=== PATIENT | female | born 1950 | race Caucasian/White ===

== ENCOUNTER 2018-10-01 14:40 | Emergency (ER) | payer MEDICARE ==
--- OUTSIDE RECORDS SUMMARY | 2018-10-01 14:43 | XMS REPORT ---
:1950 Author Organization eClinicalWorks Care Team Providers Name Role Phone Merritt Schulte Provider Role Unavailable Allergies, Adverse Reactions, Alerts Substance Reaction Event Type N.K.D.A. Info Not Available Non Drug Allergy Problems Problem Type Condition Code Onset Dates Condition Status Problem Dyspnea R06.00 Active Problem Sebaceous cyst L72.3 Active Problem Arthritis M19.90 Active Problem Primary osteoarthritis of right M17.11 Active knee Problem Pulmonary fibrosis J84.10 Active Problem Primary osteoarthritis of left knee M17.12 Active Problem COPD (chronic obstructive pulmonary J44.9 Active disease) Problem Benign essential HTN I10 Active Problem Osteoarthritis of both knees, M17.0 Active unspecified osteoarthritis type Problem Nicotine dependence F17.200 Active Assessment Primary osteoarthritis of right M17.11 Active knee Assessment Pain, joint, knee, left M25.562 Active Assessment Primary osteoarthritis of left knee M17.12 Active Problem Other chronic pain G89.29 Active Problem Pure hypercholesterolemia E78.00 Active Assessment Pain, joint, knee, right M25.561 Active Problem Vitamin D deficiency E55.9 Active Problem Skin lesion L98.9 Active Medications Medication Code Code Instructions Start End Status Dosage System Date Date Metoprolol [facility] 72712717892 50 MG Orally Active 1 tablet Tartrate Twice a day with food ProAir [facility] 67415954193 108 (90 Base) Active 2 puffs as RespiClick MCG/ACT needed Inhalation every 6 hrs Aspirin ND 27069613113 81 MG Orally Active 1 tablet Once a day NIFEdipine ND 55299721407 10 MG Orally Active 1 capsule Three times a day Lisinopril ND 67128065588 20 MG Orally Active 1 tablet Once a day Aleve ND 48102828615 220 MG Orally Active 1 tablet every 12 hrs with food or milk as needed Albuterol [facility] 82580227749 (2.5 MG/3ML) Active 3 ml as Sulfate 0.083% needed Inhalation Three times a day Symbicort ND 90832571600 160-4.5 MCG/ACT Active 2 puffs Inhalation Twice a day Results No Known Results Summary Purpose eClinicalWorks Submission
--- OUTSIDE RECORDS SUMMARY | 2018-10-01 14:44 | XMS REPORT ---
:1950 Author Organization e[employer]Works Care Team Providers Name Role Phone Sherman, Na Provider Role Unavailable Allergies No Known Allergies Problems Problem Type Condition Code Onset Dates Condition Status Problem Dyspnea R06.00 Active Problem Sebaceous cyst L72.3 Active Problem Arthritis M19.90 Active Problem Other chronic pain G89.29 Active Problem Pure hypercholesterolemia E78.00 Active Problem Vitamin D deficiency E55.9 Active Problem Skin lesion L98.9 Active Problem Primary osteoarthritis of right M17.11 Active knee Problem Pulmonary fibrosis J84.10 Active Problem Primary osteoarthritis of left knee M17.12 Active Problem COPD (chronic obstructive pulmonary J44.9 Active disease) Problem Benign essential HTN I10 Active Problem Osteoarthritis of both knees, M17.0 Active unspecified osteoarthritis type Problem Nicotine dependence F17.200 Active Medications No Known Medications Results No Known Results Summary Purpose eClinicalWorks Submission
--- OUTSIDE RECORDS SUMMARY | 2018-10-01 14:44 | XMS REPORT ---
[...] type Problem Nicotine dependence F17.200 Active Assessment Benign essential HTN I10 Active Problem Other chronic pain G89.29 Active Problem Pure hypercholesterolemia E78.00 Active Assessment COPD (chronic obstructive pulmonary J44.9 Active disease) Problem Vitamin D deficiency E55.9 Active Problem Skin lesion L98.9 Active Medications Medication Code Code Instructions Start End Status Dosage System Date Date NIFEdipine [facility] 40047790931 10 MG Orally Active 1 capsule Three times a day Symbicort [facility] 11330323825 160-4.5 MCG/ACT Active 2 puffs Inhalation Twice a day Lisinopril [facility] 89371200335 20 MG Orally Active 1 tablet Once a day ProAir [facility] 23842297117 108 (90 Base) Active 2 puffs as RespiClick MCG/ACT needed Inhalation every 6 hrs Results No Known Results Summary Purpose eClinicalWorks Submission
--- OUTSIDE RECORDS SUMMARY | 2018-10-01 14:44 | XMS REPORT ---
[...] osteoarthritis type Problem Nicotine dependence F17.200 Active Problem Other chronic pain G89.29 Active Problem Pure hypercholesterolemia E78.00 Active Assessment Benign essential HTN I10 Active Problem Vitamin D deficiency E55.9 Active Problem Skin lesion L98.9 Active Medications Medication Code Code Instructions Start End Status Dosage System Date Date Metoprolol [facility] 78597144068 50 MG Orally Active 1 tablet Tartrate Twice a day with food NIFEdipine ND 84685619303 10 MG Orally Active 1 capsule Three times a day Symbicort [facility] 89403589400 160-4.5 MCG/ACT Active 2 puffs Inhalation Twice a day Aleve ND 39131174312 220 MG Orally Active 1 tablet every 12 hrs with food or milk as needed Aspirin ND 55916322377 81 MG Orally Active 1 tablet Once a day Lisinopril [facility] 57982895115 20 MG Orally Active 1 tablet Once a day Procardia XL ND 27607833798 60 MG Orally Active 1 tablet Once a day ProAir [facility] 33929031303 108 (90 Base) Active 2 puffs as RespiClick MCG/ACT needed Inhalation every 6 hrs Albuterol ND 70529973961 (2.5 MG/3ML) Active 3 ml as Sulfate 0.083% needed Inhalation Three times a day Results No Known Results Summary Purpose eClinicalWorks Submission
--- OUTSIDE RECORDS SUMMARY | 2018-10-01 14:44 | XMS REPORT ---
:1950 Author Organization eClinicalWorks Care Team Providers Name Role Phone Sherman, Na Provider Role Unavailable Allergies, Adverse Reactions, Alerts Substance Reaction Event Type N.K.D.A. 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81 Active Problem Other chronic pain G89.29 Active Problem Arthritis M19.90 Active Assessment Other chronic pain G89.29 Active Problem Pure hypercholesterolemia E78.00 Active Problem Sebaceous cyst L72.3 Active Medications Medication Code Code Instructions Start End Status Dosage System Date Date Vitamin D3 [facility] 52930501411 - Orally Active not Complete defined Aspirin ND 03650297024 81 MG Orally Active 1 tablet Once a day Albuterol ND 35156539297 (2.5 MG/3ML) Active 3 ml as Sulfate 0.083% needed Inhalation Three times a day Lisinopril ND 75082524965 20 MG Orally Active 1 tablet Once a day Metoprolol ND 80796475741 50 MG Orally Active 1 tablet Tartrate Twice a day with food Symbicort ND 88820109903 160-4.5 MCG/ACT Mar 13, Active 2 puffs Inhalation Twice 2020 a day ProAir [facility] 57324421895 108 (90 Base) Active 2 puffs as RespiClick MCG/ACT needed Inhalation every 6 hrs Aleve [facility] 39575036712 220 MG Orally Active 1 tablet every 12 hrs with food or milk as needed Procardia XL [facility] 75676385813 60 MG Orally Active 1 tablet Once a day Results No Known Results Summary Purpose eClinicalWorks Submission
--- OUTSIDE RECORDS SUMMARY | 2018-10-01 14:44 | XMS REPORT | Summary of Care ---
:1950 Author Name HI GRAF M.D. Address Unavailable Unavailable , Care Team Providers Name Role Phone LESIA Christine, [place] Unavailable Unavailable MEYERS DO, NA LY Unavailable Unavailable LESIA [place], [place] Unavailable Unavailable DANIS [place], REILLY Cross Unavailable Unavailable Unavailable Unavailable Unavailable Functional Status Name Dates Details Functional status health issues are not documented Status: Name Dates Details Cognitive status health issues are not documented Status: Problems Name Dates Details Right hip pain (719.45, M25.551) Status: Active Closed fracture of trochanter of right femur with routine healing, subsequent encounter (V54.13, S72.101D) Status: Active Status post left hip replacement (V43.64, Z96.642) Status: Active Status post hip replacement, right (V43.64, Z96.641) Status: Active 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, 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) Status: Active 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, subsequent encounter ( V58.89, T84.52XD) Status: Active Draining postoperative wound, subsequent encounter (V58.89, T81.89XD) Status : Active Hip pain, left (719.45, M25.552) Status: Active Medications Name Dates Details NIFEdipine CR 60 MG TBCR Refills: 0 Active Lisinopril TABS Refills: 0 Active Metoprolol Succinate ER TB24 Refills: 0 Active Fish Oil OIL Refills: 0 Active Aspirin 81 MG TABS Refills: 0 Active Aleve 220 MG Oral Capsule Refills: 0 Active Vitamin D-3 5000 UNIT Oral Tablet Refills: 0 Active Multi Vitamin Daily Oral Tablet Refills: 0 Active Ventolin NEBU Refills: 0 Active PredniSONE TABS Refills: 0 Active Allergies and Adverse Reactions Name Dates Details No Known Drug Allergies (Allergy) Status: Active Past Medical History Name Dates Details History of Cancer (199.1, C80.1) Status: Resolved History of chronic obstructive lung disease (V12.69, Z87.09) Status: Resolved History of Hepatitis (573.3, K75.9) Status: Resolved History of High blood pressure (401.9, I10) Status: Resolved Procedures Procedure Dates Details Post Op Promis 29 Survey Date: 27-Aug-2018 Post Op Promis 29 Survey Date: 25-Sep-2018 History of Tubal Ligation Completed History of Fecal impaction procedure Completed History of Hip Replacement Right Completed History of Total Hip Replacement Left Completed Immunization Name Dates Details Immunizations not documented Family History Name Dates Details Family history of congestive heart failure (V17.49, Z82.49) Status: Active Family history of diabetes mellitus (V18.0, Z83.3) Status: Active Name Dates Details Family history of heart attack (V17.3, Z82.49) Status: Active Social History Name Dates Details - Status: Name Dates Details Former smoker Vital Signs Date Test Result Details [id number] Height 66 in Status: Body Mass Index Calculated 30.67 kg/m2 Status: Body Surface Area Calculated 1.96 m2 Status: Weight 190 lb Status: [id number]:13 Height 66 in Status: Body Mass Index Calculated 30.67 kg/m2 Status: Body Surface Area Calculated 1.96 m2 Status: Weight 190 lb Status: [id number] Height 66 in Status: Body Mass Index Calculated 30.67 kg/m2 Status: Body Surface Area Calculated 1.96 m2 Status: Weight 190 lb Status: Results Date Description Value Details Results not documented Plan of Care Name Dates Details Planned Observations Planned Goals not documented Planned Encounters Physical Therapy Referral Appointment; HI GRAF M.D. On: 30-Oct-2018 10:45 Interventions Provided PlanOverall improvement clinically. Wound continues to show evidence of progressive healing and no evidence of continued infection. Remainder of alban removed today and wound prepped and a Tegoderm applied to be removed in one week. Restart outpatient PT program and may wean off her walker. Lab values continue to decline as well and will monitor progress.RTC in 3 weeks. Instructions Name Dates Details Instructions not documented Encounters Appointment; HI GRAF M.D. On: 05-Jun-2018 13:30 Encounter Diagnosis: Problem not documented Appointment; HI GRAF M.D. On: 14-Jun-2018 9:00 Encounter Diagnosis: Problem not documented Appointment; HI GRAF M.D. On: 26-Jun-2018 14:45 Encounter Diagnosis: Problem not documented Appointment; HI GRAF M.D. On: 17-Jul-2018 14:30 Encounter Diagnosis: Problem not documented Appointment; HI GRAF M.D. On: 13-Aug-2018 13:00 Encounter Diagnosis: Problem not documented Appointment; TAYLOR HAMM NP On: 29-Aug-2018 10:45 Encounter Diagnosis: Problem not documented Appointment; HI GRAF M.D. On: 30-Aug-2018 13:00 Encounter Diagnosis: Problem not documented Appointment; HI GRAF M.D. On: 11-Sep-2018 10:30 Encounter Diagnosis: Problem not documented Appointment; HI GRAF M.D. On: 18-Sep-2018 10:45 Encounter Diagnosis: Problem not documented Appointment; HI GRAF M.D. On: 25-Sep-2018 10:30 Encounter Diagnosis: Problem not documented
--- OUTSIDE RECORDS SUMMARY | 2018-10-01 14:44 | XMS REPORT ---
:1950 [facility] Address [address] [place] [address] Care Team Providers Name Role Phone Unavailable Unavailable Unavailable Problems This patient has no known problems. Allergies, Adverse Reactions, Alerts This patient has no known allergies or adverse reactions. Medications This patient has no known medications. Encounters Start End Encounter Admission Attending Care Care Encounter Date/Time Date/Time Type Type Clinicians Facility Department ID 2018-08-30 Inpatient [facility] [id number] 09:07:00 2018-08-13 Inpatient [facility] [id number] 08:05:00 2018-06-14 [id number] 06:19:00 2018-08-30 2018-08-30 Outpatient [facility] [id number] 22:19:00 22:19:00 2018-08-30 2018-08-30 Emergency [facility] [id number] 09:07:00 09:07:00
[2018-10-01] MEDS ORDERED: ALTEPLASE 2 MG/VIAL IV PRN (15:39)
--- NOTE | 2018-10-01 15:55 | RAD REPORT ---
EXAM DESCRIPTION: RAD - Humerus Left - 10/01/2018 3:49 pm CLINICAL HISTORY: Left arm pain FINDINGS: No fracture is seen. No bony destructive lesion. PICC line is in place
--- NOTE | 2018-10-01 15:56 | RAD REPORT ---
EXAM DESCRIPTION: [place] Single View10/01/2018 3:49 pm CLINICAL HISTORY: Chest pain COMPARISON: March 2018 FINDINGS: The lungs appear clear of acute infiltrate. The heart is borderline enlarged. PICC line has its tip in the distal superior vena cava
[2018-10-01] MEDS ORDERED: ALTEPLASE 2 MG/VIAL IV ONE (16:00)
--- NOTE | 2018-10-01 17:13 | ER ---
Nurse's Notes [facility] Name: Indira Lovett Age: 68 yrs Sex: Female : 1950 Arrival Date: 10/01/2018 Time: 14:41 Bed 17 Private MD: Adriana Sherman Diagnosis: Encounter for adjustment and management of unspecified implanted device-obstructed PICC line Presentation: 10/01 14:43 Presenting complaint: Patient states: LUE PICC line clogged per home health. Transition aj of care: patient was not received from another setting of care. Onset of symptoms was October 01, 2018. Risk Assessment: Do you want to hurt yourself or someone else? Patient reports no desire to harm self or others. Initial Sepsis Screen: Does the patient meet any 2 criteria? No. Patient's initial sepsis screen is negative. Does the patient have a suspected source of infection? No. Patient's initial sepsis screen is negative. Care prior to arrival: None. 14:43 Method Of Arrival: Ambulatory aj 14:43 Acuity: DONNIE 4 aj Triage Assessment: 14:43 General: Appears in no apparent distress. comfortable, Behavior is calm, cooperative, aj appropriate for age. Pain: Denies pain. Neuro: Level of Consciousness is awake, alert, obeys commands, Oriented to person, place, time, situation, Appropriate for age. Respiratory: Airway is patent Respiratory effort is even, unlabored, Respiratory pattern is regular, symmetrical. Derm: Skin is intact, is healthy with good turgor, Skin is pink, warm \T\ dry. normal. Historical: - Allergies: 14:48 No Known Allergies; aj - Immunization history:: Adult Immunizations up to date. - Social history:: Smoking status: Patient/guardian denies using tobacco. - Ebola Screening: : Patient negative for fever greater than or equal to 101.5 degrees Fahrenheit, and additional compatible Ebola Virus Disease symptoms Patient denies exposure to infectious person Patient denies travel to an Ebola-affected area in the 21 days before illness onset No symptoms or risks identified at this time. Screenin:34 Abuse screen: Denies threats or abuse. Denies injuries from another. Nutritional sg screening: No deficits noted. Tuberculosis screening: No symptoms or risk factors identified. Never had TB. Fall Risk None identified. Assessment: 15:33 Reassessment: xray at bedside at this time. sg 15:43 General: Appears in no apparent distress. well groomed, well developed, well nourished, sg Behavior is calm, cooperative, appropriate for age. Pain: Denies pain. Neuro: Level of Consciousness is awake, alert, obeys commands, Oriented to person, place, time, Director Search are equal bilaterally Moves all extremities. Full function Gait is steady, Speech is normal, Facial symmetry appears normal. Cardiovascular: Capillary refill is brisk in bilateral fingers Patient's skin is warm and dry. Chest pain is denied. Respiratory: Airway is patent Respiratory effort is even, unlabored, Respiratory pattern is regular, symmetrical. GI: Abdomen is round non-distended. : No signs and/or symptoms were reported regarding the genitourinary system. EENT: No signs and/or symptoms were reported regarding the EENT system. Derm: Skin is pink, warm \T\ dry. Musculoskeletal: No signs and/or symptoms reported regarding the musculoskeletal system. 17:00 Reassessment: 10 mL removed from purple port, flushed purple port with 20 mL NS easy sg with no resistance. 10 mL removed from red port, flushed red port with 20 mL of NS easy with no resistance, pt tolerated well, pt to be dc'd to home. Vital Signs: 14:48 BP 177 / 56; Pulse 95; Resp 19; Temp 98.8; Pulse Ox 93% on R/A; Weight 90.72 kg; Height aj 5 ft. 4 in. (162.56 cm); 14:48 Body Mass Index 34.33 (90.72 kg, 162.56 cm) ED Course: 14:41 Patient arrived in ED. cl3 14:43 Triage completed. aj 14:43 Arm band placed on left wrist. Patient placed in an exam room. aj 14:44 Adriana Sherman MD is Private Physician. cl3 14:52 Ariel Sanford, ANISA is Primary Nurse. sg 15:18 Mirza Tran PA is PHCP. cp 15:18 Mirza Lindsay MD is Attending Physician. cp 15:33 Patient has correct armband on for positive identification. sg 15:33 No provider procedures requiring assistance completed. sg 15:49 XRAY Chest (1 view) In Process Unspecified. EDMS 15:49 XRAY Humerus LEFT In Process Unspecified. EDMS Administered Medications: 16:15 Drug: Cathflo Activase 2 mg Route: IV Thrombolytics; sg 17:00 Follow up: Response: No adverse reaction; Other; Bilateral ports working at this time sg Intake: Outcome: 17:12 Discharge ordered by MD. cp 17:15 Discharged to home ambulatory, with family. sg 17:15 Condition: good 17:15 Instructed on discharge instructions, follow up and referral plans. safety practices, PICC line care at home Demonstrated understanding of instructions, follow-up care. 17:18 Patient left the ED. bd Signatures: Dispatcher [employer] EDMS Yuni Cervantes Steven, RN RN sg Myers, Amanda, RN RN aj Page, Corey, PA PA cp Lewis, Charde cl3
--- NOTE | 2018-10-01 17:14 | EDPHYS ---
Physician Documentation [facility] Name: Indira Lovett Age: 68 yrs Sex: Female : 1950 Arrival Date: 10/01/2018 Time: 14:41 Bed 17 Private MD: Adriana Sherman ED Physician Mirza Lindsay HPI: 10/01 15:45 This 68 yrs old Female presents to ER via Ambulatory with complaints of cp CLOGGED PICCLINE. 15:45 obstructed PICC line. Referred to ED by home health today after antibiotics were unable cp to be given due obstructed PICC line. 15:45 Onset: The symptoms/episode began/occurred today. cp 15:45 Severity of symptoms: in the emergency department the symptoms are unchanged despite cp home interventions. Historical: - Allergies: 14:48 No Known Allergies; aj - Immunization history:: Adult Immunizations up to date. - Social history:: Smoking status: Patient/guardian denies using tobacco. - Ebola Screening: : Patient negative for fever greater than or equal to 101.5 degrees Fahrenheit, and additional compatible Ebola Virus Disease symptoms Patient denies exposure to infectious person Patient denies travel to an Ebola-affected area in the 21 days before illness onset No symptoms or risks identified at this time. ROS: 15:50 Constitutional: Negative for body aches, chills, fever, poor PO intake. cp 15:50 Cardiovascular: Negative for chest pain. cp 15:50 Respiratory: Negative for cough, shortness of breath, wheezing. 15:50 Abdomen/GI: Negative for abdominal pain, nausea, vomiting, and diarrhea. 15:50 Skin: Negative for rash. 15:50 Neuro: Negative for altered mental status, headache. 15:50 All other systems are negative. Exam: 16:00 Head/Face: Normocephalic, atraumatic. cp 16:00 Constitutional: The patient appears in no acute distress, alert, awake, non-toxic, well developed, well nourished. 16:00 Eyes: Periorbital structures: appear normal, Conjunctiva: normal, Lids and lashes: appear normal, bilaterally. 16:00 Chest/axilla: Inspection: normal. 16:00 Cardiovascular: Rate: normal. 16:00 Respiratory: the patient does not display signs of respiratory distress, Respirations: normal, no use of accessory muscles, no retractions, no splinting, no tachypnea, labored breathing, is not present. 16:00 Musculoskeletal/extremity: Extremities: grossly normal except: noted in the left upper arm: double lumen catheter in place without swelling or erythema noted. 16:00 Skin: no rash present. Vital Signs: 14:48 BP 177 / 56; Pulse 95; Resp 19; Temp 98.8; Pulse Ox 93% on R/A; Weight 90.72 kg; Height aj 5 ft. 4 in. (162.56 cm); 14:48 Body Mass Index 34.33 (90.72 kg, 162.56 cm) aj MDM: 15:19 Patient medically screened. [facility] 17:00 Differential Diagnosis obstructed catheter, dislodged catheter. 17:11 Data reviewed: vital signs, nurses notes, radiologic studies, plain films, and as a cp result, I will discharge patient. 17:11 Counseling: I had a detailed discussion with the patient and/or guardian regarding: the cp historical points, exam findings, and any diagnostic results supporting the discharge/admit diagnosis, radiology results, to return to the emergency department if symptoms worsen or persist or if there are any questions or concerns that arise at home. Response to treatment: the patient's symptoms have markedly improved after treatment, VSS. Cathflow used to un obstruct PICC line. Will discharge to home for continued monitoring. 10/01 15:24 Order name: XRAY Chest (1 view); Complete Time: 17:19 10/01 17:16 Interpretation: Report review. 10/01 15:24 Order name: XRAY Humerus LEFT; Complete Time: 17:19 10/01 17:16 Interpretation: Report reviewed. Administered Medications: 16:15 Drug: Cathflo Activase 2 mg Route: IV Thrombolytics; sg 17:00 Follow up: Response: No adverse reaction; Other; Bilateral ports working at this time sg Disposition: 17:30 Chart complete. 10/02 07:46 Co-signature as Attending Physician, Mirza Lindsay MD I agree with the assessment and [facility] plan of care. Disposition: 10/01/18 17:12 Discharged to Home. Impression: Encounter for adjustment and management of unspecified implanted device - obstructed PICC line. - Condition is Stable. - Discharge Instructions: PICC Home Guide, PICC Insertion, Care After. - Medication Reconciliation Form, Thank You Letter, Antibiotic Education, Prescription Opioid Use form. - Follow up: Private Physician; When: 1 - 2 days; Reason: Recheck today's complaints. - Problem is new. - Symptoms have improved. Signatures: Dispatcher [employer] EDMS Yuni Cervantes Ariel Gaitan RN Claudette Melissa RN RN aj Anderson, Corey, MD MD cha Page, Corey, PA PA cp Corrections: (The following items were deleted from the chart) 10/01 17:18 17:12 10/01/2018 17:12 Discharged to Home. Impression: Encounter for adjustment and bd management of unspecified implanted device - obstructed PICC line. Condition is Stable. Forms are Medication Reconciliation Form, Thank You Letter, Antibiotic Education, Prescription Opioid Use. Follow up: Private Physician; When: 1 - 2 days; Reason: Recheck today's complaints. Problem is new. Symptoms have improved. cp
== END 2018-10-01 17:18 | disposition home or self-care (01) ==
LOC: ER 14:40
DX: Z45.2 Encounter for adjustment and management of vascular access device (principal)
CPT/HCPCS: 92977; 71045; 73060; 99291; J2997

== ENCOUNTER 2021-12-21 05:29 | Inpatient (IN) | payer MEDICARE ==
--- OUTSIDE RECORDS SUMMARY | 2021-12-21 05:34 | XMS REPORT | Continuity of Care Document ---
:1950 Author Organization [facility] t Address [address] [place] [address] [address]. [address] [place] [address] Care Team Providers Name Role Phone Adriana Sherman Attending Clinician Unavailable BETZAIDA_S Attending Clinician Unavailable HI GRAF M.D. Attending Clinician Unavailable TAYLOR HAMM NP Attending Clinician Unavailable Adriana Sherman Admitting Clinician Unavailable BETZAIDA_Tirso Admitting Clinician Unavailable Payers Payer Name Policy Type Policy Number Effective Date Expiration Date S steve [facility] [id number] 2021 (MEDICARE 00:00:00 REPLACEMENT HMO) AARP Medicare 53 [id number] 2018 Common Complete 00:00:00 [facility] Problems Condition Condition Condition Status Onset Resolution Last Treating Co mments Source Name Details Category Date Date Treatment Clinician Date History of History of Problem Resolve [facility] Cancer Cancer d Physici ans History of History of Problem Resolve [facility] chronic chronic d Physici obstructiv obstructiv an s e lung e lung disease disease History of History of Problem Resolve UT Hepatitis Hepatitis d Phys ici ans History of History of Problem Resolve UT High blood High blood d Ph ysici pressure pressure ans Osteoarthr Osteoarthr Problem Active U T itis of itis of Physici both hips both hips ans 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 Hip pain, Hip pain, Problem Active UT left left Physici ans Closed Closed Problem Active UT fracture fracture Physic i of of ans trochanter trochanter of right of right femur with femur with routine routine healing, healing, subsequent subsequent encounter encounter Draining Draining Problem Active UT postoperat postoperat Ph ysici nate wound, nate wound, an s subsequent subsequent encounter encounter Infection Infection Problem Active UT associated associated Ph ysici with with ans internal internal left hip left hip prosthesis prosthesis , , subsequent subsequent encounter encounter [id number] Uncontroll Problem Co mmon ed type 2 [facility] diabetes - [facility] mellitus [facility] hyperglyce [facility] [id number] Other Problem Common chronic [facility] pain [facility] [id number] Vitamin D Problem Comm on deficiency [facility] [id number] Pure Problem Common hyperchole [facility] sterolemia [facility] Arthritis Arthritis Problem Com mon [facility] Dyspnea Dyspnea Problem Common [facility] Essential Benign Problem Common hypertensi essential Spi rit on HTN [facility] Sebaceous Sebaceous Problem Com mon cyst cyst [facility] Nicotine Nicotine Problem Commo n dependence [facility] Osteoarth[facility] Problem C ommon itis of itis of [facility] knee [facility], [facility] type [id number] Pulmonary Problem Comm on fibrosis [facility] Gastroesop Gastroesop Problem C omemory [facility] hageal hageal [facility] reflux reflux - [facility], [facility] specified Skin Skin Problem Common lesion lesion [facility] COPD - COPD Problem Common Chronic (chronic Spirit obstructiv obstructiv - [facility] e e pulmonary pulmonary [place] s disease disease) [facility] [place] [id number] Primary Problem Comm on osteoarthr Spirit itis of - [facility] right knee [facility] [id number] Primary Problem Comm on osteoarthr Spirit itis of - [facility] left knee [facility] [id number] Unsteady Problem Comm on gait [facility] [id number] Status Problem Common post Spirit bilateral - [facility] hip [facility] Allergies, Adverse Reactions, Alerts This patient has no known allergies or adverse reactions. Family History Family Member Diagnosis Comments Start Date Stop Date Source Mother Family history of [facility] congestive heart failure Mother Family history of diabetes [facility] mellitus Father Family history of heart [facility] attack Social History Social Habit Start Date Stop Date Quantity Comments Source History of Tobacco Use Co mmon [facility] Sex Assigned At [facility] Smoking Status Start Date Stop Date Source Former Smoker 2021-12-01 00:00:00 2021-12-01 00:00:00 Common S [facility] Medications Ordered Filled Start Stop Current Ordering Indication Dosage Frequency Signature Comments Components Source Medication Medication Date Date Medication? Clinician (SIG) Name Name Dean Hidalgotati No 1{table QD Atorvastat n Calcium n Calcium 3-02 t_at_be in Calcium 20 MG 20 MG 00:00: dtime} 20 MG 00 metFORMIN metFORMIN No 1{table BID metFORMIN HCl 1000 MG HCl 1000 MG 3-02 t_with_ HCl 1000 00:00: a_meal} MG 00 Atorvastati Atorvastati No 1{table QD Atorvastat n Calcium n Calcium 3-02 t_at_be in Calcium 20 MG 20 MG 00:00: dtime} 20 MG 00 metFORMIN metFORMIN No 1{table BID metFORMIN HCl 1000 MG HCl 1000 MG 3-02 t_with_ HCl 1000 00:00: a_meal} MG 00 Atorvastati Atorvastati No 1{table QD Atorvastat n Calcium n Calcium 3-02 t_at_be in Calcium 20 MG 20 MG 00:00: dtime} 20 MG 00 metFORMIN metFORMIN No 1{table BID metFORMIN HCl 1000 MG HCl 1000 MG 3-02 t_with_ HCl 1000 00:00: a_meal} MG 00 Atorvastati Atorvastati No 1{table QD Atorvastat n Calcium n Calcium 3-02 t_at_be in Calcium 20 MG 20 MG 00:00: dtime} 20 MG 00 metFORMIN metFORMIN No 1{table BID metFORMIN HCl 1000 MG HCl 1000 MG 3-02 t_with_ HCl 1000 00:00: a_meal} MG 00 Procardia Procardia Yes Na Sherman 1 tablet Common XL XL [facility] ProAir ProAir No 2{puffs QID ProAir RespiClick RespiClick _as_nee RespiClick 108 (90 108 (90 ded} 108 (90 Base) Base) Base) MCG/ACT MCG/ACT MCG/ACT Lisinopril Lisinopril No 1{table QD Lisinopril 30 MG 30 MG t} 30 MG Procardia Procardia No 1{table Procardia XL 90 MG XL 90 MG t} XL 90 MG NIFEdipine NIFEdipine No QD NIFEdipine ER Osmotic ER Osmotic ER Osmotic Release 90 Release 90 Release 90 MG MG MG Metoprolol Metoprolol No 1{table BID Metoprolol Tartrate 50 Tartrate 50 t_with_ Tartrate MG MG food} 50 MG Albuterol Albuterol No 3{ml_as TID Albuterol Sulfate Sulfate _needed Sulfate (2.5 (2.5 } (2.5 MG/3ML) MG/3ML) MG/3ML) 0.083% 0.083% 0.083% Lisinopril Lisinopril No QD Lisinopril 20 MG 20 MG 20 MG Aspirin 81 Aspirin 81 No 1{table QD Aspirin 81 MG MG t} MG Levaquin Levaquin No 1{table QD Levaquin 500 MG 500 MG t} 500 MG Diclofenac Diclofenac No 1{table BID Diclofenac Sodium 75 Sodium 75 t} Sodium 75 MG MG MG Trelegy Trelegy No 1{puff} QD Trelegy Ellipta Ellipta Ellipta 100-62.5-25 100-62.5-25 100-62.5-2 MCG/INH MCG/INH 5 MCG/INH ProAir ProAir No 2{puffs QID ProAir RespiClick RespiClick _as_nee RespiClick 108 (90 108 (90 ded} 108 (90 Base) Base) Base) MCG/ACT MCG/ACT MCG/ACT Lisinopril Lisinopril No 1{table QD Lisinopril 30 MG 30 MG t} 30 MG Procardia Procardia No 1{table Procardia XL 90 MG XL 90 MG t} XL 90 MG NIFEdipine NIFEdipine No QD NIFEdipine ER Osmotic ER Osmotic ER Osmotic Release 90 Release 90 Release 90 MG MG MG Metoprolol Metoprolol No 1{table BID Metoprolol Tartrate 50 Tartrate 50 t_with_ Tartrate MG MG food} 50 MG Albuterol Albuterol No 3{ml_as TID Albuterol Sulfate Sulfate _needed Sulfate (2.5 (2.5 } (2.5 MG/3ML) MG/3ML) MG/3ML) 0.083% 0.083% 0.083% Lisinopril Lisinopril No QD Lisinopril 20 MG 20 MG 20 MG Aspirin 81 Aspirin 81 No 1{table QD Aspirin 81 MG MG t} MG Levaquin Levaquin No 1{table QD Levaquin 500 MG 500 MG t} 500 MG Diclofenac Diclofenac No 1{table BID Diclofenac Sodium 75 Sodium 75 t} Sodium 75 MG MG MG Trelegy Trelegy No 1{puff} QD Trelegy Ellipta Ellipta Ellipta 100-62.5-25 100-62.5-25 100-62.5-2 MCG/INH MCG/INH 5 MCG/INH Lisinopril Lisinopril No QD Lisinopril 20 MG 20 MG 20 MG Procardia Procardia No 1{table Procardia XL 90 MG XL 90 MG t} XL 90 MG NIFEdipine NIFEdipine No QD NIFEdipine ER Osmotic ER Osmotic ER Osmotic Release 90 Release 90 Release 90 MG MG MG Metoprolol Metoprolol No 1{table BID Metoprolol Tartrate 50 Tartrate 50 t_with_ Tartrate MG MG food} 50 MG Albuterol Albuterol No 3{ml_as TID Albuterol Sulfate Sulfate _needed Sulfate (2.5 (2.5 } (2.5 MG/3ML) MG/3ML) MG/3ML) 0.083% 0.083% 0.083% Diclofenac Diclofenac No 1{table BID Diclofenac Sodium 75 Sodium 75 t} Sodium 75 MG MG MG Trelegy Trelegy No 1{puff} QD Trelegy Ellipta Ellipta Ellipta 100-62.5-25 100-62.5-25 100-62.5-2 MCG/INH MCG/INH 5 MCG/INH ProAir ProAir No 2{puffs QID ProAir RespiClick RespiClick _as_nee RespiClick 108 (90 108 (90 ded} 108 (90 Base) Base) Base) MCG/ACT MCG/ACT MCG/ACT Aspirin 81 Aspirin 81 No 1{table QD Aspirin 81 MG MG t} MG Levaquin Levaquin No 1{table QD Levaquin 500 MG 500 MG t} 500 MG Lisinopril Lisinopril No Lisinopril 30 MG 30 MG 30 MG Albuterol Albuterol No 3{ml_as TID Albuterol Sulfate Sulfate _needed Sulfate (2.5 (2.5 } (2.5 MG/3ML) MG/3ML) MG/3ML) 0.083% 0.083% 0.083% Diclofenac Diclofenac No 1{table BID Diclofenac Sodium 75 Sodium 75 t} Sodium 75 MG MG MG NIFEdipine NIFEdipine No QD NIFEdipine ER Osmotic ER Osmotic ER Osmotic Release 90 Release 90 Release 90 MG MG MG Procardia Procardia No 1{table Procardia XL 90 MG XL 90 MG t} XL 90 MG Aspirin 81 Aspirin 81 No 1{table QD Aspirin 81 MG MG t} MG Levaquin Levaquin No 1{table QD Levaquin 500 MG 500 MG t} 500 MG Lisinopril Lisinopril No QD Lisinopril 20 MG 20 MG 20 MG Trelegy Trelegy No 1{puff} QD Trelegy Ellipta Ellipta Ellipta 100-62.5-25 100-62.5-25 100-62.5-2 MCG/INH MCG/INH 5 MCG/INH Metoprolol Metoprolol No 1{table BID Metoprolol Tartrate 50 Tartrate 50 t_with_ Tartrate MG MG food} 50 MG ProAir ProAir No 2{puffs QID ProAir RespiClick RespiClick _as_nee RespiClick 108 (90 108 (90 ded} 108 (90 Base) Base) Base) MCG/ACT MCG/ACT MCG/ACT Lisinopril Lisinopril No Lisinopril 30 MG 30 MG 30 MG Trelegy Trelegy No 1{puff} QD Trelegy Ellipta Ellipta Ellipta 100-62.5-25 100-62.5-25 100-62.5-2 MCG/INH MCG/INH 5 MCG/INH Lisinopril Lisinopril No 1{table QD Lisinopril 20 MG 20 MG t} 20 MG Lisinopril Lisinopril No QD Lisinopril 20 MG 20 MG 20 MG Procardia Procardia No 1{table Procardia XL 90 MG XL 90 MG t} XL 90 MG Aspirin 81 Aspirin 81 No 1{table QD Aspirin 81 MG MG t} MG Albuterol Albuterol No 3{ml_as TID Albuterol Sulfate Sulfate _needed Sulfate (2.5 (2.5 } (2.5 MG/3ML) MG/3ML) MG/3ML) 0.083% 0.083% 0.083% Atorvastati Atorvastati No 1{table QD Atorvastat n Calcium n Calcium t_at_be in Calcium 20 MG 20 MG dtime} 20 MG ProAir ProAir No 2{puffs QID ProAir RespiClick RespiClick _as_nee RespiClick 108 (90 108 (90 ded} 108 (90 Base) Base) Base) MCG/ACT MCG/ACT MCG/ACT NIFEdipine NIFEdipine No QD NIFEdipine ER Osmotic ER Osmotic ER Osmotic Release 90 Release 90 Release 90 MG MG MG metFORMIN metFORMIN No BID metFORMIN HCl 1000 MG HCl 1000 MG HCl 1000 MG Metoprolol Metoprolol No 1{table BID Metoprolol Tartrate 50 Tartrate 50 t_with_ Tartrate MG MG food} 50 MG metFORMIN metFORMIN No BID metFORMIN HCl 1000 MG HCl 1000 MG HCl 1000 MG Trelegy Trelegy No 1{puff} QD Trelegy Ellipta Ellipta Ellipta 100-62.5-25 100-62.5-25 100-62.5-2 MCG/INH MCG/INH 5 MCG/INH Lisinopril Lisinopril No 1{table QD Lisinopril 20 MG 20 MG t} 20 MG Procardia Procardia No 1{table Procardia XL 90 MG XL 90 MG t} XL 90 MG Metoprolol Metoprolol No Metoprolol Tartrate 50 Tartrate 50 Tartrate MG MG 50 MG Aspirin 81 Aspirin 81 No 1{table QD Aspirin 81 MG MG t} MG Albuterol Albuterol No 3{ml_as TID Albuterol Sulfate Sulfate _needed Sulfate (2.5 (2.5 } (2.5 MG/3ML) MG/3ML) MG/3ML) 0.083% 0.083% 0.083% Atorvastati Atorvastati No 1{table QD Atorvastat n Calcium n Calcium t_at_be in Calcium 20 MG 20 MG dtime} 20 MG ProAir ProAir No 2{puffs QID ProAir RespiClick RespiClick _as_nee RespiClick 108 (90 108 (90 ded} 108 (90 Base) Base) Base) MCG/ACT MCG/ACT MCG/ACT Lisinopril Lisinopril No QD Lisinopril 20 MG 20 MG 20 MG metFORMIN metFORMIN No BID metFORMIN HCl 1000 MG HCl 1000 MG HCl 1000 MG NIFEdipine NIFEdipine No NIFEdipine ER Osmotic ER Osmotic ER Osmotic Release 90 Release 90 Release 90 MG MG MG metFORMIN metFORMIN No BID metFORMIN HCl 1000 MG HCl 1000 MG HCl 1000 MG Trelegy Trelegy No 1{puff} QD Trelegy Ellipta Ellipta Ellipta 100-62.5-25 100-62.5-25 100-62.5-2 MCG/INH MCG/INH 5 MCG/INH Lisinopril Lisinopril No 1{table QD Lisinopril 20 MG 20 MG t} 20 MG Procardia Procardia No 1{table Procardia XL 90 MG XL 90 MG t} XL 90 MG Metoprolol Metoprolol No Metoprolol Tartrate 50 Tartrate 50 Tartrate MG MG 50 MG Aspirin 81 Aspirin 81 No 1{table QD Aspirin 81 MG MG t} MG Albuterol Albuterol No 3{ml_as TID Albuterol Sulfate Sulfate _needed Sulfate (2.5 (2.5 } (2.5 MG/3ML) MG/3ML) MG/3ML) 0.083% 0.083% 0.083% Atorvastati Atorvastati No 1{table QD Atorvastat n Calcium n Calcium t_at_be in Calcium 20 MG 20 MG dtime} 20 MG ProAir ProAir No 2{puffs QID ProAir RespiClick RespiClick _as_nee RespiClick 108 (90 108 (90 ded} 108 (90 Base) Base) Base) MCG/ACT MCG/ACT MCG/ACT Lisinopril Lisinopril No QD Lisinopril 20 MG 20 MG 20 MG metFORMIN metFORMIN No BID metFORMIN HCl 1000 MG HCl 1000 MG HCl 1000 MG NIFEdipine NIFEdipine No NIFEdipine ER Osmotic ER Osmotic ER Osmotic Release 90 Release 90 Release 90 MG MG MG metFORMIN metFORMIN No BID metFORMIN HCl 1000 MG HCl 1000 MG HCl 1000 MG Trelegy Trelegy No 1{puff} QD Trelegy Ellipta Ellipta Ellipta 100-62.5-25 100-62.5-25 100-62.5-2 MCG/INH MCG/INH 5 MCG/INH Lisinopril Lisinopril No 1{table QD Lisinopril 20 MG 20 MG t} 20 MG Procardia Procardia No 1{table Procardia XL 90 MG XL 90 MG t} XL 90 MG Metoprolol Metoprolol No Metoprolol Tartrate 50 Tartrate 50 Tartrate MG MG 50 MG Aspirin 81 Aspirin 81 No 1{table QD Aspirin 81 MG MG t} MG Albuterol Albuterol No 3{ml_as TID Albuterol Sulfate Sulfate _needed Sulfate (2.5 (2.5 } (2.5 MG/3ML) MG/3ML) MG/3ML) 0.083% 0.083% 0.083% Atorvastati Atorvastati No 1{table QD Atorvastat n Calcium n Calcium t_at_be in Calcium 20 MG 20 MG dtime} 20 MG ProAir ProAir No 2{puffs QID ProAir RespiClick RespiClick _as_nee RespiClick 108 (90 108 (90 ded} 108 (90 Base) Base) Base) MCG/ACT MCG/ACT MCG/ACT Lisinopril Lisinopril No QD Lisinopril 20 MG 20 MG 20 MG metFORMIN metFORMIN No BID metFORMIN HCl 1000 MG HCl 1000 MG HCl 1000 MG NIFEdipine NIFEdipine No NIFEdipine ER Osmotic ER Osmotic ER Osmotic Release 90 Release 90 Release 90 MG MG MG metFORMIN metFORMIN No BID metFORMIN HCl 1000 MG HCl 1000 MG HCl 1000 MG Atorvastati Atorvastati No 1{table QD Atorvastat n Calcium n Calcium t_at_be in Calcium 20 MG 20 MG dtime} 20 MG metFORMIN metFORMIN No BID metFORMIN HCl 1000 MG HCl 1000 MG HCl 1000 MG Trelegy Trelegy No 1{puff} QD Trelegy Ellipta Ellipta Ellipta 100-62.5-25 100-62.5-25 100-62.5-2 MCG/INH MCG/INH 5 MCG/INH Metoprolol Metoprolol No Metoprolol Tartrate 50 Tartrate 50 Tartrate MG MG 50 MG NIFEdipine NIFEdipine No NIFEdipine ER Osmotic ER Osmotic ER Osmotic Release 90 Release 90 Release 90 MG MG MG Aspirin 81 Aspirin 81 No 1{table QD Aspirin 81 MG MG t} MG Lisinopril Lisinopril No QD Lisinopril 20 MG 20 MG 20 MG Metoprolol Metoprolol No 1{table BID Metoprolol Tartrate 50 Tartrate 50 t_with_ Tartrate MG MG food} 50 MG Albuterol Albuterol No 3{ml_as TID Albuterol Sulfate Sulfate _needed Sulfate (2.5 (2.5 } (2.5 MG/3ML) MG/3ML) MG/3ML) 0.083% 0.083% 0.083% Lisinopril Lisinopril No 1{table QD Lisinopril 20 MG 20 MG t} 20 MG ProAir ProAir No 2{puffs QID ProAir RespiClick RespiClick _as_nee RespiClick 108 (90 108 (90 ded} 108 (90 Base) Base) Base) MCG/ACT MCG/ACT MCG/ACT metFORMIN metFORMIN No BID metFORMIN HCl 1000 MG HCl 1000 MG HCl 1000 MG Procardia Procardia No 1{table Procardia XL 90 MG XL 90 MG t} XL 90 MG Atorvastati Atorvastati No 1{table QD Atorvastat n Calcium n Calcium t_at_be in Calcium 20 MG 20 MG dtime} 20 MG metFORMIN metFORMIN No BID metFORMIN HCl 1000 MG HCl 1000 MG HCl 1000 MG Trelegy Trelegy No 1{puff} QD Trelegy Ellipta Ellipta Ellipta 100-62.5-25 100-62.5-25 100-62.5-2 MCG/INH MCG/INH 5 MCG/INH Metoprolol Metoprolol No Metoprolol Tartrate 50 Tartrate 50 Tartrate MG MG 50 MG NIFEdipine NIFEdipine No NIFEdipine ER Osmotic ER Osmotic ER Osmotic Release 90 Release 90 Release 90 MG MG MG Aspirin 81 Aspirin 81 No 1{table QD Aspirin 81 MG MG t} MG Lisinopril Lisinopril No QD Lisinopril 20 MG 20 MG 20 MG Metoprolol Metoprolol No 1{table BID Metoprolol Tartrate 50 Tartrate 50 t_with_ Tartrate MG MG food} 50 MG Albuterol Albuterol No 3{ml_as TID Albuterol Sulfate Sulfate _needed Sulfate (2.5 (2.5 } (2.5 MG/3ML) MG/3ML) MG/3ML) 0.083% 0.083% 0.083% Lisinopril Lisinopril No 1{table QD Lisinopril 20 MG 20 MG t} 20 MG ProAir ProAir No 2{puffs QID ProAir RespiClick RespiClick _as_nee RespiClick 108 (90 108 (90 ded} 108 (90 Base) Base) Base) MCG/ACT MCG/ACT MCG/ACT metFORMIN metFORMIN No BID metFORMIN HCl 1000 MG HCl 1000 MG HCl 1000 MG Procardia Procardia No 1{table Procardia XL 90 MG XL 90 MG t} XL 90 MG Atorvastati Atorvastati No 1{table QD Atorvastat n Calcium n Calcium t_at_be in Calcium 20 MG 20 MG dtime} 20 MG metFORMIN metFORMIN No BID metFORMIN HCl 1000 MG HCl 1000 MG HCl 1000 MG Trelegy Trelegy No 1{puff} QD Trelegy Ellipta Ellipta Ellipta 100-62.5-25 100-62.5-25 100-62.5-2 MCG/INH MCG/INH 5 MCG/INH Metoprolol Metoprolol No Metoprolol Tartrate 50 Tartrate 50 Tartrate MG MG 50 MG NIFEdipine NIFEdipine No NIFEdipine ER Osmotic ER Osmotic ER Osmotic Release 90 Release 90 Release 90 MG MG MG Aspirin 81 Aspirin 81 No 1{table QD Aspirin 81 MG MG t} MG Lisinopril Lisinopril No QD Lisinopril 20 MG 20 MG 20 MG Metoprolol Metoprolol No 1{table BID Metoprolol Tartrate 50 Tartrate 50 t_with_ Tartrate MG MG food} 50 MG Albuterol Albuterol No 3{ml_as TID Albuterol Sulfate Sulfate _needed Sulfate (2.5 (2.5 } (2.5 MG/3ML) MG/3ML) MG/3ML) 0.083% 0.083% 0.083% Lisinopril Lisinopril No 1{table QD Lisinopril 20 MG 20 MG t} 20 MG ProAir ProAir No 2{puffs QID ProAir RespiClick RespiClick _as_nee RespiClick 108 (90 108 (90 ded} 108 (90 Base) Base) Base) MCG/ACT MCG/ACT MCG/ACT metFORMIN metFORMIN No BID metFORMIN HCl 1000 MG HCl 1000 MG HCl 1000 MG Procardia Procardia No 1{table Procardia XL 90 MG XL 90 MG t} XL 90 MG Lisinopril Lisinopril No 1{table QD Lisinopril 30 MG 30 MG t} 30 MG Trelegy Trelegy No 1{puff} QD Trelegy Ellipta Ellipta Ellipta 100-62.5-25 100-62.5-25 100-62.5-2 MCG/INH MCG/INH 5 MCG/INH Metoprolol Metoprolol No 1{table BID Metoprolol Tartrate 50 Tartrate 50 t_with_ Tartrate MG MG food} 50 MG Aspirin 81 Aspirin 81 No 1{table QD Aspirin 81 MG MG t} MG ProAir ProAir No 2{puffs QID ProAir RespiClick RespiClick _as_nee RespiClick 108 (90 108 (90 ded} 108 (90 Base) Base) Base) MCG/ACT MCG/ACT MCG/ACT Albuterol Albuterol No 3{ml_as TID Albuterol Sulfate Sulfate _needed Sulfate (2.5 (2.5 } (2.5 MG/3ML) MG/3ML) MG/3ML) 0.083% 0.083% 0.083% Symbicort Symbicort No Symbicort 160-4.5 160-4.5 160-4.5 MCG/ACT MCG/ACT MCG/ACT NIFEdipine NIFEdipine No NIFEdipine ER Osmotic ER Osmotic ER Osmotic Release 90 Release 90 Release 90 MG MG MG Levaquin Levaquin No 1{table QD Levaquin 500 MG 500 MG t} 500 MG Diclofenac Diclofenac No 1{table BID Diclofenac Sodium 75 Sodium 75 t} Sodium 75 MG MG MG Lisinopril Lisinopril No QD Lisinopril 20 MG 20 MG 20 MG NIFEdipine NIFEdipine No QD NIFEdipine ER Osmotic ER Osmotic ER Osmotic Release 90 Release 90 Release 90 MG MG MG ProAir ProAir No 2{puffs QID ProAir RespiClick RespiClick _as_nee RespiClick 108 (90 108 (90 ded} 108 (90 Base) Base) Base) MCG/ACT MCG/ACT MCG/ACT Metoprolol Metoprolol No 1{table BID Metoprolol Tartrate 50 Tartrate 50 t_with_ Tartrate MG MG food} 50 MG Aspirin 81 Aspirin 81 No 1{table QD Aspirin 81 MG MG t} MG Lisinopril Lisinopril No QD Lisinopril 20 MG 20 MG 20 MG Albuterol Albuterol No 3{ml_as TID Albuterol Sulfate Sulfate _needed Sulfate (2.5 (2.5 } (2.5 MG/3ML) MG/3ML) MG/3ML) 0.083% 0.083% 0.083% Trelegy Trelegy No 1{puff} QD Trelegy Ellipta Ellipta Ellipta 100-62.5-25 100-62.5-25 100-62.5-2 MCG/INH MCG/INH 5 MCG/INH Levaquin Levaquin No 1{table QD Levaquin 500 MG 500 MG t} 500 MG Lisinopril Lisinopril No 1{table QD Lisinopril 30 MG 30 MG t} 30 MG Diclofenac Diclofenac No 1{table BID Diclofenac Sodium 75 Sodium 75 t} Sodium 75 MG MG MG NIFEdipine NIFEdipine Yes [facility] CR 60 MG CR 60 MG Physici TBCR TBCR ans Lisinopril Lisinopril Yes UT TABS TABS Physici ans Metoprolol Metoprolol Yes UT Succinate Succinate Physi ci ER TB24 ER TB24 ans Fish Oil Fish Oil Yes UT OIL OIL Physici ans Aspirin 81 Aspirin 81 Yes UT MG TABS MG TABS Physici ans Aleve 220 Aleve 220 Yes UT MG Oral MG Oral Physici Capsule Capsule ans Vitamin D-3 Vitamin D-3 Yes U T 5000 UNIT 5000 UNIT Physi ci Oral Tablet Oral Tablet a ns Multi Multi Yes UT Vitamin Vitamin Physici Daily Oral Daily Oral ans Tablet Tablet Ventolin Ventolin Yes UT NEBU NEBU Physici ans PredniSONE PredniSONE Yes [facility] TABS TABS Physici ans Symbicort Symbicort 2021- No Symbicort 160-4.5 160-4.5 07-30 160-4.5 MCG/ACT MCG/ACT 00:00 MCG/ACT :00 Symbicort Symbicort 2021- No Symbicort 160-4.5 160-4.5 07-30 160-4.5 MCG/ACT MCG/ACT 00:00 MCG/ACT :00 Symbicort Symbicort 2021- No Symbicort 160-4.5 160-4.5 07-30 160-4.5 MCG/ACT MCG/ACT 00:00 MCG/ACT :00 Symbicort Symbicort 2021- No Symbicort 160-4.5 160-4.5 07-30 160-4.5 MCG/ACT MCG/ACT 00:00 MCG/ACT :00 Symbicort Symbicort 2021- No Symbicort 160-4.5 160-4.5 07-30 160-4.5 MCG/ACT MCG/ACT 00:00 MCG/ACT :00 Immunizations Ordered Immunization Filled Immunization Date Status Commen ts Source Name Name FluAD FluAD 2019-01-02 Completed [facility] FluAD FluAD 2019-01-02 Completed [facility] - [facility] FluAD FluAD 2019-01-02 Completed [facility] 11:22:00 - [facility] FluAD FluAD 2019-01-02 Completed [facility] 11:22:00 - [facility] FluAD FluAD 2019-01-02 Completed [facility] 11:22:00 - [facility] FluAD FluAD 2019-01-02 Completed [facility] 11:22:00 - [facility] FluAD FluAD 2019-01-02 Completed [facility] 11:22:00 - [facility] FluAD FluAD 2019-01-02 Completed [facility] 11:22:00 - [facility] FluAD FluAD 2019-01-02 Completed [facility] 11:22:00 - [facility] FluAD FluAD 2019-01-02 Completed [facility] 11:22:00 - [facility] FluAD FluAD 2019-01-02 Completed [facility] 11:22:00 - [facility] FluAD FluAD 2019-01-02 Completed [facility] 11:22:00 - [facility] FluAD FluAD 2019-01-02 Completed [facility] 11:22:00 - [facility] FluAD FluAD 2019-01-02 Completed [facility] 00:00:00 - [facility] Vital Signs Vital Name Observation Time Observation Value Comments Source height 2021-12-01 10:00:00 65 [in_i] [facility] weight 2021-12-01 10:00:00 221 [lb_av] [facility] bmi 2021-12-01 10:00:00 36.77 kg/m2 [facility] [place] height 2021-09-01 10:20:00 65 [in_i] [facility] weight 2021-09-01 10:20:00 221 [lb_av] [facility] 2021-09-01 10:20:00 36.77 kg/m2 [facility] Height 2018-09-25 10:14:00 66 [in_us] [facility] Body Mass Index 2018-09-25 10:14:00 30.67 kg/m2 [facility] Cal[facility] Weight 2018-09-25 10:14:00 190 [lb_av] [facility] Height 2018-09-25 10:13:00 66 [in_us] [facility] Body Mass Index 2018-09-25 10:13:00 30.67 kg/m2 [facility] Cal[facility] Weight 2018-09-25 10:13:00 190 [lb_av] [facility] Height 2018-09-11 10:50:00 66 [in_us] [facility] Weight 2018-09-11 10:50:00 190 [lb_av] [facility] Body Mass Index 2018-09-11 10:50:00 30.67 kg/m2 [facility] Calculated Height 2018-07-17 14:02:00 66 [in_us] [facility] Weight 2018-07-17 14:02:00 190 [lb_av] [facility] Body Mass Index 2018-07-17 14:02:00 30.67 kg/m2 [facility] Calculated Height 2018-06-26 16:17:00 66 [in_us] [facility] Weight 2018-06-26 16:17:00 190 [lb_av] [facility] Body Mass Index 2018-06-26 16:17:00 30.67 kg/m2 [facility] Calculated Height 2018-06-05 14:07:00 66 [in_us] [facility] Weight 2018-06-05 14:07:00 190 [lb_av] [facility] Body Mass Index 2018-06-05 14:07:00 30.67 kg/m2 [facility] Calculated Procedures Procedure Date / Time Performed Performing Clinician Sourc e Post Op Promis 29 Survey 2018-09-25 00:00:00 [facility] [U] XRAY HIP UNILATERAL MIN 2018-08-29 00:00:00 [facility] 2 VWS LEFT [id number] Post Op Promis 29 Survey 2018-08-27 00:00:00 [facility] Post Op Prom[facility] 29 Survey 2018-06-25 00:00:00 [facility] Initial Promis 29 Survey 2018-06-04 00:00:00 [facility] History of Tubal Ligation [facility] History of Fecal impaction [facility] procedure History of Hip Replacement [facility] 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[facility] Replacement Left Encounters Start End Encounter Admission Attending Care Care Encounter Source Date/Time Date/Time Type Type Clinicians Facility Department ID 2021-11-29 Outpatient Sherman, Na STLMLC STLMLC [id number] Common 14:40:00 [facility] 2021-08-30 Outpatient Sherman, Na STLMLC STLMLC [id number] Common 08:45:00 [facility] 2021-07-26 Outpatient Sherman, Na STLMLC STLMLC [id number] Common 09:12:01 [facility] 2021-05-04 Outpatient Sherman, Na STLMLC STLMLC [id number] Common 09:49:01 [facility] 2021-04-05 Outpatient Sherman, Na STLMLC STLMLC [id number] Common 08:29:00 [facility] 2021-03-31 Outpatient Sherman, Na STLMLC STLMLC [id number] 2 Common 12:24:16 [id number] [facility] 2021-03-31 Outpatient Sherman, Na STLMLC STLMLC [id number] 2 Common 12:22:44 [facility] 2021-03-31 Outpatient Sherman, Na STLMLC STLMLC [id number] Common 12:22:03 [id number] [facility] 2021-03-31 Outpatient Sherman, Na STLMLC STLMLC [id number] Common 12:16:41 [id number] [facility] 2021-03-31 Outpatient Sherman, Na STLMLC STLMLC [id number] Common 11:16:30 [id number] [facility] 2018-08-30 Inpatient [facility] [id number] 09:07:00 [facility] 2018-08-13 Inpatient [facility] [id number] 08:05:00 [facility] 2018-06-14 Inpatient [facility] [id number] MH 06:19:00 [facility] 2021-12-14 2021-12-14 (TEL) STLMLC STLMLC [id number] Co mmon 00:00:00 00:00:00 [facility] 2021-12-01 2021-12-01 OFFICE STLMLC STLMLC [id number] Co mmon 00:00:00 00:00:00 VISIT [facility] PT - CHI LEVEL 4 [facility] 2021-11-22 2021-11-22 (TEL) STLMLC STLMLC [id number] Co mmon 00:00:00 00:00:00 [facility] 2021-11-12 2021-11-12 (TEL) STLMLC STLMLC [id number] Co mmon 00:00:00 00:00:00 [facility] 2021-09-20 2021-09-20 (TEL) STLMLC STLMLC [id number] Co mmon 00:00:00 00:00:00 [facility] 2021-09-17 2021-09-17 Outpatient [facility] [id number] -[id number] [facility] 06:08:00 06:08:00 [id number] 2021-09-01 2021-09-01 OFFICE STLMLC STLMLC [id number] Co mmon 00:00:00 00:00:00 VISIT [facility] PT - CHI LEVEL 4 [facility] 2021-08-27 2021-08-27 Outpatient [facility] [id number] -[id number] [facility] 12:28:00 12:28:00 [facility] 2021-07-26 2021-07-26 (TEL) STLMLC STLMLC [id number] Co mmon 00:00:00 00:00:00 [facility] 2021-06-28 2021-06-28 (TEL) STLMLC STLMLC [id number] Co mmon 00:00:00 00:00:00 [facility] 2021-05-05 2021-05-05 (TEL) STLMLC STLMLC [id number] Co mmon 00:00:00 00:00:00 [facility] 2021-05-05 2021-05-05 OL DIG E/M STLMLC STLMLC [id number] Common 00:00:00 00:00:00 SVC 21+ [facility] 2021-04-05 2021-04-05 (TEL) STLMLC STLMLC [id number] Co mmon 00:00:00 00:00:00 [facility] 2021-01-12 2021-01-12 (TEL) STLMLC STLMLC [id number] Co mmon 00:00:00 00:00:00 [facility] 2021-01-08 2021-01-08 Outpatient DMG DMG [id number] [facility] 11:00:00 11:00:00 [id number] 2020-03-30 2020-03-30 Outpatient STLMLC STLMLC [id number] Common 00:00:00 00:00:00 [facility] 2020-03-03 2020-03-03 Outpatient STLMLC STLMLC [id number] Common 00:00:00 00:00:00 [facility] 2019-12-31 2019-12-31 Outpatient STLMLC STLMLC [id number] Common 00:00:00 00:00:00 [facility] 2019-10-01 2019-10-01 [facility] [id number] Common 13:54:00 13:54:[address] [facility] 2019-09-30 2019-09-30 [facility] [id number] Common 15:47:00 15:47:[address] [facility] 2019-04-04 2019-04-04 [facility] [id number] Common 13:40:00 13:40:[address] [facility] 2019-02-06 2019-02-06 [facility] [id number] Common 14:47:00 14:47:[address] [facility] 2019-01-02 2019-01-02 [facility] [id number] Common 10:00:00 10:00:[address] [facility] 2018-12-24 2018-12-24 [facility] [id number] Common 09:26:00 09:26:[address] [facility] 2018-12-03 2018-12-03 [facility] [id number] Common 08:56:00 08:56:[address] [facility] 2018-11-08 2018-11-08 [facility] [id number] Common 15:00:00 15:00:[address] [facility] 2018-11-02 2018-11-02 [facility] [id number] Common 10:20:00 10:20:[address] [facility] 2018-10-30 [facility] Orthoped[facility] [id number] [place] 10:45:00 10:45:00 t; Hien DO. at [facility] Roni GRAF Orthopedic [facility] 2018-09-25 2018-09-[facility] Orthopedics [id number] [place] 10:30:00 10:30:00 t; Hien DO. at [facility] Roni GRAF [facility] 2018-09-18 2018-09-18 [facility] Orthopedics [id number] [place] 10:45:00 10:45:00 t; Emmett DO at [facility] Roni GRAF [facility] 2018-09-14 2018-09-14 [facility] [id number] Common 09:20:00 09:20:[address] [facility] 2018-09-12 2018-09-12 [facility] [id number] Common 16:21:00 16:21:[address] [facility] 2018-09-11 2018-09-11 JOSHUA Zapata Orthopedics 54 [id number] [place] 10:30:00 10:30:00 t; Emmett DO at [facility] Roni GRAF [facility] 2018-09-05 2018-09-05 [facility] [id number] Common 14:55:00 14:55:[address] [facility] 2018-09-04 2018-09-04 [facility] [id number] Common 11:20:00 11:20:[address] [facility] 2018-08-30 2018-08-30 Outpatient E [facility] [id number] [facility] 22:19:00 22:19:00 2018-08-30 2018-08-30 JOSHUA Zapata UTP [id number] [place] 13:00:00 13:00:00 t; Emmett DO Ph elaine العلي M.D. 2018-08-30 2018-08-30 Emergency [facility] [id number] [facility] 09:07:00 09:07:00 2018-08-29 2018-08-29 AppointJOSHUA Marcelo Orthopedics [id number] [place] 10:45:00 10:45:00 t; TAYLOR HAMM, CRISTIAN at [facility] Roni VAZQUEZ NP [facility] 2018-08-13 2018-08-13 JOSHUA Zapata UTP [id number] [place] 13:00:00 13:00:00 t; Emmett DO Ph elaine العلي M.D. 2018-07-17 2018-07-17 Appointlianet [facility] [id number] [place] 14:30:00 14:30:00 t; Emmett DO Orthopedic Anthony Miguel Williams M.D. Trace 1 2018-06-26 2018-06-26 Appointlianet [facility], [facility] [id number] [place] 14:45:00 14:45:00 t; Emmett DO Orthopedic Anthony Miguel Williams M.D. Trace 1 2018-06-19 2018-06-19 [facility] [id number] Common 10:05:00 10:05:00 [place] [employer] [address] [facility] 2018-06-14 2018-06-14 Appointlianet [facility] [id number] [place] 09:00:00 09:00:00 t; Emmett DO Ph [facility] elaine GRAF M.D. 2018-06-05 2018-06-[address] [facility] [id number] [place] 13:30:00 13:30:00 t; Emmett DO Ortho and Sonu GRAF Spine S Deb Becker M.D. [place] 2018-05-11 2018-05-11 [facility] [id number] Common 12:03:00 12:03:00 [place] [employer] [address] [facility] 2018-04-27 2018-04-27 [facility] [id number] Common 12:09:00 12:09:[address] [facility] 2018-04-23 2018-04-23 [facility] [id number] Common 10:00:00 10:00:00 [facility] Results Test Description Test Time Test Comments Results Result Sour e Comments [U] XRAY HIP 2018-08-29 Images [facility] UNILATERAL MIN 2 13:18:00 acquired, not VWS LEFT [id number] reported on this accession number.
[2021-12-21 05:43] LABS: Arterial Blood Carboxyhemoglob 0.6 % (0-1.5); Blood Gas Oxyhemoglobin 93.9 % (94-97); Blood O2 Saturation 95.7 % (92-98.5)
[2021-12-21] MEDS ORDERED: LEVALBUTEROL 0.63 MG/3 ML NEB ONE (05:48)
[2021-12-21 05:58] LABS: Absolute Lymphocytes (CBC) 2.7 K/uL (0.7-4.9); Hematocrit 45.6 % (36.0-45.0); Lymphocytes % 15.8 % (15.3-44.8); MPV 7.5 fL (7.6-11.3); RBC Red Blood Cell Count 4.85 M/uL (3.86-4.86)
[2021-12-21] MEDS ORDERED: LEVALBUTEROL 1.25 MG/3 ML NEB ONE (05:58)
[2021-12-21] MEDS ORDERED: MAGNESIUM SULFATE 1 gm IVPB 1 GM/100 ML BAG IV ONE (05:58)
[2021-12-21] MEDS ORDERED: IPRATROPIUM BROM 0.5MG/2.5ML ONE ×3 (05:58→20:03)
[2021-12-21] MEDS ORDERED: METHYLPREDNISOLONE 125 MG INJ ONE (06:02)
[2021-12-21 06:06] LABS: SARS-CoV-2 Antigen Rapid Res Negative (Negative)
[2021-12-21] MEDS ORDERED: LORazepam 2 MG/ML VIAL ONE (06:26)
[2021-12-21] MEDS ORDERED: CEFTRIAXONE 1000 MG/VIAL ONE (06:34)
[2021-12-21] MEDS ORDERED: AZITHROMYCIN 500 MG INJ IVPB ONE (06:34)
[2021-12-21] MEDS ORDERED: NA CHLORIDE 0.9% 250 ML ONE (06:34)
[2021-12-21 06:35] LABS: Potassium 4.5 mmol/L (3.5-5.1); Troponin High Sensitivity 570.4 pg/mL (<58.9)
--- NOTE | 2021-12-21 06:58 | EDPHYS ---
Physician Documentation [facility] Name: Indira Lovett Age: 71 yrs Sex: Female : 1950 Arrival Date: 12/21/2021 Time: 05:30 Bed 5 Private MD: ED Physician Mat Mohan HPI: 12/21 05:33 This 71 yrs old Female presents to ER via Unassigned with complaints of sob. rn 05:33 The patient has shortness of breath at rest. Onset: The symptoms/episode began/occurred rn last night. Duration: The symptoms are continuous. The patient's shortness of breath is aggravated by exertion, light activity, talking. Severity of symptoms: At their worst the symptoms were severe in the emergency department the symptoms are unchanged. It is unknown whether or not the patient has had similar symptoms in the past. The patient has not recently seen a physician. Per EMS, pt with COPD, sob since last night, not improved after nebs at home, no meds given by EMS. NO fever. No chest pain. No trauma. EMS reports 58% on RA, 72% here on RA. Historical: - Allergies: 05:55 No Known Allergies; kd3 - Immunization history:: Adult Immunizations unknown, unknown . - Social history:: Smoking status: unknown. - Family history:: not pertinent. - Hospitalizations: : No recent hospitalization is reported. ROS: 05:33 Constitutional: Negative for fever, chills, and weight loss, Eyes: Negative for injury, rn pain, redness, and discharge, Neck: Negative for injury, pain, and swelling, Cardiovascular: Negative for chest pain, palpitations, and edema, Respiratory: + sob and cough Abdomen/GI: Negative for abdominal pain, nausea, vomiting, diarrhea, and constipation, Back: Negative for injury and pain, MS/Extremity: Negative for injury and deformity, Skin: Negative for injury, rash, and discoloration, Neuro: Negative for headache, weakness, numbness, tingling, and seizure. Exam: 05:33 Constitutional: This is a well developed, well nourished patient who is awake, alert, rn moderate resp distress Head/Face: Normocephalic, atraumatic. ENT: no stridor Cardiovascular: Tachycardic, regular Respiratory: + tachypnea with diffuse crackles and wheezing, + moderate retractions. Abdomen/GI: Soft, non-tender Skin: Warm, dry, no cyanosis MS/ Extremity: Pulses equal, no cyanosis. Neuro: Awake, responds to tactile stimulation and speech, labored, unable to speak 05:37 ECG was reviewed by the Attending Physician. rn Vital Signs: 05:31 BP 178 / 71; Pulse 123; Pulse Ox 97% on BiPAP; aa9 05:50 BP 176 / 86; Pulse 120; Resp 28; Pulse Ox 94% ; Weight 80.5 kg; Height 5 ft. 4 in. kd3 (162.56 cm); Pain 0/10; 05:50 Temp 97.7(TE); kd3 06:49 BP 139 / 75; Pulse 108; Resp 21; Pulse Ox 95% on BiPAP; kd3 07:00 BP 123 / 73; Pulse 108; Resp 20; Pulse Ox 95% on BiPAP; tp1 08:00 BP 110 / 59; Pulse 90; Resp 21; Pulse Ox 97% on BiPAP; tp1 09:00 BP 108 / 59; Pulse 87; Resp 25; Pulse Ox 96% on BiPAP; tp1 10:00 BP 111 / 62; Pulse 82; Resp 25; Pulse Ox 99% on BiPAP; tp1 11:00 BP 117 / 68; Pulse 88; Resp 25; Pulse Ox 99% on BiPAP; tp1 14:00 BP 139 / 80; Pulse 97; Resp 25; Pulse Ox 100% on BiPAP; tp1 14:29 Pulse Ox 86% on R/A; tp1 14:30 Pulse Ox 96% on 2 lpm NC; tp1 05:50 Body Mass Index 30.46 (80.50 kg, 162.56 cm) kd3 MDM: 05:33 Patient medically screened. rn 06:53 Differential diagnosis: Bronchitis CHF exacerbation, Chronic Obstructive Pulmonary rn Disease Myocardial Infarction pneumonia, Pneumothorax pulmonary edema, reactive airway disease. Data reviewed: vital signs, nurses notes, lab test result(s), EKG, radiologic studies, plain films, and as a result, I will admit patient. Counseling: I had a detailed discussion with the patient and/or guardian regarding: the historical points, exam findings, and any diagnostic results supporting the discharge/admit diagnosis, lab results, radiology results, the need for further work-up and treatment in the hospital. Response to treatment: the patient's symptoms have mildly improved after treatment, and as a result, I will admit patient. Admission orders: after a detailed discussion of the patient's condition and case, the admit orders are written by me. ED course: Admitted to Dr. Augustin for COPD exacerbation, respiratory acidosis, questionable pneumonia. 12/21 05:32 Order name: BMP; Complete Time: 06:52 rn 12/21 05:32 Order name: Blood Culture Adult (2) rn 12/21 05:32 Order name: CBC with Diff; Complete Time: 06:21 rn 12/21 05:32 Order name: NT PRO-BNP; Complete Time: 06:52 rn 12/21 05:32 Order name: PT-INR; Complete Time: 23:41 rn 12/21 05:32 Order name: Ptt, Activated; Complete Time: 23:41 rn 12/21 05:32 Order name: Troponin HS; Complete Time: 06:52 rn 12/21 05:32 Order name: ABG; Complete Time: 06:21 rn 12/21 05:32 Order name: Lactate; Complete Time: 06:52 rn 12/21 05:32 Order name: Flu; Complete Time: 06:21 rn 12/21 05:59 Order name: SARS-COV-2 Antigen Rapid; Complete Time: 06:21 EDMS 12/21 08:10 Order name: ABG; Complete Time: 23:41 ph 12/21 12:07 Order name: CBC with Automated Diff EDMS 12/21 05:32 Order name: XRAY CXR (1 view) rn 12/21 12:07 Order name: CBC with Automated Diff EDMS 12/21 12:07 Order name: Comprehensive Metabolic Panel EDMS 12/21 12:07 Order name: Comprehensive Metabolic Panel EDMS 12/21 12:07 Order name: Magnesium EDMS 12/21 12:07 Order name: Magnesium EDMS 12/21 12:07 Order name: NT PRO-BNP EDMS 12/21 12:07 Order name: NT PRO-BNP EDMS 12/21 12:07 Order name: Phosphorus EDMS 12/21 12:07 Order name: Phosphorus EDMS 12/21 16:54 Order name: Troponin High Sensitivity; Complete Time: 23:41 EDMS 12/22 03:14 Order name: Creatine Phosphokinase EDMS 12/22 03:14 Order name: CKMB Creatine Kinase MB EDMS 12/22 03:14 Order name: Troponin High Sensitivity EDMS 12/22 03:30 Order name: Hemoglobin A1c EDMS 12/22 08:12 Order name: Glucose, Ancillary Testing EDMS 12/21 05:32 Order name: Call RT; Complete Time: 06:29 rn 12/21 05:32 Order name: BIPAP rn 12/21 05:32 Order name: EKG; Complete Time: 05:34 rn 12/21 05:32 Order name: Cardiac monitoring; Complete Time: 05:46 rn 12/21 05:32 Order name: EKG - Nurse/Tech; Complete Time: 05:46 rn 12/21 05:32 Order name: IV Saline Lock; Complete Time: 05:50 rn 12/21 05:32 Order name: Labs collected and sent; Complete Time: 05:50 rn 12/21 05:32 Order name: O2 Per Protocol; Complete Time: 05:46 rn 12/21 05:32 Order name: O2 Sat Monitoring; Complete Time: 05:46 rn 12/21 06:53 Order name: Jalloh; Complete Time: 08:27 rn 12/21 12:07 Order name: CONS Physician Consult EDTN 12/21 12:07 Order name: Heart Healthy EDMS EC:37 Rate is 123 beats/min. Rhythm is regular. QRS [place] is Normal. [place] interval is normal. rn QRS interval is normal. QT interval is normal. No Q waves. T waves are Inverted in leads V5, V6. ST Segment is depressed in leads V5, V6. Clinical impression: Sinus tachycardia. Interpreted by me. Reviewed by me. Administered Medications: 06:28 Drug: Ativan (LORazepam) 0.5 mg Route: IVP; Site: left antecubital; kd3 06:46 Follow up: Response: No adverse reaction; Anxiety decreased kd3 06:29 Drug: SOLU-Medrol (methylPrednisoLONE) 125 mg Route: IVP; Site: left antecubital; kd3 06:29 Drug: Magnesium Sulfate 1 grams Route: IVPB; Infused Over: 1 hrs; Site: left 3 antecubital; 06:29 Drug: Xopenex (levalbuterol) (3) 1.25 mg Route: Inhalation; kd3 06:29 Drug: AtroVENT (ipratropium) Aerosol 0.5 mg Route: Inhalation; kd3 06:46 Drug: Rocephin (cefTRIAXone) 1 grams Route: IV; Rate: calculated rate; Site: left kd3 antecubital; 06:46 Drug: Zithromax (azithromycin) 500 mg Route: IVPB; Infused Over: 1 hrs; Site: left kd3 antecubital; 08:06 Drug: Insulin Regular Human 10 units {Co-Signature: vg1 (Chica Dewitt RN).} Route: tp1 Sub-Q; Site: left upper arm; 11:11 Follow up: Response: No adverse reaction tp1 08:26 Drug: Lasix (furosemide) 40 mg Route: IVP; Site: left forearm; tp1 11:11 Follow up: Response: No adverse reaction tp1 Disposition: 06:53 Critical Care:. rn Disposition Summary: 12/21/21 06:58 Hospitalization Ordered Hospitalization Status: Inpatient Admission rn Provider: Shayy Augustin rn Condition: Fair rn Problem: new rn Symptoms: have improved rn Bed/Room Type: Standard rn Location: [facility] ER HOLD(12/21/21 14:33) [facility] Room Assignment: ERHOLD-(12/21/21 14:33) [facility] Diagnosis - COPD/ Chronic obstructive pulmonary disease with (acute) exacerbation rn - Acute respiratory failure with hypercapnia rn - Acidosis rn Forms: - Medication Reconciliation Form rn - 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 Total time: 35 minutes rn Signatures: Dispatcher [employer] Mat Gomez MD MD rn Aguilar, Jose RN RN ja1 Derek Cummins 2 Angelia Arriaga RN RN kd3 Yumi Velasco RN RN tp1 Chica Dewitt RN vg1 Corrections: (The following items were deleted from the chart) 05:59 05:33 SARS-COV-2 RT PCR+[id number].LAB.BRZ ordered. EDMS EMA 14:33 06:58 Intensive Care Unit rn eusebio 14:33 06:58 paulo kaplan
--- NOTE | 2021-12-21 06:58 | ER ---
Nurse's Notes [facility] Name: Indira Lovett Age: 71 yrs Sex: Female : 1950 Arrival Date: 12/21/2021 Time: 05:30 Bed 5 Private MD: Diagnosis: COPD/ Chronic obstructive pulmonary disease with (acute) exacerbation;Acute respiratory failure with hypercapnia;Acidosis Presentation: 12/21 05:50 Chief complaint: EMS states: Pt reported difficulty breathing since last night that kd3 only got worse. Pt a\T\O X 3 on arrival with an O2 in the 50's Pt placed on 15 liters non rebreather and sats came up to the 90's. Pt took albuterol treatments at home, the last one was about an hour ago. does not complain of pain. Coronavirus screen: Vaccine status:. Ebola Screen: No symptoms or risks identified at this time. Initial Sepsis Screen: Does the patient meet any 2 criteria? RR > 20 per min. Altered Mental Status. Yes Does the patient have a suspected source of infection? No. Patient's initial sepsis screen is negative. Risk Assessment: Do you want to hurt yourself or someone else? Patient reports no desire to harm self or others. Onset of symptoms was December 21, 2021. 05:50 Method Of Arrival: EMS: [facility] kd3 05:50 Acuity: DONNIE 3 kd3 Triage Assessment: 05:55 General: Appears ill, Behavior is anxious. Pain: Denies pain. kd3 Historical: - Allergies: 05:55 No Known Allergies; kd3 - Immunization history:: Adult Immunizations unknown, unknown . - Social history:: Smoking status: unknown. - Family history:: not pertinent. - Hospitalizations: : No recent hospitalization is reported. Screenin:56 Abuse screen: Denies threats or abuse. Denies injuries from another. Abuse screen: kd3 Denies threats or abuse. Denies injuries from another. Nutritional screening: No deficits noted. Tuberculosis screening: No symptoms or risk factors identified. Fall Risk None identified. IV access (20 points). Assessment: 06:29 General: Appears uncomfortable, Behavior is agitated. Neuro: Level of Consciousness is kd3 awake, Oriented to person. Cardiovascular: Rhythm is sinus tachycardia. Respiratory: Airway is patent Trachea midline Respiratory effort is labored, Respiratory pattern is tachypnea. 08:00 General: Appears in no apparent distress. comfortable, Behavior is lightly sedated . tp1 Neuro: Navarrete Agitation-Sedation Scale (RASS): -2 Light sedation Level of Consciousness is obeys commands, lethargic, PT received ativan 0.5mg IVP \T\ 0628. Cardiovascular: Patient's skin is warm and dry. Rhythm is sinus rhythm. Respiratory: Airway is patent Respiratory effort is even, Patient placed on BiPAP: Inspiratory Pressure: 18 Expiratory (EPAP) Pressure: 8 FiO2%: 40 Respiratory Rate: 21. GI: Abdomen is round non-distended, Abd is soft. : No signs and/or symptoms were reported regarding the genitourinary system. EENT: No signs and/or symptoms were reported regarding the EENT system. Derm: Skin is pink, warm \T\ dry. 09:30 Reassessment: Patient appears in no apparent distress at this time. No changes from tp1 previously documented assessment. Patient is alert, oriented x 3, equal unlabored respirations, skin warm/dry/pink. PT resting with eyes closed. 10:30 Reassessment: Patient appears in no apparent distress at this time. No changes from tp1 previously documented assessment. Patient is alert, oriented x 3, equal unlabored respirations, skin warm/dry/pink. 11:45 Reassessment: Patient appears in no apparent distress at this time. No changes from tp1 previously documented assessment. Patient is alert, oriented x 3, equal unlabored respirations, skin warm/dry/pink. resting in bed with eyes closed. 13:00 Reassessment: Patient appears in no apparent distress at this time. No changes from tp1 previously documented assessment. Patient is alert, oriented x 3, equal unlabored respirations, skin warm/dry/pink. resting in bed with eyes closed. 14:13 Reassessment: BIPAP removed by respiratory. tp1 14:14 Reassessment: Patient appears in no apparent distress at this time. No changes from tp1 previously documented assessment. Patient and/or family updated on plan of care and expected duration. Pain level reassessed. Patient is alert, oriented x 3, equal unlabored respirations, skin warm/dry/pink. Patient denies pain at this time. 14:30 Reassessment: pt was at 87% RA; pt placed on 4 L NC; charge nurse notified. vg1 14:45 Reassessment: Point of Contact: Richie Loza (son) [phone]. ss Vital Signs: 05:31 BP 178 / 71; Pulse 123; Pulse Ox 97% on BiPAP; aa9 05:50 BP 176 / 86; Pulse 120; Resp 28; Pulse Ox 94% ; Weight 80.5 kg; Height 5 ft. 4 in. kd3 (162.56 cm); Pain 0/10; 05:50 Temp 97.7(TE); kd3 06:49 BP 139 / 75; Pulse 108; Resp 21; Pulse Ox 95% on BiPAP; kd3 07:00 BP 123 / 73; Pulse 108; Resp 20; Pulse Ox 95% on BiPAP; tp1 08:00 BP 110 / 59; Pulse 90; Resp 21; Pulse Ox 97% on BiPAP; tp1 09:00 BP 108 / 59; Pulse 87; Resp 25; Pulse Ox 96% on BiPAP; tp1 10:00 BP 111 / 62; Pulse 82; Resp 25; Pulse Ox 99% on BiPAP; tp1 11:00 BP 117 / 68; Pulse 88; Resp 25; Pulse Ox 99% on BiPAP; tp1 14:00 BP 139 / 80; Pulse 97; Resp 25; Pulse Ox 100% on BiPAP; tp1 14:29 Pulse Ox 86% on R/A; tp1 14:30 Pulse Ox 96% on 2 lpm NC; tp1 05:50 Body Mass Index 30.46 (80.50 kg, 162.56 cm) kd3 ED Course: 05:30 Patient arrived in ED. rn 05:33 Mat Mohan MD is Attending Physician. rn 05:46 Flu Sent. aa9 05:49 Angelia Arriaga, ANISA is Primary Nurse. kd3 05:50 Troponin HS Sent. kd3 05:50 Ptt, Activated Sent. kd3 05:50 PT-INR Sent. kd3 05:50 NT PRO-BNP Sent. kd3 05:50 CBC with Diff Sent. kd3 05:50 Blood Culture Adult (2) Sent. kd3 05:50 BMP Sent. kd3 05:50 ABG Sent. kd3 05:55 Triage completed. kd3 05:55 Arm band placed on right wrist. kd3 05:56 Patient has correct armband on for positive identification. kd3 05:57 Inserted saline lock: 20 gauge in left antecubital area, using aseptic technique. Blood kd3 collected. 06:02 SARS-COV-2 Antigen Rapid Sent. aa9 06:28 XRAY CXR (1 view) In Process Unspecified. EDMS 06:57 Shayy Augustin MD is Hospitalizing Provider. rn 08:22 Jalloh cath inserted, using sterile technique, 16 Fr., by az, balloon inflated, to tp1 gravity drainage. 14:44 No provider procedures requiring assistance completed. Patient admitted, IV remains in tp1 place. 19:32 Micheline Loza (son) [phone]. mw2 12/22 07:18 Primary Nurse role handed off by Angelia Arriaga RN bd 07:19 Jennifer Diaz RN is Primary Nurse. mb9 Administered Medications: 12/21 06:28 Drug: Ativan (LORazepam) 0.5 mg Route: IVP; Site: left antecubital; kd3 06:46 Follow up: Response: No adverse reaction; Anxiety decreased kd3 06:29 Drug: SOLU-Medrol (methylPrednisoLONE) 125 mg Route: IVP; Site: left antecubital; kd3 06:29 Drug: Magnesium Sulfate 1 grams Route: IVPB; Infused Over: 1 hrs; Site: left kd3 antecubital; 06:29 Drug: Xopenex (levalbuterol) (3) 1.25 mg Route: Inhalation; kd3 06:29 Drug: AtroVENT (ipratropium) Aerosol 0.5 mg Route: Inhalation; kd3 06:46 Drug: Rocephin (cefTRIAXone) 1 grams Route: IV; Rate: calculated rate; Site: left kd3 antecubital; 06:46 Drug: Zithromax (azithromycin) 500 mg Route: IVPB; Infused Over: 1 hrs; Site: left kd3 antecubital; 08:06 Drug: Insulin Regular Human 10 units {Co-Signature: vg1 (Chica Dewitt RN).} Route: tp1 Sub-Q; Site: left upper arm; 11:11 Follow up: Response: No adverse reaction tp1 08:26 Drug: Lasix (furosemide) 40 mg Route: IVP; Site: left forearm; tp1 11:11 Follow up: Response: No adverse reaction tp1 Medication: 05:57 VIS not applicable for this client. kd3 Outcome: 06:58 Decision to Hospitalize by Provider. rn 14:44 Admitted to ER Hold. Please see [facility] for further documentation. tp1 14:44 Condition: improved 14:44 Instructed on the need for admit. 12/22 12:53 Patient left the ED. bp Signatures: Dispatcher [employer] EDMS Yuni Cervantes Roman, MD MD rn Smirch, Shelby, RN RN ss Doron Cardona RN RN bp Maria G LouisaRylee mw2 Chica Dewitt RN RN vg1 Angelia Arriaga RN RN kd3 Yumi Velasco RN RN tp1 Elaine Schmid RN RN 9 Jennifer Diaz RN RN mb9 Chica Dewitt RN vg1 Corrections: (The following items were deleted from the chart) 12/21 05:59 05:46 SARS-COV-2 RT PCR+MOL.LAB.LILO drawn and sent. [facility] EDNE 11:11 08:00 BP 110 / 59; Pulse 90bpm; Resp 21bpm; Pulse Ox 97% RA; tp1 tp1 13:13 13:11 Reassessment: Patient appears in no apparent distress at this time. No changes tp1 from previously documented assessment. Patient is alert, oriented x 3, equal unlabored respirations, skin warm/dry/pink. resting in bed with eyes closed tp1 13:13 11:30 Reassessment: Patient appears in no apparent distress at this time. No changes tp1 from previously documented assessment. Patient is alert, oriented x 3, equal unlabored respirations, skin warm/dry/pink. resting in bed with eyes closed tp1
[2021-12-21 07:26] LABS: Protime INR 0.95
[2021-12-21] MEDS ORDERED: FUROSEMIDE 40 MG/4 ML VIAL ONE (07:56)
[2021-12-21] MEDS ORDERED: INSULIN -REGULAR HUMAN 50 UNIT/0.5 ML ML ONE (08:01)
[2021-12-21 08:49] LABS: Arterial Blood Carboxyhemoglob 1.1 % (0-1.5); Blood Gas Oxyhemoglobin 90.6 % (94-97); Blood O2 Saturation 92.7 % (92-98.5)
[2021-12-21] MEDS ORDERED: ONDANSETRON 4 MG/2 ML VIAL IV PRN (12:00)
[2021-12-21] MEDS ORDERED: ACETAMINOPHEN 500 MG TAB PO PRN (12:00)
--- NOTE | 2021-12-21 13:08 | RAD REPORT ---
EXAM DESCRIPTION: XR Chest, 1 View CLINICAL HISTORY: The patient is 71 years old and is Female; dyspnea TECHNIQUE: Single view of the chest. COMPARISON: No relevant prior studies available. FINDINGS: Lungs: Interstitial edema. Hazy bibasilar airspace opacities that may represent edema, a telectasis or infection. Pleural space: No significant pleural fluid. No pneumothorax. Heart: The cardiac silhouette is enlarged versus artifact of AP technique. Mediastinum: Unremarkable. Bones/joints: No acute fracture visualized. Upper abdomen: No free air in the visualized upper abdomen. IMPRESSION: Interstitial edema. Hazy bibasilar airspace opacities that may represent edema, atelecta sis or infection. Electronically signed by: Gaby Pacheco MD 12/21/2021 6:43 AM CDT Due to temporary technical issues with the PACS/Fluency reporting system, reports are being signed by the in house radiologists without review as a courtesy to insure prompt reporting. The interpreting radiologist is fully responsible for the content of the report.
[2021-12-21] MEDS ORDERED: ALBUTEROL 2.5 MG/3 ML NEB SOL ONE ×2 (13:55→20:03)
[2021-12-21] MEDS: ALBUTEROL 2.5 MG/3 ML NEB SOL NEB SCH ×2 (14:00→20:05)
[2021-12-21] MEDS ORDERED: ENOXAPARIN 40 MG/0.4 ML SQ SCH (14:00)
[2021-12-21] MEDS: IPRATROPIUM BROM 0.5MG/2.5ML NEB SCH ×2 (14:00→20:05)
--- NOTE | 2021-12-21 14:01 | EKG ---
Test Date: 2021-12-21 Test Time: 05:37:09 Curator Herbarium: FRANCES MEASUREMENT RESULTS: Intervals: Rate: 123 AK: 178 QRSD: 98 QT: 312 QTc: 446 Lindsey: P: 83 AK: 178 QRS: 18 T: 103 INTERPRETIVE STATEMENTS: Sinus tachycardia Possible Left atrial enlargement ST & T wave abnormality, consider lateral ischemia Abnormal ECG No previous ECG available for comparison Electronically Signed On 12-21-21 14:00:17 CDT by Archie Hinojosa
[2021-12-21] MEDS ORDERED: NA CHLORIDE 0.9% 1,000 ML ONE (15:14)
[2021-12-21] MEDS ORDERED: ENOXAPARIN 40 MG/0.4 ML SQ ONE (15:14)
[2021-12-21] MEDS: NA CHLORIDE 0.9% 1,000 ML IV SCH (15:22)
[2021-12-21 15:28] VITALS: BMI 30.4
[2021-12-22] MEDS ORDERED: ENOXAPARIN 40 MG/0.4 ML SQ ONE ×2 (00:38→01:47)
[2021-12-22] MEDS ORDERED: D50W 25 GM/50 ML SYRINGE IV PRN (00:38)
[2021-12-22] MEDS ORDERED: GLUCAGON 1 MG/VIAL IM PRN (00:38)
[2021-12-22] MEDS ORDERED: D10W 125 ML IV PRN (00:51)
[2021-12-22] MEDS: NA CHLORIDE 0.9% 1,000 ML IV SCH (01:20)
--- NOTE | 2021-12-22 01:25 | P.HP ---
Certification for Inpatient Patient admitted to: Inpatient With expected LOS: >2 Midnights Patient will require the following post-hospital care: None Practitioner: I am a practitioner with admitting privileges, knowledge of patient current condition, hospital course, and medical plan of care. Services: Services provided to patient in accordance with Admission requirements found in Title 42 Section 412.3 of the Code of Federal Regulations Patient History Date of Service: 12/22/21 Primary Care Provider: Lane Reason for admission: Acute Respiratory Failure History of Present Illness: Patient is a 71-year-old female with history of COPD, hypertension, hyperlipidemia, and pyb-crxcxoy-uauhqreds type 2 diabetes who presented to the ED in respiratory distress. EMS was called out and noted that her O2 saturation was 58%. She was placed on 15 L nonrebreather and improved to the 90s. Upon arrival to the ED, ABG was obtained and revealed a pH of 7.0, PCO2 109. She was placed on BiPAP. She was very altered and not responding to questions appropriately. Her labs were significant for glucose 406, WBC 17.3, BNP 3203, troponin 570. Chest x-ray showed interstitial edema, hazy bibasilar prior airspace opacities that may represent edema atelectasis or infection.She was given Solu-Medrol, magnesium, breathing treatments, Rocephin, Zithromax, insulin, and Lasix. She was admitted for further management. Allergies No Known Allergies Allergy (Verified 10/01/18 15:40) Home medications list reviewed: Yes - Past Medical/Surgical History Diabetic: Yes -: Hypertension -: Pre-Diabetes -: COPD -: Hyperlipidemia -: Bilateral hip replacement -: Appendectomy Psychosocial/ Personal History: Patient lives at home alone. She has children. - Family History Mother -: Heart disease, Hypertension, Cancer Father -: Heart disease, Hypertension - Social History Smoking Status: Former smoker Alcohol use: No CD- Drugs: No Caffeine use: Yes Place of Residence: Home Review of Systems Respiratory: Shortness of Breath Cardiovascular: Chest Pain Physical Examination - Vital Signs Temperature: 97.7 F Blood Pressure: 130/77 Pulse: 94 Respirations: 20 Pulse Ox (%): 96 - Physical Exam General: Alert, In no apparent distress HEENT: Atraumatic, EOMI Neck: Supple, No LAD Respiratory: Expiratory wheezes Cardiovascular: Irregular heart rate/rhythm Gastrointestinal: Normal bowel sounds, No tenderness Musculoskeletal: No tenderness Integumentary: No rashes Neurological: Normal gait, Normal speech, Normal affect - Studies Laboratory Data (last 24 hrs) 12/21/21 05:46: PT 10.5, INR 0.95, APTT 33.7 12/21/21 05:46: WBC 17.30 H, Hgb 15.1 H, Hct 45.6 H, Plt Count 354 12/21/21 05:46: Sodium 135 L, Potassium 4.5, BUN 17, Creatinine 1.21, Glucose 406 H* Microbiology Data (last 24 hrs): 12/21/21 05:43 Nasopharnyx Influenza Type A Antigen Screen - Final 12/21/21 05:43 Nasopharnyx Influenza Type B Antigen Screen - Final Assessment and Plan - Problems (Diagnosis) (1) Acute respiratory failure Current Visit: Yes Status: Acute Qualifiers: Respiratory failure complication: hypoxia and hypercapnia Qualified Code(s): J96.01 - Acute respiratory failure with hypoxia; J96.02 - Acute respiratory failure with hypercapnia (2) COPD (chronic obstructive pulmonary disease) Current Visit: Yes Status: Chronic Qualifiers: COPD type: unspecified COPD Qualified Code(s): J44.9 - Chronic obstructive pulmonary disease, unspecified (3) NSTEMI (non-ST elevated myocardial infarction) Current Visit: Yes Status: Acute (4) Hypertension Current Visit: Yes Status: Chronic Qualifiers: Hypertension type: primary hypertension Qualified Code(s): I10 - Essential (primary) hypertension (5) Type 2 diabetes mellitus Current Visit: Yes Status: Chronic Qualifiers: Diabetes mellitus terminal manager insulin use: without terminal manager use Diabetes mellitus complication status: with hyperglycemia Qualified Code(s): E11.65 - Type 2 diabetes mellitus with hyperglycemia - Plan -Patient weaned off BiPAP and onto 2L nasal cannula and has significantly improved. -Troponin has trended up to 4563 from 500. Will start therapeutic lovenox and trend serial cardiac enzymes. Cardiology consulted. -Patient reports she was experiencing some chest pain prior to calling EMS. She denies cardiac history besides HTN. Has not seen a production packager nor had cardiac workup. + Family history -Pulmonology consulted. Continue steroids and breathing treatments. Received azithromycin and rocephin in ED. Chest xray questionable PNA -ACHS accu checks with moderate sliding scale. Hyperglycemia likely secondary to steroid use. Patient reports recent A1C of 5.7. Will recheck. -Echo cardiogram ordered. -Monitor and replete electrolytes per protocol -Reconcile and continue home medications -Lovenox for VTE ppx -Full code Discharge Plan: Home Plan to discharge in: Greater than 2 days - Advance Directives Does patient have a Living Will: No Does patient have a Durable POA for Healthcare: No - Code Status/Comfort Care Code Status Assessed: Yes (Full) Critical Care: No Time Spent Managing Pts Care (In Minutes): 50
[2021-12-22] MEDS ORDERED: IPRATROPIUM BROM 0.5MG/2.5ML ONE ×2 (01:31→07:59)
[2021-12-22] MEDS ORDERED: ALBUTEROL 2.5 MG/3 ML NEB SOL ONE ×2 (01:31→07:59)
[2021-12-22] MEDS: IPRATROPIUM BROM 0.5MG/2.5ML NEB SCH ×3 (01:35→14:00)
[2021-12-22] MEDS: ALBUTEROL 2.5 MG/3 ML NEB SOL NEB SCH ×3 (01:35→14:00)
[2021-12-22 02:33] LABS: Absolute Lymphocytes (CBC) 0.9 K/uL (0.7-4.9); Hematocrit 35.9 % (36.0-45.0); Lymphocytes % 8.3 % (15.3-44.8); MCV 92.8 fL (80-100); MPV 7.8 fL (7.6-11.3); RBC Red Blood Cell Count 3.87 M/uL (3.86-4.86)
[2021-12-22 03:11] LABS: Albumin 3.1 g/dL (3.4-5.0); Bilirubin Total 0.5 mg/dL (0.2-1.0); Phosphorus 3.5 mg/dL (2.5-4.9); Protein, Total 6.4 g/dL (6.4-8.2)
[2021-12-22 03:12] LABS: Magnesium 2.1 mg/dL (1.8-2.4); Potassium 4.2 mmol/L (3.5-5.1)
[2021-12-22 03:13] LABS: CKMB Creatine Kinase MB 29.8 ng/mL (1.0-3.6)
[2021-12-22 03:14] LABS: Troponin High Sensitivity 4796.5 pg/mL (<58.9)
[2021-12-22] MEDS: INSULIN -REGULAR HUMAN 50 UNIT/0.5 ML ML SQ SCH ×2 (07:30→16:30)
[2021-12-22] MEDS ORDERED: ASPIRIN 325 MG TAB ONE (07:42)
[2021-12-22] MEDS ORDERED: HEPARIN 5000 UNIT/ML 1 ML VIAL ONE ×2 (07:42→13:55)
[2021-12-22] MEDS ORDERED: HEPARIN/D5W 25,000 UNIT/500 ML BAG IV ONE (07:43)
[2021-12-22] MEDS ORDERED: HEPARIN 5000 UNIT/ML 1 ML VIAL IV SCH (08:00)
[2021-12-22] MEDS ORDERED: HEPARIN/D5W 25,000 UNIT/500 ML BAG IV SCH (08:00)
[2021-12-22] MEDS ORDERED: ASPIRIN 325 MG TAB PO SCH (09:00)
[2021-12-22] MEDS ORDERED: ENOXAPARIN 80 MG/0.8 ML SQ SCH (09:00)
[2021-12-22 09:04] VITALS: TEMP 97.8
[2021-12-22] MEDS ORDERED: HEPA 1000U/500MLS 3,000 UNIT/1,500 ML BAG IV ONE (11:41)
[2021-12-22] MEDS ORDERED: LIDOCAINE 1% MPF 30 ML VIAL ONE (11:41)
--- NOTE | 2021-12-22 11:59 | P.CNS ---
Date of Consult: 12/22/21 Reason for Consult: History of COPD non-STEMI Primary Care Provider: Lane Chief Complaint: Acute Respiratory Failure History of Present Illness: Patient is 71 years of age with a history of COPD for the past 2 days has been complaining of chest pain across her chest and became worse last night developed respiratory distress admitted with respiratory failure and interstitial changes plus pulmonary edema and non-STEMI she is currently doing better scheduled for a cardiac cath using her inhaler at home Allergies No Known Allergies Allergy (Verified 10/01/18 15:40) Home Medications: Aspirin [Adult Aspirin Regimen] 81 mg PO DAILY 12/22/21 Atorvastatin Calcium 20 mg PO BEDTIME 12/22/21 Lisinopril [Zestril] 20 mg PO DAILY 12/22/21 Metformin HCl 1 tab PO DAILY 12/22/21 Metoprolol Succinate [Toprol Xl] 50 mg PO DAILY 12/22/21 NIFEdipine [Nifedipine ER] 1 tab PO DAILY 12/22/21 - Past Medical/Surgical History Diabetic: Yes -: Hypertension -: Pre-Diabetes -: COPD -: Hyperlipidemia -: Bilateral hip replacement -: Appendectomy Psychosocial/ Personal History: Patient lives at home alone. She has children. - Family History Mother Medical History: Heart disease, Hypertension, Cancer Father Medical History: Heart disease, Hypertension - Social History Alcohol use: No CD- Drugs: No Caffeine use: Yes Place of Residence: Home Review of Systems 10-point ROS is otherwise unremarkable Physical Examination Temp Pulse Resp BP Pulse Ox 97.8 F 101 H 18 131/56 L 95 12/22/21 08:00 12/22/21 08:00 12/22/21 08:00 12/22/21 08:00 12/22/21 08:00 General: Alert, In no apparent distress, Oriented x3 Respiratory: Clear to auscultation bilaterally Cardiovascular: No edema, Regular rate/rhythm, Normal S1 S2 Gastrointestinal: Normal bowel sounds, Soft and benign, Non-distended - Problems (1) NSTEMI (non-ST elevated myocardial infarction) Current Visit: Yes Status: Acute Plan: Patient is 71 years of age admitted with non-STEMI pulmonary edema respiratory distress history of COPD currently doing better scheduled for a cardiac cath has been having pain for the past 2 days blood gases showed hypoxic hypercarbic respiratory failure she is doing much better satisfactory on 2 L troponins elevated EKG changes continue with bronchodilators chest x-ray most likely pulmonary edema she has bilateral interstitial change
[2021-12-22] MEDS ORDERED: NA CHLORIDE 0.9% 500 ML ONE (12:27)
[2021-12-22] MEDS ORDERED: HEPARIN 10,000 UNIT/10 ML VIAL IV ONE (13:55)
[2021-12-22] MEDS ORDERED: MIDAZOLAM HCL 2 MG/2 ML INJ ONE ×2 (13:55→15:15)
[2021-12-22] MEDS ORDERED: VERAPAMIL HCL 10 MG/4 ML VIAL IV ONE (13:55)
[2021-12-22] MEDS ORDERED: FENTANYL CITR 100 MCG/2 ML ONE ×2 (13:55→15:15)
[2021-12-22] MEDS ORDERED: ATROPINE SULF 1 MG/10 ML SYR IV ONE (13:56)
--- NOTE | 2021-12-22 15:46 | CON ---
Date of Consultation: 12/22/2021 Reason For Consultation: Chest pain and shortness of breath. History Of Present Illness: 71-year-old female, history of COPD, hypertension, dyslipidemia, diabete s, presented to the emergency room in respiratory distress. She was very short of breath, saturating in the mid 50s, placed on non-rebreather and BiPAP and did much better. Patient complained that she has been having chest pain. Initial troponin was borderline and the second troponin was very high. Patient is not known to have any history of heart disease. Past Medical History: As outlined above in the HPI. Medications: Refer reconciliation sheet for detailed list. Allergies: NO KNOWN DRUG ALLERGIES. Family History: No premature coronary artery disease or cancer. Social History: She is a smoker. Does not drink or use any drugs. Review of Systems: All systems reviewed and they are negative except as mentioned in HPI. Physical Examination: Vital Signs: Reviewed. Head and Neck: Pupils are equal, reactive to light. Intact eye movements. No JVD. No cervical lym phadenopathy. Neck is supple. Thyroid is not enlarged. Lungs: She has crackles in both lung alt[place]irano. No accessory muscle use or muscle retraction. Heart: Irregular. No extra sounds. Abdomen: Soft, nontender. Bowel sounds positive. No organomegaly. No masses or hernia. No rigidi ty or rebound. Extremities: No clubbing or cyanosis. Intact pulses. Skin: No rash. Neurologic: Alert, awake, and oriented x3. No acute focal deficits appreciated. Lymph Nodes: No cervical or axillary lymphadenopathy. Investigations: Chest x-ray showed pulmonary edema. The troponin peaking at 4796. BUN is 29, creat inine is 1. Hemoglobin is 12. Assessment And Recommendations: 1.Non-ST elevation myocardial infarction. Keep her n.p.o. Plan for coronary angiogram, this aftern oon and she was loaded with aspirin and start her on IV heparin drip, pending left heart catheterizat ion. 2.Acute hypoxic respiratory failure due to pulmonary edema, started on Lasix 40 mg IV and b.i.d. and obtain an echocardiogram. 3.Severe chronic obstructive pulmonary disease exacerbation, being managed by Pulmonary. SR/MODL Voice ID: [id number] Report ID: [id number]
--- NOTE | 2021-12-22 16:40 | OP ---
Surgeon: SHAGUFTA SOTO Procedures Performed: 1.Selective coronary angiogram. 2.Left heart catheterization. Indication: Non-ST elevation myocardial infarction. Access: Right radial artery 6-Libyan closed with TR band. Complications: None. Bleeding: Less than 10 mL. Description Of Procedure: After risks, benefits, and alternatives were explained, the patient agreed to procedure and signed informed consent. The patient was brought into the cardiac catheterization laboratory, prepped and draped in the usual sterile fashion. Then, we accessed right radial artery u sing pediatric micropuncture kit, placed a 6-Libyan Slender sheath, and took a 5-Libyan [place] 4.0 cat heter into the aortic root, engaged left main and right coronary artery, took standard views and then the catheter was advanced over the wire into the LV, measured LVEDP and pullback did not record any gradient. Then, the catheter was removed and sheath was removed, placed TR band with good hemostasis . Findings: 1.Left main was large and normal. 2.LAD; ostial 60% stenosis and then in the mid segment, there is long multiple tandem lesions rangin g between 80% to 90% and then mid to distal, there is a focal 90% to 95% stenosis, MAMADOU-3 flow; howev er, the vessel. Diagonal 1 branch with diffuse moderate disease as well about 50% stenosis. 3.Left circumflex; ostial 60% stenosis. Then, the OM1 branch which is a good-sized vessel fixed off with ostial to proximal 95% stenosis. Then left circumflex after the OM 1 takeoff, there is a focal 99% stenosis present, which is likely the culprit for the AR. 4.RCA. It is totally occluded proximally, which was proximal INVESTIGATION DIVISION SERGEANT with collaterals from the septal b ranches of the LAD that fills all the way up of the RCA. The LVEDP is elevated to 29 mmHg. Conclusion: 1.Severe multivessel coronary artery disease. 2.Elevated LVEDP. Recommendation: Plan to transfer for CABG. SR/MODL Voice ID: [id number] Report ID: [id number]
[2021-12-22] MEDS ORDERED: NITROGLYCERIN 0.4 MG/TAB SL PRN (17:36)
[2021-12-22] MEDS ORDERED: ACETAMINOPHEN 325 MG TABLET PO PRN (17:36)
[2021-12-22] MEDS ORDERED: NA CHLORIDE 0.9% 1,000 ML IV PRN (17:38)
[2021-12-22] MEDS ORDERED: IPRATROPIUM BROM 0.5MG/2.5ML NEB PRN (17:38)
[2021-12-22] MEDS ORDERED: ALBUTEROL 2.5 MG/3 ML NEB SOL NEB PRN (17:38)
[2021-12-22] MEDS ORDERED: FUROSEMIDE 20 MG/ 2ML VIAL IV ONE (17:42)
[2021-12-22] MEDS ORDERED: METHYLPREDNISOLONE 125 MG INJ IV ONE (17:45)
[2021-12-22] MEDS ORDERED: NITROGLYCERIN 1 GM PKT TD ONE ×2 (18:11→18:16)
[2021-12-22] MEDS ORDERED: MORPHINE 2 MG/ML SYR IV ONE ×2 (18:12→18:16)
[2021-12-22] MEDS ORDERED: MORPHINE 2 MG/ML SYR IV PRN (18:13)
--- NOTE | 2021-12-22 18:17 | RAD REPORT ---
EXAM DESCRIPTION: RAD - Chest Single View - 12/22/2021 6:00 pm CLINICAL HISTORY: SOB Chest pain. COMPARISON: Chest Single View dated 12/21/2021; Chest Pa And Lat (2 Views) dated 01/29/2019; Chest S gina View dated 10/01/2018; Chest Pa And Lat (2 Views) dated 04/03/2018 FINDINGS: Portable technique limits examination quality. Moderate to severe bilateral pulmonary opacities are present, which have progressed since the compara tive study. This may be related to pulmonary edema. The heart is normal in size. No displaced fractur es. IMPRESSION: Moderate worsening in bilateral pulmonary opacities since yesterday's examination sugges ts pulmonary edema.
[2021-12-22] MEDS ORDERED: FUROSEMIDE 100 MG/10 ML VIAL IV ONE (18:20)
[2021-12-22 20:05] VITALS: BP 138/82
[2021-12-22 20:28] VITALS: O2SAT 93
[2021-12-22] MEDS ORDERED: ATORVASTATIN 40 MG TAB PO SCH (21:00)
--- NOTE | 2021-12-23 09:11 | ECHO ---
HEIGHT: 5 ft 4 in WEIGHT: 177 lb 0 oz DATE OF STUDY: 12/22/[address]: Shayy Augustin MD 2-DIMENSIONAL: YES M.MODE: YES DOPPLER: YES COLOR FLOW: YES TDS: NO PORTABLE: YES DEFINITY: NO BUBBLE STUDY: NO DIAGNOSIS: ELEVATED TROPONIN CARDIAC HISTORY: CATHERIZATION: NO SURGERY: NO PROSTHETIC VALVE: NO PACEMAKER: NO MEASUREMENTS (cm) DIASTOLIC (NORMALS) SYSTOLIC (NORMALS) IVSd 1.1 (0.6-1.2) LA Diam 4.1 (1.9-4.0) LVEF 45% LVIDd 4.9 (3.5-5.7) LVIDs 3.6 (2.0-3.5) %FS 26% LVPWd 1.1 (0.6-1.2) Ao Diam 2.9 (2.0-3.7) 2 DIMENSIONAL ASSESSMENT: RIGHT ATRIUM: NORMAL LEFT ATRIUM: ENLARGED RIGHT VENTRICLE: NORMAL LEFT VENTRICLE: NORMAL TRICUSPID VALVE: NORMAL MITRAL VALVE: MILD MITRAL REGURGITATION PULMONIC VALVE: NORMAL AORTIC VALVE: NORMAL PERICARDIAL EFFUSION: NONE AORTIC ROOT: NORMAL LEFT VENTRICULAR WALL MOTION: BARBRA SEPTAL HYPOKINESIS. DOPPLER/COLOR FLOW: MILD MITRAL REGURGITATION. COMMENTS: MILDLY DEPRESSED LEFT VENTRICULAR EJECTION FRACTION AT 40-45%. MILD BARBRA SEPTAL/ ANTERIOR HYPOKINESIS. MILD MITRAL REGURGITATION. TECHNOLOGIST: LUPE HARO
[2021-12-23] MEDS ORDERED: FUROSEMIDE 40 MG/4 ML VIAL IV SCH (20:00)
== END 2021-12-22 19:40 | disposition short-term general hospital (02) | DRG 280 ==
LOC: ER 05:29 → ERHOLD 12:01 → 3RD-ICU 19:50 → ERHOLD 20:31 → 4TH 12-22 13:56 → 3RD-ICU 12-22 16:13
PROVIDERS: ADMIT Hospitalist; ATTEND Hospitalist
PROC: 5A09457 Assistance with Respiratory Ventilation, 24-96 Consecutive Hours, Continuous Positive Airway Pressure (ICD-10-PCS; 2021-12-21)
PROC: 4A023N7 Measurement of Cardiac Sampling and Pressure, Left Heart, Percutaneous Approach (ICD-10-PCS; principal; 2021-12-22)
PROC: B2111ZZ Fluoroscopy of Multiple Coronary Arteries using Low Osmolar Contrast (ICD-10-PCS; 2021-12-22)
DX: I21.4 Non-ST elevation (NSTEMI) myocardial infarction (principal); J96.01 Acute respiratory failure with hypoxia; J96.02 Acute respiratory failure with hypercapnia; E87.29 Other acidosis; J81.1 Chronic pulmonary edema; J44.1 Chronic obstructive pulmonary disease with (acute) exacerbation; E11.65 Type 2 diabetes mellitus with hyperglycemia; I10 Essential (primary) hypertension; E78.5 Hyperlipidemia, unspecified; F17.200 Nicotine dependence, unspecified, uncomplicated; I25.10 Atherosclerotic heart disease of native coronary artery without angina pectoris; Z60.2 Problems related to living alone; Z90.49 Acquired absence of other specified parts of digestive tract; Z79.82 Long term (current) use of aspirin; Z79.84 Long term (current) use of oral hypoglycemic drugs; Z79.899 Other long term (current) drug therapy; Z96.643 Presence of artificial hip joint, bilateral; Z20.822 Contact with and (suspected) exposure to COVID-19
CPT/HCPCS: 36415; 51702; 71045; 76937; 80048; 80053; 82550; 82553; 82805; 82947; 83036; 83605; 83735; 83880; 84100; 84484; 85025; 85347; 85610; 85730; 87040; 87804; 87811; 93005; 93306; 93458; 94660; 96372; 99285; C1893; J0456; J1644; J1650; J1815; J1940; J2250; J2270; J2930; J3010; J3475; J7030; J7040; J7050; J7614; Q9967

== ENCOUNTER 2022-01-17 12:15 | Observation (INO) | payer MEDICARE ==
--- OUTSIDE RECORDS SUMMARY | 2022-01-17 12:26 | XMS REPORT | Continuity of Care Document ---
:1950 Author Organization [facility] t Address [address] [place] [address] Care Team Providers Name Role Phone Adriana Shreman Attending Clinician Unavailable Ayad Sen Attending Clinician Unavailable Kwasi Christie Attending Clinician Unavailable BETZAIDA_S Attending Clinician Unavailable DORON GRAF M.D. Attending Clinician Unavailable TAYLOR HAMM NP Attending Clinician Unavailable Adriana Sherman Admitting Clinician Unavailable Ayad Sen Admitting Clinician Unavailable HUSSEIN Admitting Clinician Unavailable Payers Payer Name Policy Type Policy Number Effective Date Expiration Date S steve [facility] [id number] 2021 (MEDICARE 00:00:00 REPLACEMENT HMO) AARP Medicare 53 [id number] 2018 Common Complete 00:00:00 [facility] Problems Condition Condition Condition Status Onset [...] prosthesis , , subsequent subsequent encounter encounter [id number] Uncontroll Problem Co mmon ed type 2 [facility] diabetes - [facility] mellitus [facility] hyperglyce Medica l [facility] [id number] Other Problem Common chronic [facility] pain [facility] [id number] Vitamin D Problem Comm on deficiency [facility] [id number] Pure Problem Common hyperchole [facility] sterolemia [facility] Arthritis Arthritis Problem Com mon [facility] Dyspnea Dyspnea Problem Common [facility] Essential Benign Problem Common hypertensi essential Spi rit on HTN [facility] Sebaceous Sebaceous Problem Com mon cyst cyst [facility] Nicotine Nicotine Problem Commo n dependence dependence [facility] Oste[facility]r Osteoarthr Problem C ommon itis of itis of [facility] knee both [facility] knees, St unspecifie [facility] d Medical osteoarthr Center itis type [id number] Pulmonary Problem Comm on fibrosis [facility] Gastroesop Gastroesop Problem C ommon hageal hageal [facility] reflux reflux [facility] disease disease, St esophagiti [facility] s presence Medica l not Center specified Skin Skin Problem Common lesion lesion [facility] COPD - COPD Problem Common Chronic (chronic Spirit obstructiv obstructiv - [facility] e e pulmonary pulmonary [place] s disease disease) Medical [place] [id number] Primary Problem Comm on osteoarthr Spirit itis of - [facility] right knee [facility] [id number] Primary Problem Comm on osteoarthr [facility] itis of [facility] left knee [facility] [id number] Unsteady Problem Comm on gait [facility] [id number] Status Problem Common post Spirit bilateral - [facility]I hip [facility] Allergies, Adverse Reactions, Alerts Allergy Allergy Status Severity Reaction(s) Onset Inactive Treating Comm ents Source Name Type Date Date Clinician No Known DA Active U 2021-03 DIANA Allergso 0-19 [place] 00:00: [address] Family History Family Member Diagnosis Comments Start Date Stop Date Source Mother Family history of [facility] congestive heart failure Mother Family history of diabetes [facility] mellitus Father Family history of heart [facility] attack Social History Social Habit Start Date Stop Date Quantity Comments Source History of Tobacco Use Co mmon [facility] Sex Assigned At Com mon [facility] Smoking Status Start Date Stop Date Source Former Smoker 2021-12-01 00:00:00 2021-12-01 00:00:00 Common S pirit [facility] Medications Ordered Filled Start Stop Current [...] Na Sherman 1 tablet Common XL XL [facility] ProAir ProAir No 2{puffs QID ProAir [...] Symbicort Symbicort 2021- No Symbicort 160-4.5 160-4.5 10-02 160-4.5 MCG/ACT MCG/ACT 00:00 MCG/ACT :00 Symbicort Symbicort 2021- No Symbicort 160-4.5 160-4.5 10-02 160-4.5 MCG/ACT MCG/ACT 00:00 MCG/ACT :00 Symbicort Symbicort 2021- No Symbicort 160-4.5 160-4.5 10-02 160-4.5 MCG/ACT MCG/ACT 00:00 MCG/ACT :00 Immunizations Ordered Immunization Filled Immunization Date Status Commen ts Source Name Name FluAD FluAD 2019-01-02 Completed [facility] 11:22:[facility] FluAD FluAD 2019-01-02 Completed [facility] 11:22: - [facility] FluAD FluAD 2019-01-02 Completed [facility] 11:22:00 - [facility] FluAD FluAD 2019-01-02 Completed [facility] 11:22:00 - [facility] FluAD FluAD 2019-01-02 Completed [facility] 11:22:00 - [facility] FluAD FluAD 2019-01-02 Completed [facility] 11:22:00 - [facility] FluAD FluAD 2019-01-02 Completed [facility] 11:22:00 - [facility] FluAD FluAD 2019-01-02 Completed [facility] 11:22:00 - [facility] FluAD FluAD 2019-01-02 Completed [facility] 11:22:00 - [facility] FluAD FluAD 2019-01-02 Completed [facility] 11:22:00 - [facility] FluAD FluAD 2019-01-02 Completed [facility] 11:22:00 - [facility] FluAD FluAD 2019-01-02 Completed [facility] 11:22:00 - [facility] FluAD FluAD 2019-01-02 Completed [facility] 11:22:00 - [facility] FluAD FluAD 2019-01-02 Completed [facility] 00:00:00 [facility] Vital Signs Vital Name Observation Time Observation Value Comments Source height 2021-12-01 10:00:00 65 [in_i] Common S pirit - [facility] weight 2021-12-01 10:00:00 221 [lb_av] Common S pirit - [facility] bmi 2021-12-01 10:00:00 36.77 kg/m2 Common S pirit [facility] height 2021-09-01 10:20:00 65 [in_i] Common S pirit [facility] weight 2021-09-01 10:20:00 221 [lb_av] Common S [facility] bmi 2021-09-01 10:20:00 36.77 kg/m2 Common S pirit [facility] Height 2018-09-25 10:14:00 66 [in_us] UT [...] ysicians Calculated Procedures Procedure Date / Time Performing Clinician Source Performed [id number] 2022-01-04 00:00:00 ALNMA.01 [facility] [id number] 2022-01-03 00:00:00 ALNMA.01 [facility] [id number] 2021-12-29 00:00:00 ALNMA.01 [facility] [id number] 2021-12-26 00:00:00 AHMIM [facility] [id number] 2021-12-26 00:00:00 AHMIM [facility] [id number] 2021-12-26 00:00:00 AHMIM [facility] [id number] 2021-12-24 00:00:00 CHAAB.01 [facility] [id number] 2021-12-24 00:00:00 CHAAB.01 [facility] [id number] 2021-12-24 00:00:00 CHAAB.01 [facility] [id number] 2021-12-24 00:00:00 CHAAB.01 [facility] [id number] 2021-12-24 00:00:00 CHAAB.01 [facility] [id number] 2021-12-24 00:00:00 CHAAB.01 [facility] [id number] 2021-12-24 00:00:00 CHAAB.01 [facility] [id number] 2021-12-24 00:00:00 ALIRI [facility] [id number] 2021-12-24 00:00:00 ALIRI [facility] [id number] 2021-12-24 00:00:00 ALIRI [facility] [id number] 2021-12-24 00:00:00 ALIRI [facility] [id number] 2021-12-24 00:00:00 ALNMA.01 [facility] Post Op Prom[facility] 2018-09-25 00:00:00 [facility] [U] XRAY HIP UNILATERAL 2018-08-29 00:00:00 [facility] MIN 2 VWS LEFT [id number] Post Op Prom[facility] 2018-08-27 00:00:00 [facility] Post Op [facility] 2018-06-25 00:00:00 [facility] Initial [facility] 2018-06-04 00:00:00 [facility] History of Tubal [facility] Ligation History of Fecal [facility] impaction procedure History of Hip [facility] Replacement 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[facility] Re[facility] Left Encounters Start End Encounter Admission Attending Care Care Encounter Source Date/Time Date/Time Type Type Clinicians Facility Department ID 2021-11-29 Outpatient Sherman, Na STLMLC STLMLC [id number] 2 Common 14:40:00 [facility] 2021-08-30 Outpatient Sherman, Na STLMLC STLMLC [id number] 2 Common 08:45:00 [facility] 2021-07-26 Outpatient Sherman, Na STLMLC STLMLC [id number] 2 Common 09:12:01 [facility] 2021-05-04 Outpatient Sherman, Na STLMLC STLMLC [id number] 2 Common 09:49:01 [facility] 2021-04-05 Outpatient Sherman, Na STLMLC STLMLC [id number] 2 Common 08:29:00 [facility] 2021-03-31 Outpatient Sherman, Na STLMLC STLMLC [id number] 2 Common 12:24:16 [facility] 2021-03-31 Outpatient Sherman, Na STLMLC STLMLC [id number] 2 Common 12:22:44 [facility] 2021-03-31 Outpatient Sherman, Na STLMLC STLMLC [id number] 2 Common 12:22:03 [id number] [facility] 2021-03-31 Outpatient Sherman, Na STLMLC STLMLC [id number] 2 Common 12:16:41 [id number] [facility] 2021-03-31 Outpatient Sherman, Na STLMLC STLMLC [id number] 2 Common 11:16:30 [id number] [facility] 2018-08-30 Inpatient OSH OSH [id number] MH 09:07:00 [facility] 2018-08-13 Inpatient MHOSH MHOSH [id number] MH 08:05:00 [facility] 2018-06-14 Inpatient MHOSH MHOSH [id number] MH 06:19:00 [facility] 2021-12-23 2022-01-04 Inpatient [facility] G001 [id number] [facility] 02:40:00 15:49:00 an, 89 [facility] 2021-12-14 2021-12-14 (TEL) STLMLC STLMLC [id number] Co mmon 00:00:00 00:00:00 [facility] 2021-12-01 2021-12-01 OFFICE STLMLC STLMLC [id number] Co mmon 00:00:00 00:00:00 VISIT [facility] 4 [facility] 2021-11-22 2021-11-22 (TEL) STLMLC STLMLC [id number] Co mmon 00:00:00 00:00:00 [facility] 2021-11-12 2021-11-12 (TEL) STLMLC STLMLC [id number] Co mmon 00:00:00 00:00:00 [facility] 2021-09-20 2021-09-20 (TEL) STLMLC STLMLC [id number] Co mmon 00:00:00 00:00:00 [facility] 2021-09-17 2021-09-17 Outpatient GAYLORD_S DMG DMG [id number] [facility] 06:08:00 06:08:00 0715 [facility] 2021-09-01 2021-09-01 OFFICE STLMLC STLMLC [id number] Co mmon 00:00:00 00:00:00 VISIT [facility] LEVEL 4 [facility] 2021-08-27 2021-08-27 Outpatient GAYLORD_S DMG [facility] [id number] [facility] 12:28:00 12:28:00 0624 [facility] 2021-07-26 2021-07-26 (TEL) STLMLC STLMLC [id number] Co mmon 00:00:00 00:00:00 [facility] 2021-06-28 2021-06-28 (TEL) STLMLC STLMLC [id number] Co mmon 00:00:00 00:00:00 [facility] 2021-05-05 2021-05-05 (TEL) STLMLC STLMLC [id number] Co mmon 00:00:00 00:00:00 [facility] 2021-05-05 2021-05-05 OL DIG E/M STLMLC STLMLC [id number] Common 00:00:00 00:00:00 SVC 21+ [facility] 2021-04-05 2021-04-05 (TEL) STLMLC STLMLC [id number] Co mmon 00:00:00 00:00:00 [facility] 2021-01-12 2021-01-12 (TEL) STLMLC STLMLC [id number] Co mmon 00:00:00 00:00:00 [facility] 2021-01-08 2021-01-08 Outpatient DMG [facility] [id number] [facility] 11:00:00 11:00:00 1105 [facility] 2020-03-30 2020-03-30 Outpatient STLMLC STLMLC [id number] Common 00:00:00 00:00:00 [facility] 2020-03-03 2020-03-03 Outpatient STLMLC STLMLC [id number] Common 00:00:00 00:00:00 [facility] 2019-12-31 2019-12-31 Outpatient STLMLC STLMLC [id number] Common 00:00:00 00:00:00 [facility] 2019-10-01 2019-10-01 [id number] Common 13:54:00 13:54:[address] [facility] 2019-09-30 2019-09-30 [facility] [id number] Common 15:47:00 15:47:[address] [facility] 2019-04-04 2019-04-04 [facility] [id number] Common 13:40:00 13:40:[address] [facility] 2019-02-06 2019-02-06 [facility] [id number] Common 14:47:00 14:47:[address] [facility] 2019-01-02 2019-01-02 [facility] [id number] Common 10:00:00 10:00:[address] [facility] 2018-12-24 2018-12-24 [facility] [id number] Common 09:26:00 09:26:[address] [facility] 2018-12-03 2018-12-03 [facility] [id number] Common 08:56:00 08:56:[address] [facility] 2018-11-08 2018-11-08 [facility] [id number] Common 15:00:00 15:00:[address] [facility] 2018-11-02 2018-11-02 [facility] [id number] Common 10:20:00 10:20:[address] [facility] 2018-10-30 2018-10-30 AppointJOSHUA [facility] [id number] [place] 10:45:00 10:45:00 t; [facility] 2018-09-25 2018-09-25 [facility] Orthopedics [id number] [place] 10:30:00 10:30:00 t; [facility] 2018-09-18 2018-09-18 [facility] [id number] [place] 10:45:00 10:45:00 t; [facility] 2018-09-14 2018-09-14 [facility] [id number] Common 09:20:00 09:20:[address] [facility] 2018-09-12 2018-09-12 [facility] [id number] Common 16:21:00 16:21:[address] [facility] 2018-09-11 2018-09-11 [facility] [id number] [place] 10:30:00 10:30:00 t; [facility] 2018-09-05 2018-09-05 [facility] [id number] Common 14:55:00 14:55:[address] [facility] 2018-09-04 2018-09-04 [facility] [id number] Common 11:20:00 11:20:[address] [facility] 2018-08-30 2018-08-30 Outpatient E [facility] [id number] [facility] 22:19:00 22:19:00 2018-08-30 2018-08-30 [facility] [id number] [place] 13:00:00 13:00:00 t; Hien DO. Ph elaine العلي M.D. 2018-08-30 2018-08-30 Emergency [facility] [id number] [facility] 09:07:00 09:07:00 2018-08-29 2018-08-29 JOSHUA [facility] [id number] [place] 10:45:00 10:45:00 t; TAYLOR HAMM, SALES REP at [facility] Roni VAZQUEZ [facility] 2018-08-13 2018-08-13 Jolie GRAF [facility] [id number] [place] 13:00:00 13:00:00 t; Emmett DO Ph elaine العلي M.D. 2018-07-17 2018-07-17 Jolie GRAF [facility] [id number] [place] 14:30:00 14:30:00 t; Emmett DO Orthopedic Physici LESIA, Surgery - [place] Becker M.D. Trace 1 2018-06-26 2018-06-26 Jolie GRAF [facility] [id number] [place] 14:45:00 14:45:00 t; Emmett DO [facility]opedic Physici LESIA, Surgery - [place] Becker M.D. Trace 1 2018-06-19 2018-06-19 [facility] [id number] Common 10:05:00 10:05:00 t [employer] [facility] it Drive [facility] 2018-06-14 2018-06-14 Jolie GRAF, [facility] [id number] [place] 09:00:00 09:00:00 t; Emmett DO Ph elaine العلي M.D. 2018-06-05 2018-06-05 Jolie GRAF [facility] [id number] [place] 13:30:00 13:30:00 t; Emmett DO Ortho and Physici LESIA, Spine [facility] Deb Becker M.D. [place] 2018-05-11 2018-05-11 [facility] [id number] Common 12:03:00 12:03:00 t [employer] [facility] it Drive [facility] 2018-04-27 2018-04-27 [facility] [id number] Common 12:09:00 12:09:00 t [employer] Sp[address] it Drive Family - [facility] Family Medicine [facility] 2018-04-23 2018-04-23 Outpatient Dionisiosindy Suzanne [id number] Common 10:00:00 10:00:00 t [facility] Joint - [facility] Results Test Description Test Time Test Comments Results Result Comments Source CYTOLOGY NON HEALTH CARE FACILITY ADMINISTRATOR 2022-01-10 12:42:00 Test Item Value Reference Range Interpretation Comme nts CYTOLOGY RUN DATE: NON HEALTH CARE FACILITY ADMINISTRATOR 01/10/22 [place] - LAB P AGE 1 RUN TIME: 1243 Specimen Inquiry RUN USER: INTERFACE (test PATIENT: code = INDIRA HAMM [id number] LOC: EtienneCVN1 U #: [id number] AGE/SX: 71/F ROOM: [facility] REG: ) 12/23/21REG DR: Ayad Mandujano : 48 BED: 1 DIS: 01/04/22 STATUS: DIS IN TLOC: SPEC #: [id number] RECD: 01/07/22-1 326 STATUS: KASIA BARBER #: [id number] ARVIN: 12/29/21- SUBM DR: Alex Batres ENTERED: 01/07/22-1328 SP TY PE: CYTO NGYN OTHR DR: Rao Mitchell MD, Molham MD Alnas, Majd Amin,Abby Meza,Shira Donohue,Kennedy Fabian,Parminder Casey,Eric Meneses,Deejay Quezada,Ra blanco Quigley MDORDERED: [id number], 52599, ANATOMIC SPEC COPIES TO: Rao Mitchell MD [address] [place] [address] Omar Drummond MD [address] [place] [address] Maj jagjit Batres [address] [facility] [place] [address] [place] [address] Abby Rea MD [address] [place] [address] Shira Meza MD [address] [place] [address]. [address] [place] [address] Kennedy Donohue MD [address] [facility] [address] [place] [address] CONTINUED ON NEXT PAGE RUN DATE: 01/10/22 [place] - DEMIAN BACA GE 2 RUN TIME: 1243 Specimen Inquiry RUN USER: INTERFACE SPEC #: [id number] PATIENT: INDIRA HAMM #[id number] (Continued) COPIES TO: (Continued) Parminder Jaimes MD [address] [place] [address] Eric Casey MD [address] [facility] [address] [place] [address] Deejay Meneses MD [address] [place] [address] Sameer Quezada MD [address] [facility] [address] [place] [address] PROCEDURE S: [id number] (01/07/22) [id number] (01/07/22) TISSUES: A. PLEURAL FLUID (CYTOSPIN,CELL BLOCK) - 5 ML S PINK/RED FLUID, SPEC. IN CHEMISTRY SINCE 12/30 CLINICAL HISTORY SAME FINAL DIAGNOSIS Left pleural fluid , cell block sections and cytospins: No cells diagnostic for malignancyseen; occasional degenerated atypi marcos cells. GROSS DESCRIPTION Received is a 5 cc pink/red fluid for cytology evaluation. Technical compon ent performed at [facility],[address] [place] [address], [place], [place] [address] Unless gross only, the diagnosis is based upon microscopic examination.Immunohistochemi stry: This test was developed and its performance characteristicsdetermined by this laboratory. It has n ot been approved nor does it need approvalby the [place] FDA. Appropriate positive and negative contro ls are reviewed and judgedto be acceptable. This laboratory is certified under the Clinical Laboratory Improvement CONTINUED ON NEXT PAGE RUN DATE: 01/10/22 [facility] DEMIAN BACA 3 RUN TIME: 1243 Specimen Inquiry RUN USER: INTERFACE SPEC #: [id number] PATIENT: INDIRA HAMM #[id number] (Continued) GROSS DESCRIPTION (Continue d) Amendments (CLIA-88) as qualified to perform high complexity clinical laboratory testing. 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 Sherri t performance dep ends on theamount of vi zachary (antigen) in e sample.This sherri t has not been FDA cleare d or approved; the t est hasbeen authorized by Amrik MILLER under an Emergency Use Authorization(E UA) for use by laboratories certified under the CLIA thatmeet the requirements to perform moderate, high or waivedcomplexit y tests. 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[facility] BASIC METABOLIC [id number] 03:09:00 Test Item Value Reference Range Interpretation Comments SODIUM (test code = NA) 139 mEq/L 134-147 N POTASSIUM (test code = 4.1 mEq/L 3.4-5.0 N K) CHLORIDE (test code = 105 mEq/L 100-108 N CL) CARBON DIOXIDE (test 26 mEq/l 21-33 N code = CO2) ANION GAP (test code = 12 0-20 N GAP) GLUCOSE (test code = 130 mg/dL 70-110 H GLU) BLOOD UREA NITROGEN 22 mg/dL 7-18 H (test code = BUN) GLOMERULAR FILTRATION 37.0 70-80 L Units of measure = RATE (test code = GFR) ml/mi n/1.73 m2 CREATININE (test code = 1.4 mg/dL 0.6-1.3 H CREAT) CALCIUM (test code = 8.9 mg/dL 8.0-10.5 N CA) [id number] 03:09:00 Test Item Value Reference Range Interpretation Comments MAGNESIUM (test code = MAG) 2.16 mg/dL 1.80-2.40 CBC W/AUTO [id number] 02:56:00 Test Item Value Reference Range Interpretation Comments WHITE BLOOD CELL (test code = 9.6 x10 3/uL 4.5-11.0 N WBC) RED BLOOD CELL (test code = 3.39 x10 6/uL 3.54-5.02 L RBC) HEMOGLOBIN (test code = HGB) 10.3 g/dL 11.0-15.0 L HEMATOCRIT (test code = HCT) 32.2 % 33.0-45.0 L MEAN CELL VOLUME (test code = 95.0 fL 81.0-99.0 N MCV) MEAN CELL HGB (test code = MCH) 30.4 pg 27.0-33.0 N MEAN CELL HGB CONCETRATION 32.0 g/dL 33.0-37.0 L (test code = MCHC) RED CELL DISTRIBUTION WIDTH CV 14.7 % 11.5-14.5 H (test code = RDW) RED CELL DISTRIBUTION WIDTH SD 50.3 fL 37.0-54.0 N (test code = RDW-SD) PLATELET COUNT (test code = 438 x10 3/uL 150-400 H PLT) MEAN PLATELET VOLUME (test code 8.5 fL 7.0-9.0 N = MPV) NEUTROPHIL % (test code = NT%) 73.5 % 56.0-77.0 N IMMATURE GRANULOCYTE % (test 0.9 % 0.0-2.0 N code = IG%) LYMPHOCYTE % (test code = LY%) 15.4 % 14.0-32.0 N MONOCYTE % (test code = MO%) 6.7 % 4.8-9.0 N EOSINOPHIL % (test code = EO%) 2.9 % 0.3-3.7 N BASOPHIL % (test code = BA%) 0.6 % 0.0-2.0 N NUCLEATED RBC % (test code = 0.0 % 0-0 N NRBC%) NEUTROPHIL # (test code = NT#) 7.02 x10 3/uL 2.0-7.6 N IMMATURE GRANULOCYTE # (test 0.09 x10 3/uL 0.00-0.03 H code = IG#) LYMPHOCYTE # (test code = LY#) 1.47 x10 3/uL 1.0-3.8 N MONOCYTE # (test code = MO#) 0.64 x10 3/uL 0.1-0.8 N EOSINOPHIL # (test code = EO#) 0.28 x10 3/uL 0.0-0.2 H BASOPHIL # (test code = BA#) 0.06 x10 3/uL 0.0-0.2 N NUCLEATED RBC # (test code = 0.00 x10 3/uL 0.0-0.1 N NRBC#) MANUAL DIFF REQUIRED (test code NO = MDIFF) GLUCOSE [id number] 21:18:00 Test Item Value Reference Range Interpretation Comments GLUCOSE BEDSIDE (test 129 MG/DL 70-110 H [facility] by certified code = GLUBED) 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[facility] GLUCOSE [id number] 18:18:00 Test Item Value Reference Range Interpretation Comments GLUCOSE BEDSIDE (test 94 MG/DL 70-110 N Perfor med by certified code = GLUBED) 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[facility] [place]UCOSE [id number] 12:42:00 Test Item Value Reference Range Interpretation Comments GLUCOSE BEDSIDE (test 178 MG/DL 70-110 H Perfor med by certified code = GLUBED) 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[facility] [place] GLUCOSE [id number] 08:54:00 Test Item Value Reference Range Interpretation Comments GLUCOSE BEDSIDE (test 169 MG/DL 70-110 H Perfor med by certified code = GLUBED) 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[facility] [place] BASIC METABOLIC [id number] 04:36:00 Test Item Value Reference Range Interpretation Comments SODIUM (test code = NA) 140 mEq/L 134-147 N POTASSIUM (test code = 3.8 mEq/L 3.4-5.0 N K) CHLORIDE (test code = 108 mEq/L 100-108 N CL) CARBON DIOXIDE (test 24 mEq/l 21-33 N code = CO2) ANION GAP (test code = 11 0-20 N GAP) GLUCOSE (test code = 139 mg/dL 70-110 H GLU) BLOOD UREA NITROGEN 21 mg/dL 7-18 H (test code = BUN) GLOMERULAR FILTRATION 54.5 70-80 L Units of measure = RATE (test code = GFR) ml/mi n/1.73 m2 CREATININE (test code = 1.0 mg/dL 0.6-1.3 N CREAT) CALCIUM (test code = 8.9 mg/dL 8.0-10.5 N CA) [id number] 04:36:00 Test Item Value Reference Range Interpretation Comments MAGNESIUM (test code = MAG) 1.85 mg/dL 1.80-2.40 N CBC W/AUTO [id number] 04:20:00 Test Item Value Reference Range Interpretation Comments WHITE BLOOD CELL (test code = 8.9 x10 3/uL 4.5-11.0 N WBC) RED BLOOD CELL (test code = 3.15 x10 6/uL 3.54-5.02 L RBC) HEMOGLOBIN (test code = HGB) 9.6 g/dL 11.0-15.0 L HEMATOCRIT (test code = HCT) 29.7 % 33.0-45.0 L MEAN CELL VOLUME (test code = 94.3 fL 81.0-99.0 MCV) MEAN CELL HGB (test code = MCH) 30.5 pg 27.0-33.0 N MEAN CELL HGB CONCETRATION 32.3 g/dL 33.0-37.0 L (test code = MCHC) RED CELL DISTRIBUTION WIDTH CV 14.7 % 11.5-14.5 H (test code = RDW) RED CELL DISTRIBUTION WIDTH SD 50.1 fL 37.0-54.0 N (test code = RDW-SD) PLATELET COUNT (test code = 391 x10 3/uL 150-400 N PLT) MEAN PLATELET VOLUME (test code 8.3 fL 7.0-9.0 N = MPV) NEUTROPHIL % (test code = NT%) 74.7 % 56.0-77.0 N IMMATURE GRANULOCYTE % (test 1.3 % 0.0-2.0 N code = IG%) LYMPHOCYTE % (test code = LY%) 13.8 % 14.0-32.0 L MONOCYTE % (test code = MO%) 6.5 % 4.8-9.0 N EOSINOPHIL % (test code = EO%) 3.0 % 0.3-3.7 N BASOPHIL % (test code = BA%) 0.7 % 0.0-2.0 N NUCLEATED RBC % (test code = 0.0 % 0-0 N NRBC%) NEUTROPHIL # (test code = NT#) 6.65 x10 3/uL 2.0-7.6 N IMMATURE GRANULOCYTE # (test 0.12 x10 3/uL 0.00-0.03 H code = IG#) LYMPHOCYTE # (test code = LY#) 1.23 x10 3/uL 1.0-3.8 N MONOCYTE # (test code = MO#) 0.58 x10 3/uL 0.1-0.8 N EOSINOPHIL # (test code = EO#) 0.27 x10 3/uL 0.0-0.2 H BASOPHIL # (test code = BA#) 0.06 x10 3/uL 0.0-0.2 N NUCLEATED RBC # (test code = 0.00 x10 3/uL 0.0-0.1 N NRBC#) MANUAL DIFF REQUIRED (test code NO = MDIFF) GLUCOSE [id number] 21:15:00 Test Item Value Reference Range Interpretation Comments GLUCOSE BEDSIDE (test 189 MG/DL 70-110 H Perfor med by certified code = GLUBED) 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[facility] [place] GLUCOSE [id number] 16:24:00 Test Item Value Reference Range Interpretation Comments GLUCOSE BEDSIDE (test 116 MG/DL 70-110 H Perfor med by certified code = GLUBED) 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[facility] [place] GLUCOSE [id number] 11:54:00 Test Item Value Reference Range Interpretation Comments GLUCOSE BEDSIDE (test 143 MG/DL 70-110 H Perfor med by certified code = GLUBED) 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[facility] [place] GLUCOSE [id number] 11:38:00 Test Item Value Reference Range Interpretation Comments GLUCOSE BEDSIDE (test 201 MG/DL 70-110 H Perfor med by certified code = GLUBED) 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[facility] [place] GLUCOSE [id number] 08:17:00 Test Item Value Reference Range Interpretation Comments GLUCOSE BEDSIDE (test 129 MG/DL 70-110 H Perfor med by certified code = GLUBED) 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3 CREAT) CALCIUM (test code = 9.3 mg/dL 8.0-10.5 N CA) [id number] 04:17:00 Test Item Value Reference Range Interpretation Comments MAGNESIUM (test code = MAG) 2.05 mg/dL 1.80-2.40 N CBC W/AUTO [id number] 04:02:00 Test Item Value Reference Range Interpretation Comments WHITE BLOOD CELL (test code = 10.3 x10 3/uL 4.5-11.0 N WBC) RED BLOOD CELL (test code = 3.46 x10 6/uL 3.54-5.02 L RBC) HEMOGLOBIN (test code = HGB) 10.6 g/dL 11.0-15.0 L HEMATOCRIT (test code = HCT) 34.0 % 33.0-45.0 N MEAN CELL VOLUME (test code = 98.3 fL 81.0-99.0 N MCV) MEAN CELL HGB (test code = MCH) 30.6 pg 27.0-33.0 N MEAN CELL HGB CONCETRATION 31.2 g/dL 33.0-37.0 L (test code = MCHC) RED CELL DISTRIBUTION WIDTH CV 14.7 % 11.5-14.5 H (test code = RDW) RED CELL DISTRIBUTION WIDTH SD 52.6 fL 37.0-54.0 N (test code = RDW-SD) PLATELET COUNT (test code = 411 x10 3/uL 150-400 H PLT) MEAN PLATELET VOLUME (test code 8.5 fL 7.0-9.0 N = MPV) NEUTROPHIL % (test code = NT%) 72.9 % 56.0-77.0 N IMMATURE GRANULOCYTE % (test 1.3 % 0.0-2.0 N code = IG%) LYMPHOCYTE % (test code = LY%) 15.0 % 14.0-32.0 N MONOCYTE % (test code = MO%) 6.6 % 4.8-9.0 N EOSINOPHIL % (test code = EO%) 3.3 % 0.3-3.7 N BASOPHIL % (test code = BA%) 0.9 % 0.0-2.0 N NUCLEATED RBC % (test code = 0.0 % 0-0 N NRBC%) NEUTROPHIL # (test code = NT#) 7.48 x10 3/uL 2.0-7.6 N IMMATURE GRANULOCYTE # (test 0.13 x10 3/uL 0.00-0.03 H code = IG#) LYMPHOCYTE # (test code = LY#) 1.54 x10 3/uL 1.0-3.8 N MONOCYTE # (test code = MO#) 0.68 x10 3/uL 0.1-0.8 N EOSINOPHIL # (test code = EO#) 0.34 x10 3/uL 0.0-0.2 H BASOPHIL # (test code = BA#) 0.09 x10 3/uL 0.0-0.2 N NUCLEATED RBC # (test code = 0.00 x10 3/uL 0.0-0.1 N NRBC#) MANUAL DIFF REQUIRED (test code NO = MDIFF) - DUP VEIN [id number] 00:00:00 [facility] 1950 Sex: F Name: INDIRA HAMM [facility] Hunter Phillips : 1950 Age/S: 71 / F [address] [place] [address] Unit #: [id number] Loc: [place] [address] Phys: Shira Meza MD Acct: [id number] Dis Date: Status: ADM INPHONE #: [phone] Exam Date: 01/01/2022 1608 FAX #: [phone] Reason: r/o dvt EXAMS: CPT CODE: [id number] DUP VEIN DEAN [id number] PROCEDURE INFORMATION: Exam: US Duplex Lower Extremity Veins, Bilateral Exam date and time: 01/01/2022 3:45 PM Age: 71 years old Clinical indication: Screening exam; R/Odvt TECHNIQUE: Imaging protocol: Real-time Duplex ultrasound of the bilateral extremities with 2-D argueta scale, color Doppler flow and spectral waveform analysis with image documentation. Complete exam focused on the bilateral lower extremity veins. COMPARISON: US DUP VEIN DEAN 12/23/2021 6:43 AM FINDINGS: Right deep veins: Unremarkable. The common femoral, femoral, proximal profunda femoral and popliteal veins are patent without thrombus. Normal Doppler waveforms. Normal compressibility and/or augmentation response. Right superficial veins: Saphenofemoral junction is patent without thrombus. Left deep veins: Unremarkable. The common femoral, femoral, proximal profunda femoral and popliteal veins are patent without thrombus. Normal Doppler waveforms. Normal compressibility and/or augmentation response. Left superficial veins: Thrombosis within the proximal left greater saphenous vein. Soft tissues: Unremarkable. IMPRESSION: 1. No evidence of deep vein thrombosis. 2. Superficial thrombosis within the proximal left greater saphenous vein. at 0638 Reported and signed by: Merritt Weaver M.D. 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[facility] [place] GLUCOSE [id number] 18:27:00 Test Item Value Reference Range Interpretation Comments GLUCOSE BEDSIDE (test 133 MG/DL 70-110 H Perfor med by certified code = GLUBED) 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[facility] [place] GLUCOSE [id number] 12:04:00 Test Item Value Reference Range Interpretation Comments GLUCOSE BEDSIDE (test 166 MG/DL 70-110 H Perfor med by certified code = GLUBED) 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[facility] [place] GLUCOSE [id number] 08:22:00 Test Item Value Reference Range Interpretation Comments GLUCOSE BEDSIDE (test 125 MG/DL 70-110 H Perfor med by certified code = GLUBED) 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[facility] [place] BASIC METABOLIC [id number] 04:44:00 Test Item Value Reference Range Interpretation Comments SODIUM (test code = NA) 142 mEq/L 134-147 N POTASSIUM (test code = 4.0 mEq/L 3.4-5.0 N K) CHLORIDE (test code = 107 mEq/L 100-108 N CL) CARBON DIOXIDE (test 26 mEq/l 21-33 N code = CO2) ANION GAP (test code = 14 0-20 N GAP) GLUCOSE (test code = 147 mg/dL 70-110 H GLU) BLOOD UREA NITROGEN 16 mg/dL 7-18 N (test code = BUN) GLOMERULAR FILTRATION 61.5 70-80 L Units of measure = RATE (test code = GFR) ml/mi n/1.73 m2 CREATININE (test code = 0.9 mg/dL 0.6-1.3 N CREAT) CALCIUM (test code = 8.7 mg/dL 8.0-10.5 N CA) [id number] 04:44:00 Test Item Value Reference Range Interpretation Comments MAGNESIUM (test code = MAG) 2.03 mg/dL 1.80-2.40 N CBC W/AUTO [id number] 04:35:00 Test Item Value Reference Range Interpretation Comments WHITE BLOOD CELL (test code = 8.1 x10 3/uL 4.5-11.0 N WBC) RED BLOOD CELL (test code = 3.10 x10 6/uL 3.54-5.02 L RBC) HEMOGLOBIN (test code = HGB) 9.5 g/dL 11.0-15.0 L HEMATOCRIT (test code = HCT) 29.9 % 33.0-45.0 L MEAN CELL VOLUME (test code = 96.5 fL 81.0-99.0 N MCV) MEAN CELL HGB (test code = MCH) 30.6 pg 27.0-33.0 N MEAN CELL HGB CONCETRATION 31.8 g/dL 33.0-37.0 L (test code = MCHC) RED CELL DISTRIBUTION WIDTH CV 14.6 % 11.5-14.5 H (test code = RDW) RED CELL DISTRIBUTION WIDTH SD 50.9 fL 37.0-54.0 N (test code = RDW-SD) PLATELET COUNT (test code = 334 x10 3/uL 150-400 N PLT) MEAN PLATELET VOLUME (test code 8.6 fL 7.0-9.0 N = MPV) NEUTROPHIL % (test code = NT%) 74.9 % 56.0-77.0 N IMMATURE GRANULOCYTE % (test 1.4 % 0.0-2.0 N code = IG%) LYMPHOCYTE % (test code = LY%) 12.1 % 14.0-32.0 L MONOCYTE % (test code = MO%) 6.5 % 4.8-9.0 N EOSINOPHIL % (test code = EO%) 4.4 % 0.3-3.7 H BASOPHIL % (test code = BA%) 0.7 % 0.0-2.0 N NUCLEATED RBC % (test code = 0.2 % 0-0 H NRBC%) NEUTROPHIL # (test code = NT#) 6.09 x10 3/uL 2.0-7.6 N IMMATURE GRANULOCYTE # (test 0.11 x10 3/uL 0.00-0.03 H code = IG#) LYMPHOCYTE # (test code = LY#) 0.98 x10 3/uL 1.0-3.8 L MONOCYTE # (test code = MO#) 0.53 x10 3/uL 0.1-0.8 N EOSINOPHIL # (test code = EO#) 0.36 x10 3/uL 0.0-0.2 H BASOPHIL # (test code = BA#) 0.06 x10 3/uL 0.0-0.2 N NUCLEATED RBC # (test code = 0.02 x10 3/uL 0.0-0.1 N NRBC#) MANUAL DIFF REQUIRED (test code NO = MDIFF) GLUCOSE [id number] 20:18:00 Test Item Value Reference Range Interpretation Comments GLUCOSE BEDSIDE (test 145 MG/DL 70-110 H Perfor med by certified code = GLUBED) 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[facility] [place] GLUCOSE [id number] 17:37:00 Test Item Value Reference Range Interpretation Comments GLUCOSE BEDSIDE (test 121 MG/DL 70-110 H Perfor med by certified code = GLUBED) 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[facility] [place] GLUCOSE [id number] 11:46:00 Test Item Value Reference Range Interpretation Comments GLUCOSE BEDSIDE (test 173 MG/DL 70-110 H Perfor med by certified code = GLUBED) 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[facility] [place] GLUCOSE [id number] 08:03:00 Test Item Value Reference Range Interpretation Comments GLUCOSE BEDSIDE (test 141 MG/DL 70-110 H Perfor med by certified code = GLUBED) 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[facility] [place] BASIC METABOLIC [id number] 04:41:00 Test Item Value Reference Range Interpretation Comments SODIUM (test code = NA) 141 mEq/L 134-147 N POTASSIUM (test code = 3.9 mEq/L 3.4-5.0 N K) CHLORIDE (test code = 104 mEq/L 100-108 N CL) CARBON DIOXIDE (test 29 mEq/l 21-33 N code = CO2) ANION GAP (test code = 12 0-20 N GAP) GLUCOSE (test code = 130 mg/dL 70-110 H GLU) BLOOD UREA NITROGEN 16 mg/dL 7-18 N (test code = BUN) GLOMERULAR FILTRATION 61.5 70-80 L Units of measure = RATE (test code = GFR) ml/mi n/1.73 m2 CREATININE (test code = 0.9 mg/dL 0.6-1.3 N CREAT) CALCIUM (test code = 8.9 mg/dL 8.0-10.5 N CA) [id number] 04:41:00 Test Item Value Reference Range Interpretation Comments MAGNESIUM (test code = MAG) 1.93 mg/dL 1.80-2.40 N CBC W/AUTO [id number] 04:25:00 Test Item Value Reference Range Interpretation Comments WHITE BLOOD CELL (test code = 8.6 x10 3/uL 4.5-11.0 N WBC) RED BLOOD CELL (test code = 3.17 x10 6/uL 3.54-5.02 L RBC) HEMOGLOBIN (test code = HGB) 9.6 g/dL 11.0-15.0 L HEMATOCRIT (test code = HCT) 30.5 % 33.0-45.0 L MEAN CELL VOLUME (test code = 96.2 fL 81.0-99.0 N MCV) MEAN CELL HGB (test code = MCH) 30.3 pg 27.0-33.0 N MEAN CELL HGB CONCETRATION 31.5 g/dL 33.0-37.0 L (test code = MCHC) RED CELL DISTRIBUTION WIDTH CV 14.3 % 11.5-14.5 N (test code = RDW) RED CELL DISTRIBUTION WIDTH SD 50.4 fL 37.0-54.0 N (test code = RDW-SD) PLATELET COUNT (test code = 319 x10 3/uL 150-400 N PLT) MEAN PLATELET VOLUME (test code 8.7 fL 7.0-9.0 N = MPV) NEUTROPHIL % (test code = NT%) 75.7 % 56.0-77.0 N IMMATURE GRANULOCYTE % (test 1.3 % 0.0-2.0 N code = IG%) LYMPHOCYTE % (test code = LY%) 10.9 % 14.0-32.0 L MONOCYTE % (test code = MO%) 7.1 % 4.8-9.0 N EOSINOPHIL % (test code = EO%) 4.3 % 0.3-3.7 H BASOPHIL % (test code = BA%) 0.7 % 0.0-2.0 N NUCLEATED RBC % (test code = 0.0 % 0-0 N NRBC%) NEUTROPHIL # (test code = NT#) 6.55 x10 3/uL 2.0-7.6 N IMMATURE GRANULOCYTE # (test 0.11 x10 3/uL 0.00-0.03 H code = IG#) LYMPHOCYTE # (test code = LY#) 0.94 x10 3/uL 1.0-3.8 L MONOCYTE # (test code = MO#) 0.61 x10 3/uL 0.1-0.8 N EOSINOPHIL # (test code = EO#) 0.37 x10 3/uL 0.0-0.2 H BASOPHIL # (test code = BA#) 0.06 x10 3/uL 0.0-0.2 N NUCLEATED RBC # (test code = 0.00 x10 3/uL 0.0-0.1 N NRBC#) MANUAL DIFF REQUIRED (test code NO = MDIFF) GLUCOSE [id number] 21:08:00 Test Item Value Reference Range Interpretation Comments GLUCOSE BEDSIDE (test 182 MG/DL 70-110 H Perfor med by certified code = GLUBED) 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[facility] GLUCOSE [id number] 16:44:00 Test Item Value Reference Range Interpretation Comments GLUCOSE BEDSIDE (test 144 MG/DL 70-110 H Perfor med by certified code = GLUBED) 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3 N CREAT) CALCIUM (test code = 7.9 mg/dL 8.0-10.5 L CA) [id number] 11:53:00 Test Item Value Reference Range Interpretation Comments PHOSPHOROUS (test code = PHOS) 2.5 MG/DL 2.5-4.9 N [id number] 11:53:00 Test Item Value Reference Range Interpretation Comments MAGNESIUM (test code = MAG) 1.91 mg/dL 1.80-2.40 N CALCIUM [id number] 11:53:00 Test Item Value Reference Range Interpretation Comments CALCIUM IONIZED (test code = ANU) 1.06 MMOL/L 1.09-1.30 L GLUCOSE [id number] 11:22:00 Test Item Value Reference Range Interpretation Comments GLUCOSE BEDSIDE (test 180 MG/DL 70-110 H Perfor med by certified code = GLUBED) 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[facility] GLUCOSE [id number] 07:43:00 Test Item Value Reference Range Interpretation Comments GLUCOSE BEDSIDE (test 157 MG/DL 70-110 H Perfor med by certified code = GLUBED) 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3 N CREAT) CALCIUM (test code = 8.4 mg/dL 8.0-10.5 N CA) [id number] 03:57:00 Test Item Value Reference Range Interpretation Comments MAGNESIUM (test code = MAG) 2.23 mg/dL 1.80-2.40 N CBC W/AUTO [id number] 03:43:00 Test Item Value Reference Range Interpretation Comments WHITE BLOOD CELL (test code = 8.9 x10 3/uL 4.5-11.0 N WBC) RED BLOOD CELL (test code = 2.99 x10 6/uL 3.54-5.02 L RBC) HEMOGLOBIN (test code = HGB) 9.3 g/dL 11.0-15.0 L HEMATOCRIT (test code = HCT) 28.8 % 33.0-45.0 L MEAN CELL VOLUME (test code = 96.3 fL 81.0-99.0 N MCV) MEAN CELL HGB (test code = MCH) 31.1 pg 27.0-33.0 N MEAN CELL HGB CONCETRATION 32.3 g/dL 33.0-37.0 L (test code = MCHC) RED CELL DISTRIBUTION WIDTH CV 14.3 % 11.5-14.5 N (test code = RDW) RED CELL DISTRIBUTION WIDTH SD 50.6 fL 37.0-54.0 N (test code = RDW-SD) PLATELET COUNT (test code = 254 x10 3/uL 150-400 N PLT) MEAN PLATELET VOLUME (test code 8.9 fL 7.0-9.0 N = MPV) NEUTROPHIL % (test code = NT%) 72.2 % 56.0-77.0 N IMMATURE GRANULOCYTE % (test 1.3 % 0.0-2.0 N code = IG%) LYMPHOCYTE % (test code = LY%) 14.3 % 14.0-32.0 N MONOCYTE % (test code = MO%) 7.1 % 4.8-9.0 N EOSINOPHIL % (test code = EO%) 4.5 % 0.3-3.7 H BASOPHIL % (test code = BA%) 0.6 % 0.0-2.0 N NUCLEATED RBC % (test code = 0.0 % 0-0 N NRBC%) NEUTROPHIL # (test code = NT#) 6.44 x10 3/uL 2.0-7.6 N IMMATURE GRANULOCYTE # (test 0.12 x10 3/uL 0.00-0.03 H code = IG#) LYMPHOCYTE # (test code = LY#) 1.28 x10 3/uL 1.0-3.8 N MONOCYTE # (test code = MO#) 0.63 x10 3/uL 0.1-0.8 N EOSINOPHIL # (test code = EO#) 0.40 x10 3/uL 0.0-0.2 H BASOPHIL # (test code = BA#) 0.05 x10 3/uL 0.0-0.2 N NUCLEATED RBC # (test code = 0.00 x10 3/uL 0.0-0.1 N NRBC#) MANUAL DIFF REQUIRED (test code NO = MDIFF) POC ARTERIAL BLOOD [id number] 03:32:00 Test Item Value Reference Range Interpretation Comments POC ARTERIAL BLOOD GAS PH (test 7.452 7.35-7.45 H code = POCPHA) POC ARTERIAL BLOOD GAS PCO2 44.6 mmHg 35.0-45 N (test code = [id number]) POC TCO2 ARTERIAL (test code = 32.5 POCTCO2) POC ARTERIAL BLOOD GAS PO2 (test 87.9 mmHg 80-100.0 N code = [id number]) POC HCO3 ARTERIAL (test code = 31.1 MMOL/L 22.0-26.0 HH [id number]) POC BASE EXCESS (test code = 7.1 MMOL/L -4.0-4.0 H POCBEA) POC O2 SATURATION (test code = 97.1 % 90-100 N POCO2S) FIO2 (test code = FIO2A) 35 % PaO2/FiO2 (test code = [id number]) 251.14 mm/Hg ABG DELIVERY (test code = BERTHA) BiPAP ABG VENT RESP RATE (test code = 12 /MIN RRA) ABG PEEP (test code = PEEPA) 5 cmH2O ABG PRESSURE SUPPORT (test code 10 cmH2O = PSABG) ABG SITE (test code = SITEA) Art Line ANASTACIA'S TEST (test code = N/A ALLENS) BASIC METABOLIC [id number] 03:32:00 Test Item Value Reference Range Interpretation Comments SODIUM (test code = NA/ABG) 138 MEQ/L 134-147 N POTASSIUM (test code = K/ABG) 4.4 MEQ/L 3.4-5.0 N CHLORIDE (test code = CL/ABG) 98 MEQ/L 100-108 L CREATININE ABG (test code = 0.8 mg/dL 0.6-1.0 N CREAABG) POC IONIZED CALCIUM (test code = 1.18 MMOL/L 1.12-1.32 N POCCA) POC GLUCOSE (test code = POCGLU) 117 MG/DL 70-110 H HEMOGLOBIN [id number] 03:32:00 Test Item Value Reference Range Interpretation Comments HEMOGLOBIN ABG (test code = HGB/ABG) 9.1 G/DL 11.0-15.0 L [id number] 03:32:00 Test Item Value Reference Range Interpretation Comments HEMATOCRIT (test code = HCT/ABG) 27 % 33.0-45.0 L POC LACTIC [id number] 03:32:00 Test Item Value Reference Range Interpretation Comments POC LACTIC ACID (test code = 0.6 mmol/l 0.9-1.7 L POCLAC) - XR CHEST 1 [id number] 00:00:00 [facility] 1950 Sex: F FAX:Kwasi Christie MD [place]: St: ADM FAX: Nubia Michaels MD [phone] FAX: Lizzy Sutton [phone] FAX: Deejay Tinoco [phone] Name: INDIRA HAMM [facility] : 1950 Age/S: 71/F [address] [place] [address] Bl Unit #: [id number] Loc: G.2205 [place] [address] Phys: Alannah Sutton SALES REP Acct: [id number] Dis Date: Status: ADM IN PHONE #: [phone] Exam Date: 12/30/2021 0649 FAX #: [phone] Reason: Cardiac Surgery Post Op EXAMS: CPT CODE: [id number] XR CHEST 1 V [id number] PROCEDURE INFORMA TION: Exam: XR Chest Exam date and time: 12/30/2021 5:38 AM Age: 71 years old Clinical indication: Other: Cardiac surgery post op TECHNIQUE: Imaging protocol: Radiologic exam of the chest. Views: 1 view. COMPARISON: CR XR CHEST 1V 12/29/2021 1:46 PM FINDINGS: Lungs: Mixed areas of interstitial and alveolar opacities identified in the lungs particularly left lung base. Left base is partially obscuredfrom examination. Appearance is similar previous study. Pleural spaces: Small right apical pneumothorax, slightly decreased from previous study. Heart/Mediastinum: Heart is enlarged. Status post median sternotomy. Bones/joints: Unchanged.. IMPRESSION: 1. Stable appearance of bilateral pulmonary opacities. 2. Slight interval decrease in small right pneumothorax. at 0902 Reported and signed by: Jonel Wiley M.D. 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 The test resultshould be correlated into the clinic al context forinterpretati on. [Automated mess age] The system which ge nerated this result tra nsmitted reference range : (). The reference range was not used to interpr et this result as ethan l/abnormal. PLEURAL FLD [id number] 18:07:00 Test Item Value Reference Range Interpretation Comments PLEURAL FLD LDH (test code = 333 UNITS/L LDHPL) PLEURAL FLD TOTAL [id number] 18:05:00 Test Item Value Reference Range Interpretation Comments PLEURAL FLD TOTAL PROTEIN (test 3.1 GM/DL code = PROTPL) PLEURAL FLD TOTAL [id number] 18:05:00 Test Item Value Reference Range Interpretation Comments PLEURAL FLD TOTAL 3.1 GM/DL See_Comment The Refere nce Range and PROTEIN (test Method Perform ance code = PROTPL) specification shave not been established for this fluid. The test result should be correlated into the clinical contex t forinterpretati on. [Automated Gilian [employer] age] The system which [employer] nerated this result transmit aysha reference range : (). The reference range was not used to interpr et this result as ethan l/abnormal. PLEURUAL FLD [id number] 18:04:00 Test Item Value Reference Range Interpretation Comments PLEURUAL FLD GLUCOSE (test code = 203 MG/DL GLUPL) PLERUAL FLD [id number] 18:04:00 Test Item Value Reference Range Interpretation Comments PLERUAL FLD 203 MG/DL See_Comment The Reference R osiel and GLUCOSE (test Method Perform ance code = GLUPL) specifications have not been established for this fluid. The test result should be correlated into the clinical contex t forinterpretati on. [[employer]] The system which [employer] nerated this result transmit aysha reference range : (). The reference range was not used to interpr et this result as ethan l/abnormal. BASIC METABOLIC [id number] 17:51:00 Test Item Value Reference Range Interpretation Comments SODIUM (test code = NA) 137 mEq/L 134-147 N POTASSIUM (test code = 3.8 mEq/L 3.4-5.0 N K) CHLORIDE (test code = 96 mEq/L 100-108 L CL) CARBON DIOXIDE (test 36 mEq/l 21-33 H code = CO2) ANION GAP (test code = 9 0-20 N GAP) GLUCOSE (test code = 164 mg/dL 70-110 H GLU) BLOOD UREA NITROGEN 20 mg/dL 7-18 H (test code = BUN) GLOMERULAR FILTRATION 61.5 70-80 L Units of measure = RATE (test code = GFR) ml/mi n/1.73 m2 CREATININE (test code = 0.9 mg/dL 0.6-1.3 N CREAT) CALCIUM (test code = 8.6 mg/dL 8.0-10.5 N CA) [id number] 17:51:00 Test Item Value Reference Range Interpretation Comments PHOSPHOROUS (test code = PHOS) 3.0 MG/DL 2.5-4.9 N [id number] 17:51:00 Test Item Value Reference Range Interpretation Comments MAGNESIUM (test code = MAG) 2.37 mg/dL 1.80-2.40 GLUCOSE [id number] 17:14:00 Test Item Value Reference Range Interpretation Comments GLUCOSE BEDSIDE (test 175 MG/DL 70-110 H Perfor med by certified code = GLUBED) 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[facility] [place] PLEURAL FLD CELL [id number] 14:28:00 Test Item Value Reference Range Interpretation Comments PLEURAL FLD COLOR (test code = ORANGE COLPL) PLEURAL FLD APPEARANCE (test CLOUDY code = APPPL) PLEURAL FLD WBC (test code = 959 cells/uL 0-500 H WBCPL) PLEURAL FLD RBC (test code = 27353 Cells/uL 0-0 H RBCPL) PLEURAL FLD POLY (test code = 34 % POLYPL) PLEURAL FLD LYMPHOCYTE (test 55 % code = LYMPHPL) PLEURAL FLD MACROPHAGE (test 11 % code = MACPL) GLUCOSE [id number] 12:33:00 Test Item Value Reference Range Interpretation Comments GLUCOSE BEDSIDE (test 240 MG/DL 70-110 H Perfor med by certified code = GLUBED) 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[facility] GLUCOSE [id number] 07:50:00 Test Item Value Reference Range Interpretation Comments GLUCOSE BEDSIDE (test 133 MG/DL 70-110 H Perfor med by certified code = GLUBED) 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[facility] [place] BASIC METABOLIC [id number] 04:36:00 Test Item Value Reference Range Interpretation Comments SODIUM (test code = NA) 141 mEq/L 134-147 N POTASSIUM (test code = 3.9 mEq/L 3.4-5.0 N K) CHLORIDE (test code = 101 mEq/L 100-108 N CL) CARBON DIOXIDE (test 35 mEq/l 21-33 H code = CO2) ANION GAP (test code = 9 0-20 N GAP) GLUCOSE (test code = 134 mg/dL 70-110 H GLU) BLOOD UREA NITROGEN 22 mg/dL 7-18 H (test code = BUN) GLOMERULAR FILTRATION 70.5 70-80 N Units of measure = RATE (test code = GFR) ml/mi n/1.73 m2 CREATININE (test code = 0.8 mg/dL 0.6-1.3 N CREAT) CALCIUM (test code = 8.4 mg/dL 8.0-10.5 N CA) [id number] 04:36:00 Test Item Value Reference Range Interpretation Comments MAGNESIUM (test code = MAG) 1.67 mg/dL 1.80-2.40 L CBC W/AUTO [id number] 04:26:00 Test Item Value Reference Range Interpretation Comments WHITE BLOOD CELL (test code = 7.8 x10 3/uL 4.5-11.0 N WBC) RED BLOOD CELL (test code = 3.07 x10 6/uL 3.54-5.02 L RBC) HEMOGLOBIN (test code = HGB) 9.4 g/dL 11.0-15.0 L HEMATOCRIT (test code = HCT) 29.6 % 33.0-45.0 L MEAN CELL VOLUME (test code = 96.4 fL 81.0-99.0 N MCV) MEAN CELL HGB (test code = MCH) 30.6 pg 27.0-33.0 N MEAN CELL HGB CONCETRATION 31.8 g/dL 33.0-37.0 L (test code = MCHC) RED CELL DISTRIBUTION WIDTH CV 14.4 % 11.5-14.5 N (test code = RDW) RED CELL DISTRIBUTION WIDTH SD 50.5 fL 37.0-54.0 N (test code = RDW-SD) PLATELET COUNT (test code = 254 x10 3/uL 150-400 N PLT) MEAN PLATELET VOLUME (test code 9.0 fL 7.0-9.0 N = MPV) NEUTROPHIL % (test code = NT%) 74.9 % 56.0-77.0 N IMMATURE GRANULOCYTE % (test 1.2 % 0.0-2.0 N code = IG%) LYMPHOCYTE % (test code = LY%) 11.6 % 14.0-32.0 L MONOCYTE % (test code = MO%) 8.5 % 4.8-9.0 N EOSINOPHIL % (test code = EO%) 3.2 % 0.3-3.7 N BASOPHIL % (test code = BA%) 0.6 % 0.0-2.0 N NUCLEATED RBC % (test code = 0.0 % 0-0 N NRBC%) NEUTROPHIL # (test code = NT#) 5.84 x10 3/uL 2.0-7.6 N IMMATURE GRANULOCYTE # (test 0.09 x10 3/uL 0.00-0.03 H code = IG#) LYMPHOCYTE # (test code = LY#) 0.90 x10 3/uL 1.0-3.8 L MONOCYTE # (test code = MO#) 0.66 x10 3/uL 0.1-0.8 N EOSINOPHIL # (test code = EO#) 0.25 x10 3/uL 0.0-0.2 H BASOPHIL # (test code = BA#) 0.05 x10 3/uL 0.0-0.2 N NUCLEATED RBC # (test code = 0.00 x10 3/uL 0.0-0.1 N NRBC#) MANUAL DIFF REQUIRED (test code NO = MDIFF) COMMENTS: Daily while on HeparinBASIC METABOLIC [id number] 01:04:00 Test Item Value Reference Range Interpretation Comments SODIUM (test code = NA) 140 mEq/L 134-147 N POTASSIUM (test code = 4.1 mEq/L 3.4-5.0 K) CHLORIDE (test code = 102 mEq/L 100-108 N CL) CARBON DIOXIDE (test 31 mEq/l 21-33 N code = CO2) ANION GAP (test code = 11 0-20 N GAP) GLUCOSE (test code = 172 mg/dL 70-110 H GLU) BLOOD UREA NITROGEN 19 mg/dL 7-18 H (test code = BUN) GLOMERULAR FILTRATION 61.5 70-80 L Units of measure = RATE (test code = GFR) ml/mi n/1.73 m2 CREATININE (test code = 0.9 mg/dL 0.6-1.3 N CREAT) CALCIUM (test code = 8.3 mg/dL 8.0-10.5 N CA) - XR CHEST 1 [id number] [facility] 1950 Sex: F FAX:Kwasi Christie MD [place]: St: ADM FAX: Alex Mccollum [phone] FAX: Nubia Michaels MD [phone] FAX: Deejay Tinoco [phone] Name: INDIRA HAMM [facility] [place] : 1950 Age/S: 71/F [address] [place] [address] Unit #: [id number] Loc: G.2205 [place] [address] Phys: Alex Batres Acct: [id number] Dis Date: Status: ADM IN PHONE #: [phone] Exam Date: 12/29/2021 [facility] FAX #: [phone] Reason: Post thoracentesis EXAMS: CPT CODE: [id number] XR CHEST 1 V 64872 PROCEDURE INFORMATION: Exam: XR Chest Exam date and time: 12/29/2021 1:46 PM Age: 71 years old Clinical indication: Screening exam; Other screening; Additional info: Post thoracentesis TECHNIQUE: Imaging protocol: Radiologic exam of the chest. Views: 1 view. COMPARISON: CR XR CHEST 1V 12/29/2021 5:12 AM FINDINGS: Lungs: There are ill-defined interstitial and patchy airspace opacities bilateral lungs. Opacification of the left base with obscuration of the left hemidiaphragm and left heart border unchanged. Pleural spaces: There is small apicalright pneumothorax redemonstrated without significant change in volume, separation at the apex approximately 1.8 cm. There is no left pneumothorax. There is no gross right pleural effusion. Left basilar pleuroparenchymal disease grossly stable radiographically. Heart/Mediastinum: The visualized mediastinal contours are stable. Bones/joints: Sternotomy wires are intact. IMPRESSION: 1. Stable pulmonaryopacities with interstitial and multifocal airspace disease. 2. Stable left basilar pleuroparenchymal disease. 3. Stable small volume right pneumothorax. at 1526 Reported and signed by: Pop Holder M.D. CC: Kwasi Christie MD; Alex Batres; Nubia Michaels MD; Deejay Meneses MD Technologist: LINDA Rosado) Trnscrd Date/Time/By: 12/29/2021 (1526) : By: Ant Orig Print D/T: S: 12/29/2021 (1527) PAGE 1 Signed Report - XR CHEST 1 [id number] 00:00:00 [facility] 1950 Sex: F FAX:Kwasi Christie MD [place]: St: ADM FAX: Nubia Michaels MD [phone] FAX: Lizzy Sutton [phone] FAX: Deejay Tinoco [phone] Name: [facility] : 1950 Age/S: 71/F [address] [place] [address] Unit #: [id number] Loc: G.2205 [place] [address] Phys: Alannah Sutton NP Acct:[id number] Dis Date: Status: ADM IN PHONE #: [phone] Exam Date: 12/29/2021621 FAX #: [phone] Reason: Cardiac Surgery Post Op EXAMS: CPT CODE: [id number] XR CHEST 1 V 35542 PROCEDURE INFOR MATION: Exam: XR Chest Exam date and time: 12/29/2021 5:12 AM Age: 71 years old Clinical indication:Other: Cardiac surgery post op TECHNIQUE: Imaging protocol: Radiologic exam of the chest. Views: 1 view. COMPARISON: CR XR CHEST 1V 12/28/2021 5:24 AM FINDINGS: Lungs: Persistent airspace disease particular at the left lung base with consolidation and obscuration left hemidiaphragm. atelectasis/consolidation Pleural spaces: Small right apical pneumothorax similar to prior studies. Possible small effusions. Heart/Mediastinum: Heart size is stable. Status post median sternotomy. Bones/joints: Unchanged. IMPRESSION: 1. Persistent small right apical pneumothorax, similar to prior studies 2. Similar appearance of bibasilar airspace disease with areas of consolidation/atelectasis. at 0750 Reported and signed by: Jonel Wiley M.D. 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5 70-80 N Units of measure = RATE (test code = GFR) ml/mi n/1.73 m2 CREATININE (test code 0.8 mg/dL 0.6-1.3 N = CREAT) CALCIUM (test code = 8.2 mg/dL 8.0-10.5 N CA) [id number] 12:32:00 Test Item Value Reference Range Interpretation Comments SURGICAL (test code = SR) R UN DATE: 12/28/21 [place] - LAB PAGE 1 RUN TIME: 1232 Specimen Inquiry RUN USER: INTERFACE P ATIENT: INDIRA HAMM LOC: EKTA U #: [id number] AGE/SX: 71/F ROOM: [facility] RE12/23/21REG DR: Kwasi Christie MD : [birth year] BED: 1 DIS: STATUS: ADM IN TLOC: SPEC #: [id number] RECD: 12/27/21 STATUS: CARLOSElder ELISABETH #: [id number] ARVIN: 12/24/21 DR: Shira Meza MD ENTERED: 12/27/21 SP TYPE: SURGICAL OTHR DR: Rao Mitchell MD, Molham MD Alnas, Majd Amin, Aisha MD Chaugle, Abdul Hannan MD Gupta, Kalpana J MD Mouchli, Anas MD Quaddoura, Amer A MD Ramirez, Eduardo S MD Shah, Rakesh X MDORDERED: 78620, ANATOMIC SPEC COPIES TO: Rao Mitchell MD [address] [place] [address] Omar Drummond MD [address] [place] [address] Alex Batres [address] [facility] [place] [address] [place] [address] Abby Rea MD [address] [place] [address] Shira Meza MD [address] [place] [address]. [address] [place] [address] Nubia Michaels MD [address] [place] [address]. [place] [address] CONTINUED ON NEXT PAGE R UN DATE: 12/28/21 [place] - LAB PAGE 2 RUN TIME: 1232 Specimen Inquiry RUN USER: INTERFACE S PEC #: [id number] PATIENT: INDIRA HAMM #[id number] (Continued) COPIES TO: (Continued) Parminder Fabian MD [address] [place] [address] Eric Casey MD [address] [facility] [address] [place] [address] Deejay Meneses MD [address] [place] [address] Sameer Quezada MD [address] [place] [id number] PROCEDURES: 09495 (12/27/21-1002) TISSUES: A. ATRIUM - LEFT ATRIAL APPENDAGE CLINICAL HISTORY SAME FINAL DIAGNOSIS Heart, left atrial appendage, submitted: Portions of cardiac muscle with some degenerativechanges, features consistent with atrial appendage. GROSS DESCRIPTION Received in formalin labeled left atrial appendage is a 2.5 x 2 x 1.5 cm portion of cysticmuscular tissue with attached adipose submitted in 1 cassette. Technical component performed at [facility],[address] [place] [address], [place] [address] Unless gross only, the diagnosis is based upon microscopic examination.Immunohistochemistr y: This test was developed and its performance characteristicsdetermined by this laboratory. It has not been approved nor does it need approvalby the [place] FDA. Appropriate positive and negative controls are reviewed and judgedto be acceptable. This laboratory is certified under the Clinical Laboratory ImprovementAmendments (CLIA-88) as qualified to perform high complexity clinical laboratory testing. 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[facility] COAGULATION TIME [id number] 08:05:00 Test Item Value Reference Range Interpretation Comments COAGULATION TIME 458 SECONDS Performed b y ACTIVATED (test code = certi fied 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 equipment operator ACT) at [facility] GLUCOSE [id number] 07:28:00 Test Item Value Reference Range Interpretation Comments GLUCOSE BEDSIDE (test 130 MG/DL 70-110 H Perfor med by certified code = GLUBED) 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[facility] COMPREHENSIVE METABOLIC [id number] 04:27:00 Test Item Value Reference Range Interpretation Comments SODIUM (test code = NA) 140 mEq/L 134-147 N POTASSIUM (test code = 4.9 mEq/L 3.4-5.0 N K) CHLORIDE (test code = 104 mEq/L 100-108 N CL) CARBON DIOXIDE (test 29 mEq/l 21-33 N code = CO2) ANION GAP (test code = 12 0-20 N GAP) GLUCOSE (test code = 133 mg/dL 70-110 H GLU) BLOOD UREA NITROGEN 21 mg/dL 7-18 H (test code = BUN) GLOMERULAR FILTRATION 61.5 70-80 L Units of measure = RATE (test code = GFR) ml/mi n/1.73 m2 CREATININE (test code = 0.9 mg/dL 0.6-1.3 N CREAT) TOTAL PROTEIN (test 5.6 g/dL 6.4-8.2 L code = PROT) ALBUMIN (test code = 2.90 g/dL 3.4-5.0 L ALB) CALCIUM (test code = 8.9 mg/dL 8.0-10.5 N CA) BILIRUBIN TOTAL (test 0.50 mg/dL 0.0-1.0 N code = BILT) SGOT/AST (test code = 74 IUnit/L 15-37 H AST) SGPT/ALT (test code = 130 IUnit/L 30-65 H ALT) ALKALINE PHOSPHATASE 53 IUnit/L 20-125 N TOTAL (test code = ALKP) BILIRUBIN [id number] 04:27:00 Test Item Value Reference Range Interpretation Comments BILIRUBIN DIRECT (test code = 0.20 MG/DL 0.0-0.30 BILD) [id number] 04:27:00 Test Item Value Reference Range Interpretation Comments MAGNESIUM (test code = MAG) 1.88 mg/dL 1.80-2.40 N POC ARTERIAL BLOOD [id number] 03:58:00 Test Item Value Reference Range Interpretation Comments POC ARTERIAL BLOOD GAS PH (test 7.377 7.35-7.45 N code = POCPHA) POC ARTERIAL BLOOD GAS PCO2 50.3 mmHg 35.0-45 HH (test code = OATKEM7W) POC TCO2 ARTERIAL (test code = 31.1 POCTCO2) POC ARTERIAL BLOOD GAS PO2 (test 92.4 mmHg 80-100.0 N code = JHUOK7C) POC HCO3 ARTERIAL (test code = 29.6 MMOL/L 22.0-26.0 HH ILIKXD2Z) POC BASE EXCESS (test code = 4.4 MMOL/L -4.0-4.0 H POCBEA) POC O2 SATURATION (test code = 96.8 % 90-100 N POCO2S) FIO2 (test code = FIO2A) 35 % PaO2/FiO2 (test code = AST9REP0) 264.00 mm/Hg ABG DELIVERY (test code = BERTHA) BiPAP ABG VENT RESP RATE (test code = 12 /MIN RRA) ABG PEEP (test code = PEEPA) 5 cmH2O ABG PRESSURE SUPPORT (test code 10 cmH2O = PSABG) ABG SITE (test code = SITEA) R Radial ANASTACIA'S TEST (test code = Positive ALLENS) BASIC METABOLIC [id number] 03:58:00 Test Item Value Reference Range Interpretation Comments SODIUM (test code = NA/ABG) 137 MEQ/L 134-147 N POTASSIUM (test code = K/ABG) 4.6 MEQ/L 3.4-5.0 N CHLORIDE (test code = CL/ABG) 102 MEQ/L 100-108 N CREATININE ABG (test code = 0.9 mg/dL 0.6-1.0 N CREAABG) POC IONIZED CALCIUM (test code = 1.21 MMOL/L 1.12-1.32 N POCCA) POC GLUCOSE (test code = POCGLU) 136 MG/DL 70-110 H HEMOGLOBIN [id number] 03:58:00 Test Item Value Reference Range Interpretation Comments HEMOGLOBIN ABG (test code = HGB/ABG) 9.3 G/DL 11.0-15.0 L [id number] 03:58:00 Test Item Value Reference Range Interpretation Comments HEMATOCRIT (test code = HCT/ABG) 27 % 33.0-45.0 L POC LACTIC [id number] 03:58:00 Test Item Value Reference Range Interpretation Comments POC LACTIC ACID (test code = 0.7 mmol/l 0.9-1.7 L POCLAC) CBC W/AUTO [id number] 03:49:00 Test Item Value Reference Range Interpretation Comments WHITE BLOOD CELL (test code = 10.5 x10 3/uL 4.5-11.0 N WBC) RED BLOOD CELL (test code = 3.13 x10 6/uL 3.54-5.02 L RBC) HEMOGLOBIN (test code = HGB) 9.7 g/dL 11.0-15.0 L HEMATOCRIT (test code = HCT) 30.0 % 33.0-45.0 L MEAN CELL VOLUME (test code = 95.8 fL 81.0-99.0 N MCV) MEAN CELL HGB (test code = MCH) 31.0 pg 27.0-33.0 N MEAN CELL HGB CONCETRATION 32.3 g/dL 33.0-37.0 L (test code = MCHC) RED CELL DISTRIBUTION WIDTH CV 14.6 % 11.5-14.5 H (test code = RDW) RED CELL DISTRIBUTION WIDTH SD 50.6 fL 37.0-54.0 N (test code = RDW-SD) PLATELET COUNT (test code = 236 x10 3/uL 150-400 N PLT) MEAN PLATELET VOLUME (test code 9.0 fL 7.0-9.0 N = MPV) NEUTROPHIL % (test code = NT%) 77.9 % 56.0-77.0 H IMMATURE GRANULOCYTE % (test 1.2 % 0.0-2.0 N code = IG%) LYMPHOCYTE % (test code = LY%) 10.4 % 14.0-32.0 L MONOCYTE % (test code = MO%) 8.4 % 4.8-9.0 N EOSINOPHIL % (test code = EO%) 1.8 % 0.3-3.7 N BASOPHIL % (test code = BA%) 0.3 % 0.0-2.0 N NUCLEATED RBC % (test code = 0.2 % 0-0 H NRBC%) NEUTROPHIL # (test code = NT#) 8.20 x10 3/uL 2.0-7.6 H IMMATURE GRANULOCYTE # (test 0.13 x10 3/uL 0.00-0.03 H code = IG#) LYMPHOCYTE # (test code = LY#) 1.10 x10 3/uL 1.0-3.8 N MONOCYTE # (test code = MO#) 0.89 x10 3/uL 0.1-0.8 H EOSINOPHIL # (test code = EO#) 0.19 x10 3/uL 0.0-0.2 N BASOPHIL # (test code = BA#) 0.03 x10 3/uL 0.0-0.2 N NUCLEATED RBC # (test code = 0.02 x10 3/uL 0.0-0.1 N NRBC#) MANUAL DIFF REQUIRED (test code NO = MDIFF) COMMENTS: Daily while on Heparin- XR CHEST 1 [id number] 00:00:00 [facility] 1950 Sex: F FAX:Kwasi Christie MD [place]: St: ADM FAX: Nubia Michaels MD [phone] FAX: Lizzy Sutton [phone] FAX: Deejay Tinoco [phone] Name: INDIRA HAMM [facility] : 1950 Age/S: 71/F [address] [place] [address] Unit #: [id number] Loc: G.[address] [place] [address] Phys: Alannah Sutton SALES REP Acct: [id number] Dis Date: Status: ADM IN PHONE #: [phone] Exam Date: 12/28/2021623 FAX #: [phone] Reason: Cardiac Surgery Post Op EXAMS: CPT CODE: [id number] XR CHEST 1 V 32943 PROCEDURE INFORM ATION: Exam: XR Chest Exam date and time: 12/28/2021 5:24 AM Age: 71 years old Clinical indication: Other: Cardiac surgery post op TECHNIQUE: Imaging protocol: Radiologic exam of the chest. Views: 1 view. COMPARISON: CR XR CHEST 1V 12/27/2021 5:06 AM FINDINGS: Tubes, catheters and devices: Interval removal of mediastinal/chest tubes. Unchanged vascular sheath in the right neck with tip projecting over the mid aspect of the SVC. Lungs: Bilateral lung opacities have slightly improved. Pleural spaces: No pneumothorax. Likely left pleural effusion. Heart/Mediastinum: The heart size is stable. There aremultiple median sternotomy wires and surgical clips suggesting prior CABG. Bones/joints: Stable. IMPRESSION: Slight interval improvement of the lungs. at 0825 Reported and signed by: Arnaldo Tong M.D. 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[facility] GLUCOSE [id number] 17:43:00 Test Item Value Reference Range Interpretation Comments GLUCOSE BEDSIDE (test 192 MG/DL 70-110 H Perfor med by certified code = GLUBED) 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[facility] [place] GLUCOSE [id number] 13:05:00 Test Item Value Reference Range Interpretation Comments GLUCOSE BEDSIDE (test 187 MG/DL 70-110 H Perfor med by certified code = GLUBED) 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[facility] [place] GLUCOSE [id number] 08:16:00 Test Item Value Reference Range Interpretation Comments GLUCOSE BEDSIDE (test 162 MG/DL 70-110 H Perfor med by certified code = GLUBED) 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[facility] [place] COMPREHENSIVE METABOLIC [id number] 04:12:00 Test Item Value Reference Range Interpretation Comments SODIUM (test code = NA) 139 mEq/L 134-147 N POTASSIUM (test code = 4.6 mEq/L 3.4-5.0 N K) CHLORIDE (test code = 105 mEq/L 100-108 N CL) CARBON DIOXIDE (test 27 mEq/l 21-33 N code = CO2) ANION GAP (test code = 12 0-20 N GAP) GLUCOSE (test code = 155 mg/dL 70-110 H GLU) BLOOD UREA NITROGEN 22 mg/dL 7-18 H (test code = BUN) GLOMERULAR FILTRATION 61.5 70-80 L Units of measure = RATE (test code = GFR) ml/mi n/1.73 m2 CREATININE (test code = 0.9 mg/dL 0.6-1.3 N CREAT) TOTAL PROTEIN (test 5.9 g/dL 6.4-8.2 L code = PROT) ALBUMIN (test code = 3.20 g/dL 3.4-5.0 L ALB) CALCIUM (test code = 9.5 mg/dL 8.0-10.5 N CA) BILIRUBIN TOTAL (test 0.50 mg/dL 0.0-1.0 N code = BILT) SGOT/AST (test code = 57 IUnit/L 15-37 H AST) SGPT/ALT (test code = 97 IUnit/L 30-65 H ALT) ALKALINE PHOSPHATASE 55 IUnit/L 20-125 N TOTAL (test code = ALKP) COMMENTS: POD #1HEPATIC FUNCTION [id number] 04:12:00 Test Item Value Reference Range Interpretation Comments BILIRUBIN DIRECT (test code = 0.30 MG/DL 0.0-0.30 BILD) BILIRUBIN INDIRECT (test code = 0.20 MG/DL BILIND) COMMENTS: POD #[id number] 04:12:00 Test Item Value Reference Range Interpretation Comments MAGNESIUM (test code = MAG) 1.84 mg/dL 1.80-2.40 N COMMENTS: POD #1CBC W/AUTO [id number] 03:59:00 Test Item Value Reference Range Interpretation Comments WHITE BLOOD CELL (test code = 9.6 x10 3/uL 4.5-11.0 N WBC) RED BLOOD CELL (test code = 3.02 x10 6/uL 3.54-5.02 L RBC) HEMOGLOBIN (test code = HGB) 9.3 g/dL 11.0-15.0 L HEMATOCRIT (test code = HCT) 28.7 % 33.0-45.0 L MEAN CELL VOLUME (test code = 95.0 fL 81.0-99.0 MCV) MEAN CELL HGB (test code = MCH) 30.8 pg 27.0-33.0 N MEAN CELL HGB CONCETRATION 32.4 g/dL 33.0-37.0 L (test code = MCHC) RED CELL DISTRIBUTION WIDTH CV 14.6 % 11.5-14.5 H (test code = RDW) RED CELL DISTRIBUTION WIDTH SD 50.5 fL 37.0-54.0 N (test code = RDW-SD) PLATELET COUNT (test code = 185 x10 3/uL 150-400 N PLT) MEAN PLATELET VOLUME (test code 9.3 fL 7.0-9.0 H = MPV) NEUTROPHIL % (test code = NT%) 82.9 % 56.0-77.0 H IMMATURE GRANULOCYTE % (test 1.6 % 0.0-2.0 N code = IG%) LYMPHOCYTE % (test code = LY%) 7.0 % 14.0-32.0 L MONOCYTE % (test code = MO%) 7.9 % 4.8-9.0 N EOSINOPHIL % (test code = EO%) 0.4 % 0.3-3.7 N BASOPHIL % (test code = BA%) 0.2 % 0.0-2.0 N NUCLEATED RBC % (test code = 0.2 % 0-0 H NRBC%) NEUTROPHIL # (test code = NT#) 7.94 x10 3/uL 2.0-7.6 H IMMATURE GRANULOCYTE # (test 0.15 x10 3/uL 0.00-0.03 H code = IG#) LYMPHOCYTE # (test code = LY#) 0.67 x10 3/uL 1.0-3.8 L MONOCYTE # (test code = MO#) 0.76 x10 3/uL 0.1-0.8 N EOSINOPHIL # (test code = EO#) 0.04 x10 3/uL 0.0-0.2 N BASOPHIL # (test code = BA#) 0.02 x10 3/uL 0.0-0.2 N NUCLEATED RBC # (test code = 0.02 x10 3/uL 0.0-0.1 N NRBC#) MANUAL DIFF REQUIRED (test code NO = MDIFF) COMMENTS: Daily while on HeparinPOC ARTERIAL BLOOD [id number] 03:49:00 Test Item Value Reference Range Interpretation Comments POC ARTERIAL BLOOD GAS PH (test 7.362 7.35-7.45 N code = POCPHA) POC ARTERIAL BLOOD GAS PCO2 49.0 mmHg 35.0-45 H (test code = GQOZVK1N) POC TCO2 ARTERIAL (test code = 29.0 POCTCO2) POC ARTERIAL BLOOD GAS PO2 (test 107.1 mmHg 80-100.0 H code = GXRPC0P) POC HCO3 ARTERIAL (test code = 27.6 MMOL/L 22.0-26.0 H [id number]) POC BASE EXCESS (test code = 2.4 MMOL/L -4.0-4.0 N POCBEA) POC O2 SATURATION (test code = 97.6 % 90-100 N POCO2S) FIO2 (test code = FIO2A) 50 % PaO2/FiO2 (test code = [id number]) 214.20 mm/Hg ABG DELIVERY (test code = BERTHA) BiPAP ABG TEMPERATURE (test code = 100.2 F TEMPA) ABG SITE (test code = SITEA) Art Line BASIC METABOLIC [id number] 03:49:00 Test Item Value Reference Range Interpretation Comments SODIUM (test code = NA/ABG) 138 MEQ/L 134-147 N POTASSIUM (test code = K/ABG) 4.6 MEQ/L 3.4-5.0 N CHLORIDE (test code = CL/ABG) 102 MEQ/L 100-108 N CREATININE ABG (test code = 1.0 mg/dL 0.6-1.0 N CREAABG) POC IONIZED CALCIUM (test code = 1.32 MMOL/L 1.12-1.32 N POCCA) POC GLUCOSE (test code = POCGLU) 161 MG/DL 70-110 H HEMOGLOBIN [id number] 03:49:00 Test Item Value Reference Range Interpretation Comments HEMOGLOBIN ABG (test code = HGB/ABG) 9.6 G/DL 11.0-15.0 L [id number] 03:49:00 Test Item Value Reference Range Interpretation Comments HEMATOCRIT (test code = HCT/ABG) 28 % 33.0-45.0 L POC LACTIC [id number] 03:49:00 Test Item Value Reference Range Interpretation Comments POC LACTIC ACID (test code = 0.6 mmol/l 0.9-1.7 L POCLAC) - XR CHEST 1 [id number] 00:00:00 [facility] 1950 Sex: F FAX:Kwasi Christie MD [place]: St: ADM FAX: Nubia Michaels MD [phone] FAX: Lizzy Sutton [phone] FAX: Deejay Tinoco [phone] Name: GENNY HAMMITH [facility] : 1950 Age/S: 71/F [address] [place] [address] Unit #: [id number] Loc: G.2205 [place] [address] Phys: Alannah Sutton SALES REP Acct: [id number] Dis Date: Status: ADM IN PHONE #: [phone] Exam Date: 12/27/2021 0604 FAX #: [phone] Reason: Cardiac Surgery Post Op EXAMS: CPT CODE: [id number] XR CHEST 1 V 26012 PROCEDURE INFORM ATION: Exam: XR Chest Exam date and time: 12/27/2021 5:06 AM Age: 71 years old Clinical indication: Other: Cardiac surgery post op TECHNIQUE: Imaging protocol: Radiologic exam of the chest. Views: 1 view. COMPARISON: 1. CR XR CHEST 1V 12/26/2021 7:23 PM 2. CR XR CHEST 1V 12/26/2021 6:16 AM FINDINGS: Tubes, catheters and devices: Mediastinal and bilateral thoracostomy drains in place. Right IJ Monroe-Arslan catheter sheath in place. EKG leads overlie the chest. Lungs: Lung volumes slightly increased on current exam. There are indistinct interstitial opacities bilateral. Perihilar and right infrahilar opacities are stable. Retrocardiac opacification obscuring the hemidiaphragm is unchanged. Pleural spaces: There is small right apical pneumothorax with separation approximately 1 cm, unchanged. Decreased left apical pneumothorax with separation on the order of a few mm. Left pleural effusion unchanged. No gross right pleural effusion. Heart/Mediastinum: The cardiomediastinal silhouette is stable allowing for differences in positioning and lung volumes. Bones/joints: Sternotomy wires are intact. IMPRESSION: 1. Stable postoperative chest. Pulmonary opacities compatible with edema. Perihilar and infrahilar airspace disease versus atelectasis. Stable left basilar pleuroparenchymal disease. 2. Small right apical pneumothorax, unchanged. Minimal left apical pneumothorax, decreased. at 0840 Reported and signed by: Pop Holder M.D. PAGE 1 Signed Report (CONTINUED) FAX: Kwasi Christie MD [place]: St: [facility] FAX: Nubia Michaels MD FAX: Lizzy Jordan [phone] FAX: Deejay Tinoco [phone] Name: INDIRA HAMM [facility] : 1950 Age/S: 71/F [address] [place], [place] [address] Unit #: [id number] Loc: G.2205 [place] [address] Phys: Alannah Sutton NP Acct: [id number] Dis Date: Status: ADM IN PHONE #: [phone] Exam Date: 12/27/2021 0604 FAX #: [phone] Reason: Cardiac Surgery Post Op EXAMS: CPT CODE: [id number] XR CHEST 1 V 68374 (Continued) CC: Kwasi Christie MD; Nubia Michaels MD; Alannah Jordan NP; Deejay Meneses MD Technologist: Natalie Sheffield RT(R) Trnscrd Date/Time/By: 12/27/2021 (839): By: LuluKWL Orig Print D/T: S: 12/27/2021 (839) PAGE 2 Signed ReportBASIC METABOLIC [id number] 23:10:00 Test Item Value Reference Range Interpretation Comments SODIUM (test code = NA) 139 mEq/L 134-147 N POTASSIUM (test code = 4.6 mEq/L 3.4-5.0 K) CHLORIDE (test code = 106 mEq/L 100-108 N CL) CARBON DIOXIDE (test 27 mEq/l 21-33 N code = CO2) ANION GAP (test code = 11 0-20 N GAP) GLUCOSE (test code = 148 mg/dL 70-110 H GLU) BLOOD UREA NITROGEN 30 mg/dL 7-18 H (test code = BUN) GLOMERULAR FILTRATION 48.8 70-80 L Units of measure = RATE (test code = GFR) ml/mi n/1.73 m2 CREATININE (test code = 1.1 mg/dL 0.6-1.3 N CREAT) CALCIUM (test code = 9.7 mg/dL 8.0-10.5 N CA) [id number] 23:10:00 Test Item Value Reference Range Interpretation Comments MAGNESIUM (test code = MAG) 2.12 mg/dL 1.80-2.40 N CALCIUM [id number] 23:10:00 Test Item Value Reference Range Interpretation Comments CALCIUM IONIZED (test code = ANU) 1.22 MMOL/L 1.09-1.30 N POC ARTERIAL BLOOD [id number] 22:35:00 Test Item Value Reference Range Interpretation Comments POC ARTERIAL BLOOD GAS PH (test 7.341 7.35-7.45 L code = POCPHA) POC ARTERIAL BLOOD GAS PCO2 50.1 mmHg 35.0-45 HH (test code = BBCEBT5X) POC TCO2 ARTERIAL (test code = 28.4 POCTCO2) POC ARTERIAL BLOOD GAS PO2 (test 94.3 mmHg 80-100.0 N code = MEHSU0K) POC HCO3 ARTERIAL (test code = 26.9 MMOL/L 22.0-26.0 H TYLGTA0X) POC BASE EXCESS (test code = 1.3 MMOL/L -4.0-4.0 N POCBEA) POC O2 SATURATION (test code = 96.4 % 90-100 N POCO2S) FIO2 (test code = FIO2A) 50 % PaO2/FiO2 (test code = [id number]) 188.60 mm/Hg ABG DELIVERY (test code = BERTHA) BiPAP ABG VENT RESP RATE (test code = 16 /MIN RRA) ABG PEEP (test code = PEEPA) 6 cmH2O ABG TEMPERATURE (test code = 99.9 F TEMPA) ABG SITE (test code = SITEA) Art Line BASIC METABOLIC [id number] 22:35:00 Test Item Value Reference Range Interpretation Comments SODIUM (test code = NA/ABG) 138 MEQ/L 134-147 N POTASSIUM (test code = K/ABG) 4.6 MEQ/L 3.4-5.0 N CHLORIDE (test code = CL/ABG) 103 MEQ/L 100-108 N CREATININE ABG (test code = 1.2 mg/dL 0.6-1.0 H CREAABG) POC IONIZED CALCIUM (test code = 1.36 MMOL/L 1.12-1.32 H POCCA) POC GLUCOSE (test code = POCGLU) 148 MG/DL 70-110 H HEMOGLOBIN [id number] 22:35:00 Test Item Value Reference Range Interpretation Comments HEMOGLOBIN ABG (test code = HGB/ABG) 9.5 G/DL 11.0-15.0 L [id number] 22:35:00 Test Item Value Reference Range Interpretation Comments HEMATOCRIT (test code = HCT/ABG) 28 % 33.0-45.0 L POC LACTIC [id number] 22:35:00 Test Item Value Reference Range Interpretation Comments POC LACTIC ACID (test code = 0.7 mmol/l 0.9-1.7 L POCLAC) BASIC METABOLIC [id number] 20:43:00 Test Item Value Reference Range Interpretation Comments SODIUM (test code = 138 mEq/L 134-147 N NA) POTASSIUM (test code = 5.8 mEq/L 3.4-5.0 H SPECI MEN SLIGHT K) HEMOLYZED.Resul ts known to be adv ersely affected by hem olysis are: Potassium Magnesium LDH Phosphorus CHLORIDE (test code = 105 mEq/L 100-108 N CL) CARBON DIOXIDE (test 27 mEq/l 21-33 N code = CO2) ANION GAP (test code = 12 0-20 N GAP) GLUCOSE (test code = 124 mg/dL 70-110 H GLU) BLOOD UREA NITROGEN 31 mg/dL 7-18 H (test code = BUN) GLOMERULAR FILTRATION 44.2 70-80 L Units of measure = RATE (test code = GFR) ml/mi n/1.73 m2 CREATININE (test code 1.2 mg/dL 0.6-1.3 N = CREAT) CALCIUM (test code = 8.6 mg/dL 8.0-10.5 N CA) [id number] 20:43:00 Test Item Value Reference Range Interpretation Comments MAGNESIUM (test code = MAG) 2.25 mg/dL 1.80-2.40 N CALCIUM [id number] 20:43:00 Test Item Value Reference Range Interpretation Comments CALCIUM IONIZED (test code = ANU) 1.12 MMOL/L 1.09-1.30 N GLUCOSE [id number] 20:17:00 Test Item Value Reference Range Interpretation Comments GLUCOSE BEDSIDE (test 114 MG/DL 70-110 H Perfor med by certified code = GLUBED) 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[facility] POC ARTERIAL BLOOD [id number] 20:08:00 Test Item Value Reference Range Interpretation Comments POC ARTERIAL BLOOD GAS PH (test 7.308 7.35-7.45 L code = POCPHA) POC ARTERIAL BLOOD GAS PCO2 60.6 mmHg 35.0-45 HH (test code = RURBVP6D) POC TCO2 ARTERIAL (test code = 31.7 POCTCO2) POC ARTERIAL BLOOD GAS PO2 (test 90.7 mmHg 80-100.0 N code = CLIKY1O) POC HCO3 ARTERIAL (test code = 29.9 MMOL/L 22.0-26.0 HH HRAWFQ0P) POC BASE EXCESS (test code = 3.9 MMOL/L -4.0-4.0 N POCBEA) POC O2 SATURATION (test code = 95.1 % 90-100 N POCO2S) FIO2 (test code = FIO2A) 60 % PaO2/FiO2 (test code = [id number]) 151.16 mm/Hg ABG DELIVERY (test code = BERTHA) BiPAP ABG TEMPERATURE (test code = 100.8 F TEMPA) ABG SITE (test code = SITEA) Art Line BASIC METABOLIC [id number] 20:08:00 Test Item Value Reference Range Interpretation Comments SODIUM (test code = NA/ABG) 139 MEQ/L 134-147 N POTASSIUM (test code = K/ABG) 5.8 MEQ/L 3.4-5.0 H CHLORIDE (test code = CL/ABG) 104 MEQ/L 100-108 N CREATININE ABG (test code = 1.4 mg/dL 0.6-1.0 H CREAABG) POC IONIZED CALCIUM (test code = 1.23 MMOL/L 1.12-1.32 N POCCA) POC GLUCOSE (test code = POCGLU) 120 MG/DL 70-110 H HEMOGLOBIN [id number] 20:08:00 Test Item Value Reference Range Interpretation Comments HEMOGLOBIN ABG (test code = 10.1 G/DL 11.0-15.0 L HGB/ABG) [id number] 20:08:00 Test Item Value Reference Range Interpretation Comments HEMATOCRIT (test code = HCT/ABG) 30 % 33.0-45.0 L POC LACTIC [id number] 20:08:00 Test Item Value Reference Range Interpretation Comments POC LACTIC ACID (test code = 0.6 mmol/l 0.9-1.7 L POCLAC) POC ARTERIAL BLOOD [id number] 16:00:00 Test Item Value Reference Range Interpretation Comments POC ARTERIAL BLOOD GAS PH (test 7.307 7.35-7.45 L code = POCPHA) POC ARTERIAL BLOOD GAS PCO2 52.3 mmHg 35.0-45 HH (test code = VQUBIV4Z) POC TCO2 ARTERIAL (test code = 27.8 POCTCO2) POC ARTERIAL BLOOD GAS PO2 (test 169.6 mmHg 80-100.0 H code = OHNSL0B) POC HCO3 ARTERIAL (test code = 26.2 MMOL/L 22.0-26.0 H JWKLEI6L) POC BASE EXCESS (test code = -0.1 MMOL/L -4.0-4.0 N POCBEA) POC O2 SATURATION (test code = 99.3 % 90-100 N POCO2S) FIO2 (test code = FIO2A) 60 % PaO2/FiO2 (test code = ORO6TWG6) 282.66 mm/Hg ABG DELIVERY (test code = BERTHA) BiPAP ABG SITE (test code = SITEA) Art Line BASIC METABOLIC [id number] 16:00:00 Test Item Value Reference Range Interpretation Comments SODIUM (test code = NA/ABG) 138 MEQ/L 134-147 N POTASSIUM (test code = K/ABG) 5.0 MEQ/L 3.4-5.0 N CHLORIDE (test code = CL/ABG) 103 MEQ/L 100-108 N CREATININE ABG (test code = 1.4 mg/dL 0.6-1.0 H CREAABG) POC IONIZED CALCIUM (test code = 1.23 MMOL/L 1.12-1.32 N POCCA) POC GLUCOSE (test code = POCGLU) 214 MG/DL 70-110 H HEMOGLOBIN [id number] 16:00:00 Test Item Value Reference Range Interpretation Comments HEMOGLOBIN ABG (test code = HGB/ABG) 8.7 G/DL 11.0-15.0 L [id number] 16:00:00 Test Item Value Reference Range Interpretation Comments HEMATOCRIT (test code = HCT/ABG) 25 % 33.0-45.0 L POC LACTIC [id number] 16:00:00 Test Item Value Reference Range Interpretation Comments POC LACTIC ACID (test code = 0.5 mmol/l 0.9-1.7 L POCLAC) POC ARTERIAL BLOOD [id number] 14:49:00 Test Item Value Reference Range Interpretation Comments POC ARTERIAL BLOOD GAS PH (test 7.296 7.35-7.45 LL code = POCPHA) POC ARTERIAL BLOOD GAS PCO2 (test 56.3 mmHg 35.0-45 HH code = ZQBYUP5A) POC TCO2 ARTERIAL (test code = 29.2 POCTCO2) POC ARTERIAL BLOOD GAS PO2 (test 53.1 mmHg 80-100.0 L code = MCOAN9Z) POC HCO3 ARTERIAL (test code = 27.5 MMOL/L 22.0-26.0 H TBHTRU7U) POC BASE EXCESS (test code = 1.0 MMOL/L -4.0-4.0 N POCBEA) POC O2 SATURATION (test code = 82.6 % 90-100 L POCO2S) ABG SITE (test code = SITEA) R Radial BASIC METABOLIC [id number] 14:49:00 Test Item Value Reference Range Interpretation Comments SODIUM (test code = NA/ABG) 139 MEQ/L 134-147 N POTASSIUM (test code = K/ABG) 4.8 MEQ/L 3.4-5.0 N CHLORIDE (test code = CL/ABG) 103 MEQ/L 100-108 N CREATININE ABG (test code = 1.2 mg/dL 0.6-1.0 H CREAABG) POC IONIZED CALCIUM (test code = 1.24 MMOL/L 1.12-1.32 N POCCA) POC GLUCOSE (test code = POCGLU) 198 MG/DL 70-110 H HEMOGLOBIN [id number] 14:49:00 Test Item Value Reference Range Interpretation Comments HEMOGLOBIN ABG (test code = HGB/ABG) 9.9 G/DL 11.0-15.0 L [id number] 14:49:00 Test Item Value Reference Range Interpretation Comments HEMATOCRIT (test code = HCT/ABG) 29 % 33.0-45.0 L POC LACTIC [id number] 14:49:00 Test Item Value Reference Range Interpretation Comments POC LACTIC ACID (test code = 0.5 mmol/l 0.9-1.7 L POCLAC) COMPREHENSIVE METABOLIC [id number] 13:18:00 Test Item Value Reference Range Interpretation Comments SODIUM (test code = NA) 138 mEq/L 134-147 N POTASSIUM (test code = 5.0 mEq/L 3.4-5.0 N K) CHLORIDE (test code = 105 mEq/L 100-108 N CL) CARBON DIOXIDE (test 23 mEq/l 21-33 N code = CO2) ANION GAP (test code = 15 0-20 N GAP) GLUCOSE (test code = 190 mg/dL 70-110 H GLU) BLOOD UREA NITROGEN 34 mg/dL 7-18 H (test code = BUN) GLOMERULAR FILTRATION 37.0 70-80 L Units of measure = RATE (test code = GFR) ml/mi n/1.73 m2 CREATININE (test code = 1.4 mg/dL 0.6-1.3 H CREAT) TOTAL PROTEIN (test 6.1 g/dL 6.4-8.2 L code = PROT) ALBUMIN (test code = 3.60 g/dL 3.4-5.0 N ALB) CALCIUM (test code = 8.3 mg/dL 8.0-10.5 N CA) BILIRUBIN TOTAL (test 0.60 mg/dL 0.0-1.0 N code = BILT) SGOT/AST (test code = 106 IUnit/L 15-37 H AST) SGPT/ALT (test code = 118 IUnit/L 30-65 H ALT) ALKALINE PHOSPHATASE 53 IUnit/L 20-125 N TOTAL (test code = ALKP) GLUCOSE [id number] 12:45:00 Test Item Value Reference Range Interpretation Comments GLUCOSE BEDSIDE (test 176 MG/DL 70-110 H Perfor med by certified code = GLUBED) 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[facility] [place] GLUCOSE [id number] 09:22:00 Test Item Value Reference Range Interpretation Comments GLUCOSE BEDSIDE (test 148 MG/DL 70-110 H Perfor med by certified code = GLUBED) 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[facility] [place] GLUCOSE [id number] 05:49:00 Test Item Value Reference Range Interpretation Comments GLUCOSE BEDSIDE (test 124 MG/DL 70-110 H Perfor med by certified code = GLUBED) 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6-1.3 H CREAT) TOTAL PROTEIN (test 5.8 g/dL 6.4-8.2 L code = PROT) ALBUMIN (test code = 3.60 g/dL 3.4-5.0 N ALB) CALCIUM (test code = 8.5 mg/dL 8.0-10.5 N CA) BILIRUBIN TOTAL (test 0.50 mg/dL 0.0-1.0 N code = BILT) SGOT/AST (test code = 164 IUnit/L 15-37 H AST) SGPT/ALT (test code = 128 IUnit/L 30-65 H ALT) ALKALINE PHOSPHATASE 51 IUnit/L 20-125 N TOTAL (test code = ALKP) COMMENTS: POD #1HEPATIC FUNCTION [id number] 04:49:00 Test Item Value Reference Range Interpretation Comments BILIRUBIN DIRECT (test code = 0.20 MG/DL 0.0-0.30 N BILD) BILIRUBIN INDIRECT (test code = 0.30 MG/DL BILIND) COMMENTS: POD #[id number] 04:49:00 Test Item Value Reference Range Interpretation Comments MAGNESIUM (test code = MAG) 2.18 mg/dL 1.80-2.40 N COMMENTS: POD #1POC ARTERIAL BLOOD [id number] 04:36:00 Test Item Value Reference Range Interpretation Comments POC ARTERIAL BLOOD GAS PH (test 7.311 7.35-7.45 L code = POCPHA) POC ARTERIAL BLOOD GAS PCO2 (test 48.2 mmHg 35.0-45 H code = TTCTUY5P) POC TCO2 ARTERIAL (test code = 25.9 POCTCO2) POC ARTERIAL BLOOD GAS PO2 (test 86.5 mmHg 80-100.0 N code = VVOEG1H) POC HCO3 ARTERIAL (test code = 24.4 MMOL/L 22.0-26.0 N IQCPPF1Y) POC BASE EXCESS (test code = -1.9 MMOL/L -4.0-4.0 N POCBEA) POC O2 SATURATION (test code = 95.7 % 90-100 N POCO2S) ABG DELIVERY (test code = BERTHA) Cannula ABG TEMPERATURE (test code = 98 F TEMPA) ABG SITE (test code = SITEA) R Tano ANASTACIA'S TEST (test code = ALLENS) Positive BASIC METABOLIC [id number] 04:36:00 Test Item Value Reference Range Interpretation Comments SODIUM (test code = NA/ABG) 138 MEQ/L 134-147 N POTASSIUM (test code = K/ABG) 4.7 MEQ/L 3.4-5.0 N CHLORIDE (test code = CL/ABG) 106 MEQ/L 100-108 N CREATININE ABG (test code = 1.6 mg/dL 0.6-1.0 H CREAABG) POC IONIZED CALCIUM (test code = 1.19 MMOL/L 1.12-1.32 N POCCA) POC GLUCOSE (test code = POCGLU) 96 MG/DL 70-110 N HEMOGLOBIN [id number] 04:36:00 Test Item Value Reference Range Interpretation Comments HEMOGLOBIN ABG (test code = 10.8 G/DL 11.0-15.0 L HGB/ABG) [id number] 04:36:00 Test Item Value Reference Range Interpretation Comments HEMATOCRIT (test code = HCT/ABG) 32 % 33.0-45.0 L POC LACTIC [id number] 04:36:00 Test Item Value Reference Range Interpretation Comments POC LACTIC ACID (test code = 0.7 mmol/l 0.9-1.7 L POCLAC) CBC W/AUTO [id number] 04:29:00 Test Item Value Reference Range Interpretation Comments WHITE BLOOD CELL (test code = 11.3 x10 3/uL 4.5-11.0 H WBC) RED BLOOD CELL (test code = 2.82 x10 6/uL 3.54-5.02 L RBC) HEMOGLOBIN (test code = HGB) 8.8 g/dL 11.0-15.0 L HEMATOCRIT (test code = HCT) 27.7 % 33.0-45.0 L MEAN CELL VOLUME (test code = 98.2 fL 81.0-99.0 N MCV) MEAN CELL HGB (test code = MCH) 31.2 pg 27.0-33.0 N MEAN CELL HGB CONCETRATION 31.8 g/dL 33.0-37.0 L (test code = MCHC) RED CELL DISTRIBUTION WIDTH CV 14.7 % 11.5-14.5 H (test code = RDW) RED CELL DISTRIBUTION WIDTH SD 53.1 fL 37.0-54.0 N (test code = RDW-SD) PLATELET COUNT (test code = 175 x10 3/uL 150-400 N PLT) MEAN PLATELET VOLUME (test code 9.7 fL 7.0-9.0 H = MPV) NEUTROPHIL % (test code = NT%) 79.3 % 56.0-77.0 H IMMATURE GRANULOCYTE % (test 0.6 % 0.0-2.0 N code = IG%) LYMPHOCYTE % (test code = LY%) 10.4 % 14.0-32.0 L MONOCYTE % (test code = MO%) 9.5 % 4.8-9.0 H EOSINOPHIL % (test code = EO%) 0.1 % 0.3-3.7 L BASOPHIL % (test code = BA%) 0.1 % 0.0-2.0 N NUCLEATED RBC % (test code = 0.2 % 0-0 H NRBC%) NEUTROPHIL # (test code = NT#) 8.97 x10 3/uL 2.0-7.6 H IMMATURE GRANULOCYTE # (test 0.07 x10 3/uL 0.00-0.03 H code = IG#) LYMPHOCYTE # (test code = LY#) 1.17 x10 3/uL 1.0-3.8 N MONOCYTE # (test code = MO#) 1.07 x10 3/uL 0.1-0.8 H EOSINOPHIL # (test code = EO#) 0.01 x10 3/uL 0.0-0.2 N BASOPHIL # (test code = BA#) 0.01 x10 3/uL 0.0-0.2 N NUCLEATED RBC # (test code = 0.02 x10 3/uL 0.0-0.1 N NRBC#) MANUAL DIFF REQUIRED (test code NO = MDIFF) COMMENTS: Daily while on HeparinGLUCOSE [id number] 00:54:00 Test Item Value Reference Range Interpretation Comments GLUCOSE BEDSIDE (test 115 MG/DL 70-110 H Perfor med by certified code = GLUBED) 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 CHEST 1 [id number] 00:00[facility]00 [facility] 1950 Sex: F FAX:Rao Etienne MD [place]: St: ADM FAX: Kwasi Christie MD FAX: Nubia Michaels MD [phone] FAX: Deejay Tinoco [phone] Name: INDIRA HAMM [facility] : 1950 Age/S: 71/F [address] [place] [address] Unit #: [id number] Loc: G.[address] [place] [address] Phys: Rao Mitchell MD Acct: [id number] Dis Date: Status: ADM IN PHONE #: [phone] Exam Date: 12/26/20211922 FAX #: [phone] Reason: HYPOXIA EXAMS: CPT CODE: [id number] XR CHEST 1 V 00323 PROCEDURE INFORMATION: Exam: XR Chest Exam date and time: 12/26/2021 7:23 PM Age: 71 years old Clinical indication: Condition or disease; Other: Hypoxia TECHNIQUE: Imaging protocol: Radiologic exam of the chest. Views: 1 view. COMPARISON: CR XR CHEST 1V 12/26/2021 6:16 AM FINDINGS: Tubes, catheters and devices: Right IJ CVC catheter noted with tip overlyingthe distal SVC. Lungs: Mild decreased lung volumes. There is bibasilar atelectasis/consolidation, eqti-fn-kvivxnfe on the right and moderate on the left, with obscuration of the left hemidiaphragm Pleural spaces: Chest tubes are present bilaterally. There is blunting of the left costophrenic angle, sug gesting small left pleural effusion pleural effusion. No pneumothorax. Heart/Mediastinum: Median sternotomy wires are present. There is [id number] enlargement of the cardiac silhouette Vasculature is unremarkable. Bones/joints: Unremarkable. IMPRESSION: No change as compared to prior. at 2117 Reported and signed by: Emmett Arenas CC: Rao Mitchell MD; Kwasi Christie MD; Nubia Michaels MD; Deejay Meneses MD Technologist: Charlotte Parker, RT(R); Dahlia Cortez RT(R) Trnscrd Date/Time/By: 12/26/2021 (2117) : By: Jeferson Orig Print D/T: S: 12/26/2021 (2118) PAGE 1 Signed Report- XR CHEST 1 [id number] 00:00:00 [facility] : 1950 Sex: F FAX:Kwasi Christie MD [place]: St: ADM FAX: Nubia Michaels MD [phone] FAX: Lizzy Sutton [phone] FAX: Nikita MenesesDeejay Tay [phone] Name: INDIRA HAMM [facility] : 1950 Age/S: 71/F [address] [place] [address] Unit #: [id number] Loc: G[address] [place] [id number] Phys: Alannah Sutton SALES REP Acct:[id number] Dis Date: Status: ADM IN PHONE #: [phone] Exam Date: 12/26/2021615 FAX #: [phone] Reason: Cardiac Surgery Post Op EXAMS: CPT CODE: [id number] XR CHEST 1 V 23341 PROCEDURE INFOR MATION: Exam: XR Chest Exam date and time: 12/26/2021 6:16 AM Age: 71 years old Clinical indication:Pain; Other: Cardiac surgery post op TECHNIQUE: Imaging protocol: Radiologic exam of the chest. Views: 1 view. COMPARISON: CR XR CHEST 1V 12/25/2021 5:58 AM FINDINGS: Tubes, catheters and devices: Mediastinal and bilateral thoracostomy drains in place. Right IJ Monroe-Arslan catheter sheath in place. EKGleads overlie the chest. Lungs: Lung volumes are decreased. Hypoventilatory changes accentuating perihilar and infrahilar opacities. Retrocardiac opacification obscuring the hemidiaphragm unchanged. Slight improved definition of the right hemidiaphragm. Pleural spaces: Small bilateral apical pneumothoraces with separation approximately 1 cm evident on retrospective review of prior exam with interval decreased size. Grossly stable left pleural effusion. Heart/Mediastinum: Moderate prominence of the ca rdiomediastinal silhouette is stable. Bones/joints: Sternotomy wires are intact. IMPRESSION: 1. Decreased lung volumes accentuating pulmonary opacities compatible with edema. Bibasilar atelectasis versus airspace disease, improved on the right. 2. Small apical pneumothoraces, decreased with thoracostomy tubes in place. 3. Stable left basilar pleuroparenchymal disease. at 0849 Reported and signed by: Pop Holder M.D. PAGE 1 Signed Report (CONTINUED) FAX: Kwasi Christie MD [place]: St: ADM FAX: Nubia Michaels MD [phone]: Lizzy Jordan [phone] FAX: Deejay Tinoco [phone] Name: INDIRA HAMM [facility] : 1950 Age/S: 71/F [address] [place] [address] Unit #: [id number] Loc: [address] [address] Phys:Alannah Jordan NP Acct: [id number] Dis Date: Status: ADM IN PHONE #: [phone] Exam Date: 12/26/202116 FAX #: [phone] Reason: Cardiac Surgery Post Op EXAMS: CPT CODE: [id number] XR CHEST 1 V 93122 (Continued) CC: Kwasi Christie MD; Nubia Michaels MD; Alannah Jordan SALES REP; Deejay Cortes MD Technologist: LINDA Lyman) Leandro Date/Time/By: 12/26/2021 (0849) : By: Ant Orig Print D/T: S: 12/26/2021 (0850) PAGE 2 Signed ReportS[facility] ART[facility] BLOOD [id number] 21:41:00 Test Item Value Reference Range Interpretation Comments POC ARTERIAL BLOOD GAS PH (test 7.280 7.35-7.45 LL code = POCPHA) POC ARTERIAL BLOOD GAS PCO2 (test 50.1 mmHg 35.0-45 HH code = [id number]) POC TCO2 ARTERIAL (test code = 25.1 POCTCO2) POC ARTERIAL BLOOD GAS PO2 (test 70.4 mmHg 80-100.0 L code = [id number]) POC HCO3 ARTERIAL (test code = 23.6 MMOL/L 22.0-26.0 N [id number]) POC BASE EXCESS (test code = -3.2 MMOL/L -4.0-4.0 N POCBEA) POC O2 SATURATION (test code = 91.5 % 90-100 N POCO2S) ABG DELIVERY (test code = BERTHA) Cannula ABG TEMPERATURE (test code = 98.3 F TEMPA) ABG SITE (test code = SITEA) Art Line ANASTACIA'S TEST (test code = ALLENS) N/A BASIC METABOLIC [id number] 21:41:00 Test Item Value Reference Range Interpretation Comments SODIUM (test code = NA/ABG) 138 MEQ/L 134-147 N POTASSIUM (test code = K/ABG) 5.0 MEQ/L 3.4-5.0 N CHLORIDE (test code = CL/ABG) 107 MEQ/L 100-108 N CREATININE ABG (test code = 1.6 mg/dL 0.6-1.0 H CREAABG) POC IONIZED CALCIUM (test code = 1.18 MMOL/L 1.12-1.32 N POCCA) POC GLUCOSE (test code = POCGLU) 160 MG/DL 70-110 H HEMOGLOBIN [id number] 21:41:00 Test Item Value Reference Range Interpretation Comments HEMOGLOBIN ABG (test code = HGB/ABG) 8.7 G/DL 11.0-15.0 L [id number] 21:41:00 Test Item Value Reference Range Interpretation Comments HEMATOCRIT (test code = HCT/ABG) 26 % 33.0-45.0 L POC LACTIC [id number] 21:41:00 Test Item Value Reference Range Interpretation Comments POC LACTIC ACID (test code = 0.7 mmol/l 0.9-1.7 L POCLAC) GLUCOSE [id number] 16:28:00 Test Item Value Reference Range Interpretation Comments GLUCOSE BEDSIDE (test 145 MG/DL 70-110 H Perfor med by certified code = GLUBED) 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[facility] [place]UCOSE [id number] 13:21:00 Test Item Value Reference Range Interpretation Comments GLUCOSE BEDSIDE (test 166 MG/DL 70-110 H Perfor med by certified code = GLUBED) 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[facility] [place] GLUCOSE [id number] 11:16:00 Test Item Value Reference Range Interpretation Comments GLUCOSE BEDSIDE (test 153 MG/DL 70-110 H Perfor med by certified code = GLUBED) 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[facility] [place] GLUCOSE [id number] 10:45:00 Test Item Value Reference Range Interpretation Comments GLUCOSE BEDSIDE (test 153 MG/DL 70-110 H Perfor med by certified code = GLUBED) 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[facility] [place] GLUCOSE [id number] 08:58:00 Test Item Value Reference Range Interpretation Comments GLUCOSE BEDSIDE (test 137 MG/DL 70-110 H Perfor med by certified code = GLUBED) 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[facility] [place] POC ARTERIAL BLOOD [id number] 06:35:00 Test Item Value Reference Range Interpretation Comments POC ARTERIAL BLOOD GAS PH (test 7.328 7.35-7.45 L code = POCPHA) POC ARTERIAL BLOOD GAS PCO2 (test 49.7 mmHg 35.0-45 H code = [id number]) POC TCO2 ARTERIAL (test code = 27.4 POCTCO2) POC ARTERIAL BLOOD GAS PO2 (test 107.4 mmHg 80-100.0 H code = YCULV3P) POC HCO3 ARTERIAL (test code = 25.9 MMOL/L 22.0-26.0 N [id number]) POC BASE EXCESS (test code = 0.1 MMOL/L -4.0-4.0 N POCBEA) POC O2 SATURATION (test code = 97.5 % 90-100 N POCO2S) ABG DELIVERY (test code = BERTHA) Cannula ABG TEMPERATURE (test code = 99.9 F TEMPA) ABG SITE (test code = SITEA) Art Line ANASTACIA'S TEST (test code = ALLENS) N/A BASIC METABOLIC [id number] 06:35:00 Test Item Value Reference Range Interpretation Comments SODIUM (test code = NA/ABG) 142 MEQ/L 134-147 N POTASSIUM (test code = K/ABG) 5.1 MEQ/L 3.4-5.0 H CHLORIDE (test code = CL/ABG) 108 MEQ/L 100-108 N CREATININE ABG (test code = 1.1 mg/dL 0.6-1.0 H CREAABG) POC IONIZED CALCIUM (test code = 1.21 MMOL/L 1.12-1.32 N POCCA) POC GLUCOSE (test code = POCGLU) 169 MG/DL 70-110 H HEMOGLOBIN [id number] 06:35:00 Test Item Value Reference Range Interpretation Comments HEMOGLOBIN ABG (test code = HGB/ABG) 9.5 G/DL 11.0-15.0 L [id number] 06:35:00 Test Item Value Reference Range Interpretation Comments HEMATOCRIT (test code = HCT/ABG) 28 % 33.0-45.0 L POC LACTIC [id number] 06:35:00 Test Item Value Reference Range Interpretation Comments POC LACTIC ACID (test code = 0.8 mmol/l 0.9-1.7 L POCLAC) COMPREHENSIVE METABOLIC [id number] 04:06:00 Test Item Value Reference Range Interpretation Comments SODIUM (test code = NA) 144 mEq/L 134-147 N POTASSIUM (test code = 5.2 mEq/L 3.4-5.0 H K) CHLORIDE (test code = 110 mEq/L 100-108 H CL) CARBON DIOXIDE (test 27 mEq/l 21-33 N code = CO2) ANION GAP (test code = 12 0-20 N GAP) GLUCOSE (test code = 106 mg/dL 70-110 GLU) BLOOD UREA NITROGEN 26 mg/dL 7-18 H (test code = BUN) GLOMERULAR FILTRATION 54.5 70-80 L Units of measure = RATE (test code = GFR) ml/mi n/1.73 m2 CREATININE (test code = 1.0 mg/dL 0.6-1.3 N CREAT) TOTAL PROTEIN (test 5.5 g/dL 6.4-8.2 L code = PROT) ALBUMIN (test code = 3.20 g/dL 3.4-5.0 L ALB) CALCIUM (test code = 8.8 mg/dL 8.0-10.5 N CA) BILIRUBIN TOTAL (test 0.50 mg/dL 0.0-1.0 N code = BILT) SGOT/AST (test code = 58 IUnit/L 15-37 H AST) SGPT/ALT (test code = 33 IUnit/L 30-65 N ALT) ALKALINE PHOSPHATASE 45 IUnit/L 20-125 N TOTAL (test code = ALKP) COMMENTS: POD #1HEPATIC FUNCTION [id number] 04:06:00 Test Item Value Reference Range Interpretation Comments BILIRUBIN DIRECT (test code = 0.20 MG/DL 0.0-0.30 N BILD) BILIRUBIN INDIRECT (test code = 0.30 MG/DL BILIND) COMMENTS: POD #[id number] 04:06:00 Test Item Value Reference Range Interpretation Comments MAGNESIUM (test code = MAG) 2.33 mg/dL 1.80-2.40 N COMMENTS: POD #1CBC W/AUTO [id number] 03:46:00 Test Item Value Reference Range Interpretation Comments WHITE BLOOD CELL (test code = 9.6 x10 3/uL 4.5-11.0 WBC) RED BLOOD CELL (test code = 2.92 x10 6/uL 3.54-5.02 L RBC) HEMOGLOBIN (test code = HGB) 9.2 g/dL 11.0-15.0 L HEMATOCRIT (test code = HCT) 28.1 % 33.0-45.0 L MEAN CELL VOLUME (test code = 96.2 fL 81.0-99.0 N MCV) MEAN CELL HGB (test code = MCH) 31.5 pg 27.0-33.0 N MEAN CELL HGB CONCETRATION 32.7 g/dL 33.0-37.0 L (test code = MCHC) RED CELL DISTRIBUTION WIDTH CV 14.6 % 11.5-14.5 H (test code = RDW) RED CELL DISTRIBUTION WIDTH SD 51.6 fL 37.0-54.0 N (test code = RDW-SD) PLATELET COUNT (test code = 156 x10 3/uL 150-400 N PLT) MEAN PLATELET VOLUME (test code 9.7 fL 7.0-9.0 H = MPV) NEUTROPHIL % (test code = NT%) 87.9 % 56.0-77.0 H IMMATURE GRANULOCYTE % (test 0.3 % 0.0-2.0 N code = IG%) LYMPHOCYTE % (test code = LY%) 5.4 % 14.0-32.0 L MONOCYTE % (test code = MO%) 6.3 % 4.8-9.0 N EOSINOPHIL % (test code = EO%) 0.0 % 0.3-3.7 L BASOPHIL % (test code = BA%) 0.1 % 0.0-2.0 N NUCLEATED RBC % (test code = 0.0 % 0-0 N NRBC%) NEUTROPHIL # (test code = NT#) 8.44 x10 3/uL 2.0-7.6 H IMMATURE GRANULOCYTE # (test 0.03 x10 3/uL 0.00-0.03 N code = IG#) LYMPHOCYTE # (test code = LY#) 0.52 x10 3/uL 1.0-3.8 L MONOCYTE # (test code = MO#) 0.60 x10 3/uL 0.1-0.8 N EOSINOPHIL # (test code = EO#) 0.00 x10 3/uL 0.0-0.2 N BASOPHIL # (test code = BA#) 0.01 x10 3/uL 0.0-0.2 N NUCLEATED RBC # (test code = 0.00 x10 3/uL 0.0-0.1 N NRBC#) MANUAL DIFF REQUIRED (test code NO = MDIFF) COMMENTS: Daily while on HeparinPOC ARTERIAL BLOOD [id number] 03:41:00 Test Item Value Reference Range Interpretation Comments POC ARTERIAL BLOOD GAS PH (test 7.328 7.35-7.45 L code = POCPHA) POC ARTERIAL BLOOD GAS PCO2 54.9 mmHg 35.0-45 HH (test code = KUJGHE0F) POC TCO2 ARTERIAL (test code = 30.2 POCTCO2) POC ARTERIAL BLOOD GAS PO2 (test 95.6 mmHg 80-100.0 N code = AXCLP2W) POC HCO3 ARTERIAL (test code = 28.6 MMOL/L 22.0-26.0 HH [id number]) POC BASE EXCESS (test code = 2.8 MMOL/L -4.0-4.0 N POCBEA) POC O2 SATURATION (test code = 96.3 % 90-100 N POCO2S) FIO2 (test code = FIO2A) 30 % PaO2/FiO2 (test code = [id number]) 318.66 mm/Hg ABG DELIVERY (test code = BERTHA) BiPAP ABG VENT MODE (test code = CPAP/PS MODEA) ABG PATIENT RESP RATE (test code 22 /MIN = RRPATA) ABG VENT RESP RATE (test code = 16 /MIN RRA) INSPIRATORY TIME (test code = 1.0 IT) ABG PEEP (test code = PEEPA) 5 cmH2O ABG PRESSURE SUPPORT (test code 10 cmH2O = PSABG) ABG TEMPERATURE (test code = 100 F TEMPA) ABG SITE (test code = SITEA) Art Line ANASTACIA'S TEST (test code = N/A ALLENS) BASIC METABOLIC [id number] 03:41:00 Test Item Value Reference Range Interpretation Comments SODIUM (test code = NA/ABG) 144 MEQ/L 134-147 N POTASSIUM (test code = K/ABG) 5.2 MEQ/L 3.4-5.0 H CHLORIDE (test code = CL/ABG) 108 MEQ/L 100-108 N CREATININE ABG (test code = 1.0 mg/dL 0.6-1.0 N CREAABG) POC IONIZED CALCIUM (test code = 1.26 MMOL/L 1.12-1.32 N POCCA) POC GLUCOSE (test code = POCGLU) 101 MG/DL 70-110 N HEMOGLOBIN [id number] 03:41:00 Test Item Value Reference Range Interpretation Comments HEMOGLOBIN ABG (test code = HGB/ABG) 9.0 G/DL 11.0-15.0 L [id number] 03:41:00 Test Item Value Reference Range Interpretation Comments HEMATOCRIT (test code = HCT/ABG) 26 % 33.0-45.0 L POC LACTIC [id number] 03:41:00 Test Item Value Reference Range Interpretation Comments POC LACTIC ACID (test code = 0.7 mmol/l 0.9-1.7 L POCLAC) GLUCOSE [id number] 00:51:00 Test Item Value Reference Range Interpretation Comments GLUCOSE BEDSIDE (test 116 MG/DL 70-110 H Perfor med by certified code = GLUBED) 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[facility] - XR CHEST 1 [id number] 00:00:00 [facility] PHILLIPSName: INDIRA HAMM : 1950 Sex: F FAX:Kwasi Christie MD [place]: St: ADM FAX: Nubia Michaels MD [phone] FAX: Lizzy Sutton [phone] FAX: Deejay Tinoco [phone] Name: INDIRA HAMM [facility] [place] : 1950 Age/S: 71/F [address] [place] [address] Unit #: [id number] Loc: G.2205 [place] [address] Phys: Alannah Sutton SALES REP Acct: [id number] Dis Date: Status: ADM IN PHONE #: [phone] Exam Date: 12/25/2021 0558 FAX #: [phone] Reason: Cardiac Surgery Post Op EXAMS: CPT CODE: [id number] XR CHEST 1 V [id number] PROCEDURE INFOR MATION: Exam: XR Chest Exam date and time: 12/25/2021 5:58 AM Age: 71 years old Clinical indication:Pain; Chest pressure; Additional info: Cardiac surgery post op TECHNIQUE: Imaging protocol: Radiologic exam of the chest. Views: 1 view. COMPARISON: CR XR CHEST 1V 12/24/2021 6:08 PM FINDINGS: Tubes, catheters and devices: Right IJ sheath is seen with tip projecting in the SVC. Mediastinal drain and bilateral chest tubes in place. Interval removal of endotracheal tube. Lungs: Unchanged bibasilar airspace disease. Pleural spaces: Unchanged small bilateral pleural effusions. No pneumothorax. Heart/Mediastinum: Unchanged. Bones/joints: Median sternotomy changes. IMPRESSION: 1. Unchanged bibasilar airs pace disease. 2. Unchanged small bilateral pleural effusions. 3. Lines and tubes, as above. at 0842 Reported and signed by: Rafael Patel M.D. CC: Kwasi Christie MD; Nubia Michaels MD; Alannah Jordan SALES REP; Deejay Meneses MD Technologist: RT Tricia(Sabina) Trnakrd Date/Time/By: 12/25/2021 (0842) : By: [email or web address] Orig Print D/T:S: 12/25/2021 (0368) PAGE 1 S[facility] [id number] 22:35:00 Test Item Value Reference Range Interpretation Comments POC ARTERIAL BLOOD GAS PH (test 7.354 7.35-7.45 N code = POCPHA) POC ARTERIAL BLOOD GAS PCO2 49.9 mmHg 35.0-45 H (test code = HUDGQS3P) POC TCO2 ARTERIAL (test code = 28.9 POCTCO2) POC ARTERIAL BLOOD GAS PO2 (test 143.3 mmHg 80-100.0 H code = DRFCR5H) POC HCO3 ARTERIAL (test code = 27.5 MMOL/L 22.0-26.0 H [id number]) POC BASE EXCESS (test code = 2.2 MMOL/L -4.0-4.0 N POCBEA) POC O2 SATURATION (test code = 99.0 % 90-100 N POCO2S) FIO2 (test code = FIO2A) 40 % PaO2/FiO2 (test code = [id number]) 358.25 mm/Hg ABG DELIVERY (test code = BERTHA) BiPAP ABG VENT MODE (test code = CPAP/PS MODEA) ABG PATIENT RESP RATE (test code 23 /MIN = RRPATA) ABG VENT RESP RATE (test code = 16 /MIN RRA) ABG PEEP (test code = PEEPA) 6 cmH2O ABG PRESSURE SUPPORT (test code 12 cmH2O = PSABG) ABG TEMPERATURE (test code = 100.6 F TEMPA) ABG SITE (test code = SITEA) Art Line ANASTACIA'S TEST (test code = N/A ALLENS) BASIC METABOLIC [id number] 22:35:00 Test Item Value Reference Range Interpretation Comments SODIUM (test code = NA/ABG) 145 MEQ/L 134-147 N POTASSIUM (test code = K/ABG) 5.1 MEQ/L 3.4-5.0 H CHLORIDE (test code = CL/ABG) 109 MEQ/L 100-108 H CREATININE ABG (test code = 0.9 mg/dL 0.6-1.0 N CREAABG) POC IONIZED CALCIUM (test code = 1.22 MMOL/L 1.12-1.32 N POCCA) POC GLUCOSE (test code = POCGLU) 126 MG/DL 70-110 H HEMOGLOBIN [id number] 22:35:00 Test Item Value Reference Range Interpretation Comments HEMOGLOBIN ABG (test code = HGB/ABG) 9.5 G/DL 11.0-15.0 L [id number] 22:35:00 Test Item Value Reference Range Interpretation Comments HEMATOCRIT (test code = HCT/ABG) 28 % 33.0-45.0 L POC LACTIC [id number] 22:35:00 Test Item Value Reference Range Interpretation Comments POC LACTIC ACID (test code = 0.7 mmol/l 0.9-1.7 L POCLAC) POC ARTERIAL BLOOD [id number] 21:27:00 Test Item Value Reference Range Interpretation Comments POC ARTERIAL BLOOD GAS PH (test 7.277 7.35-7.45 LL code = POCPHA) POC ARTERIAL BLOOD GAS PCO2 66.3 mmHg 35.0-45 HH (test code = DLWRUC4E) POC TCO2 ARTERIAL (test code = 32.7 POCTCO2) POC ARTERIAL BLOOD GAS PO2 (test 102.2 mmHg 80-100.0 H code = VJAPZ0Q) POC HCO3 ARTERIAL (test code = 30.7 MMOL/L 22.0-26.0 HH FLDUFJ3C) POC BASE EXCESS (test code = 4.1 MMOL/L -4.0-4.0 H POCBEA) POC O2 SATURATION (test code = 96.4 % 90-100 N POCO2S) FIO2 (test code = FIO2A) 40 % PaO2/FiO2 (test code = [id number]) 255.50 mm/Hg ABG DELIVERY (test code = BERTHA) Adult Vent ABG VENT MODE (test code = CPAP/PS MODEA) ABG PEEP (test code = PEEPA) 5 cmH2O ABG PRESSURE SUPPORT (test code 5 cmH2O = PSABG) ABG TEMPERATURE (test code = 99.7 F TEMPA) ABG SITE (test code = SITEA) Art Line ANASTACIA'S TEST (test code = N/A ALLENS) BASIC METABOLIC [id number] 21:27:00 Test Item Value Reference Range Interpretation Comments SODIUM (test code = NA/ABG) 145 MEQ/L 134-147 N POTASSIUM (test code = K/ABG) 5.0 MEQ/L 3.4-5.0 N CHLORIDE (test code = CL/ABG) 109 MEQ/L 100-108 H CREATININE ABG (test code = 0.9 mg/dL 0.6-1.0 N CREAABG) POC IONIZED CALCIUM (test code = 1.27 MMOL/L 1.12-1.32 N POCCA) POC GLUCOSE (test code = POCGLU) 142 MG/DL 70-110 H HEMOGLOBIN [id number] 21:27:00 Test Item Value Reference Range Interpretation Comments HEMOGLOBIN ABG (test code = 10.5 G/DL 11.0-15.0 L HGB/ABG) [id number] 21:27:00 Test Item Value Reference Range Interpretation Comments HEMATOCRIT (test code = HCT/ABG) 31 % 33.0-45.0 L POC LACTIC [id number] 21:27:00 Test Item Value Reference Range Interpretation Comments POC LACTIC ACID (test code = 1.1 mmol/l 0.9-1.7 N POCLAC) GLUCOSE [id number] 21:11:00 Test Item Value Reference Range Interpretation Comments GLUCOSE BEDSIDE (test 139 MG/DL 70-110 H Perfor med by certified code = GLUBED) 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 Prophylax is of venous thrombos is 2.0 - 3.0 (orthoped ic surgery), Proph ylaxis of venous throm bosis (other than hig h-risk surgery), Treat ment of Deep Vein Thrombosis/Pulm onary Embolism, Preve ntion of systemic emb olism - Tissue heart va lves, Acute Myocardia l Infarction (to prevent systemic emboli sm), Valvular heart disease, Atrial Fibrillation, Bileaflet mecha nical valve in aortic position.2. Mec hanical prosthetic valv es (high risk), 2. 5 - 3.5 Presence of Lup us Anticoagulant o r Antiphospholipi d Antibodies, Pre vention of systemic emb olism - Acute Myocardia l Infarction (to prevent recurrent infar ct). 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[facility] CBC W/AUTO [id number] 19:26:00 Test Item Value Reference Range Interpretation Comments WHITE BLOOD CELL (test code = 21.8 x10 3/uL 4.5-11.0 H WBC) RED BLOOD CELL (test code = 3.40 x10 6/uL 3.54-5.02 L RBC) HEMOGLOBIN (test code = HGB) 10.4 g/dL 11.0-15.0 L HEMATOCRIT (test code = HCT) 32.3 % 33.0-45.0 L MEAN CELL VOLUME (test code = 95.0 fL 81.0-99.0 N MCV) MEAN CELL HGB (test code = 30.6 pg 27.0-33.0 N MCH) MEAN CELL HGB CONCETRATION 32.2 g/dL 33.0-37.0 L (test code = MCHC) RED CELL DISTRIBUTION WIDTH CV 14.5 % 11.5-14.5 N (test code = RDW) RED CELL DISTRIBUTION WIDTH SD 50.2 fL 37.0-54.0 N (test code = RDW-SD) PLATELET COUNT (test code = 246 x10 3/uL 150-400 N PLT) MEAN PLATELET VOLUME (test 9.4 fL 7.0-9.0 H code = MPV) NEUTROPHIL % (test code = NT%) 80.0 % 56.0-77.0 H IMMATURE GRANULOCYTE % (test 1.1 % 0.0-2.0 N code = IG%) LYMPHOCYTE % (test code = LY%) 12.1 % 14.0-32.0 L MONOCYTE % (test code = MO%) 5.1 % 4.8-9.0 N EOSINOPHIL % (test code = EO%) 1.3 % 0.3-3.7 N BASOPHIL % (test code = BA%) 0.4 % 0.0-2.0 N NUCLEATED RBC % (test code = 0.0 % 0-0 N NRBC%) NEUTROPHIL # (test code = NT#) 17.42 x10 3/uL 2.0-7.6 H IMMATURE GRANULOCYTE # (test 0.23 x10 3/uL 0.00-0.03 H code = IG#) LYMPHOCYTE # (test code = LY#) 2.64 x10 3/uL 1.0-3.8 N MONOCYTE # (test code = MO#) 1.10 x10 3/uL 0.1-0.8 H EOSINOPHIL # (test code = EO#) 0.29 x10 3/uL 0.0-0.2 H BASOPHIL # (test code = BA#) 0.09 x10 3/uL 0.0-0.2 N NUCLEATED RBC # (test code = 0.00 x10 3/uL 0.0-0.1 N NRBC#) MANUAL DIFF REQUIRED (test NO code = MDIFF) COMMENTS: On arrivalBASIC METABOLIC [id number] 18:52:00 Test Item Value Reference Range Interpretation Comments SODIUM (test code = NA) 146 mEq/L 134-147 N POTASSIUM (test code = 4.2 mEq/L 3.4-5.0 N K) CHLORIDE (test code = 112 mEq/L 100-108 H CL) CARBON DIOXIDE (test 27 mEq/l 21-33 N code = CO2) ANION GAP (test code = 11 0-20 N GAP) GLUCOSE (test code = 175 mg/dL 70-110 H GLU) BLOOD UREA NITROGEN 16 mg/dL 7-18 (test code = BUN) GLOMERULAR FILTRATION 70.5 70-80 N Units of measure = RATE (test code = GFR) ml/mi n/1.73 m2 CREATININE (test code = 0.8 mg/dL 0.6-1.3 N CREAT) CALCIUM (test code = 9.0 mg/dL 8.0-10.5 N CA) COMMENTS: On [id number] 18:52:00 Test Item Value Reference Range Interpretation Comments MAGNESIUM (test code = MAG) 2.50 mg/dL 1.80-2.40 H COMMENTS: On arrivalLACTIC [id number] 18:51:00 Test Item Value Reference Range Interpretation Comments LACTIC ACID (test code = LACT) 1.5 mmol/L 0.4-1.9 N THROMBOPLASTIN TIME [id number] 18:48:00 Test Item Value Reference Range Interpretation Comments THROMBOPLASTIN TIME 29.8 Seconds 25.0-39.5 Therape utic Range: PARTIAL (test code = 50.4 - 88.3 Seconds PTT) Effective 06/19/2018 COMMENTS: On arrivalPOC ARTERIAL BLOOD [id number] 18:35:00 Test Item Value Reference Range Interpretation Comments POC ARTERIAL BLOOD GAS PH (test 7.353 7.35-7.45 N code = POCPHA) POC ARTERIAL BLOOD GAS PCO2 46.7 mmHg 35.0-45 H (test code = [id number]) POC TCO2 ARTERIAL (test code = 27.8 POCTCO2) POC ARTERIAL BLOOD GAS PO2 (test 92.5 mmHg 80-100.0 N code = HFFHM1S) POC HCO3 ARTERIAL (test code = 26.3 MMOL/L 22.0-26.0 H [id number]) POC BASE EXCESS (test code = 0.4 MMOL/L -4.0-4.0 N POCBEA) POC O2 SATURATION (test code = 97.1 % 90-100 N POCO2S) FIO2 (test code = FIO2A) 50 % PaO2/FiO2 (test code = [id number]) 185.00 mm/Hg ABG DELIVERY (test code = BERTHA) Adult Vent ABG VENT MODE (test code = SIMV MODEA) ABG VENT RESP RATE (test code = 16 /MIN RRA) ABG TIDAL VOLUME (test code = 450 ml TVA) ABG PEEP (test code = PEEPA) 5 cmH2O ABG TEMPERATURE (test code = 96.6 F TEMPA) ABG SITE (test code = SITEA) Art Line BASIC METABOLIC [id number] 18:35:00 Test Item Value Reference Range Interpretation Comments SODIUM (test code = NA/ABG) 145 MEQ/L 134-147 N POTASSIUM (test code = K/ABG) 4.1 MEQ/L 3.4-5.0 N CHLORIDE (test code = CL/ABG) 109 MEQ/L 100-108 H CREATININE ABG (test code = 0.9 mg/dL 0.6-1.0 N CREAABG) POC IONIZED CALCIUM (test code = 1.29 MMOL/L 1.12-1.32 N POCCA) POC GLUCOSE (test code = POCGLU) 185 MG/DL 70-110 H HEMOGLOBIN [id number] 18:35:00 Test Item Value Reference Range Interpretation Comments HEMOGLOBIN ABG (test code = 10.6 G/DL 11.0-15.0 L HGB/ABG) [id number] 18:35:00 Test Item Value Reference Range Interpretation Comments HEMATOCRIT (test code = HCT/ABG) 31 % 33.0-45.0 L POC LACTIC [id number] 18:35:00 Test Item Value Reference Range Interpretation Comments POC LACTIC ACID (test code = 1.7 mmol/l 0.9-1.7 N POCLAC) [id number] 17:59:00 Test Item Value Reference Range Interpretation Comments ACT-ISTAT (test code 126 SEC 74-137 N Perform ed by certified = ACTI) 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 ARTERIAL BLOOD [id number] 17:56:00 Test Item Value Reference Range Interpretation Comments POC ARTERIAL BLOOD GAS PH (test 7.402 7.35-7.45 N code = POCPHA) POC ARTERIAL BLOOD GAS PCO2 (test 38.2 mmHg 35.0-45 N code = [id number]) POC TCO2 ARTERIAL (test code = 25.0 POCTCO2) POC ARTERIAL BLOOD GAS PO2 (test 258.0 mmHg 80-100.0 HH code = [id number]) POC HCO3 ARTERIAL (test code = 23.8 MMOL/L 22.0-26.0 N [id number]) POC BASE EXCESS (test code = -0.8 MMOL/L -4.0-4.0 N POCBEA) POC O2 SATURATION (test code = 99.9 % 90-100 N POCO2S) BASIC METABOLIC [id number] 17:56:00 Test Item Value Reference Range Interpretation Comments SODIUM (test code = NA/ABG) 145 MEQ/L 134-147 N POTASSIUM (test code = K/ABG) 4.2 MEQ/L 3.4-5.0 N CHLORIDE (test code = CL/ABG) 110 MEQ/L 100-108 H CREATININE ABG (test code = 0.8 mg/dL 0.6-1.0 CREAABG) POC IONIZED CALCIUM (test code = 1.25 MMOL/L 1.12-1.32 N POCCA) POC GLUCOSE (test code = POCGLU) 157 MG/DL 70-110 H HEMOGLOBIN [id number] 17:56:00 Test Item Value Reference Range Interpretation Comments HEMOGLOBIN ABG (test code = 10.0 G/DL 11.0-15.0 L HGB/ABG) [id number] 17:56:00 Test Item Value Reference Range Interpretation Comments HEMATOCRIT (test code = HCT/ABG) 29 % 33.0-45.0 L POC LACTIC [id number] 17:56:00 Test Item Value Reference Range Interpretation Comments POC LACTIC ACID (test code = 1.7 mmol/l 0.9-1.7 N POCLAC) [id number] 17:07:00 Test Item Value Reference Range Interpretation Comments ACT-ISTAT (test code 543 SEC 74-137 H Perform ed by certified = ACTI) 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 ARTERIAL BLOOD [id number] 16:58:00 Test Item Value Reference Range Interpretation Comments POC ARTERIAL BLOOD GAS PH (test 7.468 7.35-7.45 H code = POCPHA) POC ARTERIAL BLOOD GAS PCO2 (test 35.6 mmHg 35.0-45 N code = [id number]) POC TCO2 ARTERIAL (test code = 26.9 POCTCO2) POC ARTERIAL BLOOD GAS PO2 (test 354.8 mmHg 80-100.0 HH code = [id number]) POC HCO3 ARTERIAL (test code = 25.8 MMOL/L 22.0-26.0 N [id number]) POC BASE EXCESS (test code = 2.1 MMOL/L -4.0-4.0 N POCBEA) POC O2 SATURATION (test code = 100.0 % 90-100 N POCO2S) BASIC METABOLIC [id number] 16:58:00 Test Item Value Reference Range Interpretation Comments SODIUM (test code = NA/ABG) 143 MEQ/L 134-147 N POTASSIUM (test code = K/ABG) 4.8 MEQ/L 3.4-5.0 N CHLORIDE (test code = CL/ABG) 108 MEQ/L 100-108 N CREATININE ABG (test code = 0.6 mg/dL 0.6-1.0 CREAABG) POC IONIZED CALCIUM (test code = 1.05 MMOL/L 1.12-1.32 L POCCA) POC GLUCOSE (test code = POCGLU) 143 MG/DL 70-110 H HEMOGLOBIN [id number] 16:58:00 Test Item Value Reference Range Interpretation Comments HEMOGLOBIN ABG (test code = HGB/ABG) 9.2 G/DL 11.0-15.0 L [id number] 16:58:00 Test Item Value Reference Range Interpretation Comments HEMATOCRIT (test code = HCT/ABG) 27 % 33.0-45.0 L POC LACTIC [id number] 16:58:00 Test Item Value Reference Range Interpretation Comments POC LACTIC ACID (test code = 0.7 mmol/l 0.9-1.7 L POCLAC) [id number] 16:43:00 Test Item Value Reference Range Interpretation Comments ACT-ISTAT (test code 625 SEC 74-137 H Perform ed by certified = ACTI) 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 ARTERIAL BLOOD [id number] 16:36:00 Test Item Value Reference Range Interpretation Comments POC ARTERIAL BLOOD GAS PH (test 7.406 7.35-7.45 N code = POCPHA) POC ARTERIAL BLOOD GAS PCO2 (test 42.4 mmHg 35.0-45 N code = [id number]) POC TCO2 ARTERIAL (test code = 27.9 POCTCO2) POC ARTERIAL BLOOD GAS PO2 (test 409.3 mmHg 80-100.0 HH code = UNXJH7C) POC HCO3 ARTERIAL (test code = 26.6 MMOL/L 22.0-26.0 H [id number]) POC BASE EXCESS (test code = 1.7 MMOL/L -4.0-4.0 N POCBEA) POC O2 SATURATION (test code = 100.0 % 90-100 N POCO2S) BASIC METABOLIC [id number] 16:36:00 Test Item Value Reference Range Interpretation Comments SODIUM (test code = NA/ABG) 144 MEQ/L 134-147 N POTASSIUM (test code = K/ABG) 4.7 MEQ/L 3.4-5.0 N CHLORIDE (test code = CL/ABG) 106 MEQ/L 100-108 N CREATININE ABG (test code = 0.8 mg/dL 0.6-1.0 N CREAABG) POC IONIZED CALCIUM (test code = 1.07 MMOL/L 1.12-1.32 L POCCA) POC GLUCOSE (test code = POCGLU) 145 MG/DL 70-110 H HEMOGLOBIN [id number] 16:36:00 Test Item Value Reference Range Interpretation Comments HEMOGLOBIN ABG (test code = HGB/ABG) 9.2 G/DL 11.0-15.0 L [id number] 16:36:00 Test Item Value Reference Range Interpretation Comments HEMATOCRIT (test code = HCT/ABG) 27 % 33.0-45.0 L POC LACTIC [id number] 16:36:00 Test Item Value Reference Range Interpretation Comments POC LACTIC ACID (test code = 0.9 mmol/l 0.9-1.7 N POCLAC) [id number] 16:14:00 Test Item Value Reference Range Interpretation Comments ACT-ISTAT (test code 648 SEC 74-137 H Perform ed by certified = ACTI) 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 ARTERIAL BLOOD [id number] 16:08:00 Test Item Value Reference Range Interpretation Comments POC ARTERIAL BLOOD GAS PH (test 7.397 7.35-7.45 N code = POCPHA) POC ARTERIAL BLOOD GAS PCO2 (test 44.4 mmHg 35.0-45 N code = [id number]) POC TCO2 ARTERIAL (test code = 28.7 POCTCO2) POC ARTERIAL BLOOD GAS PO2 (test 503.7 mmHg 80-100.0 HH code = ANRUQ4J) POC HCO3 ARTERIAL (test code = 27.3 MMOL/L 22.0-26.0 H [id number]) POC BASE EXCESS (test code = 2.1 MMOL/L -4.0-4.0 N POCBEA) POC O2 SATURATION (test code = 100.0 % 90-100 N POCO2S) BASIC METABOLIC [id number] 16:08:00 Test Item Value Reference Range Interpretation Comments SODIUM (test code = NA/ABG) 143 MEQ/L 134-147 N POTASSIUM (test code = K/ABG) 4.8 MEQ/L 3.4-5.0 N CHLORIDE (test code = CL/ABG) 105 MEQ/L 100-108 N CREATININE ABG (test code = 0.8 mg/dL 0.6-1.0 N CREAABG) POC IONIZED CALCIUM (test code = 0.99 MMOL/L 1.12-1.32 L POCCA) POC GLUCOSE (test code = POCGLU) 157 MG/DL 70-110 H HEMOGLOBIN [id number] 16:08:00 Test Item Value Reference Range Interpretation Comments HEMOGLOBIN ABG (test code = HGB/ABG) 9.1 G/DL 11.0-15.0 L [id number] 16:08:00 Test Item Value Reference Range Interpretation Comments HEMATOCRIT (test code = HCT/ABG) 27 % 33.0-45.0 L POC LACTIC [id number] 16:08:00 Test Item Value Reference Range Interpretation Comments POC LACTIC ACID (test code = 1.0 mmol/l 0.9-1.7 N POCLAC) [id number] 15:50:00 Test Item Value Reference Range Interpretation Comments ACT-ISTAT (test code 677 SEC 74-137 H Perform ed by certified = ACTI) 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 ARTERIAL BLOOD [id number] 15:40:00 Test Item Value Reference Range Interpretation Comments POC ARTERIAL BLOOD GAS PH (test 7.261 7.35-7.45 LL code = POCPHA) POC ARTERIAL BLOOD GAS PCO2 (test 60.0 mmHg 35.0-45 HH code = IVMPSX1P) POC TCO2 ARTERIAL (test code = 28.8 POCTCO2) POC ARTERIAL BLOOD GAS PO2 (test 86.9 mmHg 80-100.0 N code = MSQRS2A) POC HCO3 ARTERIAL (test code = 27.0 MMOL/L 22.0-26.0 H [id number]) POC BASE EXCESS (test code = -1.0 MMOL/L -4.0-4.0 N POCBEA) POC O2 SATURATION (test code = 94.7 % 90-100 N POCO2S) BASIC METABOLIC [id number] 15:40:00 Test Item Value Reference Range Interpretation Comments SODIUM (test code = NA/ABG) 143 MEQ/L 134-147 N POTASSIUM (test code = K/ABG) 4.3 MEQ/L 3.4-5.0 N CHLORIDE (test code = CL/ABG) 105 MEQ/L 100-108 N CREATININE ABG (test code = 0.8 mg/dL 0.6-1.0 CREAABG) POC IONIZED CALCIUM (test code = 1.15 MMOL/L 1.12-1.32 N POCCA) POC GLUCOSE (test code = POCGLU) 207 MG/DL 70-110 H HEMOGLOBIN [id number] 15:40:00 Test Item Value Reference Range Interpretation Comments HEMOGLOBIN ABG (test code = 11.2 G/DL 11.0-15.0 N HGB/ABG) [id number] 15:40:00 Test Item Value Reference Range Interpretation Comments HEMATOCRIT (test code = HCT/ABG) 33 % 33.0-45.0 N POC LACTIC [id number] 15:40:00 Test Item Value Reference Range Interpretation Comments POC LACTIC ACID (test code = 0.9 mmol/l 0.9-1.7 N POCLAC) [id number] 13:42:00 Test Item Value Reference Range Interpretation Comments ACT-ISTAT (test code 144 SEC 74-137 H Perform ed by certified = ACTI) 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 ARTERIAL BLOOD [id number] 13:42:00 Test Item Value Reference Range Interpretation Comments POC ARTERIAL BLOOD GAS PH (test 7.384 7.35-7.45 N code = POCPHA) POC ARTERIAL BLOOD GAS PCO2 (test 43.9 mmHg 35.0-45 N code = ORRQHC0D) POC TCO2 ARTERIAL (test code = 27.6 POCTCO2) POC ARTERIAL BLOOD GAS PO2 (test 311.4 mmHg 80-100.0 HH code = USOKO6O) POC HCO3 ARTERIAL (test code = 26.2 MMOL/L 22.0-26.0 H [id number]) POC BASE EXCESS (test code = 0.9 MMOL/L -4.0-4.0 N POCBEA) POC O2 SATURATION (test code = 99.9 % 90-100 N POCO2S) BASIC METABOLIC [id number] 13:42:00 Test Item Value Reference Range Interpretation Comments SODIUM (test code = NA/ABG) 148 MEQ/L 134-147 H POTASSIUM (test code = K/ABG) 3.7 MEQ/L 3.4-5.0 N CHLORIDE (test code = CL/ABG) 107 MEQ/L 100-108 N CREATININE ABG (test code = 0.6 mg/dL 0.6-1.0 N CREAABG) POC IONIZED CALCIUM (test code = 1.08 MMOL/L 1.12-1.32 L POCCA) POC GLUCOSE (test code = POCGLU) 114 MG/DL 70-110 H HEMOGLOBIN [id number] 13:42:00 Test Item Value Reference Range Interpretation Comments HEMOGLOBIN ABG (test code = 10.9 G/DL 11.0-15.0 L HGB/ABG) [id number] 13:42:00 Test Item Value Reference Range Interpretation Comments HEMATOCRIT (test code = HCT/ABG) 32 % 33.0-45.0 L POC LACTIC [id number] 13:42:00 Test Item Value Reference Range Interpretation Comments POC LACTIC ACID (test code = 0.6 mmol/l 0.9-1.7 L POCLAC) B-TYPE NATRIURETIC [id number] 10:39:00 Test Item Value Reference Range Interpretation Comments B-TYPE NATRIURETIC PEPTIDE (test 994.0 PG/ML 0-100 H code = BNP) COMPREHENSIVE METABOLIC [id number] 04:36:00 Test Item Value Reference Range Interpretation Comments SODIUM (test code = NA) 143 mEq/L 134-147 N POTASSIUM (test code = 4.0 mEq/L 3.4-5.0 N K) CHLORIDE (test code = 106 mEq/L 100-108 N CL) CARBON DIOXIDE (test 28 mEq/l 21-33 N code = CO2) ANION GAP (test code = 13 0-20 N GAP) GLUCOSE (test code = 124 mg/dL 70-110 H GLU) BLOOD UREA NITROGEN 23 mg/dL 7-18 H (test code = BUN) GLOMERULAR FILTRATION 70.5 70-80 N Units of measure = RATE (test code = GFR) ml/mi n/1.73 m2 CREATININE (test code = 0.8 mg/dL 0.6-1.3 CREAT) TOTAL PROTEIN (test 6.6 g/dL 6.4-8.2 N code = PROT) ALBUMIN (test code = 3.60 g/dL 3.4-5.0 N ALB) CALCIUM (test code = 8.8 mg/dL 8.0-10.5 N CA) BILIRUBIN TOTAL (test 0.60 mg/dL 0.0-1.0 N code = BILT) SGOT/AST (test code = 35 IUnit/L 15-37 N AST) SGPT/ALT (test code = 46 IUnit/L 30-65 N ALT) ALKALINE PHOSPHATASE 63 IUnit/L 20-125 N TOTAL (test code = ALKP) LIPID PROFILE (CORONARY RISK)[id number] 04:36:00 Test Item Value Reference Range Interpretation Comments TRIGLYCERIDES (test 114 mg/dL 40-150 N code = TRIG) CHOLESTEROL (test 140 mg/dL <200 code = CHOL) CHOLESTEROL/HDL 3.30 RATIO 3.27-4.44 N RISK ASSOCIA AYSHA WITH RATIO (test code = CHOL/HDL RATIOS: RISK CHOLHDL) MALE FEMALE1/2 AVERAGE 3.43 3.27AVERAG E 4.97 4.442X AVERAGE 9.55 7.053X AVERAGE 23.39 11.04 NOTE THAT THE REFERENCE VALUE IS RELATEDTO RISK LEVELS RECOMMENDED BY THE NATL.HEART, STARR G, AND BLOOD INST. HDL CHOLESTEROL 42.4 mg/dL 39-96 N (test code = HDL) LIPOPROTEIN LDL 87.3 mg/dL 0-100 N <100 OPTIMAL 100-129 (test code = LDL) NEAR OPTIM AL/ABOVE [id number] HIGH>BS=211 DENG Y HIGH*Guidelines provided by the National Choles terol EducationProgra m Adult Treatment Panel III [id number] 04:36:00 Test Item Value Reference Range Interpretation Comments MAGNESIUM (test code = MAG) 1.87 mg/dL 1.80-2.40 N CALCIUM [id number] 04:36:00 Test Item Value Reference Range Interpretation Comments CALCIUM IONIZED (test code = ANU) 1.09 MMOL/L 1.09-1.30 N [id number] 04:29:00 Test Item Value Reference Range Interpretation Comments HGBA1C% (test code = HGBA1C%) 5.2 %A1C 4.8-6.0 N PROTHROMBIN [id number] 04:15:00 Test Item Value Reference Range Interpretation Comments PROTHROMBIN TIME 12.2 SECONDS 9.3-12.9 N PATIENT (test code = PTP) INTERNATIONAL NORMAL 1.1 0.8-1.2 N TARGET INR BY RATIO (test code = INDICATIO N Indication INR) INR1. Prophylax is of venous thrombos is 2.0 - 3.0 (orthoped ic surgery), Proph ylaxis of venous throm bosis (other than hig h-risk surgery), Treat ment of Deep Vein Thrombosis/Pulm onary Embolism, Preve ntion of systemic emb olism - Tissue heart va lves, Acute Myocardia l Infarction (to prevent systemic emboli sm), Valvular heart disease, Atrial Fibrillation, Bileaflet mecha nical valve in aortic position.2. Mec hanical prosthetic valv es (high risk), 2. 5 - 3.5 Presence of Lup us Anticoagulant o r Antiphospholipi d Antibodies, Pre vention of systemic emb olism - Acute Myocardia l Infarction (to prevent recurrent infar ct). THROMBOPLASTIN TIME [id number] 04:15:00 Test Item Value Reference Range Interpretation Comments THROMBOPLASTIN TIME 68.6 Seconds 25.0-39.5 H Therape utic Range: PARTIAL (test code = 50.4 - 88.3 Seconds PTT) Effective 06/19/2018 CBC W/AUTO [id number] 04:10:00 Test Item Value Reference Range Interpretation Comments WHITE BLOOD CELL (test code = 8.1 x10 3/uL 4.5-11.0 N WBC) RED BLOOD CELL (test code = 3.76 x10 6/uL 3.54-5.02 N RBC) HEMOGLOBIN (test code = HGB) 11.6 g/dL 11.0-15.0 N HEMATOCRIT (test code = HCT) 35.8 % 33.0-45.0 N MEAN CELL VOLUME (test code = 95.2 fL 81.0-99.0 N MCV) MEAN CELL HGB (test code = MCH) 30.9 pg 27.0-33.0 N MEAN CELL HGB CONCETRATION 32.4 g/dL 33.0-37.0 L (test code = MCHC) RED CELL DISTRIBUTION WIDTH CV 14.6 % 11.5-14.5 H (test code = RDW) RED CELL DISTRIBUTION WIDTH SD 51.4 fL 37.0-54.0 N (test code = RDW-SD) PLATELET COUNT (test code = 197 x10 3/uL 150-400 N PLT) MEAN PLATELET VOLUME (test code 9.9 fL 7.0-9.0 H = MPV) NEUTROPHIL % (test code = NT%) 70.5 % 56.0-77.0 N IMMATURE GRANULOCYTE % (test 0.4 % 0.0-2.0 N code = IG%) LYMPHOCYTE % (test code = LY%) 20.1 % 14.0-32.0 N MONOCYTE % (test code = MO%) 6.0 % 4.8-9.0 N EOSINOPHIL % (test code = EO%) 2.5 % 0.3-3.7 N BASOPHIL % (test code = BA%) 0.5 % 0.0-2.0 N NUCLEATED RBC % (test code = 0.0 % 0-0 N NRBC%) NEUTROPHIL # (test code = NT#) 5.74 x10 3/uL 2.0-7.6 N IMMATURE GRANULOCYTE # (test 0.03 x10 3/uL 0.00-0.03 N code = IG#) LYMPHOCYTE # (test code = LY#) 1.64 x10 3/uL 1.0-3.8 N MONOCYTE # (test code = MO#) 0.49 x10 3/uL 0.1-0.8 N EOSINOPHIL # (test code = EO#) 0.20 x10 3/uL 0.0-0.2 N BASOPHIL # (test code = BA#) 0.04 x10 3/uL 0.0-0.2 N NUCLEATED RBC # (test code = 0.00 x10 3/uL 0.0-0.1 N NRBC#) MANUAL DIFF REQUIRED (test code NO = MDZAYNAB) - XR CHEST 1 [id number] 00:00[facility] 1950 Sex: F FAX:Kwasi Christie MD [place]: St: ADM FAX: Nubia Michaels MD [phone] FAX: Lizzy Sutton [phone] FAX: Deejay Tinoco [phone] Name: GENNY HAMMITH [facility] : 1950 Age/S: 71/F [address] [place] [address] Blvd Unit #: [id number] Loc: G.2205 [place] [address] Phys: Alannah Sutton SALES REP Acct:[id number] Dis Date: Status: ADM IN PHONE #: [phone] Exam Date: 12/24/2021 1845 FAX #: [phone] Reason: Cardiac Surgery Post Op EXAMS: CPT CODE: [id number] XR CHEST 1 V [id number] PROCEDURE INFOR MATION: Exam: XR Chest Exam date and time: 12/24/2021 6:08 PM Age: 71 years old Clinical indication: Other: Cardiac surgery post op TECHNIQUE: Imaging protocol: Radiologic exam of the chest. Views: 1 view. COMPARISON: CT CHEST W/O CONTRAST 12/23/2021 10:27 AM FINDINGS: Tubes, catheters and devices: ET tube noted with tip 3.6 cm above the yuan. Right IJ double-lumen CVC catheter noted, with tips overlying the distal SVC. Bilateral chest tubes are present, with mediastinal drains. Lungs: Mild decreased lung volumes. Jhud-hb-akraxizv interstitial and airspace disease is present in the lung bases bilaterally. Pleural spaces: Unremarkable. No pleural effusion. No pneumothorax. Heart/Mediastinum: There is mild enlargement of the cardiac silhouette. Mild calcification of the aortic knob is seen. Bones/joints: Median sternotomy wires are seen. IMPRESSION: 1. Lines and tubes are in satisfactory position. 2. Median sternotomy wires are present, with absj-gp-jdsjhref enlargement of the cardiac silhouette. 3. Fzyw-ta-wpdkjtqc bibasilar atelectasis/infiltrate noted, worse on the left than the right. at 1936 Reported and signed by: Judy Escalona M.D. 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[facility] GLUCOSE [id number] 17:50:00 Test Item Value Reference Range Interpretation Comments GLUCOSE BEDSIDE (test 164 MG/DL 70-110 H Perfor med by certified code = GLUBED) 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[facility] URINALYSIS [id number] 17:43:00 Test Item Value Reference Range Interpretation Comments UA COLOR (test code = COLU) YELLOW YEL/STRAW UA APPEARANCE (test code = APPU) CLEAR CLEAR UA GLUCOSE DIPSTICK (test code = NEGATIVE NEGATIVE DGLUU) UA BILIRUBIN DIPSTICK (test code NEGATIVE NEGATIVE = BILU) UA KETONE DIPSTICK (test code = NEGATIVE NEGATIVE KETU) UA SPECIFIC GRAVITY (test code = 1.014 1.005-1.030 N SGU) UA BLOOD DIPSTICK (test code = NEGATIVE NEGATIVE GUSTAVO) UA PH DIPSTICK (test code = SUSAN) 5.0 5.0-7.0 N UA PROTEIN DIPSTICK (test code = NEGATIVE NEGATIVE PROU) UA UROBILINIOGEN DIPSTICK (test 0.2 mg/dL 0.2-1.0 code = URO) UA NITRITE DIPSTICK (test code = NEGATIVE NEGATIVE KIERSTEN) UA LEUKOCYTE ESTERASE DIPSTICK TRACE NEGATIVE A (test code = LEUU) UA RBC (test code = RBCU) 0-3 RBC/HPF 0-3 UA WBC NO REFLEX (test code = 4-9 WBC/HPF 0-3 A WBCUCL) UA BACTERIA (test code = BACU) TRACE /HPF NONE SEEN UA SQUAMOUS CELLS (test code = 6-10 /HPF NONE SEEN A SQU) UA MUCUS (test code = MUCU) TRACE /LPF NONE SEEN COVID 19 Asymptomatic IH [id number] 17:15:00 Test Item Value Reference Range Interpretation Comments COVID 19 Asymptomatic Negative Negative A nega tive result is IH AG (test code = presumpti ve and should COVNONPUIAG) be confirmedwit h an FDA authorized mole cular assay, if neces arlen forpatient drea gement.A positive result does not rule out co-inf ections withother patho gens.This test detects stephen th viable (live) and non-viable,SARS -CoV, and SARS-CoV-2. Sherri t performance dep ends on theamount of vi zachary (antigen) in th e sample.This sherri t has not been FDA cleare d or approved; the t est hasbeen authori zed by FDA under an Em ergency Use Authorizati on(EUA) for use by labo ratories certified under the CLIA thatmeet the requirements to perform moderate, high or waivedcomplexit y tests. THROMBOPLASTIN TIME [id number] 16:36:00 Test Item Value Reference Range Interpretation Comments THROMBOPLASTIN TIME 65.1 Seconds 25.0-39.5 H Therape utic Range: PARTIAL (test code = 50.4 - 88.3 Seconds PTT) Effective 06/19/2018 THROMBOPLASTIN TIME [id number] 12:57:00 Test Item Value Reference Range Interpretation Comments THROMBOPLASTIN TIME 62.0 Seconds 25.0-39.5 H Therape utic Range: PARTIAL (test code = 50.4 - 88.3 Seconds PTT) Effective 06/19/2018 GLUCOSE [id number] 12:22:00 Test Item Value Reference Range Interpretation Comments GLUCOSE BEDSIDE (test 131 MG/DL 70-110 H Perfor med by certified code = GLUBED) 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[facility] POC ARTERIAL BLOOD [id number] 11:30:00 Test Item Value Reference Range Interpretation Comments POC ARTERIAL BLOOD GAS PH (test 7.390 7.35-7.45 N code = POCPHA) POC ARTERIAL BLOOD GAS PCO2 45.8 mmHg 35.0-45 H (test code = MIARNU8J) POC TCO2 ARTERIAL (test code = 29.1 POCTCO2) POC ARTERIAL BLOOD GAS PO2 (test 56.7 mmHg 80-100.0 L code = GGOJD7B) POC HCO3 ARTERIAL (test code = 27.7 MMOL/L 22.0-26.0 H LISCNU6X) POC BASE EXCESS (test code = 2.7 MMOL/L -4.0-4.0 N POCBEA) POC O2 SATURATION (test code = 88.5 % 90-100 L POCO2S) FIO2 (test code = FIO2A) 21 % PaO2/FiO2 (test code = [id number]) 270.00 mm/Hg ABG SITE (test code = SITEA) R Radial ANASTACIA'S TEST (test code = Negative ALLENS) GLUCOSE [id number] 08:13:00 Test Item Value Reference Range Interpretation Comments GLUCOSE BEDSIDE (test 165 MG/DL 70-110 H Perfor med by certified code = GLUBED) 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[facility] BASIC METABOLIC [id number] 06:03:00 Test Item Value Reference Range Interpretation Comments SODIUM (test code = NA) 137 mEq/L 134-147 N POTASSIUM (test code = 4.5 mEq/L 3.4-5.0 N K) CHLORIDE (test code = 105 mEq/L 100-108 N CL) CARBON DIOXIDE (test 31 mEq/l 21-33 code = CO2) ANION GAP (test code = 6 0-20 N GAP) GLUCOSE (test code = 261 mg/dL 70-110 H GLU) BLOOD UREA NITROGEN 27 mg/dL 7-18 H (test code = BUN) GLOMERULAR FILTRATION 48.8 70-80 L Units of measure = RATE (test code = GFR) ml/mi n/1.73 m2 CREATININE (test code = 1.1 mg/dL 0.6-1.3 N CREAT) CALCIUM (test code = 8.7 mg/dL 8.0-10.5 N CA) THROMBOPLASTIN TIME [id number] 05:39:00 Test Item Value Reference Range Interpretation Comments THROMBOPLASTIN TIME 38.7 Seconds 25.0-39.5 N Therape utic Range: PARTIAL (test code = 50.4 - 88.3 Seconds PTT) Effective 06/19/2018 [id number] 05:38:00 Test Item Value Reference Range Interpretation Comments MAGNESIUM (test code = MAG) 2.08 mg/dL 1.80-2.40 CALCIUM [id number] 05:38:00 Test Item Value Reference Range Interpretation Comments CALCIUM IONIZED (test code = ANU) 1.11 MMOL/L 1.09-1.30 N [id number] 05:38:00 Test Item Value Reference Range Interpretation Comments HGBA1C% (test code = HGBA1C%) 5.2 %A1C 4.8-6.0 N CBC W/AUTO [id number] 05:21:00 Test Item Value Reference Range Interpretation Comments WHITE BLOOD CELL (test code = 9.6 x10 3/uL 4.5-11.0 N WBC) RED BLOOD CELL (test code = 3.67 x10 6/uL 3.54-5.02 N RBC) HEMOGLOBIN (test code = HGB) 11.4 g/dL 11.0-15.0 N HEMATOCRIT (test code = HCT) 35.0 % 33.0-45.0 N MEAN CELL VOLUME (test code = 95.4 fL 81.0-99.0 N MCV) MEAN CELL HGB (test code = MCH) 31.1 pg 27.0-33.0 N MEAN CELL HGB CONCETRATION 32.6 g/dL 33.0-37.0 L (test code = MCHC) RED CELL DISTRIBUTION WIDTH CV 14.8 % 11.5-14.5 H (test code = RDW) RED CELL DISTRIBUTION WIDTH SD 51.9 fL 37.0-54.0 N (test code = RDW-SD) PLATELET COUNT (test code = 208 x10 3/uL 150-400 N PLT) MEAN PLATELET VOLUME (test code 10.3 fL 7.0-9.0 H = MPV) NEUTROPHIL % (test code = NT%) 90.8 % 56.0-77.0 H IMMATURE GRANULOCYTE % (test 0.4 % 0.0-2.0 N code = IG%) LYMPHOCYTE % (test code = LY%) 4.6 % 14.0-32.0 L MONOCYTE % (test code = MO%) 4.1 % 4.8-9.0 L EOSINOPHIL % (test code = EO%) 0.0 % 0.3-3.7 L BASOPHIL % (test code = BA%) 0.1 % 0.0-2.0 N NUCLEATED RBC % (test code = 0.0 % 0-0 N NRBC%) NEUTROPHIL # (test code = NT#) 8.72 x10 3/uL 2.0-7.6 H IMMATURE GRANULOCYTE # (test 0.04 x10 3/uL 0.00-0.03 H code = IG#) LYMPHOCYTE # (test code = LY#) 0.44 x10 3/uL 1.0-3.8 L MONOCYTE # (test code = MO#) 0.39 x10 3/uL 0.1-0.8 N EOSINOPHIL # (test code = EO#) 0.00 x10 3/uL 0.0-0.2 N BASOPHIL # (test code = BA#) 0.01 x10 3/uL 0.0-0.2 N NUCLEATED RBC # (test code = 0.00 x10 3/uL 0.0-0.1 N NRBC#) MANUAL DIFF REQUIRED (test code NO = MDIFF) COMMENTS: Daily while on Heparin- DUP EXTRACRANIAL [id number] 00:00:00 [facility] PHILLIPSName: INDIRA HAMM : 1950 Sex: F Name: INDIRA HAMM [facility] [place] Phillips : 1950 Age/S: 71 / F [address] Unit #: [id number] Loc: [place] [address] Phys: Alannah Jordan SALES REP Acct: [id number] Dis Date: Status: ADM IN PHONE #: [phone] Exam Date: 12/23/2021702 FAX #: [phone] Reason: PRE CABG EVAL EXAMS: CPT CODE: [id number] DUP EXTRACRANIAL DEAN [id number] PROCEDURE INFORMATION: Exam: US Duplex Bilateral Extracranial Arteries, Carotid Arteries Exam date and time: 12/23/2021 6:31 AM Age: 71 years old Clinicalindication: Screening exam; Patient HX: Pre cabg eval TECHNIQUE: Imaging protocol: Real-time Duplex ultrasound scan of the bilateral carotid and vertebral arteries combining argueta scale, color Doppler and spectral waveform analysis. Bilateral exam. Exam focused on the carotid arteries. COMPARISON: No relevant prior studies available. FINDINGS: Right common carotid artery: Plaque formation. No occlusion or stenosis. Waveforms are normal. Right internal carotid artery: Plaque formation. No occlusion or stenosis. Waveforms are normal. Right ICA/CCA ratio: Within normal limits. Right external carotid artery: No stenosis in the origin. Right vertebral artery: Unremarkable. Antegrade flow. Left common carotid artery: Plaque formation. No occlusion or stenosis. Waveforms are normal. Left internal carotid artery: Plaque formation with elevation of the peak systolic velocity to 183 cm/second. Left ICA/CCA ratio: 1.8. Left external carotid artery: No stenosis in the origin. Left vertebral artery: Unremarkable. Antegrade flow. IMPRESSION: Findings suggesting 50-69% stenosis of the left ICA based on velocity criteria. REFERENCES: SRU CRITERIA. The degree of internal carotid artery stenosis is based on criteria defined by the Society of Radiologists in Ultrasound (SRU). Normal is no stenosis. Mild is less than 50% stenosis. Moderate is 50-69% stenosis. Severe is greater than 69% stenosis to near occlusion. Near occlusion is a markedly narrowed lumen. Total occlusion is no detectable patent lumen. at 0716 Reported and signed by:Chito Pringle M.D. PAGE 1 Signed Report (CONTINUED) Name: INDIRA HAMM [facility] : 1950 Age/S: 71 / F [address] [place] [address] Unit #: [id number] Loc: [place] [address] Phys: Alannah Sutton NP Acct: [id number] Dis Date: Status: ADM IN PHONE #: [phone] Exam Date: 12/23/2021702 FAX #: [phone] Reason: PRE CABG EVAL EXAMS: CPT CODE: [id number] DUP EXTRACRANIAL [id number] (Continued) CC: Nubia Michaels MD; Alannah Jordan NP; Deejay Meneses MD Technologist: Bethany Gautam RDMS(AB)(OB) Trnscb Date/Time: 12/23/2021 (715) LuluTDO Orig Print D/T: S: 12/23/2021 (715) Probe: PAGE 2 Signed Report- DUP VEIN DEAN 2021-12-23 00:00:00 [facility] 1950 Sex: F Name: INDIRA HAMM [facility] : 1950 Age/S: 71 / F [address] [place] [address] Unit #: [id number] Loc: [facility] [address] Phys: Alannah Jordan NP Acct: [id number] Dis Date: Status: ADM IN PHONE #: [phone] Exam Date: 12/23/2021 07 FAX #: [phone] Reason: PRE CABG EVAL EXAMS: CPT CODE: [id number] DUP VEIN DEAN [id number] PROCEDURE INFORMATION: Exam: US Duplex Lower Extremity Veins; Vein mapping Exam date and time: 12/23/2021 6:43 AM Age: 71 years old Clinical indication: Screening exam; Pre cabg eval; () TECHNIQUE: Imaging protocol: Real-time duplex ultrasound of the Lower Extremities with 2-D argueta scale, color Doppler flow and spectral waveform analysis with image documentation. Complete exam focused on the bilateral lower extremity veins for vein mapping. COMPARISON: No relevant prior studies available. FINDINGS: Right greater saphenous vein measures 4.2 mm proximal thigh, 2.8 mm mid thigh, 2.2 mm distal thigh, 2.3 mm at the knee, 2.1 mm at the calf and 2.1 mm distal leg. Left greater saphenous vein measures 4.6 mm proximal thigh, 3.5 mm mid thigh, 3.8 mm distal thigh, 3.2 mm at the knee, 1.9 mm at the calf and 2.5 mm distal leg. IMPRESSION: Greater saphenous vein measurements as above. at 0754 Reported and signed by: Gentry Haque M.D. CC: Nubia Michaels MD; Alannah Jordan NP; Deejay Meneses MD Technologist: Bethany Gautam RDMS(AB)(OB) Trnscb Date/Time: 12/23/2021 (075) ChayoV Orig Print D/T: S: 12/23/2021 (0754) Probe: PAGE 1 Signed Report- CT CHEST W/O [id number] 00:00:00 [facility] : 1950 Sex: F Name: INDIRA HAMM [facility] [place] : 1950 Age/S: 71 / F [address] [facility] Unit #: [id number] Loc: [place] [address] Phys: Alannah Jordan SALES REP Acct: [id number] Dis Date: Status: ADM IN PHONE #: [phone] Exam Date: 12/23/2021 1034 FAX #: [phone] Reason: PRE CABG EVAL EXAMS: CPT CODE: [id number] CT CHEST W/O CONTRAST 18071 PROCEDURE INFORMATION: Exam: CT Chest Without Contrast; Diagnostic Exam date and time: 12/23/2021 10:27 AM Age: 71 years old Clinical indication: Other: Pre cabg eval TECHNIQUE: Imaging protocol: Diagnostic computed tomography of the chest without contrast. Radiation optimization: All CT scans at this facility use at least one of these dose optimizationtechniques: automated exposure control; mA and/or kV adjustment per patient size (includes targeted exams where dose is matched to clinical indication); or iterative reconstruction. COMPARISON: CR XR CHEST 1V 12/22/2021 9:53 PM FINDINGS: Lungs: There are ground-glass opacities in the bilateral upper lobes and right middle lobe. Small ground-glass opacities in the bilateral lower lobes are present with dependent consolidations. Pleural spaces: Small bilateral pleural effusions are present. Heart: Severe coronary arterial calcifications are present. Lymph nodes: Unremarkable. No enlarged lymph nodes. Vasculature: Moderate aortic arch calcifications are present. Bones/joints: Unremarkable. No acute fracture. Soft tissues: Unremarkable. IMPRESSION: 1. Small bilateral pleural effusions with bibasilar atelectasis. 2. Ground-glass opacities throughout both lungs suggestive of edema. 3. Severe coronary arterial calcifications. at 1457 Reported and signed by: Doron Traore M.D. CC: Nubia Michaels MD; Alannah Molina; Deejay Meneses MD Technologist:Charlotte Terry. RT(R)(CT) CTDI: DLP: Trnscb Date/Time: 12/23/2021 (1456) [email or web address] Orig Print D/T: S: 12/23/2021 (1456) PAGE 1 Signed ReportPOC ARTERIAL BLOOD [id number] 23:37:00 Test Item Value Reference Range Interpretation Comments POC ARTERIAL BLOOD GAS PH (test 7.354 7.35-7.45 N code = POCPHA) POC ARTERIAL BLOOD GAS PCO2 53.3 mmHg 35.0-45 HH (test code = XYPATZ1Y) POC TCO2 ARTERIAL (test code = 31.3 POCTCO2) POC ARTERIAL BLOOD GAS PO2 (test 231.2 mmHg 80-100.0 HH code = WVXWM3M) POC HCO3 ARTERIAL (test code = 29.7 MMOL/L 22.0-26.0 HH WPZWHR1E) POC BASE EXCESS (test code = 4.1 MMOL/L -4.0-4.0 H POCBEA) POC O2 SATURATION (test code = 99.8 % 90-100 N POCO2S) FIO2 (test code = FIO2A) 60 % PaO2/FiO2 (test code = [id number]) 385.33 mm/Hg ABG DELIVERY (test code = BERTHA) BiPAP ABG VENT MODE (test code = BiLevel MODEA) ABG VENT RESP RATE (test code = 14 /MIN RRA) ABG PEEP (test code = PEEPA) 5 cmH2O ABG PRESSURE SUPPORT (test code 12 cmH2O = PSABG) ABG TEMPERATURE (test code = 98.6 F TEMPA) ABG SITE (test code = SITEA) L Radial ANASTACIA'S TEST (test code = Positive ALLENS) LIPOPROTEIN [id number] 23:14:00 Test Item Value Reference Range Interpretation Comments LIPOPROTEIN LDL 90.5 mg/dL 0-100 N <100 OPTIMAL 100-129 NEAR (test code = LDL) OPTIMAL/AB OVE [id number] HIGH>FW=927 DENG Y HIGH*Guidelines provided by the National Cholesterol EducationProgra m Adult Treatment Panel III TROP-I HIGH [id number] 22:45:00 Test Item Value Reference Range Interpretation Comments TROP-I HIGH 1963 ng/L 0-34 HH Critical result called to SENSITIVITY (test TERRELL Tirso YU, RNby code = TROPIHS) G.LAB.ATD at 2244 12/22/21Nurse r ead back result and tech confirmed it's correct? Y ESCAUTION: Units of the cu rrent test methodology (ng /L) differfrom the prior test methodology (ng /mL) by a factor of 1000. 99t h Percentile Uppe r Reference Limit (URL): Fe males: 34 ng/LMales: 54 n g/L In order to distin [facility] acute elevations of h igh sensitivitytrop onin from other clinical conditions, the FourthUnive rsal Definition of M yocardial Infarction stressesclinica l assessment and the demonstration o f a rise and/orfall in s erial troponin result s above the URL. These resu lts were obtained using Siemens AtellGeneva Mars IM TnI Hreagent. Results from di fferent methodologies s hould not becompared to o ne another as quantitative results and URLs mayvar y by method. CALCIUM [id number] 22:45:00 Test Item Value Reference Range Interpretation Comments CALCIUM IONIZED (test code = ANU) 1.01 MMOL/L 1.09-1.30 L BASIC METABOLIC [id number] 22:45:00 Test Item Value Reference Range Interpretation Comments SODIUM (test code = NA) 141 mEq/L 134-147 N POTASSIUM (test code = 4.6 mEq/L 3.4-5.0 N K) CHLORIDE (test code = 107 mEq/L 100-108 N CL) CARBON DIOXIDE (test 24 mEq/l 21-33 N code = CO2) ANION GAP (test code = 14 0-20 N GAP) GLUCOSE (test code = 175 mg/dL 70-110 H GLU) BLOOD UREA NITROGEN 19 mg/dL 7-18 H (test code = BUN) GLOMERULAR FILTRATION 54.5 70-80 L Units of measure = RATE (test code = GFR) ml/mi n/1.73 m2 CREATININE (test code = 1.0 mg/dL 0.6-1.3 N CREAT) CALCIUM (test code = 8.2 mg/dL 8.0-10.5 N CA) [id number] 22:45:00 Test Item Value Reference Range Interpretation Comments PHOSPHOROUS (test code = PHOS) 4.0 MG/DL 2.5-4.9 N [id number] 22:45:00 Test Item Value Reference Range Interpretation Comments MAGNESIUM (test code = MAG) 1.61 mg/dL 1.80-2.40 L PROTHROMBIN [id number] 22:37:00 Test Item Value Reference Range Interpretation Comments PROTHROMBIN TIME 11.8 SECONDS 9.3-12.9 N PATIENT (test code = PTP) INTERNATIONAL NORMAL 1.1 0.8-1.2 N TARGET INR BY RATIO (test code = INDICATIO N Indication INR) INR1. Prophylax is of venous thrombos is 2.0 - 3.0 (orthoped ic surgery), Proph ylaxis of venous throm bosis (other than hig h-risk surgery), Treat ment of Deep Vein Thrombosis/Pulm onary Embolism, Preve ntion of systemic emb olism - Tissue heart va lves, Acute Myocardia l Infarction (to prevent systemic emboli sm), Valvular heart disease, Atrial Fibrillation, Bileaflet mecha nical valve in aortic position.2. Mec hanical prosthetic valv es (high risk), 2. 5 - 3.5 Presence of Lup us Anticoagulant o r Antiphospholipi d Antibodies, Pre vention of systemic emb olism - Acute Myocardia l Infarction (to prevent recurrent infar ct). COMMENTS: IF NOT ALREADY DONE WITHIN LAST 24 HOURSTHROMBOPLASTIN TIME PARTIAL 2021-12-22 22:37:00 Test Item Value Reference Range Interpretation Comments THROMBOPLASTIN TIME 31.0 Seconds 25.0-39.5 N Therape utic Range: PARTIAL (test code = 50.4 - 88.3 Seconds PTT) Effective 06/19/2018 COMMENTS: IF NOT ALREADY DONE WITHIN LAST 24 HOURSCBC W/AUTO [id number] 22:27:00 Test Item Value Reference Range Interpretation Comments WHITE BLOOD CELL (test code = 13.5 x10 3/uL 4.5-11.0 H WBC) RED BLOOD CELL (test code = 4.03 x10 6/uL 3.54-5.02 N RBC) HEMOGLOBIN (test code = HGB) 12.5 g/dL 11.0-15.0 N HEMATOCRIT (test code = HCT) 38.4 % 33.0-45.0 N MEAN CELL VOLUME (test code = 95.3 fL 81.0-99.0 N MCV) MEAN CELL HGB (test code = 31.0 pg 27.0-33.0 N MCH) MEAN CELL HGB CONCETRATION 32.6 g/dL 33.0-37.0 L (test code = MCHC) RED CELL DISTRIBUTION WIDTH CV 14.8 % 11.5-14.5 H (test code = RDW) RED CELL DISTRIBUTION WIDTH SD 52.2 fL 37.0-54.0 N (test code = RDW-SD) PLATELET COUNT (test code = 228 x10 3/uL 150-400 N PLT) MEAN PLATELET VOLUME (test 9.8 fL 7.0-9.0 H code = MPV) NEUTROPHIL % (test code = NT%) 94.8 % 56.0-77.0 H IMMATURE GRANULOCYTE % (test 0.2 % 0.0-2.0 N code = IG%) LYMPHOCYTE % (test code = LY%) 2.2 % 14.0-32.0 L MONOCYTE % (test code = MO%) 2.6 % 4.8-9.0 L EOSINOPHIL % (test code = EO%) 0.1 % 0.3-3.7 L BASOPHIL % (test code = BA%) 0.1 % 0.0-2.0 N NUCLEATED RBC % (test code = 0.0 % 0-0 N NRBC%) NEUTROPHIL # (test code = NT#) 12.77 x10 3/uL 2.0-7.6 H IMMATURE GRANULOCYTE # (test 0.03 x10 3/uL 0.00-0.03 N code = IG#) LYMPHOCYTE # (test code = LY#) 0.29 x10 3/uL 1.0-3.8 L MONOCYTE # (test code = MO#) 0.35 x10 3/uL 0.1-0.8 N EOSINOPHIL # (test code = EO#) 0.02 x10 3/uL 0.0-0.2 N BASOPHIL # (test code = BA#) 0.01 x10 3/uL 0.0-0.2 N NUCLEATED RBC # (test code = 0.00 x10 3/uL 0.0-0.1 N NRBC#) MANUAL DIFF REQUIRED (test NO code = MDIFF) COMMENTS: IF NOT ALREADY DONE WITHIN LAST 24 HOURSGLUCOSE [id number] 21:26:00 Test Item Value Reference Range Interpretation Comments GLUCOSE BEDSIDE (test 186 MG/DL 70-110 H Perfor med by certified code = GLUBED) 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 CHEST 1 [id number] 00:00[facility]00 [facility] 1950 Sex: F FAX:Parminder Fabian MD [phone] [place]: St: FAX: Eric Sandoval MD [phone] FAX: Deejay Tinoco [phone] Name: INDIRA HAMM [facility] [place] : 1950 Age/S: 71/F [address] [place] [address] Unit #: [id number] Loc: G[address] [place] [address] Phys: Eric Casey MD Acct: [id number] Dis Date: Status: ADM IN PHONE #: [phone] Exam Date: 12/22/20212152 FAX #: [phone] Reason: SOB EXAMS: CPT CODE: [id number] XR CHEST 1 V 75304 PROCEDURE INFORMATION: Exam: XR Chest Exam date and time: 12/22/2021 9:53 PM Age: 71 years old Clinical indication: Shortness of breath; Additional info: SOB TECHNIQUE: Imaging protocol: Radiologic exam of the chest. Views: 1 view. COMPARISON: No relevant prior st udies available. FINDINGS: Lungs: Mixed interstitial and consolidative opacities of the lungs airspace disease is most severe at the lower lobes. Pleural spaces: No pneumothorax. Small left pleural effusion. Heart/Mediastinum: Mild cardiomegaly. Bones/joints: No acute osseous abnormality. IMPRESSION:1. Findings suspicious for multifocal pneumonia with pulmonary edema not excluded. 2. Small left pleural effusion at 2246 Reported and signed by: Pippa Goodrich M.D. CC: Parminder Fabian MD; Eric Casey MD; Deejay Meneses MD Technologist: Madai Duong RT(R) Trnscrd Date/Time/By: 12/22/2021 (4924) : By: [email or web address] Orig Print D/T: S: 12/22/2021 (3361) PAGE 1 Signed Report[U] XRAY HIP UNILATERAL MIN 2 VWS LEFT [id number] 13:18:00Images acquired, not reported on this accession number.[facility]
[2022-01-17] MEDS ORDERED: METHYLPREDNISOLONE 125 MG INJ ONE (12:57)
[2022-01-17] MEDS ORDERED: LEVALBUTEROL 1.25 MG/3 ML NEB ONE (12:58)
--- NOTE | 2022-01-17 13:05 | RAD REPORT ---
EXAM DESCRIPTION: RAD - Chest Single View - 01/17/2022 12:55 pm CLINICAL HISTORY: SOB Chest pain. COMPARISON: Chest Single View dated 12/22/2021; Chest Single View dated 12/21/2021; Chest Pa And Lat (2 Views) dated 01/29/2019; Chest Single View dated 10/01/2018 FINDINGS: Portable technique limits examination quality. Bilateral pulmonary opacities are present, likely representing pulmonary edema. A small to moderate l eft pleural effusion is likely present. Heart is moderately enlarged. Sternotomy wires present. IMPRESSION: Mild to moderate CHF suspected.
[2022-01-17 13:44] LABS: Absolute Lymphocytes (CBC) 0.9 K/uL (0.7-4.9); Hematocrit 30.3 % (36.0-45.0); Lymphocytes % 11.3 % (15.3-44.8); MCV 92.8 fL (80-100); MPV 6.8 fL (7.6-11.3); RBC Red Blood Cell Count 3.27 M/uL (3.86-4.86)
[2022-01-17 13:46] LABS: Protime INR 1.11
[2022-01-17 13:59] LABS: Magnesium 1.9 mg/dL (1.8-2.4); Potassium 4.2 mmol/L (3.5-5.1)
[2022-01-17 14:01] LABS: Troponin High Sensitivity 63.9 pg/mL (<58.9)
[2022-01-17 14:56] LABS: SARS-COV-2 RT PCR NEGATIVE (NEGATIVE)
--- NOTE | 2022-01-17 15:19 | RAD REPORT ---
EXAM DESCRIPTION: CT - Chest For Pe Angio - 01/17/2022 2:59 pm CLINICAL HISTORY: Chest pain. sob, chest pain COMPARISON: No comparisons TECHNIQUE: CT angiogram of the pulmonary arteries was performed with MIP. All CT scans are performed using dose optimization technique as appropriate and may include automated exposure control or mA/KV adjustment according to patient size. FINDINGS: No evidence of pulmonary thromboembolism. No acute aortic finding demonstrated. Mild interstitial pulmonary edema is present. Atelectasis is present in both lung bases. Small bilateral pleural effusions, slightly greater on the left. Recent sternotomy. IMPRESSION: No evidence of pulmonary thromboembolism. Mild interstitial pulmonary edema. Small bilateral pleural effusions, slightly larger on the left.
--- NOTE | 2022-01-17 15:28 | ER ---
Nurse's Notes [facility] Name: Indira Lovett Age: 71 yrs Sex: Female : 1950 Arrival Date: 01/17/2022 Time: 12:20 Bed 19 Private MD: Diagnosis: COPD/ Chronic obstructive pulmonary disease with (acute) exacerbation;Hypoxia Presentation: 01/17 12:30 Chief complaint: Patient states: Reports CABG 3 weeks ago - SOB since came home from [facility] 6 days ago. Reports SpO2% 86 at home - upon arrival to ER SpO2 93% RA. Coronavirus screen: At this time, the client does not indicate any symptoms associated with coronavirus-19. Ebola Screen: No symptoms or risks identified at this time. Initial Sepsis Screen: Does the patient meet any 2 criteria? No. Patient's initial sepsis screen is negative. Does the patient have a suspected source of infection? No. Patient's initial sepsis screen is negative. Risk Assessment: Do you want to hurt yourself or someone else? Patient reports no desire to harm self or others. Onset of symptoms was January 17, 2022. 12:30 Method Of Arrival: Ambulatory ld1 12:30 Acuity: DONNIE 3 ld1 Triage Assessment: 12:25 General: Appears in no apparent distress. comfortable, Behavior is calm, cooperative, ld1 appropriate for age. Pain: Denies pain. EENT: No signs and/or symptoms were reported regarding the EENT system. Neuro: Level of Consciousness is awake, alert, obeys commands, Oriented to person, place, time, situation. Cardiovascular: Capillary refill < 3 seconds Patient's skin is warm and dry. Respiratory: Reports shortness of breath at rest on exertion labored breathing Airway is patent Respiratory effort is even, labored, Onset: The symptoms/episode began/occurred gradually, the patient has mild shortness of breath. GI: Abdomen is round non-distended. : No signs and/or symptoms were reported regarding the genitourinary system. Derm: No signs and/or symptoms reported regarding the dermatologic system. Musculoskeletal: No signs and/or symptoms reported regarding the musculoskeletal system. Historical: - Allergies: 12:25 No Known Allergies; ld1 - Home Meds: 12:25 albuterol sulfate 1.25 mg/3 mL Inhl nebu 3 mL 3 times per day [Active]; metformin 500 ld1 mg Oral tab 1 tab 2 times per day [Active]; metoprolol tartrate 25 mg Oral tab 1 tab once daily [Active]; atorvastatin 40 mg oral tab 1 tab once daily [Active]; aspirin 81 mg Oral cap 1 cap once daily [Active]; amiodarone 200 mg Oral tab 1 tab once daily [Active]; clopidogrel 75 mg oral tab 1 tab once daily [Active]; - PMHx: 12:25 Hypertensive disorder; Diabetes mellitus; Hypercholesterolemia; Chronic obstructive ld1 lung disease; - PSHx: 12:25 Open heart surgery; ld1 - Immunization history:: Adult Immunizations up to date. - Social history:: Smoking status: Patient/guardian denies using tobacco, the patient reports quitting approximately 3 years ago, Patient/guardian denies using alcohol. Screenin:37 Abuse screen: Denies threats or abuse. Denies injuries from another. Nutritional db screening: No deficits noted. Tuberculosis screening: No symptoms or risk factors identified. Fall Risk None identified. No fall in past 12 months (0 pts). No secondary diagnosis (0 pts). IV access (20 points). Ambulatory Aid- Crutches/Cane/Walker (15 pts). Gait- Weak (10 pts.). Mental Status- Oriented to own ability (0 pts). Total Britt Fall Scale indicates High Risk Score (45 or more points). Fall prevention measures have been instituted. Side Rails Up X 2 Placed Close to Nursing Station Family Present and informed to notify staff if the need to leave the bedside As available patient and family educated on Fall Prevention Program and Strategies. Assessment: 12:35 Reassessment: Patient appears in no apparent distress at this time. Patient is alert, db oriented x 3, equal unlabored respirations, skin warm/dry/pink. SOB 1 week post CABG. patients wounds are healing. General: Appears in no apparent distress. comfortable, Behavior is calm, cooperative, appropriate for age, quiet. Pain: Denies pain. Neuro: No deficits noted. Level of Consciousness is awake, alert, obeys commands, Oriented to person, place, time, situation, Appropriate for age Speech is normal, Facial symmetry appears normal. Cardiovascular: No deficits noted. Reports None Rhythm is sinus rhythm. Respiratory: Airway is patent Respiratory effort is even, unlabored, Respiratory pattern is regular, Breath sounds are coarse bilaterally. GI: No deficits noted. No signs and/or symptoms were reported involving the gastrointestinal system. : No deficits noted. No signs and/or symptoms were reported regarding the genitourinary system. EENT: No deficits noted. No signs and/or symptoms were reported regarding the EENT system. Derm: No deficits noted. No signs and/or symptoms reported regarding the dermatologic system. Musculoskeletal: No deficits noted. No signs and/or symptoms reported regarding the musculoskeletal system. 14:00 Reassessment: Patient appears in no apparent distress at this time. Patient and/or db family updated on plan of care and expected duration. Pain level reassessed. Patient is alert, oriented x 3, equal unlabored respirations, skin warm/dry/pink. Patient denies pain at this time. Patient states feeling better. Patient states symptoms have improved. 15:20 Reassessment: patient ambulatory to restroom. upon returning back patient felt short of db breath. O2 saturation 77%. Replaced patient back on 2L NC. Notified provider. 17:14 Reassessment: No changes from previously documented assessment. Patient and/or family db updated on plan of care and expected duration. Pain level reassessed. Patient is alert, oriented x 3, equal unlabored respirations, skin warm/dry/pink. Patient provided meal tray. Vital Signs: 12:25 BP 177 / 74; Pulse 78; Resp 26; Temp 97.9(O); Pulse Ox 93% on R/A; Weight 77.11 kg; ld1 Height 5 ft. 6 in. (167.64 cm); Pain 0/10; 12:33 BP 176 / 64; Pulse 81; Resp 22; Pulse Ox 88% on R/A; db 12:40 Pulse Ox 97% on 2 lpm NC; db 13:30 BP 158 / 78; Pulse 77; Resp 20; Pulse Ox 97% on 2 lpm NC; db 15:30 BP 167 / 65 (art line/); Pulse 78; Resp 18; Pulse Ox 96% on 2 lpm NC; db 12:25 Body Mass Index 27.44 (77.11 kg, 167.64 cm) ld1 ED Course: 12:20 Patient arrived in ED. rg4 12:21 Randall Polo PA is PHCP. jamal 12:21 Mat Mohan MD is Attending Physician. jmm 12:25 Arm band placed on right wrist. ld1 12:32 Triage completed. ld1 12:55 Becky Granda, RN is Primary Nurse. db 12:57 XRAY Chest (1 view) In Process Unspecified. EDMS 13:20 Inserted saline lock: 20 gauge in right antecubital area, using aseptic technique. db Blood collected. 13:37 Patient has correct armband on for positive identification. Placed in gown. Bed in low db position. Call light in reach. Side rails up X2. 13:37 Oxygen administration via nasal cannula \T\ 2L/min Response to oxygen therapy: symptoms db improved. 15:01 CT Chest For PE Angio In Process Unspecified. EDMS 15:26 Baldo Mohan MD is Hospitalizing Provider. [facility] Administered Medications: 12:58 Drug: Xopenex (levalbuterol) (3) 1.25 mg Route: Inhalation; db 16:44 Follow up: Response: No adverse reaction db 13:24 Drug: SOLU-Medrol (methylPrednisoLONE) 125 mg Route: IVP; Site: right forearm; db 16:44 Follow up: Response: No adverse reaction db Outcome: 15:27 Decision to Hospitalize by Provider. [facility] 01/18 16:54 Patient left the ED. jd3 Signatures: Dispatcher [employer] EDMS Randall Polo PA PA jmm Garcia, Rubi rg4 Efren Menendez RN RN jd3 Alejandra Bunch RN RN ld1 Becky Granda, RN RN db
--- NOTE | 2022-01-17 15:28 | EDPHYS ---
Physician Documentation [facility] Name: Indira Lovett Age: 71 yrs Sex: Female : 1950 Arrival Date: 01/17/2022 Time: 12:20 Bed 19 Private MD: ED Physician Mat Mohan HPI: 01/17 12:31 This 71 yrs old Female presents to ER via Ambulatory with complaints of Shortness Of jmm Breath. 12:31 This is a 71-year-old female with history of hypertension, diabetes mellitus, jmm hyperlipidemia, COPD the presents emerged department with complaints of progressively worsening shortness of breath over the past week. Patient believes that she may be experiencing a COPD exacerbation. Approximately 3 weeks ago patient had a CABG performed. And states having some shortness of breath for about a week which resolved. Denies fever but states having some fatigue and chills.. Historical: - Allergies: 12:25 No Known Allergies; ld1 - Home Meds: 12:25 albuterol sulfate 1.25 mg/3 mL Inhl nebu 3 mL 3 times per day [Active]; metformin 500 ld1 mg Oral tab 1 tab 2 times per day [Active]; metoprolol tartrate 25 mg Oral tab 1 tab once daily [Active]; atorvastatin 40 mg oral tab 1 tab once daily [Active]; aspirin 81 mg Oral cap 1 cap once daily [Active]; amiodarone 200 mg Oral tab 1 tab once daily [Active]; clopidogrel 75 mg oral tab 1 tab once daily [Active]; - PMHx: 12:25 Hypertensive disorder; Diabetes mellitus; Hypercholesterolemia; Chronic obstructive ld1 lung disease; - PSHx: 12:25 Open heart surgery; ld1 - Immunization history:: Adult Immunizations up to date. - Social history:: Smoking status: Patient/guardian denies using tobacco, the patient reports quitting approximately 3 years ago, Patient/guardian denies using alcohol. ROS: 12:31 Constitutional: Positive for body aches, chills, fatigue. jmm 12:31 Respiratory: Positive for cough, shortness of breath. 12:31 All other systems are negative. Exam: 12:31 Constitutional: This is a well developed, well nourished patient who is awake, alert, jmm and in no acute distress. Head/Face: atraumatic. Eyes: EOMI, no conjunctival erythema appreciated ENT: Moist Mucus Membranes Neck: Trachea midline, Supple Chest/axilla: Normal chest wall appearance and motion. Cardiovascular: Regular rate and rhythm. No edema appreciated 12:31 Back: Normal ROM Skin: General appearance color normal MS/ Extremity: Moves all extremities, no obvious deformities appreciated, no edema noted to the lower extremities Neuro: Awake and alert Psych: Behavior is normal, Mood is normal, Patient is cooperative and pleasant 12:31 Respiratory: mild respiratory distress is noted, Respirations: labored breathing, that is mild, Breath sounds: wheezing: that is mild, is scattered. Vital Signs: 12:25 BP 177 / 74; Pulse 78; Resp 26; Temp 97.9(O); Pulse Ox 93% on R/A; Weight 77.11 kg; ld1 Height 5 ft. 6 in. (167.64 cm); Pain 0/10; 12:33 BP 176 / 64; Pulse 81; Resp 22; Pulse Ox 88% on R/A; db 12:40 Pulse Ox 97% on 2 lpm NC; db 13:30 BP 158 / 78; Pulse 77; Resp 20; Pulse Ox 97% on 2 lpm NC; db 15:30 BP 167 / 65 (art line/); Pulse 78; Resp 18; Pulse Ox 96% on 2 lpm NC; db 12:25 Body Mass Index 27.44 (77.11 kg, 167.64 cm) ld1 MDM: 12:31 Patient medically screened. [facility] 15:24 Data reviewed: vital signs, nurses notes. Counseling: I had a detailed discussion with [facility] the patient and/or guardian regarding: the historical points, exam findings, and any diagnostic results supporting the discharge/admit diagnosis, lab results, the need for further work-up and treatment in the hospital. ED course: I discussed the patient with CRISTIAN Steinberg whom accepted the patient to Dr. Mohan's service. . 01/17 12:31 Order name: Basic Metabolic Panel; Complete Time: 14:08 [facility] 01/17 12:31 Order name: CBC with Diff; Complete Time: 13:52 [facility] 01/17 12:31 Order name: Magnesium; Complete Time: 14:08 [facility] 01/17 12:31 Order name: NT PRO-BNP; Complete Time: 14:08 [facility] 01/17 12:31 Order name: PT-INR; Complete Time: 13:49 [facility] 01/17 12:31 Order name: Troponin HS; Complete Time: 14:08 [facility] 01/17 12:32 Order name: COVID-19/FLU A+B (Document "Date of Onset" if Symptomatic); Complete Time: [facility] 14:59 01/18 00:58 Order name: Phosphorus; Complete Time: 09:16 EDMS 01/18 00:58 Order name: Magnesium; Complete Time: 09:16 EDMS 01/18 00:58 Order name: Troponin High Sensitivity; Complete Time: 09:16 EDMS 01/18 01:00 Order name: Glucose, Ancillary Testing; Complete Time: 09:16 EDMS 01/18 03:30 Order name: Basic Metabolic Panel; Complete Time: 09:16 EDMS 01/18 03:30 Order name: NT PRO-BNP; Complete Time: 09:16 EDMS 01/18 03:31 Order name: Troponin High Sensitivity; Complete Time: 09:16 EDMS 01/17 12:31 Order name: XRAY Chest (1 view); Complete Time: 13:05 [facility] 01/17 12:31 Order name: EKG; Complete Time: 12:32 [facility] 01/17 12:31 Order name: Cardiac monitoring; Complete Time: 13:37 [facility] 01/17 12:31 Order name: EKG - Nurse/Tech; Complete Time: 13:36 [facility] 01/17 12:31 Order name: IV Saline Lock; Complete Time: 13:36 [facility] 01/17 12:31 Order name: Labs collected and sent; Complete Time: 13:36 [facility] 01/17 12:31 Order name: O2 Per Protocol; Complete Time: 13:36 [facility] 01/17 12:31 Order name: O2 Sat Monitoring; Complete Time: 13:36 [facility] 01/17 14:10 Order name: CT Chest For PE Angio; Complete Time: 15:21 [facility] 01/18 03:32 Order name: CBC with Automated Diff; Complete Time: 09:16 EDMS 01/18 07:56 Order name: Urinalysis; Complete Time: 09:16 EDMS 01/18 08:16 Order name: Glucose, Ancillary Testing; Complete Time: 09:16 EDMS 01/18 11:42 Order name: Glucose, Ancillary Testing; Complete Time: 11:42 EDMS Administered Medications: 12:58 Drug: Xopenex (levalbuterol) (3) 1.25 mg Route: Inhalation; db 16:44 Follow up: Response: No adverse reaction db 13:24 Drug: SOLU-Medrol (methylPrednisoLONE) 125 mg Route: IVP; Site: right forearm; db 16:44 Follow up: Response: No adverse reaction db Disposition: 01/18 17:12 Co-signature as Attending Physician, Mat Mohan MD. rn Disposition Summary: 01/17/22 15:27 Hospitalization Ordered Hospitalization Status: Inpatient Admission [facility] Provider: Baldo Mohan Condition: Stable jmm Problem: new jmm Symptoms: have improved jmm Bed/Room Type: Standard [facility] Location: [facility] ER HOLD(01/17/22 20:27) Room Assignment: ERHOLD-(01/17/22 20:27) cg Diagnosis - COPD/ Chronic obstructive pulmonary disease with (acute) exacerbation jmm - Hypoxia jm Forms: - Medication Reconciliation Form jmm - SBAR form jm Signatures: Dispatcher [employer] EDMS Randall Polo PA PA m Mat Mohan MD MD rn Garcia, Cindy, RN RN cg Alejandra Bunch RN RN ld1 Becky Granda RN RN db Corrections: (The following items were deleted from the chart) 01/17 20:27 15:27 Telemetry/MedSurg (Inpatient) [facility] cg 20:27 15:27 [facility] cg
[2022-01-17] MEDS ORDERED: HYDROCODONE/APAP 5/325 MG TAB PO PRN (15:43)
[2022-01-17] MEDS ORDERED: ACETAMINOPHEN 325 MG TABLET PO PRN (15:43)
[2022-01-17] MEDS ORDERED: HYDRALAZINE HCL 20 MG/ML VIAL IV PRN (15:43)
[2022-01-17] MEDS ORDERED: ONDANSETRON 4 MG/2 ML VIAL IV PRN (15:44)
--- NOTE | 2022-01-17 15:55 | P.HP ---
Certification for Inpatient Patient admitted to: Inpatient With expected LOS: >2 Midnights Patient will require the following post-hospital care: None Practitioner: I am a practitioner with admitting privileges, knowledge of patient current condition, hospital course, and medical plan of care. Services: Services provided to patient in accordance with Admission requirements found in Title 42 Section 412.3 of the Code of Federal Regulations Patient History Date of Service: 01/17/22 Reason for admission: SOB History of Present Illness: Patient is a 71-year-old female with a past medical history significant for COPD, osteoarthritis, hypertension, hyperlipidemia, who presents with complaint of shortness of breath that has been ongoing for the past 5 days. Patient reported associated signs and symptoms of cough, dizziness, fatigue and generalized weakness. Patient denies any other signs and symptoms. Symptoms are aggravated or relieved by nothing. Patient decided to present to the hospital with due to worsening symptoms. Allergies No Known Allergies Allergy (Verified 10/01/18 15:40) Home Medications: Aspirin [Adult Aspirin Regimen] 81 mg PO DAILY 12/22/21 Atorvastatin Calcium 20 mg PO BEDTIME 12/22/21 Lisinopril [Zestril] 20 mg PO DAILY 12/22/21 Metformin HCl 1 tab PO DAILY 12/22/21 Metoprolol Succinate [Toprol Xl*] 50 mg PO DAILY 12/22/21 NIFEdipine [Nifedipine ER] 1 tab PO DAILY 12/22/21 Amiodarone HCl [Cordarone*] 1 tab PO BID 01/18/22 Arformoterol Tartrate 1 vial NEB BID 01/18/22 Clopidogrel Bisulfate [Plavix] 1 tab PO DAILY 01/18/22 Docusate Sodium 1 tab PO DAILY 01/18/22 Famotidine [Pepcid AC] 1 tab PO BID 01/18/22 Ferrous Sulfate 1 tab PO DAILY 01/18/22 Furosemide [Lasix] 40 mg PO BIDL #37 tab 01/18/22 Ipratropium [place] 1 inh Q4H 01/18/22 predniSONE [Deltasone] 40 mg PO DAILY #10 tab 01/18/22 - Past Medical/Surgical History Diabetic: Yes -: Hypertension -: Pre-Diabetes -: COPD -: Hyperlipidemia -: Bilateral hip replacement -: Appendectomy Psychosocial/ Personal History: Patient lives at home alone. She has children. - Family History Mother -: Heart disease, Hypertension, Cancer Father -: Heart disease, Hypertension - Social History Smoking Status: Former smoker Alcohol use: No CD- Drugs: No Caffeine use: Yes Place of Residence: Home Review of Systems General: Weakness, Other (Fatigue) Eyes: Unremarkable ENT: Unremarkable Respiratory: Cough, Shortness of Breath Cardiovascular: Unremarkable Gastrointestinal: Unremarkable Genitourinary: Unremarkable Musculoskeletal: Unremarkable Integumentary: Unremarkable Neurological: Other (Dizziness) Lymphatics: Unremarkable Physical Examination - Physical Exam General: Alert, Oriented x3, Mild distress HEENT: Atraumatic, Normocephalic, PERRLA Neck: Supple, 2+ carotid pulse no bruit, JVD not distended, Without JVD or thyroid abnormality Respiratory: Diminished, Inspiratory wheezes Cardiovascular: No edema, Regular rate/rhythm, Normal S1 S2 Capillary refill: <2 Seconds Gastrointestinal: Normal bowel sounds, Soft and benign Musculoskeletal: No clubbing, No swelling, No contractures, No erythema Integumentary: No rashes, No breakdown, No significant lesion, No tenderness/swelling Neurological: Normal gait, Sensation intact, Normal affect Lymphatics: No axilla or inguinal lymphadenopathy - Studies Laboratory Data (last 24 hrs) 01/17/22 13:22: PT 12.2, INR 1.11 01/17/22 13:22: WBC 7.70, Hgb 9.8 L, Hct 30.3 L, Plt Count 380 01/17/22 13:22: Sodium 140, Potassium 4.2, BUN 14, Creatinine 0.87, Glucose 112 H, Magnesium 1.9 Assessment and Plan - Plan -Acute on chronic COPD exacerbation. Continue neb treatment with albuterol\Atrovent, steroids and O2 therapy. --Elevated troponin. Likely secondary to demand ischemia. Serial troponins pending. Telemetry to monitor for any significant arrhythmia. --LEVI. Continue ferrous sulfate --GERD. Continue famotidine. --Hypertension. Poorly controlled. Continue home medications and hydralazine as needed. --Osteoarthritis. We will manage pain with current pain medication regimen. --Hyperlipidemia. Continue home medication. --Acute on chronic systolic CHF exacerbation. Continue diuresis with Lasix. Daily weight and strict I/O. --DM2. BS monitoring with sliding scale insulin. --DVT prophylaxis with heparin subQ Discharge Plan: Home Plan to discharge in: Greater than 2 days - Advance Directives Does patient have a Living Will: No Does patient have a Durable POA for Healthcare: No - Code Status/Comfort Care Code Status Assessed: Yes Code Status: Full Code Physician Review: Patient Assessed, Agree with Above Assessment and Plan Critical Care: No
[2022-01-17] MEDS: INSULIN -REGULAR HUMAN 50 UNIT/0.5 ML ML SQ SCH ×2 (16:30→22:30)
[2022-01-17] MEDS: ALBUTEROL 2.5 MG/3 ML NEB SOL NEB SCH (19:30)
[2022-01-17] MEDS: IPRATROPIUM BROM 0.5MG/2.5ML NEB SCH (19:30)
[2022-01-17] MEDS ORDERED: IPRATROPIUM BROM 0.5MG/2.5ML ONE (19:33)
[2022-01-17] MEDS ORDERED: ALBUTEROL 2.5 MG/3 ML NEB SOL ONE (19:33)
[2022-01-17 19:49] LABS: Magnesium 1.8 mg/dL (1.8-2.4); Phosphorus 3.9 mg/dL (2.5-4.9)
[2022-01-17] MEDS ORDERED: ATORVASTATIN 20 MG TAB PO SCH (21:00)
[2022-01-17] MEDS ORDERED: HEPARIN 5000 UNIT/ML 1 ML VIAL ONE (22:22)
[2022-01-17] MEDS ORDERED: FUROSEMIDE 40 MG/4 ML VIAL ONE (22:22)
[2022-01-17] MEDS ORDERED: ATORVASTATIN 20 MG TAB ONE (22:22)
[2022-01-17] MEDS ORDERED: METHYLPREDNISOLONE 40 MG INJ ONE (22:22)
[2022-01-17] MEDS ORDERED: INSULIN -REGULAR HUMAN 50 UNIT/0.5 ML ML ONE (22:25)
[2022-01-17] MEDS: METHYLPREDNISOLONE 40 MG INJ IV SCH (22:30)
[2022-01-17] MEDS: HEPARIN 5000 UNIT/ML 1 ML VIAL SQ SCH (22:30)
[2022-01-17] MEDS: FUROSEMIDE 40 MG/4 ML VIAL IV SCH (22:30)
[2022-01-18] MEDS: ALBUTEROL 2.5 MG/3 ML NEB SOL NEB SCH ×3 (01:20→14:15)
[2022-01-18] MEDS: IPRATROPIUM BROM 0.5MG/2.5ML NEB SCH ×3 (01:20→14:15)
[2022-01-18] MEDS ORDERED: ALBUTEROL 2.5 MG/3 ML NEB SOL ONE ×3 (01:44→14:16)
[2022-01-18] MEDS ORDERED: IPRATROPIUM BROM 0.5MG/2.5ML ONE ×3 (01:44→14:16)
[2022-01-18 02:23] VITALS: BMI 28.5
[2022-01-18 03:25] LABS: Absolute Lymphocytes (CBC) 0.3 K/uL (0.7-4.9); Hematocrit 29.9 % (36.0-45.0); Lymphocytes % 9.4 % (15.3-44.8); MCV 91.7 fL (80-100); RBC Red Blood Cell Count 3.26 M/uL (3.86-4.86)
[2022-01-18 03:30] LABS: Potassium 3.9 mmol/L (3.5-5.1)
[2022-01-18 04:29] VITALS: TEMP 98.2
[2022-01-18] MEDS ORDERED: METHYLPREDNISOLONE 40 MG INJ ONE ×2 (05:17→08:12)
[2022-01-18] MEDS: METHYLPREDNISOLONE 40 MG INJ IV SCH ×2 (05:59→08:34)
[2022-01-18] MEDS: INSULIN -REGULAR HUMAN 50 UNIT/0.5 ML ML SQ SCH ×2 (07:30→11:30)
[2022-01-18 07:55] LABS: Specific Gravity 1.019 (1.005-1.030); Urine Bilirubin NEGATIVE (Negative); Urine Blood Negative (Negative); Urine Clarity Clear (Clear); Urine Color Light-Yellow (Yellow); Urine Glucose NEGATIVE (Negative); Urine Mucus Slight /HPF (None Seen); Urine Protein TRACE (Negative); Urine Urobilinogen Normal (Normal)
[2022-01-18] MEDS ORDERED: INFLUENZA VACCINE (for 6+ mo) 0.5 ML DOSE IMVAC ONE (08:00)
[2022-01-18] MEDS ORDERED: PNEUMOCOCCAL VACCINE 0.5 ML IMVAC ONE (08:00)
[2022-01-18] MEDS ORDERED: HEPARIN 5000 UNIT/ML 1 ML VIAL ONE (08:11)
[2022-01-18] MEDS ORDERED: lisinopriL 20 MG TAB ONE (08:11)
[2022-01-18] MEDS ORDERED: METOPROLOL XL 50 MG TAB PO ONE (08:12)
[2022-01-18] MEDS ORDERED: FUROSEMIDE 40 MG/4 ML VIAL ONE (08:12)
[2022-01-18] MEDS ORDERED: ASPIRIN EC 81 MG TAB PO ONE (08:12)
--- NOTE | 2022-01-18 08:23 | EKG ---
Test Date: 2022-01-17 Test Time: 13:09:46 Paranormal Investigator: JOHNNY MEASUREMENT RESULTS: Intervals: Rate: 73 AK: 186 QRSD: 90 QT: 378 QTc: 416 [place]: P: 71 AK: 186 QRS: -33 T: 174 INTERPRETIVE STATEMENTS: Sinus rhythm with occasional premature ventricular complexes Possible Left atrial enlargement Left axis deviation ST & T wave abnormality, consider inferolateral ischemia Abnormal ECG Compared to ECG 12/22/2021 03:23:52 Ventricular premature complex(es) now present Left-axis deviation now present Atrial premature complex(es) no longer present Myocardial infarct finding no longer present ST (T wave) deviation still present Possible ischemia still present Electronically Signed On 01-18-22 08:20:01 MACHINE TAPER by Loy Oliva
[2022-01-18] MEDS: FUROSEMIDE 40 MG/4 ML VIAL IV SCH (08:32)
[2022-01-18] MEDS: HEPARIN 5000 UNIT/ML 1 ML VIAL SQ SCH (08:32)
[2022-01-18] MEDS ORDERED: METOPROLOL XL 50 MG TAB PO SCH (09:00)
[2022-01-18] MEDS ORDERED: ASPIRIN EC 81 MG TAB PO SCH (09:00)
[2022-01-18] MEDS ORDERED: lisinopriL 20 MG TAB PO SCH (09:00)
[2022-01-18] MEDS ORDERED: NIFEDIPINE XL 90 MG TABLET PO SCH (09:00)
--- NOTE | 2022-01-18 09:21 | P.DS ---
Admission Date: 01/17/22 Discharge Date: 01/18/22 Disposition: DC HOME/HOME HEALTH CARE Discharge Condition: FAIR - Problems (1) Acute respiratory failure with hypoxia Status: Acute (2) Acute on chronic diastolic heart failure Status: Acute (3) COPD exacerbation Status: Acute (4) Type 2 diabetes mellitus Status: Chronic Qualifiers: Diabetes mellitus joint terminal attack controller insulin use: without joint terminal attack controller use Diabetes mellitus complication status: with hyperglycemia Qualified Code(s): E11.65 - Type 2 diabetes mellitus with hyperglycemia Brief History of Present Illness: Patient is a 71-year-old female with a past medical history significant for COPD, osteoarthritis, hypertension, hyperlipidemia, who presents with complaint of shortness of breath that has been ongoing for 5 days. Patient reported as sociated signs and symptoms of cough, dizziness, fatigue and generalized weakness. CTA thorax demonstrated mild pulmonary edema and bilateral small pleural effusion. Patient hospitalized for further management. Hospital Course: Patient placed under observation on the medical floor and treated for COPD exacerbation with bronchodilators, IV steroid and IV Lasix. Her clinical condition rapidly improved with treatment, patient's symptoms resolved. She was able to ambulate without shortness of breath. She was noted to be hypoxic with SPO2 down to 87% on room air. Her troponin was mildly elevated but trended down. Elevated troponin likely secondary to demand ischemia. She is discharged with oxygen for COPD. She is also prescribed extra dose oral Lasix for possible CHF. Patient with stable vitals. She is deemed clinically stable for discharge. Vital Signs/Physical Exam: Temp Pulse Resp BP Pulse Ox 98.2 F 79 18 155/67 H 100 01/18/22 04:00 01/18/22 08:34 01/18/22 08:00 01/18/22 08:34 01/18/22 08:00 General: Alert, In no apparent distress, Oriented x3 HEENT: Mucous membr. moist/pink Neck: JVD not distended Respiratory: Clear to auscultation bilaterally, Normal air movement Cardiovascular: No edema, Regular rate/rhythm, Normal S1 S2 Gastrointestinal: Normal bowel sounds, Soft and benign, Non-distended, No tenderness Musculoskeletal: No swelling Integumentary: No rashes Neurological: Normal strength at 5/5 x4 extr Laboratory Data at Discharge: WBC 3.50 K/uL (4.3-10.9) L 01/18/22 02:13 Hgb 10.0 g/dL (12.0-15.0) L 01/18/22 02:13 Hct 29.9 % (36.0-45.0) L 01/18/22 02:13 Plt Count 350 K/uL (152-406) 01/18/22 02:13 PT 12.2 SECONDS (9.5-12.5) 01/17/22 13:22 INR 1.11 01/17/22 13:22 Sodium 139 mmol/L (136-145) 01/18/22 02:13 Potassium 3.9 mmol/L (3.5-5.1) 01/18/22 02:13 BUN 17 mg/dL (7-18) 01/18/22 02:13 Creatinine 1.07 mg/dL (0.55-1.3) 01/18/22 02:13 Glucose 220 mg/dL (74-106) H 01/18/22 02:13 Phosphorus 3.9 mg/dL (2.5-4.9) 01/17/22 19:26 Magnesium 1.8 mg/dL (1.8-2.4) 01/17/22 19:26 Home Medications: Aspirin [Adult Aspirin Regimen] 81 mg PO DAILY 12/22/21 Atorvastatin Calcium 20 mg PO BEDTIME 12/22/21 Lisinopril [Zestril] 20 mg PO DAILY 12/22/21 Metformin HCl 1 tab PO DAILY 12/22/21 Metoprolol Succinate [Toprol Xl*] 50 mg PO DAILY 12/22/21 NIFEdipine [Nifedipine ER] 1 tab PO DAILY 12/22/21 Amiodarone HCl [Cordarone*] 1 tab PO BID 01/18/22 Arformoterol Tartrate 1 vial NEB BID 01/18/22 Clopidogrel Bisulfate [Plavix] 1 tab PO DAILY 01/18/22 Docusate Sodium 1 tab PO DAILY 01/18/22 Famotidine [Pepcid AC] 1 tab PO BID 01/18/22 Ferrous Sulfate 1 tab PO DAILY 01/18/22 Furosemide [Lasix] 40 mg PO BIDL #37 tab 01/18/22 Ipratropium [place] 1 inh Q4H 01/18/22 predniSONE [Deltasone] 40 mg PO DAILY #10 tab 01/18/22 New Medications: Furosemide [Lasix] 40 mg PO BIDL #37 tab predniSONE [Deltasone] 40 mg PO DAILY #10 tab Diet: AHA Activity: Ad danni Followup: Adriana Sherman DO [Primary Care Provider] - 1 Week
[2022-01-18 10:11] VITALS: O2SAT 100
[2022-01-18] MEDS ORDERED: INSULIN -REGULAR HUMAN 50 UNIT/0.5 ML ML ONE (12:22)
[2022-01-18 12:27] VITALS: BP 129/51
== END 2022-01-18 16:57 | disposition home health service (06) ==
LOC: ER 12:15 → INTOOBSV 15:40 → ERHOLD 15:40
PROVIDERS: ADMIT Hospitalist; ATTEND Internal Medicine
DX: J44.1 Chronic obstructive pulmonary disease with (acute) exacerbation (principal); J96.01 Acute respiratory failure with hypoxia; J90 Pleural effusion, not elsewhere classified; R77.8 Other specified abnormalities of plasma proteins; K21.9 Gastro-esophageal reflux disease without esophagitis; I10 Essential (primary) hypertension; M19.90 Unspecified osteoarthritis, unspecified site; E78.5 Hyperlipidemia, unspecified; I50.23 Acute on chronic systolic (congestive) heart failure; E11.65 Type 2 diabetes mellitus with hyperglycemia; I50.33 Acute on chronic diastolic (congestive) heart failure
CPT/HCPCS: 93005; 85025 ×2; 81001; 80048 ×2; 36415 ×2; 83735 ×2; 84100; 85610; 82947 ×3; 84484 ×3; 83880 ×2; 0240U; 71275; 71045; 96374; 99285; Q9967; J7614; J1815 ×2; J1940 ×2; J1644 ×2; J2930; J2920 ×3; G0378 ×3

== ENCOUNTER 2022-02-04 12:23 | Inpatient (IN) | payer MEDICARE ==
--- OUTSIDE RECORDS SUMMARY | 2022-02-04 12:32 | XMS REPORT | Continuity of Care Document ---
:1950 Author Organization [facility] t Address [address] [place] [address] Care Team Providers Name Role Phone Adriana Sherman Attending Clinician Unavailable Ayad Sen Attending Clinician Unavailable Kwasi Christie Attending Clinician Unavailable BETZAIDA_S Attending Clinician Unavailable DORON GRAF M.D. Attending Clinician Unavailable TAYLOR HAMM NP Attending Clinician Unavailable Adriana Sherman Admitting Clinician Unavailable Ayad Sen Admitting Clinician Unavailable HUSSEIN Admitting Clinician Unavailable Payers Payer Name Policy Type Policy Number Effective Date Expiration Date S steve [facility] [id number] 2021 (MEDICARE 00:00:00 REPLACEMENT HMO) AARP Medicare 53 [id number] 2018 Common Complete 00:00:00 [facility] Problems Condition Condition Condition Status Onset [...] prosthesis , , subsequent subsequent encounter encounter [id number] Uncontroll Problem Co mmon ed type 2 [facility] diabetes - [facility] mellitus [facility] hyperglyce Medica l [facility] [id number] Other Problem Common chronic [facility] pain [facility] [id number] Vitamin D Problem Comm on deficiency [facility] [id number] Pure Problem Common hyperchole [facility] sterolemia [facility] Arthritis Arthritis Problem Com mon [facility] Dyspnea Dyspnea Problem Common [facility] Essential Benign Problem Common hypertensi essential Spi rit on HTN [facility] Sebaceous Sebaceous Problem Com mon cyst cyst [facility] Nicotine Nicotine Problem Commo n dependence dependence [facility] Osteoarthr Problem C ommon itis of itis of [facility] knee both [facility] knees, St unspecifie [facility] d Medical osteoarthr Center itis type [id number] Pulmonary Problem Comm on fibrosis [facility] Gastroesop Gastroesop Problem C ommon hageal hageal [facility] reflux reflux [facility] disease disease, St esophagiti [facility] s presence Medica l not Center specified Skin Skin Problem Common lesion lesion [facility] COPD - COPD Problem Common Chronic (chronic Spirit obstructiv obstructiv - [facility] e e pulmonary pulmonary [place] s disease disease) Medical [facility] [id number] Primary Problem Comm on osteoarthr Spirit itis of - [facility] right knee [facility] [id number] Primary Problem Comm on osteoarthr [facility] itis of [facility] left knee [facility] [id number] Unsteady Problem Comm on gait [facility] [id number] Status Problem Common post Spirit bilateral - [facility] hip [facility] Allergies, Adverse Reactions, Alerts Allergy Allergy Status Severity Reaction(s) Onset Inactive Treating Comm ents Source Name Type Date Date Clinician No Known DA Active U 2021-03 DIANA Allergso 0-19 [place] 00:00: [address] Family History Family Member Diagnosis Comments Start Date Stop Date Source Mother Family history of [facility] congestive heart failure Mother Family history of diabetes [facility] mellitus Father Family history of heart [facility] attack Social History Social Habit Start Date Stop Date Quantity Comments Source History of Tobacco Use Co mmon [facility] Sex Assigned At Com mon [facility] Smoking Status Start Date Stop Date Source Former Smoker 2021-12-01 00:00:00 2021-12-01 00:00:00 Common S pirit [facility] Medications Ordered Filled Start Stop Current Ordering [...] 1{table QD Atorvastat n Calcium n Calcium 3- t_at_be in Calcium 20 MG 20 MG 00:00: dtime} 20 MG 00 metFORMIN metFORMIN No 1{table BID metFORMIN HCl 1000 MG HCl 1000 MG 3-02 t_with_ HCl 1000 00:00: a_meal} MG 00 Metoprolol Metoprolol Yes [facility] Succinate Succinate Physi [...] PredniSONE Yes [facility] TABS TABS Physici ans Procardia Procardia Yes Na Sherman 1 tablet Common XL XL Spirit - [facility] ProAir ProAir No 2{puffs QID ProAir RespiClick [...] Lisinopril Yes [facility] TABS TABS Physici ans Symbicort [...] Date Status Commen ts Source Name Name FilterSureAD 2019-01-02 Completed [facility] 11:22:00 - [facility] FluAD FluAD 2019-01-02 Completed [facility] 11:22:00 - [facility] FluAD FluAD 2019-01-02 Completed [facility] 11:22:00 - [facility] FluAD FluAD 2019-01-02 Completed [facility] 11:22:00 - [facility] FluAD FluAD 2019-01-02 Completed [facility] 11:22:00 - [facility] FluAD FluAD 2019-01-02 Completed [facility] 11:22:00 - [facility] FluAD FluAD 2019-01-02 Completed [facility] 11:22:00 - [facility] FluAD FluAD 2019-01-02 Completed [facility] 11:22:00 - [facility] FluAD FluAD 2019-01-02 Completed [facility] 11:22:00 - [facility] FluAD FluAD 2019-01-02 Completed [facility] 11::00 - [facility] FluAD FluAD 2019-01-02 Completed [facility] 11::00 - [facility] FluAD FluAD 2019-01-02 Completed [facility] 11:22:00 - [facility] FluAD FluAD 2019-01-02 Completed [facility] 11:22:00 - [facility] FluAD FluAD 2019-01-02 Completed [facility] 11:22:00 - [facility] FluAD FluAD 2019-01-02 Completed [facility] 11::00 - [facility] FluAD FluAD 2019-01-02 Completed [facility] 00:00:00 - [facility] Vital Signs Vital Name Observation Time [...] [facility] bmi 2021-09-01 10:20:00 36.77 kg/m2 Common S pirit - [facility] Height 2018-09-25 10:14:00 65 [in_us] [facility] [...] Date / Time Performing Clinician Source Performed [id number] 2022-01-04 00:00:00 ALNMA.01 [facility] [id number] 2022-01-03 00:00:00 ALNMA.01 [facility] [id number] 2021-12-29 00:00:00 ALNMA.01 [facility] [id number] 2021-12-26 00:00:00 AHMIM [facility] [id number] 2021-12-26 00:00:00 AHMIM [facility] [id number] 2021-12-26 00:00:00 AHMIM [facility] [id number] 2021-12-24 00:00:00 CHAAB.01 [facility] [id number] 2021-12-24 00:00:00 CHAAB.01 [facility] [id number] 2021-12-24 00:00:00 CHAAB.01 [facility] [id number] 2021-12-24 00:00:00 CHAAB.01 [facility] [id number] 2021-12-24 00:00:00 CHAAB.01 [facility] [id number] 2021-12-24 00:00:00 CHAAB.01 [facility] [id number] 2021-12-24 00:00:00 CHAAB.01 [facility] [id number] 2021-12-24 00:00:00 ALIRI [facility] [id number] 2021-12-24 00:00:00 ALIRI [facility] [id number] 2021-12-24 00:00:00 ALIRI [facility] [id number] 2021-12-24 00:00:00 ALIRI [facility] [id number] 2021-12-24 00:00:00 ALNMA.01 [facility] Post Op Promis 2018-09-25 00:00:00 [facility] Survey [U] XRAY HIP UNILATERAL 2018-08-29 00:00:00 [facility] P hysicians MIN 2 VWS LEFT [id number] Post Op Promis 2018-08-27 00:00:00 [facility] [...] Date/Time Type Type Clinicians Facility Department ID 2022-01-20 Outpatient Sherman, Na STLMLC STLMLC [id number] 2 Common 16:19:00 [facility] 2021-11-29 Outpatient Sherman, Na STLMLC STLMLC [id number] 2 Common 14:40:00 [facility] 2021-08-30 Outpatient Sherman, Na STLMLC STLMLC [id number] 2 Common 08:45:00 [facility] 2021-07-26 Outpatient Sherman, Na STLMLC STLMLC [id number] 2 Common 09:12:01 [facility] 2021-05-04 Outpatient Sherman, Na STLMLC STLMLC [id number] 2 Common 09:49:01 [facility] 2021-04-05 Outpatient Sherman, Na STLMLC STLMLC [id number] 2 Common 08:29:00 [facility] 2021-03-31 Outpatient Sherman, Na STLMLC STLMLC [id number] 2 Common 12:24:16 [facility] 2021-03-31 Outpatient Sherman, Na STLMLC STLMLC [id number] 2 Common 12:22:44 [facility] 2021-03-31 Outpatient Sherman, Na STLMLC STLMLC [id number] 2 Common 12:22:03 [id number] [facility] 2021-03-31 Outpatient Sherman, Na STLMLC STLMLC [id number] 2 Common 12:16:41 [id number] [facility] 2021-03-31 Outpatient Sherman, Na STLMLC STLMLC [id number] 2 Common 11:16:30 [id number] [facility] 2018-08-[address] [facility] [id number] 09:07:00 [facility] 2018-[facility]-[address] [facility] [id number] 08:05:00 [facility] 2018-06-[address] [facility] [id number] 06:19:00 [facility] 2022-01-17 2022-01-17 (TEL) STLMLC STLMLC [id number] Co mmon 00:00:00 00:00:00 [facility] 2022-01-13 2022-01-13 (TEL) STLMLC STLMLC [id number] Co mmon 00:00:00 00:00:00 [facility] 2021-12-23 2022-01-04 Inpatient UR Gabriel [facility] INTE [id number] [id number] [facility] 02:40:00 15:49:00 an, 89 [facility] 2021-12-14 2021-12-14 (TEL) STLMLC STLMLC [id number] Co mmon 00:00:00 00:00:00 [facility] 2021-12-01 2021-12-01 OFFICE STLMLC STLMLC [id number] Co mmon 00:00:00 00:00:00 VISIT [facility] LEVEL 4 [facility] 2021-11-22 2021-11-22 (TEL) STLMLC STLMLC [id number] Co mmon 00:00:00 00:00:00 [facility] 2021-11-12 2021-11-12 (TEL) STLMLC STLMLC [id number] Co mmon 00:00:00 00:00:00 [facility] 2021-09-20 2021-09-20 (TEL) STLMLC STLMLC [id number] Co mmon 00:00:00 00:00:00 [facility] 2021-09-17 2021-09-17 Outpatient GAYLORD_S DMG DMG [id number] [facility] 06:08:00 06:08:00 0715 [facility] 2021-09-01 2021-09-01 OFFICE STLMLC STLMLC [id number] Co mmon 00:00:00 00:00:00 VISIT [facility] LEVEL 4 [facility] 2021-08-27 2021-08-27 Outpatient GAYLORD_S DMG DM [id number] [facility] 12:28:00 12:28:00 0624 Medica l Group 2021-07-26 2021-07-26 (TEL) STLMLC STLMLC [id number] Co mmon 00:00:00 00:00:00 [facility] 2021-06-28 2021-06-28 (TEL) STLMLC STLMLC [id number] Co mmon 00:00:00 00:00:00 [facility] 2021-05-05 2021-05-05 (TEL) STLMLC STLMLC [id number] Co mmon 00:00:00 00:00:00 [facility] 2021-05-05 2021-05-05 OL DIG E/M STLMLC STLMLC [id number] Common 00:00:00 00:00:00 SVC 21+ [facility] 2021-04-05 2021-04-05 (TEL) STLMLC STLMLC [id number] Co mmon 00:00:00 00:00:00 [facility] 2021-01-12 2021-01-12 (TEL) STLMLC STLMLC [id number] Co mmon 00:00:00 00:00:00 [facility] 2021-01-08 2021-01-08 Outpatient DMG [facility] [id number] [facility] 11:00:00 11:00:00 1105 Medica l Group 2020-03-30 2020-03-30 Outpatient STLMLC STLMLC [id number] Common 00:00:00 00:00:00 [facility] 2020-03-03 2020-03-03 Outpatient STLMLC STLMLC [id number] Common 00:00:00 00:00:00 [facility] 2019-12-31 2019-12-31 Outpatient STLMLC STLMLC [id number] Common 00:00:00 00:00:00 [facility] 2019-10-01 2019-10-01 [facility] [id number] Common 13:54:00 13:54:[address] [facility] 2019-09-30 2019-09-30 [facility] [id number] Common 15:47:00 15:47:00 [address] [facility] 2019-04-04 2019-04-04 [facility] [id number] Common 13:40:00 13:40:00 [address] [facility] 2019-02-06 2019-02-06 [facility] [id number] Common 14:47:00 14:47:00 [address] [facility] 2019-01-02 2019-01-02 [facility] [id number] Common 10:00:00 10:00:00 [address] [facility] 2018-12-24 2018-12-24 [facility] [id number] Common 09:26:00 09:26:00 [address] [facility] 2018-12-03 2018-12-03 [facility] [id number] Common 08:56:00 08:56:00 [address] [facility] 2018-11-08 2018-11-08 [facility] [id number] Common 15:00:00 15:00:00 [address] [facility] 2018-11-02 2018-11-02 [facility] [id number] Common 10:20:00 10:20:00 [address] [facility] 2018-10-30 2018-10-30 AppointJOSHUA [facility] [id number] [place] 10:45:00 10:45:00 t; Emmett DO at [facility] Roni GRAF [facility] 2018-09-25 2018-09-25 JOSHUA [facility] 55 [id number] [place] 10:30:00 10:30:00 t; Hien DO. at [facility] Roni GRAF [facility] 2018-09-18 2018-09-18 Jolie GRAF [facility] Orthopedics [id number] [place] 10:45:00 10:45:00 [facility] 2018-09-14 2018-09-14 [facility] [id number] Common 09:20:00 09:20:00 [address] [facility] 2018-09-12 2018-09-12 [facility] [id number] Common 16:21:00 16:21:00 [address] [facility] 2018-09-11 2018-09-11 Jolie GRAF [facility] Orthopedics [id number] [place] 10:30:00 10:30:00 t[facility] Emmett [facility] Spine [facility] 2018-09-05 2018-09-05 [facility] [id number] Common 14:55:00 14:55:00 [address] [facility] 2018-09-04 2018-09-04 [facility] [id number] Common 11:20:00 11:20:00 [address] [facility] 2018-08-30 2018-08-30 Outpatient E [facility] [id number] [facility] 22:19:00 22:19:00 2018-08-30 2018-08-30 Jolie GRAF [facility] [id number] [place] 13:00:00 13:00:00 t; Hien DO. elaine العلي M.D. 2018-08-30 2018-08-30 Emergency [facility] [id number] [facility] 09:07:00 09:07:00 2018-08-29 2018-08-29 Appointlianet HAMM [facility] Orthopedics [id number] [place] 10:45:00 10:45:00 t; TAYLOR HAMM, CRISTIAN at [facility] Roni VAZQUEZ NP [facility] 2018-08-13 2018-08-13 Appointlianet GRAF, [facility] [id number] [place] 13:00:00 13:00:00 t; Emmett DO Ph elaine العلي M.D. 2018-07-17 2018-07-17 Appointlianet LESIA, [facility] [id number] [place] 14:30:00 14:30:00 t; Emmett DO Orthopedic Physici LESIA, Surgery - [place] Becker M.D. Trace 1 2018-06-26 2018-06-26 [facility] [id number] [place] 14:45:00 14:45:00 t; Emmett DO Orthopedic Physici LESIA, Surgery - [place] Becker M.D. Trace 1 2018-06-19 2018-06-19 [facility] [id number] Common 10:05:00 10:05:00 t [place] [address] [facility] 2018-06-14 2018-06-14 Appointlianet LESIA, [facility] [id number] [place] 09:00:00 09:00:00 t; Emmett DO Ph elaine العلي M.D. 2018-06-05 2018-06-[address] [facility] [id number] [place] 13:30:00 13:30:00 t; Emmett DO Ortho and Physici LESIA, Spine [facility] Deb Becker M.D. [place] 2018-05-11 2018-05-11 Out[facility] [id number] Common 12:03:00 12:03:00 [address] [facility] 2018-04-27 2018-04-27 Outpatient [facility] [id number] Common 12:09:00 12:09:00 [address] [facility] 2018-04-23 2018-04-23 Outpatient Christiano Palacios [id number] Common 10:00:00 10:00:00 t [facility] Results Test Description Test Time Test Comments Results Result Comments Source CYTOLOGY NON DEALER DEVELOPMENT MANAGER 2022-01-10 12:42:00 Test Item Value Reference Range Interpretation Comme nts CYTOLOGY RUN DATE: NON DEALER DEVELOPMENT MANAGER 01/10/22 [facility] GE 1 RUN TIME: 1243 Specimen Inquiry RUN USER: INTERFACE (test PATIENT: code = INDIRA HAMM [id number] LOC: EtienneCVN1 U #: [id number] AGE/SX: 71/F ROOM: [facility] REG: KHADIJAH) 12/23/21AMINTA DR: Ayad Mandujano : 48 BED: 1 DIS: 01/04/22 STATUS: DIS IN TLOC: SPEC #: [id number] RECD: 01/07/22-1 326 STATUS: KASIA BARBER #: [id number] ARVIN: 12/29/21- SUBM DR: Alex Batres ENTERED: 01/07/22-1328 SP TY PE: CYTO EDDY COLONHR DR: Rao Mitchell MD, Molham MD Alnas, Majd Amin,Abby Meza,Shira Donohue,Kennedy Fabian,Parminder Casey,Eric Meneses,Deejay Quezada,Sabina Quigley MDORDERED: 95052, 38922, ANATOMIC SPEC COPIES TO: Rao Mitchell MD [address] [place] [address] Omar Drummond MD [address] [place] [address] Maj jagjit Batres [address] [facility] [address] [place] [address] Abby Rea MD [address] [place] [address] Shira Meza MD [address] [facility]. [address] [place] [address] Kennedy Donohue MD [address] [facility] [address] [place] [id number] CONTINUED ON NEXT PAGE RUN DATE: 01/10/22 Hunter MASON 2 RUN TIME: 1243 Specimen Inquiry RUN USER: INTERFACE SPEC #: [id number] PATIENT: INDIRA HAMM #[id number] (Continued) COPIES TO: (Continued) Parminder Jaimes MD [address] [place] [address] Eric Casey MD [address] [facility] [address] [place] [address] Deejay Meneses MD [address] [place] [address] Sameer Quezada MD [address] [place] [address] PROCED URES: [id number] (01/07/22) [id number] (01/07/22) TISSUES: A. PLEURAL FLUID (CYTOSPIN,CELL BLOCK) - 5 ML S PINK/RED FLUID, SPEC. IN CHEMISTRY SINCE 12/30 CLINICAL HISTORY SAME FINAL DIAGNOSIS Left pleural fluid , cell block sections and cytospins: No cells diagnostic for malignancyseen; occasional degenerated atypi marcos cells. GROSS DESCRIPTION Received is a 5 cc pink/red fluid for cytology evaluation. Technical compon ent performed at [facility],[address] [place] [address], [place], [place] [address] Unless gross only, the diagnosis is [...] CONTINUED ON NEXT PAGE RUN DATE: 01/10/22 [place] - LAB P AGE 2 RUN TIME: 1243 Specimen Inquiry RUN USER: INTERFACE SPEC #: [id number] PATIENT: INDIRA HAMM #[id number] (Continued) GROSS DESCRIPTION (Continued ) Amendments (CLIA-88) as qualified to perform high complexity clinical laboratory testing. 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 BASIC METABOLIC [id number] 04:17:00 Test Item Value Reference Range Interpretation [...] code = 9.3 mg/dL 8.0-10.5 N CA) [id number] 04:17:00 Test Item Value Reference Range Interpretation Comments MAGNESIUM (test code = MAG) 2.05 mg/dL 1.80-2.40 N CBC W/AUTO [id number] 04:02:00 Test Item Value Reference Range Interpretation [...] REQUIRED (test code NO = MDIFF) - [facility] [id number] 00:00:00 [facility] 1950 Sex: F Name: INDIRA HAMM [facility] : 1950 Age/S: 71 / F [address] [place] [address] Unit #: [id number] Loc: KERRI Hennessy [address] Phys: Shira Meza MD Acct: [id number] Dis Date: Status: ADM INPHONE #: [phone] Exam Date: 01/01/2022 1608 FAX #: [phone] Reason: r/o dvt EXAMS: CPT CODE: [id number] DUP VEIN DEAN [id number] PROCEDURE INFORMATION: Exam: US Duplex Lower Extremity Veins, Bilateral Exam date and time: 01/01/2022 3:45 PM Age: 71 years old Clinical indication: Screening exam; R/O dvt TECHNIQUE: Imaging protocol: Real- time Duplex ultrasound of the bilateral extremities with [...] femoral, proximal profunda femoral and popliteal veins arepatent without thrombus. Normal Doppler waveforms. Normal compressibility and/or augmentation response. Left superficial veins: Thrombosis within the proximal left greater saphenous vein. Soft tissues:Unremarkable. IMPRESSION: 1. No evidence of deep vein thrombosis. 2. Superficial thrombosis within the proximal left greater saphenous vein. at 0638 Reported and signed by: Merritt Weaver M.D. 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[facility] GLUCOSE [id number] 16:44:00 Test Item Value Reference Range Interpretation Comments GLUCOSE BEDSIDE (test 144 MG/DL 70-110 H Perfor med by certified code = GLUBED) 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[facility] BASIC METABOLIC [id number] 11:53:00 Test Item Value Reference Range Interpretation [...] code = 7.9 mg/dL 8.0-10.5 L CA) [id number] 11:53:00 Test Item Value Reference Range Interpretation Comments PHOSPHOROUS (test code = PHOS) 2.5 MG/DL 2.5-4.9 N [id number] 11:53:00 Test Item Value Reference Range Interpretation Comments MAGNESIUM (test code = MAG) 1.91 mg/dL 1.80-2.40 N CALCIUM [id number] 11:53:00 Test Item Value Reference Range Interpretation Comments CALCIUM IONIZED (test code = ANU) 1.06 MMOL/L 1.09-1.30 L GLUCOSE [id number] 11:22:00 Test Item Value Reference Range Interpretation Comments GLUCOSE BEDSIDE (test 180 MG/DL 70-110 H Perfor med by certified code = GLUBED) 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[facility] GLUCOSE [id number] 07:43:00 Test Item Value Reference Range Interpretation Comments GLUCOSE BEDSIDE (test 157 MG/DL 70-110 H Perfor med by certified code = GLUBED) 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[facility] BASIC METABOLIC [id number] 03:57:00 Test Item Value Reference Range Interpretation [...] code = 8.4 mg/dL 8.0-10.5 N CA) [id number] 03:57:00 Test Item Value Reference Range Interpretation Comments MAGNESIUM (test code = MAG) 2.23 mg/dL 1.80-2.40 N CBC W/AUTO [id number] 03:43:00 Test Item Value Reference Range Interpretation [...] code NO = MDIFF) POC ARTERIAL BLOOD [id number] 03:32:00 Test Item Value Reference Range Interpretation Comments POC ARTERIAL BLOOD GAS PH (test 7.452 7.35-7.45 H code = POCPHA) POC ARTERIAL BLOOD GAS PCO2 44.6 mmHg 35.0-45 N (test code = IIYGFT3Y) POC TCO2 ARTERIAL (test code = 32.5 POCTCO2) POC ARTERIAL BLOOD GAS PO2 (test 87.9 mmHg 80-100.0 N code = TKIUQ5C) POC HCO3 ARTERIAL (test code = 31.1 MMOL/L 22.0-26.0 HH EDGTDB2H) POC BASE EXCESS (test code = 7.1 MMOL/L -4.0-4.0 H POCBEA) POC O2 SATURATION (test code = 97.1 % 90-100 N POCO2S) FIO2 (test code = FIO2A) 35 % PaO2/FiO2 (test code = DEV5KFY3) 251.14 mm/Hg ABG DELIVERY (test code = BERTHA) BiPAP ABG VENT RESP RATE (test code = 12 /MIN RRA) ABG PEEP (test code = PEEPA) 5 cmH2O ABG PRESSURE SUPPORT (test code 10 cmH2O = PSABG) ABG SITE (test code = SITEA) Art Line ANASTACIA'S TEST (test code = N/A ALLENS) BASIC METABOLIC [id number] 03:32:00 Test Item Value Reference Range Interpretation [...] = POCGLU) 117 MG/DL 70-110 H HEMOGLOBIN [id number] 03:32:00 Test Item Value Reference Range Interpretation Comments HEMOGLOBIN ABG (test code = HGB/ABG) 9.1 G/DL 11.0-15.0 L [id number] 03:32:00 Test Item Value Reference Range Interpretation Comments HEMATOCRIT (test code = HCT/ABG) 27 % 33.0-45.0 L POC LACTIC [id number] 03:32:00 Test Item Value Reference Range Interpretation Comments POC LACTIC ACID (test code = 0.6 mmol/l 0.9-1.7 L POCLAC) - XR CHEST 1 [id number] 00:00:00 [facility] 1950 Sex: F FAX:Kwasi Christie MD [place]: St: ADM FAX: Nubia Michaels MD [phone] FAX: Lizzy Sutton [phone] FAX: Deejay Tinoco [phone] Name: INDIRA HAMM [facility] : 1950 Age/S: 71/F [address] [place] [address] Unit #: [id number] Loc: G.2205 [place] [address] Phys: Alannah Sutton [employer] MEMBER Acct:[id number] Dis Date: Status: ADM IN PHONE #: [phone] Exam Date: 12/30/2021 0649 FAX #: [phone] Reason: Cardiac Surgery Post Op EXAMS: CPT CODE: [id number] XR CHEST 1 V 96215 PROCEDURE INFORMA TION: Exam: XR Chest Exam [...] left lung base. Left base is partially obscured from examination. Appearance is similar previous study. Pleural spaces: Small right apical pneumothorax, slightly decreased from previous study. Heart/Mediastinum: Heart is enlarged. Status post median sternotomy. Bones/joints: Unchanged.. IMPRESSION: 1. Stable appearance of bilateral pulmonary opacities. 2. Slight interval decrease in small right pneumothorax. at 0902 Reported and signed by: Jonel Wiley M.D. 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 PLEURAL FLD [id number] 18:07:00 Test Item Value Reference Range Interpretation Comments PLEURAL FLD LDH (test code = 333 UNITS/L LDHPL) PLEURAL FLD TOTAL [id number] 18:05:00 Test Item Value Reference Range Interpretation Comments PLEURAL FLD TOTAL PROTEIN (test 3.1 GM/DL code = PROTPL) PLEURAL FLD TOTAL [id number] 18:05:00 Test Item Value Reference Range Interpretation Comments PLEURAL FLD TOTAL 3.1 GM/DL See_Comment The Refere nce Range and PROTEIN (test Method Perform ance code = PROTPL) specification shave not been established for this fluid. The test result should be correlated into the clinical contex t forinterpretati on. [Automated mess age] The system which ge nerated this result transmit aysha reference range : (). The reference range was not used to interpr et this result as ethan l/abnormal. PLEURUAL FLD [id number] 18:04:00 Test Item Value Reference Range Interpretation Comments PLEURUAL FLD GLUCOSE (test code = 203 MG/DL GLUPL) PLERUAL FLD [id number] 18:04:00 Test Item Value Reference Range Interpretation Comments PLERUAL FLD 203 MG/DL See_Comment The Reference R osiel and GLUCOSE (test Method Perform ance code = GLUPL) specifications have not been established for this fluid. The test result should be correlated into the clinical contex t forinterpretati on. [Automated mess age] The system which ge nerated this result transmit aysha reference range : (). The reference range was not used to interpr et this result as ethan l/abnormal. 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 PLEURAL FLD CELL [id number] 14:28:00 Test Item Value Reference Range Interpretation Comments PLEURAL FLD COLOR (test code = ORANGE COLPL) PLEURAL FLD APPEARANCE (test CLOUDY code = APPPL) PLEURAL FLD WBC (test code = 959 cells/uL 0-500 H WBCPL) PLEURAL FLD RBC (test code = 92225 Cells/uL 0-0 H RBCPL) PLEURAL FLD POLY (test code = 34 % POLYPL) PLEURAL FLD LYMPHOCYTE (test 55 % code = LYMPHPL) PLEURAL FLD MACROPHAGE (test 11 % code = MACPL) GLUCOSE [id number] 12:33:00 Test Item Value Reference Range Interpretation Comments GLUCOSE BEDSIDE (test 240 MG/DL 70-110 H Perfor med by certified code = GLUBED) 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 BASIC METABOLIC [id number] 04:36:00 Test Item Value Reference Range Interpretation [...] code = 8.4 mg/dL 8.0-10.5 N CA) [id number] 04:36:00 Test Item Value Reference Range Interpretation Comments MAGNESIUM (test code = MAG) 1.67 mg/dL 1.80-2.40 L CBC W/AUTO [id number] 04:26:00 Test Item Value Reference Range Interpretation [...] MDIFF) COMMENTS: Daily while on HeparinBASIC METABOLIC [id number] 01:04:00 Test Item Value Reference Range Interpretation [...] 8.0-10.5 N CA) - XR CHEST 1 [id number] 00:00:00 [facility] : 1950 Sex: F FAX:Kwasi Christie MD [place]: St: [facility] FAX: Alex Mccollum [phone] FAX: Nubia Michaels MD [phone]: Deejay Tinoco [phone] Name: INDIRA HAMM [facility] : 1950 Age/S: 71/F [address] [place] [address] Unit #: [id number] Loc: G.2205 [place] [address] Phys: Alex Batres Acct: [id number] Dis Date: Status: ADM IN PHONE #: [phone] Exam Date: 12/29/2021 1337 FAX #: [phone] Reason: Post thoracentesis EXAMS: CPT CODE: [id number] XR CHEST 1 V 58405 PROCEDURE INFORMATION: Exam: XR Chest Exam date [...] border unchanged. Pleural spaces: There is small apical right pneumothorax redemonstrated without significant change in volume, separation at the apex approximately 1.8 cm. There is no left pneumothorax. There is no gross right pleural effusion. Left basilar pleuroparenchymal disease grossly stable radiographically. Heart/Mediastinum: The visualized mediastinal contours are stable. Bones/joints: Sternotomy wires are intact. IMPRESSION: 1. Stable pulmonary opacities with interstitial and multifocal airspace disease. 2. Stable left basilar pleuroparenchymal disease. 3. Stable small volume right pneumothorax. at 1526 Reported and signed by: Pop Holder M.D. CC: Kwasi Christie MD; Alex Batres; Nubia Michaels MD; Deejay Meneses MD Technologist: LINDA Rosado) Leandro Date/Time/By: 12/29/2021 (152) : By: LuluKWL Orig Print D/T: S: 12/29/2021 (1619) PAGE 1 Signed Report - XR CHEST 1 [id number] 00:00:00 [facility] 1950 Sex: F FAX:Kwasi Christie MD [place]: St: ADM FAX: Nubia Michaels MD [phone] FAX: Lizzy Sutton [phone] FAX: Deejay Tinoco [phone] Name: INDIRA HAMM [facility] : 1950 Age/S: 71/F [address] [place] [address] Unit #: [id number] Loc: G.2205 [place] [address] Phys: Aalnnah Sutton NP Acct:[id number] Dis Date: Status: ADM IN PHONE #: [phone] Exam Date: 12/29/2021621 FAX #: [phone] Reason: Cardiac Surgery Post Op EXAMS: CPT CODE: [id number] XR CHEST 1 V 99727 PROCEDURE INFOR MATION: Exam: XR Chest Exam [...] Jordan NP; Deejay Meneses MD Technologist: Natalie Sheffield, RT(R) Trnscrd Date/Time/By: 12/29/2021 (075) : By: [email or web address] Orig Print D/T: S: 12/29/2021 (075) PAGE 1 Signed ReportGLUCOSE [id number] 20:49:00 Test Item Value Reference Range Interpretation Comments GLUCOSE BEDSIDE (test 138 MG/DL 70-110 H Perfor med by certified code = GLUBED) 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 LOC: EKTA U #: [id number] AGE/SX: 71/F ROOM: [facility] RE12/23/21REG DR: Kwasi Chrisite MD : [birth year] BED: 1 DIS: STATUS: ADM IN TLOC: SPEC #: [id number] RECD: 12/27/21 STATUS: KASIA REQ #: [id number] ARVIN: 12/24/21 DR: Shira Meza MD ENTERED: 12/27/21 SP TYPE: SURGICAL OTHR DR: Rao Mitchell MD, Molham MD Alnas, Majd Amin, Aisha MD Chaugle, Abdul Hannan MD Gupta,Nubia Fabian,Parminder Casey,Eric Meneses,Sameer Rudolph MD, MDORDERED: 23387, ANATOMIC SPEC COPIES TO: Rao Mitchell MD [address] [place] [address] Omar Drummond MD [address] [place] [address] Alex Batres [address] [facility] [place] [address] Abby Rea MD [address] [place] [address] Shira Meza MD [address] [place] [address]. [address] [place] [address] Nubia Michaels MD [address] [place] [address] CONTINUED ON NEXT PAGE R UN DATE: 12/28/21 [place] - LAB PAGE 2 RUN TIME: 1232 Specimen Inquiry RUN USER: INTERFACE S MAYE #: [id number] PATIENT: INDIRA HAMM #[id number] (Continued) COPIES TO: (Continued) Parminder Fabian MD [address] [place], [place] [address] Eric Casey MD [address] [address] Deejay Meneses MD [address] [place] [address] Sameer Quezada MD [address] [facility] [address] [facility] [place] [address] PROCEDURES: 14650 (12/27/21-1002) TISSUES: A. ATRIUM - LEFT ATRIAL APPENDAGE CLINICAL HISTORY SAME FINAL DIAGNOSIS Heart, left atrial appendage, submitted: Portions of cardiac muscle with some degenerativechanges, features consistent with atrial appendage. GROSS DESCRIPTION Received in formalin labeled left atrial appendage is a 2.5 x 2 x 1.5 cm portion of cysticmuscular tissue with attached adipose submitted in 1 cassette. Technical component performed at [facility],[address] [place] [address], [place] [address] Unless gross only, the diagnosis is based [...] ON NEXT PAGE R UN DATE: 12/28/21 [place] - LAB PAGE 3 RUN TIME: 1232 Specimen Inquiry RUN USER: INTERFACE S PEC #: [id number] PATIENT: INDIRA HAMM #[id number] (Continued) CLINICAL INFORMATION CAD, HTN, DM HX - Signed _ Wilman Lima 12/28/21 1232 END OF REPORT GLUCOSE [id number] 11:53:00 Test Item Value Reference Range Interpretation Comments GLUCOSE BEDSIDE (test 144 MG/DL 70-110 H Perfor med by certified code = GLUBED) 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[facility] COAGULATION TIME [id number] 08:05:00 Test Item Value Reference Range Interpretation Comments COAGULATION TIME 458 SECONDS Performed b y ACTIVATED (test code = certi fied lye machine operator ACT) at [facility] GLUCOSE [id number] 07:28:00 Test Item Value Reference Range Interpretation Comments GLUCOSE BEDSIDE (test 130 MG/DL 70-110 H Perfor med by certified code = GLUBED) 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[facility] COMPREHENSIVE METABOLIC [id number] 04:27:00 Test Item Value Reference Range Interpretation [...] N TOTAL (test code = ALKP) BILIRUBIN [id number] 04:27:00 Test Item Value Reference Range Interpretation Comments BILIRUBIN DIRECT (test code = 0.20 MG/DL 0.0-0.30 BILD) [id number] 04:27:00 Test Item Value Reference Range Interpretation Comments MAGNESIUM (test code = MAG) 1.88 mg/dL 1.80-2.40 N POC ARTERIAL BLOOD [id number] 03:58:00 Test Item Value Reference Range Interpretation Comments POC ARTERIAL BLOOD GAS PH (test 7.377 7.35-7.45 N code = POCPHA) POC ARTERIAL BLOOD GAS PCO2 50.3 mmHg 35.0-45 HH (test code = EWKJOL0Z) POC TCO2 ARTERIAL (test code = 31.1 POCTCO2) POC ARTERIAL BLOOD GAS PO2 (test 92.4 mmHg 80-100.0 N code = TKCWH5O) POC HCO3 ARTERIAL (test code = 29.6 MMOL/L 22.0-26.0 HH EWOFRR6T) POC BASE EXCESS (test code = 4.4 MMOL/L -4.0-4.0 H POCBEA) POC O2 SATURATION (test code = 96.8 % 90-100 N POCO2S) FIO2 (test code = FIO2A) 35 % PaO2/FiO2 (test code = WCO2TIM1) 264.00 mm/Hg ABG DELIVERY (test code = BERTHA) BiPAP ABG VENT RESP RATE (test code = 12 /MIN RRA) ABG PEEP (test code = PEEPA) 5 cmH2O ABG PRESSURE SUPPORT (test code 10 cmH2O = PSABG) ABG SITE (test code = SITEA) R Radial ANASTACIA'S TEST (test code = Positive ALLENS) BASIC METABOLIC [id number] 03:58:00 Test Item Value Reference Range Interpretation [...] = POCGLU) 136 MG/DL 70-110 H HEMOGLOBIN [id number] 03:58:00 Test Item Value Reference Range Interpretation Comments HEMOGLOBIN ABG (test code = HGB/ABG) 9.3 G/DL 11.0-15.0 L [id number] 03:58:00 Test Item Value Reference Range Interpretation Comments HEMATOCRIT (test code = HCT/ABG) 27 % 33.0-45.0 L POC LACTIC [id number] 03:58:00 Test Item Value Reference Range Interpretation Comments POC LACTIC ACID (test code = 0.7 mmol/l 0.9-1.7 L POCLAC) CBC W/AUTO [id number] 03:49:00 Test Item Value Reference Range Interpretation [...] Daily while on Heparin- XR CHEST 1 [id number] 00:00:00 [facility] : 1950 Sex: F FAX:Kwasi Christie MD [place]: St: ADM FAX: Nubia Michaels MD [phone] FAX: Lizzy Sutton [phone] FAX: Deejay Tinoco [phone] Name: INDIRA HAMM [facility] [place] : 1950 Age/S: 71/F [address] [place] [address] Unit #: [id number] Loc: G.2205 [place] [address] Phys: Alannah Sutton [employer] MEMBER Acct:[id number] Dis Date: Status: ADM IN PHONE #: [phone] Exam Date: 12/28/2021623 FAX #: [phone] Reason: Cardiac Surgery Post Op EXAMS: CPT CODE: [id number] XR CHEST 1 V 06705 PROCEDURE INFORM ATION: Exam: XR Chest Exam date and time: 12/28/2021 5:24 AM Age: 71 years old Clinical indication:Other: [...] Bilateral lung opacities have slightly improved. Pleural spaces:No pneumothorax. Likely left pleural effusion. Heart/Mediastinum: The heart size is stable. There are multiple median sternotomy wires and surgical clips suggesting prior CABG. Bones/joints: Stable. IMPRESSION: Slight interval improvement of the lungs. at 0825 Reported and signed by: Arnaldo Tong M.D. 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 COMPREHENSIVE METABOLIC [id number] 04:12:00 Test Item Value Reference Range Interpretation [...] code = ALKP) COMMENTS: POD #1HEPATIC FUNCTION [id number] 04:12:00 Test Item Value Reference Range Interpretation Comments BILIRUBIN DIRECT (test code = 0.30 MG/DL 0.0-0.30 BILD) BILIRUBIN INDIRECT (test code = 0.20 MG/DL BILIND) COMMENTS: POD #[id number] 04:12:00 Test Item Value Reference Range Interpretation Comments MAGNESIUM (test code = MAG) 1.84 mg/dL 1.80-2.40 N COMMENTS: POD #1CBC W/AUTO [id number] 03:59:00 Test Item Value Reference Range Interpretation [...] COMMENTS: Daily while on HeparinPOC ARTERIAL BLOOD [id number] 03:49:00 Test Item Value Reference Range Interpretation Comments POC ARTERIAL BLOOD GAS PH (test 7.362 7.35-7.45 N code = POCPHA) POC ARTERIAL BLOOD GAS PCO2 49.0 mmHg 35.0-45 H (test code = CDNOCS2G) POC TCO2 ARTERIAL (test code = 29.0 POCTCO2) POC ARTERIAL BLOOD GAS PO2 (test 107.1 mmHg 80-100.0 H code = AYNZH5Q) POC HCO3 ARTERIAL (test code = 27.6 MMOL/L 22.0-26.0 H MSIXFU0R) POC BASE EXCESS (test code = 2.4 MMOL/L -4.0-4.0 N POCBEA) POC O2 SATURATION (test code = 97.6 % 90-100 N POCO2S) FIO2 (test code = FIO2A) 50 % PaO2/FiO2 (test code = UVN7LRZ5) 214.20 mm/Hg ABG DELIVERY (test code = BERTHA) BiPAP ABG TEMPERATURE (test code = 100.2 F TEMPA) ABG SITE (test code = SITEA) Art Line BASIC METABOLIC [id number] 03:49:00 Test Item Value Reference Range Interpretation [...] = POCGLU) 161 MG/DL 70-110 H HEMOGLOBIN [id number] 03:49:00 Test Item Value Reference Range Interpretation Comments HEMOGLOBIN ABG (test code = HGB/ABG) 9.6 G/DL 11.0-15.0 L [id number] 03:49:00 Test Item Value Reference Range Interpretation Comments HEMATOCRIT (test code = HCT/ABG) 28 % 33.0-45.0 L POC LACTIC [id number] 03:49:00 Test Item Value Reference Range Interpretation Comments POC LACTIC ACID (test code = 0.6 mmol/l 0.9-1.7 L POCLAC) - XR CHEST 1 [id number] 00:00:00 [facility] 1950 Sex: F FAX:Kwasi Christie MD [place]: St: ADM FAX: Nubia Michaels MD [phone] FAX: Lizzy Sutton [phone] FAX: Deejay Tinoco [phone] Name: INDIRA HAMM [facility] : 1950 Age/S: 71/F [address] [place] [address] Unit #: [id number] Loc: G.2205 [place] [address] Phys: Alannah Sutton [employer] MEMBER Acct:[id number] Dis Date: Status: ADM IN PHONE #: [phone] Exam Date: 12/27/2021 0604 FAX #: [phone] Reason: Cardiac Surgery Post Op EXAMS: CPT CODE: [id number] XR CHEST 1 V 56764 PROCEDURE INFORMA TION: Exam: XR Chest Exam [...] bilateral thoracostomy drains in place. Right IJ Birmingham-Arslan catheter sheath in place. EKG leads overlie [...] Stable left basilar pleuroparenchymal disease. 2. Small rightapical pneumothorax, unchanged. Minimal left apical pneumothorax, decreased. at 0840 Reported and signed by: Pop Holder M.D. PAGE 1 Signed Report (CONTINUED) FAX: Kwasi Christie MD [place]: St: [facility] FAX: Nubia Michaels MD FAX: Lizzy Jordan [phone] FAX: Deejay Tinoco [phone] Name: INDIRA HAMM [facility] : 1950 Age/S: 71/F [address] [place] [address] Unit #: [id number] Loc: [address] [place] [address] Phys: Alannah Sutton ENV[employer]ONMENT[employer] MEMBER Acct: [id number] Dis Date: Status: ADM IN PHONE #: [phone] Exam Date: 12/27/2021 06 FAX #: [phone] Reason: Cardiac Surgery Post Op EXAMS: CPT CODE: [id number] XR CHEST 1 V 13598 (Continued) CC: Kwasi Christie MD; Nubia Michaels MD; Alannah Jordan ENV[employer]ON[employer]UD[employer] FAC[employer] MEMBER; Deejay Meneses MD Technologist: Natalie Sheffield RT(R) Trnscrd Date/Time/By: 12/27/2021 (839) : By: LuluKWL Orig Print D/T: S: 12/27/2021 (839) PAGE 2 Signed ReportBASIC METABOLIC [id number] 23:10:00 Test Item Value Reference Range Interpretation [...] code = 9.7 mg/dL 8.0-10.5 N CA) [id number] 23:10:00 Test Item Value Reference Range Interpretation Comments MAGNESIUM (test code = MAG) 2.12 mg/dL 1.80-2.40 N CALCIUM [id number] 23:10:00 Test Item Value Reference Range Interpretation Comments CALCIUM IONIZED (test code = ANU) 1.22 MMOL/L 1.09-1.30 N POC ARTERIAL BLOOD [id number] 22:35:00 Test Item Value Reference Range Interpretation Comments POC ARTERIAL BLOOD GAS PH (test 7.341 7.35-7.45 L code = POCPHA) POC ARTERIAL BLOOD GAS PCO2 50.1 mmHg 35.0-45 HH (test code = QWOXBB2N) POC TCO2 ARTERIAL (test code = 28.4 POCTCO2) POC ARTERIAL BLOOD GAS PO2 (test 94.3 mmHg 80-100.0 N code = BMIFV9N) POC HCO3 ARTERIAL (test code = 26.9 MMOL/L 22.0-26.0 H ZZTGEX7K) POC BASE EXCESS (test code = 1.3 MMOL/L -4.0-4.0 N POCBEA) POC O2 SATURATION (test code = 96.4 % 90-100 N POCO2S) FIO2 (test code = FIO2A) 50 % PaO2/FiO2 (test code = [id number]) 188.60 mm/Hg ABG DELIVERY (test code = BERTHA) BiPAP ABG VENT RESP RATE (test code = 16 /MIN RRA) ABG PEEP (test code = PEEPA) 6 cmH2O ABG TEMPERATURE (test code = 99.9 F TEMPA) ABG SITE (test code = SITEA) Art Line BASIC METABOLIC [id number] 22:35:00 Test Item Value Reference Range Interpretation [...] = POCGLU) 148 MG/DL 70-110 H HEMOGLOBIN [id number] 22:35:00 Test Item Value Reference Range Interpretation Comments HEMOGLOBIN ABG (test code = HGB/ABG) 9.5 G/DL 11.0-15.0 L [id number] 22:35:00 Test Item Value Reference Range Interpretation Comments HEMATOCRIT (test code = HCT/ABG) 28 % 33.0-45.0 L POC LACTIC [id number] 22:35:00 Test Item Value Reference Range Interpretation Comments POC LACTIC ACID (test code = 0.7 mmol/l 0.9-1.7 L POCLAC) BASIC METABOLIC [id number] 20:43:00 Test Item Value Reference Range Interpretation [...] code = 8.6 mg/dL 8.0-10.5 N CA) [id number] 20:43:00 Test Item Value Reference Range Interpretation Comments MAGNESIUM (test code = MAG) 2.25 mg/dL 1.80-2.40 N CALCIUM [id number] 20:43:00 Test Item Value Reference Range Interpretation Comments CALCIUM IONIZED (test code = ANU) 1.12 MMOL/L 1.09-1.30 N GLUCOSE [id number] 20:17:00 Test Item Value Reference Range Interpretation Comments GLUCOSE BEDSIDE (test 114 MG/DL 70-110 H [facility] med by certified code = GLUBED) 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 POC ARTERIAL BLOOD [id number] 20:08:00 Test Item Value Reference Range Interpretation Comments POC ARTERIAL BLOOD GAS PH (test 7.308 7.35-7.45 L code = POCPHA) POC ARTERIAL BLOOD GAS PCO2 60.6 mmHg 35.0-45 HH (test code = GPRNDK0B) POC TCO2 ARTERIAL (test code = 31.7 POCTCO2) POC ARTERIAL BLOOD GAS PO2 (test 90.7 mmHg 80-100.0 N code = JMVAF3D) POC HCO3 ARTERIAL (test code = 29.9 MMOL/L 22.0-26.0 HH YAIUJJ6R) POC BASE EXCESS (test code = 3.9 MMOL/L -4.0-4.0 N POCBEA) POC O2 SATURATION (test code = 95.1 % 90-100 N POCO2S) FIO2 (test code = FIO2A) 60 % PaO2/FiO2 (test code = PQY3XVE5) 151.16 mm/Hg ABG DELIVERY (test code = BERTHA) BiPAP ABG TEMPERATURE (test code = 100.8 F TEMPA) ABG SITE (test code = SITEA) Art Line BASIC METABOLIC [id number] 20:08:00 Test Item Value Reference Range Interpretation [...] = POCGLU) 120 MG/DL 70-110 H HEMOGLOBIN [id number] 20:08:00 Test Item Value Reference Range Interpretation Comments HEMOGLOBIN ABG (test code = 10.1 G/DL 11.0-15.0 L HGB/ABG) [id number] 20:08:00 Test Item Value Reference Range Interpretation Comments HEMATOCRIT (test code = HCT/ABG) 30 % 33.0-45.0 L POC LACTIC [id number] 20:08:00 Test Item Value Reference Range Interpretation Comments POC LACTIC ACID (test code = 0.6 mmol/l 0.9-1.7 L POCLAC) POC ARTERIAL BLOOD [id number] 16:00:00 Test Item Value Reference Range Interpretation Comments POC ARTERIAL BLOOD GAS PH (test 7.307 7.35-7.45 L code = POCPHA) POC ARTERIAL BLOOD GAS PCO2 52.3 mmHg 35.0-45 HH (test code = VZIDTX4I) POC TCO2 ARTERIAL (test code = 27.8 POCTCO2) POC ARTERIAL BLOOD GAS PO2 (test 169.6 mmHg 80-100.0 H code = MPZAC4O) POC HCO3 ARTERIAL (test code = 26.2 MMOL/L 22.0-26.0 H VKNEIN2L) POC BASE EXCESS (test code = -0.1 MMOL/L -4.0-4.0 N POCBEA) POC O2 SATURATION (test code = 99.3 % 90-100 N POCO2S) FIO2 (test code = FIO2A) 60 % PaO2/FiO2 (test code = RYH4AWC1) 282.66 mm/Hg ABG DELIVERY (test code = BERTHA) BiPAP ABG SITE (test code = SITEA) Art Line BASIC METABOLIC [id number] 16:00:00 Test Item Value Reference Range Interpretation [...] = POCGLU) 214 MG/DL 70-110 H HEMOGLOBIN [id number] 16:00:00 Test Item Value Reference Range Interpretation Comments HEMOGLOBIN ABG (test code = HGB/ABG) 8.7 G/DL 11.0-15.0 L [id number] 16:00:00 Test Item Value Reference Range Interpretation Comments HEMATOCRIT (test code = HCT/ABG) 25 % 33.0-45.0 L POC LACTIC [id number] 16:00:00 Test Item Value Reference Range Interpretation Comments POC LACTIC ACID (test code = 0.5 mmol/l 0.9-1.7 L POCLAC) POC ARTERIAL BLOOD [id number] 14:49:00 Test Item Value Reference Range Interpretation Comments POC ARTERIAL BLOOD GAS PH (test 7.296 7.35-7.45 LL code = POCPHA) POC ARTERIAL BLOOD GAS PCO2 (test 56.3 mmHg 35.0-45 HH code = YGDLSB0N) POC TCO2 ARTERIAL (test code = 29.2 POCTCO2) POC ARTERIAL BLOOD GAS PO2 (test 53.1 mmHg 80-100.0 L code = ULFZW3Q) POC HCO3 ARTERIAL (test code = 27.5 MMOL/L 22.0-26.0 H ODNMIE2Q) POC BASE EXCESS (test code = 1.0 MMOL/L -4.0-4.0 N POCBEA) POC O2 SATURATION (test code = 82.6 % 90-100 L POCO2S) ABG SITE (test code = SITEA) R Radial BASIC METABOLIC [id number] 14:49:00 Test Item Value Reference Range Interpretation [...] = POCGLU) 198 MG/DL 70-110 H HEMOGLOBIN [id number] 14:49:00 Test Item Value Reference Range Interpretation Comments HEMOGLOBIN ABG (test code = HGB/ABG) 9.9 G/DL 11.0-15.0 L [id number] 14:49:00 Test Item Value Reference Range Interpretation Comments HEMATOCRIT (test code = HCT/ABG) 29 % 33.0-45.0 L POC LACTIC [id number] 14:49:00 Test Item Value Reference Range Interpretation Comments POC LACTIC ACID (test code = 0.5 mmol/l 0.9-1.7 L POCLAC) COMPREHENSIVE METABOLIC [id number] 13:18:00 Test Item Value Reference Range Interpretation [...] N TOTAL (test code = ALKP) GLUCOSE [id number] 12:45:00 Test Item Value Reference Range Interpretation Comments GLUCOSE BEDSIDE (test 176 MG/DL 70-110 H Perfor med by certified code = GLUBED) 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 COMPREHENSIVE METABOLIC [id number] 04:49:00 Test Item Value Reference Range Interpretation [...] code = ALKP) COMMENTS: POD #1HEPATIC FUNCTION [id number] 04:49:00 Test Item Value Reference Range Interpretation Comments BILIRUBIN DIRECT (test code = 0.20 MG/DL 0.0-0.30 N BILD) BILIRUBIN INDIRECT (test code = 0.30 MG/DL BILIND) COMMENTS: POD #[id number] 04:49:00 Test Item Value Reference Range Interpretation Comments MAGNESIUM (test code = MAG) 2.18 mg/dL 1.80-2.40 N COMMENTS: POD #1POC ARTERIAL BLOOD [id number] 04:36:00 Test Item Value Reference Range Interpretation Comments POC ARTERIAL BLOOD GAS PH (test 7.311 7.35-7.45 L code = POCPHA) POC ARTERIAL BLOOD GAS PCO2 (test 48.2 mmHg 35.0-45 H code = QJLEGC1R) POC TCO2 ARTERIAL (test code = 25.9 POCTCO2) POC ARTERIAL BLOOD GAS PO2 (test 86.5 mmHg 80-100.0 N code = GZVNN4I) POC HCO3 ARTERIAL (test code = 24.4 MMOL/L 22.0-26.0 N XUQWTO4X) POC BASE EXCESS (test code = -1.9 MMOL/L -4.0-4.0 N POCBEA) POC O2 SATURATION (test code = 95.7 % 90-100 N POCO2S) ABG DELIVERY (test code = BERTHA) Cannula ABG TEMPERATURE (test code = 98 F TEMPA) ABG SITE (test code = SITEA) R Tano ANASTACIA'S TEST (test code = ALLENS) Positive BASIC METABOLIC [id number] 04:36:00 Test Item Value Reference Range Interpretation [...] = POCGLU) 96 MG/DL 70-110 N HEMOGLOBIN [id number] 04:36:00 Test Item Value Reference Range Interpretation Comments HEMOGLOBIN ABG (test code = 10.8 G/DL 11.0-15.0 L HGB/ABG) [id number] 04:36:00 Test Item Value Reference Range Interpretation Comments HEMATOCRIT (test code = HCT/ABG) 32 % 33.0-45.0 L POC LACTIC [id number] 04:36:00 Test Item Value Reference Range Interpretation Comments POC LACTIC ACID (test code = 0.7 mmol/l 0.9-1.7 L POCLAC) CBC W/AUTO [id number] 04:29:00 Test Item Value Reference Range Interpretation [...] = MDIFF) COMMENTS: Daily while on HeparinGLUCOSE [id number] 00:54:00 Test Item Value Reference Range Interpretation Comments GLUCOSE BEDSIDE (test 115 MG/DL 70-110 H Perfor med by certified code = GLUBED) 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[facility] - XR CHEST 1 [id number] 00:00:00 [facility]: INDIRA HAMM : 1950 Sex: F FAX:Rao Etienne MD [place]: St: ADM FAX: Kwasi Christie MD FAX: Nubai Michaels MD [phone] FAX: Deejay Tinoco [phone] Name: INDIRA HAMM [facility] : 1950 Age/S: 71/F [address] [place] [address] Unit #: [id number] Loc: G.2205 [place] [address] Phys: Rao Mitchell MD Acct: [id number] Dis Date: Status: ADM IN PHONE #: [phone] Exam Date: 12/26/20211922 FAX #: [phone] Reason: HYPOXIA EXAMS: CPT CODE: [id number] XR CHEST 1 V 73161 PROCEDURE INFORMATION: Exam: XR Chest Exam date and time: 12/26/2021 7:23 PM Age: 71 years old Clinical indication: Condition or disease; Other: Hypoxia TECHNIQUE: Imaging protocol: Radiologic exam of the chest. Views: 1 view. COMPARISON: CR XR CHEST 1V 12/26/2021 6:16 AM FINDINGS: Tubes, catheters and devices: Right IJ CVC catheter noted with tip overlying the distal SVC. Lungs: Mild decreased lung volumes. There is bibasilar atelectasis/consolidation, dbhf-cn-ywthzpqd on the right and moderate on the left, with obscuration of the left hemidiaphragm Pleural spaces: Chest tubes are present bilaterally. There is blunting of the left costophrenic angle, suggesting small left pleural effusion pleural effusion. No pneumothorax. Heart/Mediastinum: Median sternotomy wires are present. There is sglh-hd-pyvjjtxj enlargement of the cardiac silhouette Vasculature is unremarkable. Bones/joints: Unremarkable. IMPRESSION: No change as compared to prior. at 2117 Reported and signed by: Judy Escalona M.D. CC: Rao Mitchell MD; Kwasi Christie MD; Nubia Michaels MD; Deejay Meneses MD Technologist: Charlotte Parker, RT(R); Dahlia Cortez RT(R) Trnscrd Date/Time/By: 12/26/2021 (2117) : By: LuluJYA Orig Print D/T: S: 12/26/2021 (2118) PAGE 1 Signed Report- XR CHEST 1 [id number] 00:00:00 [facility] 1950 Sex: F FAX:Kwasi Christie MD [place]: St: [facility] FAX: Nubia Michaels MD [phone] FAX: Lizzy Sutton [phone] FAX: Deejay Tinoco [phone] Name: INDIRA HAMM : 1950 Age/S: 71/F [address] [place] [address] Unit #: [id number] Loc: [address] [address] Phys: Alannah Sutton [employer] MEMBER Acct:[id number] Dis Date: Status: ADM IN PHONE #: [phone] Exam Date: 12/26/2021615 FAX #: [phone] Reason: Cardiac Surgery Post Op EXAMS: CPT CODE: [id number] XR CHEST 1 V 44367 PROCEDURE INFORM ATION: Exam: XR Chest Exam date and time: 12/26/2021 6:16 AM Age: 71 years old Clinical indication: Pain; Other: Cardiac surgery post op TECHNIQUE: Imaging protocol: Radiologic exam of the chest. Views: 1 view. COMPARISON: CR XR CHEST 1V 12/25/2021 5:58 AM FINDINGS: Tubes, catheters and devices: Mediastinal and bilateral thoracostomy drains in place. Right IJ Birmingham-Arslan catheter sheath in place. EKG leads overlie the chest. Lungs: Lung volumes are decreased. Hypoventilatory changes accentuating perihilar and infrahilar opacities. Retrocardiac opacification obscuring the hemidiaphragm unchanged. Slight improved definition of the right hemidiaphragm. Pleural spaces: Small bilateral apical pneumothoraces with separation approximately 1 cm evident on retrospective review of prior exam with interval decreased size. Grossly stable left pleural effusion. Heart/Mediastinum: Moderate prominence of the card iomediastinal silhouette is stable. Bones/joints: Sternotomy wires are intact. IMPRESSION: 1. Decreased lung volumes accentuating pulmonary opacities compatible with edema. Bibasilar atelectasis versusairspace disease, improved on the right. 2. Small apical pneumothoraces, decreased with thoracostomytubes in place. 3. Stable left basilar pleuroparenchymal disease. at 0849 Reported and signed by: Pop Holder M.D. PAGE 1 Signed Report (CONTINUED) FAX: Kwasi Christie MD [place]: St: ADM FAX: Nubia Michaels MD [phone] FAX: Lizzy Jordan [phone] FAX: Deejay Tinoco [phone] Name: INDIRA HAMM [facility] : 1950 Age/S: 71/F [address] [place] [address] Unit #: [id number] Loc: [address] [address] Phys:Alannah Sutton NP Acct: [id number] Dis Date: Status: ADM IN PHONE #: [phone] Exam Date: 12/26/2021 0616 FAX #: [phone] Reason: Cardiac Surgery Post Op EXAMS: CPT CODE: [id number] XR CHEST 1 V 90132 (Continued) CC: Kwasi Christie MD; Nubia Michaels MD; Alannah Jordan NP; Deejay Meneses MD Technologist: RT Nura(Sabina) Trnpiord Date/Time/By: 12/26/2021 (0849) : By: Ant Orig Print D/T: S: 12/26/2021 (0850) PAGE 2 Signed Report[facility] ART[facility] BLOOD [id number] 21:41:00 Test Item Value Reference Range Interpretation Comments POC ARTERIAL BLOOD GAS PH (test 7.280 7.35-7.45 LL code = POCPHA) POC ARTERIAL BLOOD GAS PCO2 (test 50.1 mmHg 35.0-45 HH code = RKAJSK7E) POC TCO2 ARTERIAL (test code = 25.1 POCTCO2) POC ARTERIAL BLOOD GAS PO2 (test 70.4 mmHg 80-100.0 L code = PCDZM3V) POC HCO3 ARTERIAL (test code = 23.6 MMOL/L 22.0-26.0 N DLQAJJ1M) POC BASE EXCESS (test code = -3.2 MMOL/L -4.0-4.0 N POCBEA) POC O2 SATURATION (test code = 91.5 % 90-100 N POCO2S) ABG DELIVERY (test code = BERTHA) Cannula ABG TEMPERATURE (test code = 98.3 F TEMPA) ABG SITE (test code = SITEA) Art Line ANASTACIA'S TEST (test code = ALLENS) N/A BASIC METABOLIC [id number] 21:41:00 Test Item Value Reference Range Interpretation [...] = POCGLU) 160 MG/DL 70-110 H HEMOGLOBIN [id number] 21:41:00 Test Item Value Reference Range Interpretation Comments HEMOGLOBIN ABG (test code = HGB/ABG) 8.7 G/DL 11.0-15.0 L [id number] 21:41:00 Test Item Value Reference Range Interpretation Comments HEMATOCRIT (test code = HCT/ABG) 26 % 33.0-45.0 L POC LACTIC [id number] 21:41:00 Test Item Value Reference Range Interpretation Comments POC LACTIC ACID (test code = 0.7 mmol/l 0.9-1.7 L POCLAC) GLUCOSE [id number] 16:28:00 Test Item Value Reference Range Interpretation Comments GLUCOSE BEDSIDE (test 145 MG/DL 70-110 H Perfor med by certified code = GLUBED) 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 POC ARTERIAL BLOOD [id number] 06:35:00 Test Item Value Reference Range Interpretation Comments POC ARTERIAL BLOOD GAS PH (test 7.328 7.35-7.45 L code = POCPHA) POC ARTERIAL BLOOD GAS PCO2 (test 49.7 mmHg 35.0-45 H code = GIOIVI5Y) POC TCO2 ARTERIAL (test code = 27.4 POCTCO2) POC ARTERIAL BLOOD GAS PO2 (test 107.4 mmHg 80-100.0 H code = JKWTV9F) POC HCO3 ARTERIAL (test code = 25.9 MMOL/L 22.0-26.0 N DDTXSH7I) POC BASE EXCESS (test code = 0.1 MMOL/L -4.0-4.0 N POCBEA) POC O2 SATURATION (test code = 97.5 % 90-100 N POCO2S) ABG DELIVERY (test code = BERTHA) Cannula ABG TEMPERATURE (test code = 99.9 F TEMPA) ABG SITE (test code = SITEA) Art Line ANASTACIA'S TEST (test code = ALLENS) N/A BASIC METABOLIC [id number] 06:35:00 Test Item Value Reference Range Interpretation [...] = POCGLU) 169 MG/DL 70-110 H HEMOGLOBIN [id number] 06:35:00 Test Item Value Reference Range Interpretation Comments HEMOGLOBIN ABG (test code = HGB/ABG) 9.5 G/DL 11.0-15.0 L [id number] 06:35:00 Test Item Value Reference Range Interpretation Comments HEMATOCRIT (test code = HCT/ABG) 28 % 33.0-45.0 L POC LACTIC [id number] 06:35:00 Test Item Value Reference Range Interpretation Comments POC LACTIC ACID (test code = 0.8 mmol/l 0.9-1.7 L POCLAC) COMPREHENSIVE METABOLIC [id number] 04:06:00 Test Item Value Reference Range Interpretation [...] code = ALKP) COMMENTS: POD #1HEPATIC FUNCTION [id number] 04:06:00 Test Item Value Reference Range Interpretation Comments BILIRUBIN DIRECT (test code = 0.20 MG/DL 0.0-0.30 N BILD) BILIRUBIN INDIRECT (test code = 0.30 MG/DL BILIND) COMMENTS: POD #[id number] 04:06:00 Test Item Value Reference Range Interpretation Comments MAGNESIUM (test code = MAG) 2.33 mg/dL 1.80-2.40 N COMMENTS: POD #1CBC W/AUTO [id number] 03:46:00 Test Item Value Reference Range Interpretation [...] COMMENTS: Daily while on HeparinPOC ARTERIAL BLOOD [id number] 03:41:00 Test Item Value Reference Range Interpretation Comments POC ARTERIAL BLOOD GAS PH (test 7.328 7.35-7.45 L code = POCPHA) POC ARTERIAL BLOOD GAS PCO2 54.9 mmHg 35.0-45 HH (test code = EWXXTV4D) POC TCO2 ARTERIAL (test code = 30.2 POCTCO2) POC ARTERIAL BLOOD GAS PO2 (test 95.6 mmHg 80-100.0 N code = DAUAG4J) POC HCO3 ARTERIAL (test code = 28.6 MMOL/L 22.0-26.0 HH AOUVAK3R) POC BASE EXCESS (test code = 2.8 MMOL/L -4.0-4.0 N POCBEA) POC O2 SATURATION (test code = 96.3 % 90-100 N POCO2S) FIO2 (test code = FIO2A) 30 % PaO2/FiO2 (test code = VWQ1PWO3) 318.66 mm/Hg ABG DELIVERY (test code = [...] (test code = N/A ALLENS) BASIC METABOLIC [id number] 03:41:00 Test Item Value Reference Range Interpretation [...] = POCGLU) 101 MG/DL 70-110 N HEMOGLOBIN [id number] 03:41:00 Test Item Value Reference Range Interpretation Comments HEMOGLOBIN ABG (test code = HGB/ABG) 9.0 G/DL 11.0-15.0 L [id number] 03:41:00 Test Item Value Reference Range Interpretation Comments HEMATOCRIT (test code = HCT/ABG) 26 % 33.0-45.0 L POC LACTIC [id number] 03:41:00 Test Item Value Reference Range Interpretation Comments POC LACTIC ACID (test code = 0.7 mmol/l 0.9-1.7 L POCLAC) GLUCOSE [id number] 00:51:00 Test Item Value Reference Range Interpretation Comments GLUCOSE BEDSIDE (test 116 MG/DL 70-110 H Perfor med by certified code = GLUBED) 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[facility] - XR CHEST 1 [id number] 00:00:00 [facility] : 1950 Sex: F FAX:Kwasi Christie MD [place]: St: ADM FAX: Nubia Michaels MD [phone] FAX: Lizzy Sutton [phone] FAX: Deejay Tinoco [phone] Name: INDIRA HAMM [facility] : 1950 Age/S: 71/F [address] [place] [address] Unit #: [id number] Loc: G.2205 [place] [address] Phys: Alannah Sutton [employer] MEMBER Acct: [id number] Dis Date: Status: ADM IN PHONE #: [phone] Exam Date: 12/25/2021 0558 FAX #: [phone] Reason: Cardiac Surgery Post Op EXAMS: CPT CODE: [id number] XR CHEST 1 V 33782 PROCEDURE INFOR MATION: Exam: XR Chest Exam [...] Median sternotomy changes. IMPRESSION: 1. Unchanged bibasilar airspace disease. 2. Unchanged small bilateral pleural effusions. 3. Lines and tubes, as above. at 0842 Reported and signed by: Rafael Patel M.D. CC: Kwasi Christie MD; Nubia Michaels MD; Alannah Jordan [employer] MEMBER; Deejay Meneses MD Technologist: RT Tricia(R) Trnscrd Date/Time/By: 12/25/2021 (0842) : By: [email or web address] Orig Print D/T: S: 12/25/2021 (3343) PAGE 1 Signed Report[facility] ART[facility]LO[facility] [id number] 22:35:00 Test Item Value Reference Range Interpretation Comments POC ARTERIAL BLOOD GAS PH (test 7.354 7.35-7.45 N code = POCPHA) POC ARTERIAL BLOOD GAS PCO2 49.9 mmHg 35.0-45 H (test code = [id number]) POC TCO2 ARTERIAL (test code = 28.9 POCTCO2) POC ARTERIAL BLOOD GAS PO2 (test 143.3 mmHg 80-100.0 H code = DHTNE4L) POC HCO3 ARTERIAL (test code = 27.5 MMOL/L 22.0-26.0 H [id number]) POC BASE EXCESS (test code = 2.2 MMOL/L -4.0-4.0 N POCBEA) POC O2 SATURATION (test code = 99.0 % 90-100 N POCO2S) FIO2 (test code = FIO2A) 40 % PaO2/FiO2 (test code = [id number]) 358.25 mm/Hg ABG DELIVERY (test code = [...] Line ANASTACIA'S TEST (test code = N/A ALLENTirso) BASIC METABOLIC [id number] 22:35:00 Test Item Value Reference Range Interpretation [...] = POCGLU) 126 MG/DL 70-110 H HEMOGLOBIN [id number] 22:35:00 Test Item Value Reference Range Interpretation Comments HEMOGLOBIN ABG (test code = HGB/ABG) 9.5 G/DL 11.0-15.0 L [id number] 22:35:00 Test Item Value Reference Range Interpretation Comments HEMATOCRIT (test code = HCT/ABG) 28 % 33.0-45.0 L POC LACTIC [id number] 22:35:00 Test Item Value Reference Range Interpretation Comments POC LACTIC ACID (test code = 0.7 mmol/l 0.9-1.7 L POCLAC) POC ARTERIAL BLOOD [id number] 21:27:00 Test Item Value Reference Range Interpretation Comments POC ARTERIAL BLOOD GAS PH (test 7.277 7.35-7.45 LL code = POCPHA) POC ARTERIAL BLOOD GAS PCO2 66.3 mmHg 35.0-45 HH (test code = BOFIJN0H) POC TCO2 ARTERIAL (test code = 32.7 POCTCO2) POC ARTERIAL BLOOD GAS PO2 (test 102.2 mmHg 80-100.0 H code = JEXPL7E) POC HCO3 ARTERIAL (test code = 30.7 MMOL/L 22.0-26.0 HH [id number]) POC BASE EXCESS (test code = 4.1 MMOL/L -4.0-4.0 H POCBEA) POC O2 SATURATION (test code = 96.4 % 90-100 N POCO2S) FIO2 (test code = FIO2A) 40 % PaO2/FiO2 (test code = [id number]) 255.50 mm/Hg ABG DELIVERY (test code = BERTHA) Adult Vent ABG VENT MODE (test code = CPAP/PS MODEA) ABG PEEP (test code = PEEPA) 5 cmH2O ABG PRESSURE SUPPORT (test code 5 cmH2O = PSABG) ABG TEMPERATURE (test code = 99.7 F TEMPA) ABG SITE (test code = SITEA) Art Line ANASTACIA'S TEST (test code = N/A ALLENS) BASIC METABOLIC [id number] 21:27:00 Test Item Value Reference Range Interpretation [...] = POCGLU) 142 MG/DL 70-110 H HEMOGLOBIN [id number] 21:27:00 Test Item Value Reference Range Interpretation Comments HEMOGLOBIN ABG (test code = 10.5 G/DL 11.0-15.0 L HGB/ABG) [id number] 21:27:00 Test Item Value Reference Range Interpretation Comments HEMATOCRIT (test code = HCT/ABG) 31 % 33.0-45.0 L POC LACTIC [id number] 21:27:00 Test Item Value Reference Range Interpretation Comments POC LACTIC ACID (test code = 1.1 mmol/l 0.9-1.7 N POCLAC) GLUCOSE [id number] 21:11:00 Test Item Value Reference Range Interpretation Comments GLUCOSE BEDSIDE (test 139 MG/DL 70-110 H Perfor med by certified code = GLUBED) 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[facility] CBC W/AUTO [id number] 19:26:00 Test Item Value Reference Range Interpretation [...] code = MDIFF) COMMENTS: On arrivalBASIC METABOLIC [id number] 18:52:00 Test Item Value Reference Range Interpretation [...] 9.0 mg/dL 8.0-10.5 N CA) COMMENTS: On [id number] 18:52:00 Test Item Value Reference Range Interpretation Comments MAGNESIUM (test code = MAG) 2.50 mg/dL 1.80-2.40 H COMMENTS: On arrivalLACTIC [id number] 18:51:00 Test Item Value Reference Range Interpretation Comments LACTIC ACID (test code = LACT) 1.5 mmol/L 0.4-1.9 N THROMBOPLASTIN TIME [id number] 18:48:00 Test Item Value Reference Range Interpretation Comments THROMBOPLASTIN TIME 29.8 Seconds 25.0-39.5 Therape utic Range: PARTIAL (test code = 50.4 - 88.3 Seconds PTT) Effective 06/19/2018 COMMENTS: On arrivalPOC ARTERIAL BLOOD [id number] 18:35:00 Test Item Value Reference Range Interpretation Comments POC ARTERIAL BLOOD GAS PH (test 7.353 7.35-7.45 N code = POCPHA) POC ARTERIAL BLOOD GAS PCO2 46.7 mmHg 35.0-45 H (test code = PQUEWG7J) POC TCO2 ARTERIAL (test code = 27.8 POCTCO2) POC ARTERIAL BLOOD GAS PO2 (test 92.5 mmHg 80-100.0 N code = QGWSD4C) POC HCO3 ARTERIAL (test code = 26.3 MMOL/L 22.0-26.0 H ZMLBIE3Y) POC BASE EXCESS (test code = 0.4 MMOL/L -4.0-4.0 N POCBEA) POC O2 SATURATION (test code = 97.1 % 90-100 N POCO2S) FIO2 (test code = FIO2A) 50 % PaO2/FiO2 (test code = [id number]) 185.00 mm/Hg ABG DELIVERY (test code = BERTHA) Adult Vent ABG VENT MODE (test code = SIMV MODEA) ABG VENT RESP RATE (test code = 16 /MIN RRA) ABG TIDAL VOLUME (test code = 450 ml TVA) ABG PEEP (test code = PEEPA) 5 cmH2O ABG TEMPERATURE (test code = 96.6 F TEMPA) ABG SITE (test code = SITEA) Art Line BASIC METABOLIC [id number] 18:35:00 Test Item Value Reference Range Interpretation [...] = POCGLU) 185 MG/DL 70-110 H HEMOGLOBIN [id number] 18:35:00 Test Item Value Reference Range Interpretation Comments HEMOGLOBIN ABG (test code = 10.6 G/DL 11.0-15.0 L HGB/ABG) [id number] 18:35:00 Test Item Value Reference Range Interpretation Comments HEMATOCRIT (test code = HCT/ABG) 31 % 33.0-45.0 L POC LACTIC [id number] 18:35:00 Test Item Value Reference Range Interpretation Comments POC LACTIC ACID (test code = 1.7 mmol/l 0.9-1.7 N POCLAC) [id number] 17:59:00 Test Item Value Reference Range Interpretation Comments ACT-ISTAT (test code 126 SEC 74-137 N Perform ed by certified = ACTI) 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[facility] POC ARTERIAL BLOOD [id number] 17:56:00 Test Item Value Reference Range Interpretation Comments POC ARTERIAL BLOOD GAS PH (test 7.402 7.35-7.45 N code = POCPHA) POC ARTERIAL BLOOD GAS PCO2 (test 38.2 mmHg 35.0-45 N code = KQGIBQ0K) POC TCO2 ARTERIAL (test code = 25.0 POCTCO2) POC ARTERIAL BLOOD GAS PO2 (test 258.0 mmHg 80-100.0 HH code = YZVIM2J) POC HCO3 ARTERIAL (test code = 23.8 MMOL/L 22.0-26.0 N JHESUY1I) POC BASE EXCESS (test code = -0.8 MMOL/L -4.0-4.0 N POCBEA) POC O2 SATURATION (test code = 99.9 % 90-100 N POCO2S) BASIC METABOLIC [id number] 17:56:00 Test Item Value Reference Range Interpretation [...] = POCGLU) 157 MG/DL 70-110 H HEMOGLOBIN [id number] 17:56:00 Test Item Value Reference Range Interpretation Comments HEMOGLOBIN ABG (test code = 10.0 G/DL 11.0-15.0 L HGB/ABG) [id number] 17:56:00 Test Item Value Reference Range Interpretation Comments HEMATOCRIT (test code = HCT/ABG) 29 % 33.0-45.0 L POC LACTIC [id number] 17:56:00 Test Item Value Reference Range Interpretation Comments POC LACTIC ACID (test code = 1.7 mmol/l 0.9-1.7 N POCLAC) [id number] 17:07:00 Test Item Value Reference Range Interpretation Comments ACT-ISTAT (test code 543 SEC 74-137 H Perform ed by certified = ACTI) 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[facility] POC ARTERIAL BLOOD [id number] 16:58:00 Test Item Value Reference Range Interpretation Comments POC ARTERIAL BLOOD GAS PH (test 7.468 7.35-7.45 H code = POCPHA) POC ARTERIAL BLOOD GAS PCO2 (test 35.6 mmHg 35.0-45 N code = FTDZFZ7N) POC TCO2 ARTERIAL (test code = 26.9 POCTCO2) POC ARTERIAL BLOOD GAS PO2 (test 354.8 mmHg 80-100.0 HH code = ITYBB3C) POC HCO3 ARTERIAL (test code = 25.8 MMOL/L 22.0-26.0 N IQZWHY3D) POC BASE EXCESS (test code = 2.1 MMOL/L -4.0-4.0 N POCBEA) POC O2 SATURATION (test code = 100.0 % 90-100 N POCO2S) BASIC METABOLIC [id number] 16:58:00 Test Item Value Reference Range Interpretation [...] = POCGLU) 143 MG/DL 70-110 H HEMOGLOBIN [id number] 16:58:00 Test Item Value Reference Range Interpretation Comments HEMOGLOBIN ABG (test code = HGB/ABG) 9.2 G/DL 11.0-15.0 L [id number] 16:58:00 Test Item Value Reference Range Interpretation Comments HEMATOCRIT (test code = HCT/ABG) 27 % 33.0-45.0 L POC LACTIC [id number] 16:58:00 Test Item Value Reference Range Interpretation Comments POC LACTIC ACID (test code = 0.7 mmol/l 0.9-1.7 L POCLAC) [id number] 16:43:00 Test Item Value Reference Range Interpretation Comments ACT-ISTAT (test code 625 SEC 74-137 H Perform ed by certified = ACTI) 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[facility] POC ARTERIAL BLOOD [id number] 16:36:00 Test Item Value Reference Range Interpretation Comments POC ARTERIAL BLOOD GAS PH (test 7.406 7.35-7.45 N code = POCPHA) POC ARTERIAL BLOOD GAS PCO2 (test 42.4 mmHg 35.0-45 N code = BROVXS8O) POC TCO2 ARTERIAL (test code = 27.9 POCTCO2) POC ARTERIAL BLOOD GAS PO2 (test 409.3 mmHg 80-100.0 HH code = GXAOS7E) POC HCO3 ARTERIAL (test code = 26.6 MMOL/L 22.0-26.0 H SICSRO4H) POC BASE EXCESS (test code = 1.7 MMOL/L -4.0-4.0 N POCBEA) POC O2 SATURATION (test code = 100.0 % 90-100 N POCO2S) BASIC METABOLIC [id number] 16:36:00 Test Item Value Reference Range Interpretation [...] = POCGLU) 145 MG/DL 70-110 H HEMOGLOBIN [id number] 16:36:00 Test Item Value Reference Range Interpretation Comments HEMOGLOBIN ABG (test code = HGB/ABG) 9.2 G/DL 11.0-15.0 L [id number] 16:36:00 Test Item Value Reference Range Interpretation Comments HEMATOCRIT (test code = HCT/ABG) 27 % 33.0-45.0 L POC LACTIC [id number] 16:36:00 Test Item Value Reference Range Interpretation Comments POC LACTIC ACID (test code = 0.9 mmol/l 0.9-1.7 N POCLAC) [id number] 16:14:00 Test Item Value Reference Range Interpretation Comments ACT-ISTAT (test code 648 SEC 74-137 H Perform ed by certified = ACTI) 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[facility] POC ARTERIAL BLOOD [id number] 16:08:00 Test Item Value Reference Range Interpretation Comments POC ARTERIAL BLOOD GAS PH (test 7.397 7.35-7.45 N code = POCPHA) POC ARTERIAL BLOOD GAS PCO2 (test 44.4 mmHg 35.0-45 N code = FEEEMF5T) POC TCO2 ARTERIAL (test code = 28.7 POCTCO2) POC ARTERIAL BLOOD GAS PO2 (test 503.7 mmHg 80-100.0 HH code = WNEYQ3W) POC HCO3 ARTERIAL (test code = 27.3 MMOL/L 22.0-26.0 H LIJKRN0X) POC BASE EXCESS (test code = 2.1 MMOL/L -4.0-4.0 N POCBEA) POC O2 SATURATION (test code = 100.0 % 90-100 N POCO2S) BASIC METABOLIC [id number] 16:08:00 Test Item Value Reference Range Interpretation [...] = POCGLU) 157 MG/DL 70-110 H HEMOGLOBIN [id number] 16:08:00 Test Item Value Reference Range Interpretation Comments HEMOGLOBIN ABG (test code = HGB/ABG) 9.1 G/DL 11.0-15.0 L [id number] 16:08:00 Test Item Value Reference Range Interpretation Comments HEMATOCRIT (test code = HCT/ABG) 27 % 33.0-45.0 L POC LACTIC [id number] 16:08:00 Test Item Value Reference Range Interpretation Comments POC LACTIC ACID (test code = 1.0 mmol/l 0.9-1.7 N POCLAC) [id number] 15:50:00 Test Item Value Reference Range Interpretation Comments ACT-ISTAT (test code 677 SEC 74-137 H Perform ed by certified = ACTI) 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[facility] POC ARTERIAL BLOOD [id number] 15:40:00 Test Item Value Reference Range Interpretation Comments POC ARTERIAL BLOOD GAS PH (test 7.261 7.35-7.45 LL code = POCPHA) POC ARTERIAL BLOOD GAS PCO2 (test 60.0 mmHg 35.0-45 HH code = VNLOFT0E) POC TCO2 ARTERIAL (test code = 28.8 POCTCO2) POC ARTERIAL BLOOD GAS PO2 (test 86.9 mmHg 80-100.0 N code = VAMZC9W) POC HCO3 ARTERIAL (test code = 27.0 MMOL/L 22.0-26.0 H IGGROD5X) POC BASE EXCESS (test code = -1.0 MMOL/L -4.0-4.0 N POCBEA) POC O2 SATURATION (test code = 94.7 % 90-100 N POCO2S) BASIC METABOLIC [id number] 15:40:00 Test Item Value Reference Range Interpretation [...] = POCGLU) 207 MG/DL 70-110 H HEMOGLOBIN [id number] 15:40:00 Test Item Value Reference Range Interpretation Comments HEMOGLOBIN ABG (test code = 11.2 G/DL 11.0-15.0 N HGB/ABG) [id number] 15:40:00 Test Item Value Reference Range Interpretation Comments HEMATOCRIT (test code = HCT/ABG) 33 % 33.0-45.0 N POC LACTIC [id number] 15:40:00 Test Item Value Reference Range Interpretation Comments POC LACTIC ACID (test code = 0.9 mmol/l 0.9-1.7 N POCLAC) [id number] 13:42:00 Test Item Value Reference Range Interpretation Comments ACT-ISTAT (test code 144 SEC 74-137 H Perform ed by certified = ACTI) 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[facility] POC ARTERIAL BLOOD [id number] 13:42:00 Test Item Value Reference Range Interpretation Comments POC ARTERIAL BLOOD GAS PH (test 7.384 7.35-7.45 N code = POCPHA) POC ARTERIAL BLOOD GAS PCO2 (test 43.9 mmHg 35.0-45 N code = YUTDQJ3Y) POC TCO2 ARTERIAL (test code = 27.6 POCTCO2) POC ARTERIAL BLOOD GAS PO2 (test 311.4 mmHg 80-100.0 HH code = VKBGO6S) POC HCO3 ARTERIAL (test code = 26.2 MMOL/L 22.0-26.0 H AHYCRJ0Q) POC BASE EXCESS (test code = 0.9 MMOL/L -4.0-4.0 N POCBEA) POC O2 SATURATION (test code = 99.9 % 90-100 N POCO2S) BASIC METABOLIC [id number] 13:42:00 Test Item Value Reference Range Interpretation [...] = POCGLU) 114 MG/DL 70-110 H HEMOGLOBIN [id number] 13:42:00 Test Item Value Reference Range Interpretation Comments HEMOGLOBIN ABG (test code = 10.9 G/DL 11.0-15.0 L HGB/ABG) [id number] 13:42:00 Test Item Value Reference Range Interpretation Comments HEMATOCRIT (test code = HCT/ABG) 32 % 33.0-45.0 L POC LACTIC [id number] 13:42:00 Test Item Value Reference Range Interpretation Comments POC LACTIC ACID (test code = 0.6 mmol/l 0.9-1.7 L POCLAC) B-TYPE NATRIURETIC [id number] 10:39:00 Test Item Value Reference Range Interpretation Comments B-TYPE NATRIURETIC PEPTIDE (test 994.0 PG/ML 0-100 H code = BNP) COMPREHENSIVE METABOLIC [id number] 04:36:00 Test Item Value Reference Range Interpretation [...] (test code = LDL) NEAR OPTIM AL/ABOVE [id number] ESMCEPUUGY518-2 89 HIGH>OW=851 DENG Y HIGH*Guidelines provided by the National Choles terol EducationProgra m Adult Treatment Panel III [id number] 04:36:00 Test Item Value Reference Range Interpretation Comments MAGNESIUM (test code = MAG) 1.87 mg/dL 1.80-2.40 N CALCIUM [id number] 04:36:00 Test Item Value Reference Range Interpretation Comments CALCIUM IONIZED (test code = ANU) 1.09 MMOL/L 1.09-1.30 N [id number] 04:29:00 Test Item Value Reference Range Interpretation Comments HGBA1C% (test code = HGBA1C%) 5.2 %A1C 4.8-6.0 N PROTHROMBIN [id number] 04:15:00 Test Item Value Reference Range Interpretation [...] (to prevent recurrent infar ct). THROMBOPLASTIN TIME [id number] 04:15:00 Test Item Value Reference Range Interpretation Comments THROMBOPLASTIN TIME 68.6 Seconds 25.0-39.5 H Therape utic Range: PARTIAL (test code = 50.4 - 88.3 Seconds PTT) Effective 06/19/2018 CBC W/AUTO [id number] 04:10:00 Test Item Value Reference Range Interpretation [...] REQUIRED (test code NO = MDIFF) - XR CHEST 1 [id number] 00:00:00 [facility] 1950 Sex: F FAX:Kwasi Christie MD [place]: St: [facility] FAX: Nubia Michaels MD [phone] FAX: Lizzy Sutton [phone] FAX: Deejay Tinoco [phone] Name: INDIRA HAMM [facility] : 1950 Age/S: 71/F [address] [place] [address] Unit #: [id number] Loc: [address] [place] [address] Phys: Alannah Sutton [employer] MEMBER Acct:[id number] Dis Date: Status: ADM IN PHONE #: [phone] Exam Date: 12/24/2021 1845 FAX #: [phone] Reason: Cardiac Surgery Post Op EXAMS: CPT CODE: [id number] XR CHEST 1 V 02896 PROCEDURE INFOR MATION: Exam: XR Chest Exam date and time: 12/24/2021 6:08 PM Age: 71 years old Clinical indication:Other: Cardiac surgery post op TECHNIQUE: Imaging protocol: Radiologic exam of the chest. Views: 1 view. COMPARISON: CT CHEST W/O CONTRAST 12/23/2021 10:27 AM FINDINGS: Tubes, catheters and devices: ETtube noted with tip 3.6 cm above the yuan. Right IJ double-lumen CVC catheter noted, with tips overlying the distal SVC. Bilateral chest tubes are present, with mediastinal drains. Lungs: Mild decreased lung volumes. Xvkc-dd-jgpkpwya interstitial and airspace disease is present in the lung bases bilaterally. Pleural spaces: Unremarkable. No pleural effusion. No pneumothorax. Heart/Mediastinum: There is mild enlargement of the cardiac silhouette. Mild calcification of the aortic knob is seen. Bones/joints: Median sternotomy wires are seen. IMPRESSION: 1. Lines and tubes are in satisfactory position. 2. Median sternotomy wires are present, with xnee-dh-zlfsmhyk enlargement of the cardiac silhouette. 3. Chss-fy-equiusze bibasilar atelectasis/infiltrate noted, worse on the left than the right. at 1935 Reported and signed by:Judy Escalona M.D. 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 THROMBOPLASTIN TIME [id number] 16:36:00 Test Item Value Reference Range Interpretation Comments THROMBOPLASTIN TIME 65.1 Seconds 25.0-39.5 H Therape utic Range: PARTIAL (test code = 50.4 - 88.3 Seconds PTT) Effective 06/19/2018 THROMBOPLASTIN TIME [id number] 12:57:00 Test Item Value Reference Range Interpretation Comments THROMBOPLASTIN TIME 62.0 Seconds 25.0-39.5 H Therape utic Range: PARTIAL (test code = 50.4 - 88.3 Seconds PTT) Effective 06/19/2018 GLUCOSE [id number] 12:22:00 Test Item Value Reference Range Interpretation Comments GLUCOSE BEDSIDE (test 131 MG/DL 70-110 H Perfor med by certified code = GLUBED) 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[facility] POC ARTERIAL BLOOD [id number] 11:30:00 Test Item Value Reference Range Interpretation Comments POC ARTERIAL BLOOD GAS PH (test 7.390 7.35-7.45 N code = POCPHA) POC ARTERIAL BLOOD GAS PCO2 45.8 mmHg 35.0-45 H (test code = KUKYVR5H) POC TCO2 ARTERIAL (test code = 29.1 POCTCO2) POC ARTERIAL BLOOD GAS PO2 (test 56.7 mmHg 80-100.0 L code = LFDQV7B) POC HCO3 ARTERIAL (test code = 27.7 MMOL/L 22.0-26.0 H ERGZVS9E) POC BASE EXCESS (test code = 2.7 MMOL/L -4.0-4.0 N POCBEA) POC O2 SATURATION (test code = 88.5 % 90-100 L POCO2S) FIO2 (test code = FIO2A) 21 % PaO2/FiO2 (test code = VOK9WPT5) 270.00 mm/Hg ABG SITE (test code = SITEA) R Radial ANASTACIA'S TEST (test code = Negative ALLENS) GLUCOSE [id number] 08:13:00 Test Item Value Reference Range Interpretation Comments GLUCOSE BEDSIDE (test 165 MG/DL 70-110 H Perfor med by certified code = GLUBED) 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[facility] BASIC METABOLIC [id number] 06:03:00 Test Item Value Reference Range Interpretation [...] 8.7 mg/dL 8.0-10.5 N CA) THROMBOPLASTIN TIME [id number] 05:39:00 Test Item Value Reference Range Interpretation Comments THROMBOPLASTIN TIME 38.7 Seconds 25.0-39.5 N Therape utic Range: PARTIAL (test code = 50.4 - 88.3 Seconds PTT) Effective 06/19/2018 [id number] 05:38:00 Test Item Value Reference Range Interpretation Comments MAGNESIUM (test code = MAG) 2.08 mg/dL 1.80-2.40 CALCIUM [id number] 05:38:00 Test Item Value Reference Range Interpretation Comments CALCIUM IONIZED (test code = ANU) 1.11 MMOL/L 1.09-1.30 N [id number]%[id number] 05:38:00 Test Item Value Reference Range Interpretation Comments HGBA1C% (test code = HGBA1C%) 5.2 %A1C 4.8-6.0 N CBC W/AUTO [id number] 05:21:00 Test Item Value Reference Range Interpretation [...] COMMENTS: Daily while on Heparin- DUP EXTRACRANIAL [id number] 00:00:00 [facility] : 1950 Sex: F Name: INDIRA HAMM [facility] : 1950 Age/S: 71 / F [address] [place] [address] Blvd Unit #: [id number] Loc: [place] [address] Phys: Alannah Jordan [employer] MEMBER Acct: [id number] Dis Date: Status: ADM INPHONE #: [phone] Exam Date: 12/23/2021702 FAX #: [phone] Reason: PRE CABG EVAL EXAMS: CPT CODE: [id number] DUP EXTRACRANIAL DEAN 28668 PROCEDURE INFORMATION: Exam: US Duplex Bilateral Extracranial Arteries, Carotid Arteries Exam date and time: 12/23/2021 6:31 AM Age: 71 years old Clinical indication: Screening exam; Patient HX: Pre cabg eval TECHNIQUE: Imaging protocol: Real-time Duplex ultrasound scan of the bilateral carotid and vertebral arteries combining argueta scale, color Doppler and spectral waveform analysis. Bilateral exam. Exam focused on the carotid arteries. COMPARISON: No relevant prior studies available. FINDINGS: Right common carotid artery: Plaque formation. No occlusionor stenosis. Waveforms are normal. Right internal carotid artery: Plaque formation. No occlusion or s tenosis. Waveforms are normal. Right ICA/CCA ratio: Within normal limits. Right external carotid artery: No stenosis in the origin. Right vertebral artery: Unremarkable. Antegrade flow. Left common carotid artery: Plaque formation. No occlusion or stenosis. Waveforms are normal. Left internal carotidartery: Plaque formation with elevation of the peak systolic velocity to 183 cm/second. Left ICA/CCAratio: 1.8. Left external carotid artery: No stenosis [...] patent lumen. at 0716 Reported and signed by: Chito Pringle M.D. PAGE 1 Signed Report (CONTINUED) Name: INDIRA HAMM [facility] : 1950 Age/S: 71 / F [address] [place] [address] Blvd Unit #: [id number] Loc: [place] [address] Phys: Alannah Uribe [employer] MEMBER Acct: [id number] Dis Date: Status: ADM IN PHONE #: [phone] Exam Date: 12/23/2021702 FAX #: [phone] Reason: PRE CABG EVAL EXAMS: CPT CODE: [id number] DUP EXTRACRANIAL [id number] (Continued) CC: Nubia Michaels MD; Alannah Jordan NP; Deejay Meneses MD Technologis t: Bethany Gautam RDMS(AB)(OB) Trnscb Date/Time: 12/23/2021 (715) [email or web address] Orig Print D/T: S: 12/23/2021 (715) Probe: PAGE 2 Signed Report- DUP VEIN DEAN 2021-12-23 00:00:00 [facility] : 1950 Sex: F Name: INDIRA HAMM [facility] : 1950 Age/S: 71 / F [address] [place] [address] Unit #: [id number] Loc: [place] [address] Phys: Alannah Jordan NP Acct: [id number] Dis Date: Status: ADM IN PHONE #: [phone] Exam Date: 12/23/2021702 FAX #: [phone] Reason: PRE CABG EVAL EXAMS: CPT CODE: [id number] DUP VEIN DEAN 01022 PROCEDURE INFORMATION: Exam: US Duplex Lower Extremity Veins; Vein mapping Exam date and time: 12/23/2021 6:43 AM Age: 71 years old Clinical indication: Screening exam; Pre cabg eval; () TECHNIQUE: Imaging protocol: Real-time duplex ultrasound of the Lower Extremities with 2-D argueta scale, color Doppler flow and spectral waveform analysis with image documentation.Complete exam focused on the bilateral lower extremity [...] measurements as above. at 0754 Reported and signedby: Gentry Haque M.D. CC: Nubia Michaels MD; Alannah Jordan NP; Deejay Meneses MD Technologist: Bethany Gautam RDMS(AB)(OB) Trnscb Date/Time: 12/23/2021 (753) Nayely Orig Print D/T: S: 12/23/2021 (0754) Probe: PAGE 1 Signed Report- CT CHEST W/O [id number] 00:00:00 [facility] : 1950 Sex: F Name: INDIRA HAMM [facility] : 1950 Age/S: 71 / F [address] Unit #: [id number] Loc: [place] [address] Phys: Alannah Jordan [employer] MEMBER Acct: [id number] Dis Date: Status: ADM IN PHONE #: [phone] Exam Date: 12/23/2021 1034 FAX #: [phone] Reason: PRE CABG EVAL EXAMS:CPT CODE: [id number] CT CHEST W/O CONTRAST 31170 PROCEDURE INFORMATION: Exam: CT Chest Without Contrast; [...] present. Lymph nodes: Unremarkable. No enlarged lymph nodes.Vasculature: Moderate aortic arch calcifications are present. Bones/joints: Unremarkable. No acute fracture. Soft tissues: Unremarkable. IMPRESSION: 1. Small bilateral pleural effusions with bibasilar atelectasis. 2. Ground-glass opacities throughout both lungs suggestive of edema. 3. Severe coronary arterial calcifications. at 1457 Reported and signed by: Doron Traore M.D. CC: Nubia Michaels MD; Alannah Jordan [employer] MEMBER; Deejay Meneses MD Technologist:Charlotte Terry. RT(R)(CT) CTDI: DLP: Trnscb Date/Time: 12/23/2021 (1456) [email or web address] Orig Print D/T: S: 12/23/2021 (1456) PAGE 1 Signed ReportPOC ARTERIAL BLOOD [id number] 23:37:00 Test Item Value Reference Range Interpretation Comments POC ARTERIAL BLOOD GAS PH (test 7.354 7.35-7.45 N code = POCPHA) POC ARTERIAL BLOOD GAS PCO2 53.3 mmHg 35.0-45 HH (test code = GNGZXH3G) POC TCO2 ARTERIAL (test code = 31.3 POCTCO2) POC ARTERIAL BLOOD GAS PO2 (test 231.2 mmHg 80-100.0 HH code = DRKMX6X) POC HCO3 ARTERIAL (test code = 29.7 MMOL/L 22.0-26.0 HH [id number]) POC BASE EXCESS (test code = 4.1 MMOL/L -4.0-4.0 H POCBEA) POC O2 SATURATION (test code = 99.8 % 90-100 N POCO2S) FIO2 (test code = FIO2A) 60 % PaO2/FiO2 (test code = [id number]) 385.33 mm/Hg ABG DELIVERY (test code = [...] TEST (test code = Positive ALLENS) LIPOPROTEIN [id number] 23:14:00 Test Item Value Reference Range Interpretation Comments LIPOPROTEIN LDL 90.5 mg/dL 0-100 N <100 OPTIMA R726-004 (test code = LDL) NEAR OPTIM AL/ABOVE [id number] HIGH>WH=710 DENG Y HIGH*Guidelines provided by the National Cholesterol EducationProgra m Adult Treatment Panel III TROP-I HIGH [id number] 22:45:00 Test Item Value Reference Range Interpretation Comments TROP-I HIGH 1963 ng/L 0-34 HH Critical result called to SENSITIVITY (test TERRELL YU, RNby code = TROPIHS) G.LAB.ATD at 2244 12/22/21Nurse r ead back result and tech confirmed it's correct? Y ESCAUTION: Units of the cu rrent test methodology (ng /L) differfrom the prior test methodology (ng /mL) by a factor of 1000. 99t h Percentile Uppe r Reference Limit (URL): Fe males: 34 ng/LMales: 54 n g/L In order to distin guish acute elevations of h igh sensitivitytrop onin from other clinical conditions, the FourthUnive rsal Definition of M yocardial Infarction stressesclinica l assessment and the demonstration o f a rise and/orfall in s erial troponin result s above the URL. These resu lts were obtained using Siemens Atellica IM TnI Hreagent. Results from di fferent methodologies s hould not becompared to o ne another as quantitative results and URLs mayvar y by method. CALCIUM [id number] 22:45:00 Test Item Value Reference Range Interpretation Comments CALCIUM IONIZED (test code = ANU) 1.01 MMOL/L 1.09-1.30 L BASIC METABOLIC [id number] 22:45:00 Test Item Value Reference Range Interpretation [...] code = 8.2 mg/dL 8.0-10.5 N CA) [id number] 22:45:00 Test Item Value Reference Range Interpretation Comments PHOSPHOROUS (test code = PHOS) 4.0 MG/DL 2.5-4.9 N [id number] 22:45:00 Test Item Value Reference Range Interpretation Comments MAGNESIUM (test code = MAG) 1.61 mg/dL 1.80-2.40 L PROTHROMBIN [id number] 22:37:00 Test Item Value Reference Range Interpretation [...] ALREADY DONE WITHIN LAST 24 HOURSCBC W/AUTO [id number] 22:27:00 Test Item Value Reference Range Interpretation [...] NOT ALREADY DONE WITHIN LAST 24 HOURSGLUCOSE [id number] 21:26:00 Test Item Value Reference Range Interpretation Comments GLUCOSE BEDSIDE (test 186 MG/DL 70-110 H Perfor med by certified code = GLUBED) 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[employer] [facility] - XR CHEST 1 [id number] 00:00:00 [facility] 1950 Sex: F FAX:Parminder Fabian MD [phone] [place]: St: [facility] FAX: Eric Sandoval MD [phone] FAX: Deejay Tinoco [phone] Name: INDIRA HAMM [facility] : 1950 Age/S: 71/F [address] [place] [address] Unit #: [id number] Loc: G.3314 [place] [address] Phys: Eric Casey MD Acct: [id number] Dis Date: Status: ADM IN PHONE #: [phone] Exam Date: 12/22/20212152 FAX #: [phone] Reason: SOB EXAMS: CPT CODE: [id number] XR CHEST 1 V 24172 PROCEDURE INFORMATION: Exam: XR Chest Exam date [...] Mild cardiomegaly. Bones/joints: No acute osseous abnormality. IMPRESSION: 1. Findings suspicious for multifocal pneumonia with pulmonary edema not excluded. 2. Small left pleural effusion at 2246 Reported and signed by: Pippa Quiñones M.D. CC: Parminder Fabian MD; Eric Casey MD; Julieth Meneses MD Technologist: Madai Duong, RT(R) Trnscrd Date/Time/By: 12/22/2021 (2245) : By:[email or web address] [facility] Print D/T: S: 12/22/2021 (2246) PAGE 1 Signed Report[U] XRAY HIP UNILATERAL MIN 2 VWS LEFT [id number] 13:18:00Images acquired, not reported on this accession number.[facility]
[2022-02-04] MEDS ORDERED: METOPROLOL TAR 25 MG TAB ONE ×2 (13:12→14:54)
[2022-02-04 13:29] LABS: Absolute Lymphocytes (CBC) 0.8 K/uL (0.7-4.9); Lymphocytes % 10.5 % (15.3-44.8); MCV 90.7 fL (80-100); RBC Red Blood Cell Count 3.31 M/uL (3.86-4.86)
[2022-02-04 13:30] LABS: Protime INR 1.02
--- NOTE | 2022-02-04 13:39 | RAD REPORT ---
EXAM DESCRIPTION: RAD - Chest Single View - 02/04/2022 1:26 pm CLINICAL HISTORY: PALPITATIONS Chest pain. COMPARISON: Chest Single View dated 01/17/2022; Chest Single View dated 12/22/2021; Chest Single Vie w dated 12/21/2021; Chest Pa And Lat (2 Views) dated 01/29/2019 FINDINGS: Portable technique limits examination quality. Mild pulmonary edema is seen. The heart is moderately enlarged. No displaced fractures.Sternotomy wir es. IMPRESSION: Mild CHF.
[2022-02-04 13:41] LABS: SARS-CoV-2 Antigen Rapid Res Negative (Negative)
[2022-02-04 13:59] LABS: Magnesium 1.8 mg/dL (1.8-2.4); Potassium 3.6 mmol/L (3.5-5.1); Troponin High Sensitivity 48.2 pg/mL (<58.9)
--- NOTE | 2022-02-04 14:49 | ER ---
Nurse's Notes [facility] Name: Indira Lovett Age: 71 yrs Sex: Female : 1950 Arrival Date: 02/04/2022 Time: 12:26 Bed 25 Private MD: Adriana Sherman Diagnosis: Persistent atrial fibrillation-with RVR;Unspecified combined systolic (congestive) and diastolic (congestive) heart failure-with acute exacerbation Presentation: 02/04 12:38 Chief complaint: Patient states: She saw PCP today for check up and was sent to ER for kb3 an erratic heart rate and high blood pressure. Pt had 5-vessel bypass at [facility] 1 month ago. Coronavirus screen: Vaccine status: Patient reports being unvaccinated. Client denies travel out of the [place] in the last 14 days. Ebola Screen: Patient negative for fever greater than or equal to 101.5 degrees Fahrenheit, and additional compatible Ebola Virus Disease symptoms Patient denies exposure to infectious person. Patient denies travel to an Ebola-affected area in the 21 days before illness onset. Initial Sepsis Screen: Does the patient meet any 2 criteria? No. Patient's initial sepsis screen is negative. Does the patient have a suspected source of infection? No. Patient's initial sepsis screen is negative. Risk Assessment: Do you want to hurt yourself or someone else? Patient reports no desire to harm self or others. Onset of symptoms was February 04, 2022 at 11:20. 12:38 Method Of Arrival: Ambulatory kb3 12:38 Acuity: DONNIE 2 kb3 Triage Assessment: 12:42 General: Appears in no apparent distress. Behavior is calm, cooperative. Pain: Denies kb3 pain. Historical: - Allergies: 12:42 No Known Allergies; kb3 - Home Meds: 12:42 albuterol sulfate 1.25 mg/3 mL Inhl nebu 3 mL 3 times per day [Active]; aspirin 81 mg kb3 Oral cap 1 cap once daily [Active]; atorvastatin 40 mg Oral tab 1 tab once daily [Active]; clopidogrel 75 mg Oral tab 1 tab once daily [Active]; metformin 500 mg Oral tab 1 tab 2 times per day [Active]; metoprolol tartrate 25 mg Oral tab 1 tab once daily [Active]; 12:44 amiodarone 200 mg Oral tab 1 tab 2 times per day [Active]; kb3 - PMHx: 12:42 Chronic obstructive lung disease; diabetes mellitus; Hypercholesterolemia; Hypertensive kb3 disorder; Atrial fibrillation; - PSHx: 12:42 open heart surgery; kb3 - Immunization history:: Adult Immunizations up to date, Client reports having NOT received the Covid vaccine. Last tetanus immunization: up to date. - Social history:: Smoking status: Patient denies any tobacco usage or history of. - Family history:: not pertinent. - Hospitalizations: : No recent hospitalization is reported. Screenin:10 Abuse screen: Denies threats or abuse. Nutritional screening: No deficits noted. em6 Tuberculosis screening: No symptoms or risk factors identified. Fall Risk IV access (20 points). Total Britt Fall Scale indicates No Risk (0-24 pts). Assessment: 13:10 General: Appears comfortable, Behavior is cooperative. Pain: Denies pain. Neuro: Level em6 of Consciousness is awake, alert, obeys commands, Oriented to person, place, time, situation. Cardiovascular: Denies chest pain, Heart tones present Patient's skin is warm and dry. Rhythm is sinus tachycardia. Respiratory: Airway is patent Respiratory effort is even, unlabored, Respiratory pattern is regular, symmetrical, Breath sounds are clear bilaterally. GI: Abdomen is non-distended, Bowel sounds present X 4 quads. Abd is soft and non tender X 4 quads. : No signs and/or symptoms were reported regarding the genitourinary system. EENT: No signs and/or symptoms were reported regarding the EENT system. Derm: No signs and/or symptoms reported regarding the dermatologic system. Musculoskeletal: Circulation, motion, and sensation intact. Range of motion: intact in all extremities. 14:10 Reassessment: Patient appears in no apparent distress at this time. No changes from em6 previously documented assessment. Patient and/or family updated on plan of care and expected duration. Pain level reassessed. Patient is alert, oriented x 3, equal unlabored respirations, skin warm/dry/pink. 15:10 Reassessment: Patient appears in no apparent distress at this time. No changes from em6 previously documented assessment. Patient and/or family updated on plan of care and expected duration. Pain level reassessed. Patient is alert, oriented x 3, equal unlabored respirations, skin warm/dry/pink. 16:10 Reassessment: Patient appears in no apparent distress at this time. No changes from em6 previously documented assessment. Patient and/or family updated on plan of care and expected duration. Pain level reassessed. Patient is alert, oriented x 3, equal unlabored respirations, skin warm/dry/pink. 16:22 Reassessment: gave nurse to nurse report to leana. em6 Vital Signs: 12:38 BP 185 / 93; Pulse 132; Resp 22; Temp 98.3; Pulse Ox 94% ; Weight 77.11 kg; Height 5 kb3 ft. 6 in. (167.64 cm); Pain 0/10; 13:07 BP 134 / 81; Pulse 123; Resp 20; Pulse Ox 95% on R/A; em6 14:20 BP 139 / 75; Pulse 129; Resp 19; Pulse Ox 96% on R/A; em6 14:50 BP 117 / 69; Pulse 125; Resp 20; Pulse Ox 94% on R/A; em6 16:00 BP 122 / 69; Pulse 118; Resp 20; Pulse Ox 94% on R/A; em6 12:38 Body Mass Index 27.44 (77.11 kg, 167.64 cm) kb3 14:20 provider notified of heart rate em6 ED Course: 12:26 Patient arrived in ED. mr 12:26 Adriana Sherman MD is Private Physician. mr 12:42 Triage completed. kb3 12:44 Arm band placed on right wrist. kb3 12:46 Mat Mohan MD is Attending Physician. rn 13:08 Esther Cruz RN is Primary Nurse. em6 13:10 Bed in low position. Call light in reach. Side rails up X 1. awake overnight monitor on. Pulse em6 ox on. NIBP on. Warm blanket given. 13:10 Inserted saline lock: 18 gauge in right forearm, using aseptic technique. Blood em6 collected. 13:25 Basic Metabolic Panel Sent. em6 13:25 CBC with Diff Sent. em6 13:25 Magnesium Sent. em6 13:25 NT PRO-BNP Sent. em6 13:25 PT-INR Sent. em6 13:25 Troponin HS Sent. em6 13:28 XRAY Chest (1 view) In Process Unspecified. EDMS 13:29 SARS RAPID Sent. em6 14:47 Pramod Ching MD is Hospitalizing Provider. rn 16:42 No provider procedures requiring assistance completed. Patient admitted, IV remains in em6 place. Administered Medications: 12:57 CANCELLED (Duplicate Order): Metoprolol TARTRATE 50 mg PO once rn 13:10 Drug: Metoprolol 25 mg Route: PO; em6 13:29 Follow up: Response: No adverse reaction em6 14:56 Drug: Metoprolol 25 mg Route: PO; em6 15:11 Follow up: Response: No adverse reaction em6 14:56 Drug: Lasix (furosemide) 40 mg Route: IVP; Site: right forearm; em6 15:11 Follow up: Response: No adverse reaction em6 Medication: 16:42 VIS not applicable for this client. em6 Outcome: 14:48 Decision to Hospitalize by Provider. rn 16:42 Admitted to Med/surg accompanied by tech, room 229. em6 16:42 Condition: stable 16:42 Instructed on the need for admit, Demonstrated understanding of instructions. 16:52 Patient left the ED. em6 Signatures: Dispatcher [employer] [facility] Jennifer Almazan Roman, MD MD rn Martinez, Erika, RN RN em6 Aspen Torres RN RN kb3 Corrections: (The following items were deleted from the chart) 12:45 12:42 Home Meds: amiodarone 200 mg Oral tab 1 tab once daily; kb3 kb3
--- NOTE | 2022-02-04 14:49 | EDPHYS ---
Physician Documentation [facility] Name: Indira Lovett Age: 71 yrs Sex: Female : 1950 Arrival Date: 02/04/2022 Time: 12:26 Bed 25 Private MD: Adriana hSerman ED Physician Mat Mohan HPI: 02/04 13:31 This 71 yrs old Female presents to ER via Ambulatory with complaints of High Blood rn Pressure, High heart rate. 13:31 The patient presents with a history of irregular heart beat, heart racing. Context: The rn symptoms occur at rest. Onset: The symptoms/episode began/occurred 1 week(s) ago. Duration: The patient or guardian reports multiple episodes, that are intermittent. Modifying factors: The symptoms are aggravated by nothing. The symptoms are alleviated by nothing. Severity of symptoms: At their worst the symptoms were mild in the emergency department the symptoms are unchanged. The patient has experienced similar episodes in the past. The patient has been recently seen by a physician:. Pt reports 1 week of intermittent palpitations, sob with exertion, seen by pcp today and sent here for both. No chest pain. No fever. Does not feel ill. Takes amiodarone for afib as well as plavix. . Historical: - Allergies: 12:42 No Known Allergies; kb3 - Home Meds: 12:42 albuterol sulfate 1.25 mg/3 mL Inhl nebu 3 mL 3 times per day [Active]; aspirin 81 mg kb3 Oral cap 1 cap once daily [Active]; atorvastatin 40 mg Oral tab 1 tab once daily [Active]; clopidogrel 75 mg Oral tab 1 tab once daily [Active]; metformin 500 mg Oral tab 1 tab 2 times per day [Active]; metoprolol tartrate 25 mg Oral tab 1 tab once daily [Active]; 12:44 amiodarone 200 mg Oral tab 1 tab 2 times per day [Active]; kb3 - PMHx: 12:42 Chronic obstructive lung disease; diabetes mellitus; Hypercholesterolemia; Hypertensive kb3 disorder; Atrial fibrillation; - PSHx: 12:42 open heart surgery; kb3 - Immunization history:: Adult Immunizations up to date, Client reports having NOT received the Covid vaccine. Last tetanus immunization: up to date. - Social history:: Smoking status: Patient denies any tobacco usage or history of. - Family history:: not pertinent. - Hospitalizations: : No recent hospitalization is reported. ROS: 13:31 Constitutional: Negative for fever, chills, and weight loss, Eyes: Negative for injury, rn pain, redness, and discharge, Neck: Negative for injury, pain, and swelling, Cardiovascular: Negative for chest pain, and edema, Respiratory: Negative for shortness of breath, cough, wheezing, and pleuritic chest pain, Abdomen/GI: Negative for abdominal pain, nausea, vomiting, diarrhea, and constipation, Back: Negative for injury and pain, MS/Extremity: Negative for injury and deformity, Skin: Negative for injury, rash, and discoloration, Neuro: Negative for headache, weakness, numbness, tingling, and seizure. Exam: 13:31 Constitutional: This is a well developed, well nourished patient who is awake, alert, rn and in no acute distress. Head/Face: Normocephalic, atraumatic. Eyes: Periorbital areas with no swelling, redness, or edema. Cardiovascular: Tachycardic, irregular Respiratory: Mild tachypnea Abdomen/GI: Soft, non-tender Skin: Warm, dry MS/ Extremity: Pulses equal, no cyanosis. Neuro: Awake and alert, GCS 15 Vital Signs: 12:38 BP 185 / 93; Pulse 132; Resp 22; Temp 98.3; Pulse Ox 94% ; Weight 77.11 kg; Height 5 kb3 ft. 6 in. (167.64 cm); Pain 0/10; 13:07 BP 134 / 81; Pulse 123; Resp 20; Pulse Ox 95% on R/A; em6 14:20 BP 139 / 75; Pulse 129; Resp 19; Pulse Ox 96% on R/A; em6 14:50 BP 117 / 69; Pulse 125; Resp 20; Pulse Ox 94% on R/A; em6 16:00 BP 122 / 69; Pulse 118; Resp 20; Pulse Ox 94% on R/A; em6 12:38 Body Mass Index 27.44 (77.11 kg, 167.64 cm) kb3 14:20 provider notified of heart rate em6 MDM: 12:46 Patient medically screened. rn 14:46 Differential diagnosis: arrythmia, dehydration, stress disorder, CHF exacerbation, afib rn with rvr. Data reviewed: vital signs, nurses notes, lab test result(s), EKG, radiologic studies, plain films. 14:46 Counseling: I had a detailed discussion with the patient and/or guardian regarding: the rn historical points, exam findings, and any diagnostic results supporting the discharge/admit diagnosis, lab results, radiology results, the need for further work-up and treatment in the hospital. Response to treatment: the patient's symptoms have mildly improved after treatment, and as a result, I will admit patient. Admission orders: after a detailed discussion of the patient's condition and case, the admit orders are written by me. ED course: ECG read acute HI, but I do not believe this to be true, not true ST elevation, no chest pain, and trop neg. . 02/04 12:47 Order name: Basic Metabolic Panel; Complete Time: 14:00 rn 02/04 12:47 Order name: CBC with Diff; Complete Time: 13:43 rn 02/04 12:47 Order name: Magnesium; Complete Time: 14:00 rn 02/04 12:47 Order name: NT PRO-BNP; Complete Time: 14:00 rn 02/04 12:47 Order name: PT-INR; Complete Time: 13:43 rn 02/04 12:47 Order name: Troponin HS; Complete Time: 14:00 rn 02/04 12:47 Order name: XRAY Chest (1 view); Complete Time: 13:43 rn 02/04 12:47 Order name: EKG; Complete Time: 12:48 rn 02/04 12:47 Order name: SARS RAPID; Complete Time: 13:43 rn 02/04 15:51 Order name: CBC with Automated Diff EDOR 02/04 12:47 Order name: Cardiac monitoring; Complete Time: 13:21 rn 02/04 12:47 Order name: EKG - Nurse/Tech; Complete Time: 13:21 rn 02/04 12:47 Order name: IV Saline Lock; Complete Time: 13:25 rn 02/04 12:47 Order name: Labs collected and sent; Complete Time: 13:25 rn 02/04 12:47 Order name: O2 Per Protocol; Complete Time: 13:25 rn 02/04 12:47 Order name: O2 Sat Monitoring; Complete Time: 13:25 rn 02/04 15:51 Order name: CONS Physician Consult EDOR 12/02 15:58 Order name: 75g Consistent Carbohydrate (ADA 2200) EDMS Administered Medications: 12:57 CANCELLED (Duplicate Order): Metoprolol TARTRATE 50 mg PO once rn 13:10 Drug: Metoprolol 25 mg Route: PO; em6 13:29 Follow up: Response: No adverse reaction em6 14:56 Drug: Metoprolol 25 mg Route: PO; em6 15:11 Follow up: Response: No adverse reaction em6 14:56 Drug: Lasix (furosemide) 40 mg Route: IVP; Site: right forearm; em6 15:11 Follow up: Response: No adverse reaction em6 Disposition Summary: 02/04/22 14:48 Hospitalization Ordered Hospitalization Status: Inpatient Admission rn Provider: Pramod Ching rn Location: Telemetry/MedSurg (Inpatient) rn Condition: Stable rn Problem: an acute exacerbation rn Symptoms: have improved rn Bed/Room Type: Standard rn Room Assignment: 229(02/04/22 16:06) dw Diagnosis - Persistent atrial fibrillation - with RVR rn - Unspecified combined systolic (congestive) and diastolic (congestive) heart failure rn - with acute exacerbation Forms: - Medication Reconciliation Form rn - SBAR form rn Signatures: Dispatcher [employer] EDMS Sarah Mathis RN RN dw Mat Mohan MD MD rn Martinez, Erika, RN RN em6 Aspen Torres RN RN kb3 Corrections: (The following items were deleted from the chart) 12:45 12:42 Home Meds: amiodarone 200 mg Oral tab 1 tab once daily; kb3 kb3 12:57 12:57 Metoprolol TARTRATE 50 mg PO once ordered. rn rn 15:58 15:51 Regular ordered. EDMS EDMS 16:06 14:48 rn dw
[2022-02-04] MEDS ORDERED: FUROSEMIDE 40 MG/4 ML VIAL ONE (14:54)
--- NOTE | 2022-02-04 15:55 | P.HP ---
Certification for Inpatient Patient admitted to: Observation With expected LOS: <2 Midnights Practitioner: I am a practitioner with admitting privileges, knowledge of patient current condition, hospital course, and medical plan of care. Services: Services provided to patient in accordance with Admission requirements found in Title 42 Section 412.3 of the Code of Federal Regulations Patient History Date of Service: 02/04/22 Reason for admission: Rapid Radha zheng History of Present Illness: Patient is 71 years of age recently underwent a CABG at [place] was doing well went to see her primary care doctor was found to be very tachycardic denies any palpitations or shortness of breath patient has underlying COPD was sent to the emergency room was diagnosed with new onset AIsael zheng does take amiodarone at home that was started a month ago after her bypass surgery denies any shortness of breath Allergies No Known Allergies Allergy (Verified 10/01/18 15:40) Home Medications: Aspirin [Adult Aspirin Regimen] 81 mg PO DAILY 12/22/21 Atorvastatin Calcium 20 mg PO BEDTIME 12/22/21 Lisinopril [Zestril] 20 mg PO DAILY 12/22/21 Metformin HCl 1 tab PO DAILY 12/22/21 Metoprolol Succinate [Toprol Xl*] 50 mg PO DAILY 12/22/21 NIFEdipine [Nifedipine ER] 1 tab PO DAILY 12/22/21 Amiodarone HCl [Cordarone*] 1 tab PO BID 01/18/22 Arformoterol Tartrate 1 vial NEB BID 01/18/22 Clopidogrel Bisulfate [Plavix] 1 tab PO DAILY 01/18/22 Docusate Sodium 1 tab PO DAILY 01/18/22 Famotidine [Pepcid AC] 1 tab PO BID 01/18/22 Ferrous Sulfate 1 tab PO DAILY 01/18/22 Furosemide [Lasix] 40 mg PO BIDL #37 tab 01/18/22 Ipratropium [place] 1 inh Q4H 01/18/22 predniSONE [Deltasone] 40 mg PO DAILY #10 tab 01/18/22 - Past Medical/Surgical History Diabetic: Yes -: Hypertension -: Pre-Diabetes -: COPD -: Hyperlipidemia -: Coronary artery disease -: Bilateral hip replacement -: Appendectomy -: CABG Psychosocial/ Personal History: Patient lives at home alone. She has children. - Family History Mother -: Heart disease, Hypertension, Cancer Father -: Heart disease, Hypertension - Social History Alcohol use: No CD- Drugs: No Caffeine use: Yes Review of Systems 10-point ROS is otherwise unremarkable Physical Examination - Vital Signs Temperature: 98.3 F Blood Pressure: 185/93 Pulse: 132 Respirations: 22 Pulse Ox (%): 94 - Physical Exam General: Alert, In no apparent distress, Oriented x3 Neck: Supple Respiratory: Clear to auscultation bilaterally, Diminished Cardiovascular: No edema, Normal pulses, Irregular heart rate/rhythm Gastrointestinal: Normal bowel sounds - Studies Laboratory Data (last 24 hrs) 02/04/22 13:19: Sodium 141, Potassium 3.6, BUN 24 H, Creatinine 1.06, Glucose 106, Magnesium 1.8 02/04/22 13:15: PT 11.2, INR 1.02 02/04/22 13:15: WBC 7.30, Hgb 10.0 L, Hct 30.0 L, Plt Count 312 Assessment and Plan - Problems (Diagnosis) (1) Atrial fibrillation Current Visit: Yes Status: Acute Plan: Patient is 71 years of age admitted with new onset A. fib she had a coronary artery bypass grafting a month ago including the was taking amiodarone and a beta-giovanni at home currently asymptomatic labs reviewed unremarkable chest x- ray shows COPD changes former heavy smoker mildly anemic BNP is elevated patient was given Lasix and metoprolol Qualifiers: Atrial fibrillation type: unspecified Qualified Code(s): I48.91 - Unspecified atrial fibrillation - Advance Directives Does patient have a Living Will: No Does patient have a Durable POA for Healthcare: No
[2022-02-04 17:13] VITALS: BMI 27.4
[2022-02-04] MEDS: METOPROLOL TAR 25 MG TAB PO SCH (17:31)
[2022-02-04] MEDS: METFORMIN HCL 500 MG TAB PO SCH (17:32)
[2022-02-04] MEDS: APIXABAN 5 MG TABLET PO SCH (20:46)
[2022-02-04] MEDS: AMIODARONE HCL 200 MG TAB PO SCH (20:46)
[2022-02-04] MEDS ORDERED: INFLUENZA VACCINE (for 6+ mo) 0.5 ML DOSE IMVAC ONE (21:00)
[2022-02-04] MEDS ORDERED: PNEUMOCOCCAL VACCINE 0.5 ML IMVAC ONE (21:00)
[2022-02-05 04:18] VITALS: O2SAT 96
[2022-02-05] MEDS: METOPROLOL TAR 25 MG TAB PO SCH ×2 (05:42→17:31)
[2022-02-05 05:53] LABS: Absolute Lymphocytes (CBC) 1.1 K/uL (0.7-4.9); Hematocrit 30.5 % (36.0-45.0); Lymphocytes % 15.6 % (15.3-44.8); MCV 90.9 fL (80-100); MPV 7.2 fL (7.6-11.3); RBC Red Blood Cell Count 3.36 M/uL (3.86-4.86)
[2022-02-05] MEDS: APIXABAN 5 MG TABLET PO SCH ×2 (09:52→21:09)
[2022-02-05] MEDS: METFORMIN HCL 500 MG TAB PO SCH ×2 (09:52→17:31)
[2022-02-05] MEDS: AMIODARONE HCL 200 MG TAB PO SCH ×2 (09:52→21:09)
[2022-02-05] MEDS ORDERED: AMIODARONE HCL 200 MG TAB PO ONE (14:59)
[2022-02-05] MEDS ORDERED: ACETAMINOPHEN 325 MG TABLET PO PRN (21:14)
[2022-02-06] MEDS: METOPROLOL TAR 25 MG TAB PO SCH ×2 (06:28→17:03)
[2022-02-06] MEDS: METFORMIN HCL 500 MG TAB PO SCH ×2 (08:08→17:03)
[2022-02-06] MEDS: APIXABAN 5 MG TABLET PO SCH ×2 (08:08→20:24)
[2022-02-06] MEDS: AMIODARONE HCL 200 MG TAB PO SCH ×2 (08:08→20:24)
[2022-02-06] MEDS ORDERED: AMIODARONE HCL 200 MG TAB PO ONE (09:10)
[2022-02-06] MEDS ORDERED: METOPROLOL TARTRATE 5 MG/5 ML INJ IV ONE ×2 (12:20→12:25)
[2022-02-07] MEDS: METOPROLOL TAR 25 MG TAB PO SCH (05:14)
[2022-02-07] MEDS: APIXABAN 5 MG TABLET PO SCH (09:53)
[2022-02-07] MEDS: AMIODARONE HCL 200 MG TAB PO SCH (09:54)
[2022-02-07] MEDS: METFORMIN HCL 500 MG TAB PO SCH (09:54)
--- NOTE | 2022-02-07 12:37 | RAD REPORT ---
EXAM DESCRIPTION: [place] Single View02/07/2022 12:10 pm CLINICAL HISTORY: sob COMPARISON: February 04, 2022 FINDINGS: The pulmonary opacities have mostly resolved. The heart is mildly enlarged. Postsurgical changes involve chest IMPRESSION: Mild CHF has mostly resolved
--- NOTE | 2022-02-07 12:50 | P.PN ---
Subjective Date of Service: 02/05/22 Subjective: No new changes, No C/O voiced HR is still elevated. Increasing amiodarone. Patient is clinically stable. Review of Systems 10-point ROS is otherwise unremarkable Physical Examination - Vital Signs Temperature: 98.0 F Blood Pressure: 130/72 Pulse: 110 Respirations: 16 Pulse Ox (%): 97 - Physical Exam General: Alert, In no apparent distress, Oriented x3 Respiratory: Clear to auscultation bilaterally, Normal air movement Cardiovascular: Irregular heart rate/rhythm Gastrointestinal: Normal bowel sounds, Soft and benign, Non-distended, No tenderness, No rebound, No guarding Musculoskeletal: No clubbing, No swelling, No tenderness Neurological: Sensation intact, Cranial nerves 3-12 intact - Studies Medications List Reviewed: Yes Assessment & Plan - Problems (Diagnosis) (1) Atrial fibrillation with rapid ventricular response Current Visit: Yes Status: Acute (2) Acute on chronic diastolic heart failure Current Visit: No Status: Acute (3) COPD exacerbation Current Visit: No Status: Acute (4) NSTEMI (non-ST elevated myocardial infarction) Current Visit: No Status: Acute (5) Hypertension Current Visit: No Status: Chronic Qualifiers: Hypertension type: primary hypertension Qualified Code(s): I10 - Essential (primary) hypertension (6) Type 2 diabetes mellitus Current Visit: No Status: Chronic Qualifiers: Diabetes mellitus retirement insulin use: without retirement use Diabetes mellitus complication status: with hyperglycemia Qualified Code(s): E11.65 - Type 2 diabetes mellitus with hyperglycemia - Plan Plan: 1. Continue with amiodarone. Increase dosing to 400 twice daily per cardiology 2. Continue with Lopressor 3. Anticoagulation 4. Will discharge home in a.m. Discharge Plan: Home Plan to discharge in: 24 Hours - Advance Directives Does patient have a Living Will: No Does patient have a Durable POA for Healthcare: No - Code Status/Comfort Care Code Status Assessed: Yes Code Status: Full Code Critical Care: No Time Spent Managing PTS Care (In Minutes): 35
[2022-02-07 12:51] VITALS: BP 130/72; TEMP 98
--- NOTE | 2022-02-07 12:55 | P.PN ---
Date of Service: 02/06/22 Subjective Patient continues to improve. Patient denies any new complaints. She is wanting to go home but because she is a little tachypneic I will hold her discharge and try to get her heart rate down a little more. Review of Systems 10-point ROS is otherwise unremarkable Physical Examination - Vital Signs Reviewed - Physical Exam General: Alert, In no apparent distress, Oriented x3 Respiratory: Clear to auscultation bilaterally, Normal air movement Cardiovascular: Irregular heart rate/rhythm Gastrointestinal: Normal bowel sounds, Soft and benign, Non-distended, No tenderness, No rebound, No guarding Musculoskeletal: No clubbing, No swelling, No tenderness Assessment & Plan - Problems (Diagnosis) (1) Atrial fibrillation with rapid ventricular response Current Visit: Yes Status: Acute (2) Acute on chronic diastolic heart failure Current Visit: No Status: Acute (3) COPD exacerbation Current Visit: No Status: Acute (4) NSTEMI (non-ST elevated myocardial infarction) Current Visit: No Status: Acute (5) Hypertension Current Visit: No Status: Chronic Qualifiers: Hypertension type: primary hypertension Qualified Code(s): I10 - Essential (primary) hypertension (6) Type 2 diabetes mellitus Current Visit: No Status: Chronic Qualifiers: Diabetes mellitus 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 Continue with amiodarone. Increase dosing to 400 twice daily per cardiology 2. Continue with Lopressor 3. Anticoagulation 4. Will discharge over the next 24 to 48 hours
--- NOTE | 2022-02-07 12:56 | P.DS ---
Discharge Date: 02/07/22 Disposition: ROUTINE DISCHARGE Discharge Condition: GOOD Reason for Admission: Rapid A. fib - Problems (1) Atrial fibrillation with rapid ventricular response Current Visit: Yes Status: Acute (2) Acute on chronic diastolic heart failure Current Visit: No Status: Acute (3) COPD exacerbation Current Visit: No Status: Acute (4) NSTEMI (non-ST elevated myocardial infarction) Current Visit: No Status: Acute (5) Hypertension Current Visit: No Status: Chronic Qualifiers: Hypertension type: primary hypertension Qualified Code(s): I10 - Essential (primary) hypertension (6) Type 2 diabetes mellitus Current Visit: No Status: Chronic Qualifiers: Diabetes mellitus longterm insulin use: without longterm use Diabetes mellitus complication status: with hyperglycemia Qualified Code(s): E11.65 - Type 2 diabetes mellitus with hyperglycemia Brief History of Present Illness: Patient is 71 years of age recently underwent a CABG at [place] was doing well went to see her primary care doctor was found to be very tachycardic denies any palpitations or shortness of breath patient has underlying COPD was sent to the emergency room was diagnosed with new onset AIsael zheng does take amiodarone at home that was started a month ago after her bypass surgery denies any shortness of breath Hospital Course: Patient has done well during hospitalization. Her heart rate is stayed elevated but she is on increased dose of amiodarone per cardiology recommendation. She does appear little bit tachypneic to me so I did a chest x-ray today. It shows resolution of her congestive heart failure symptoms. Hopefully, her blood pressure continues to improve with control of her heart rate. Her respiratory symptoms should also improve with control of her heart rate. Have spoken with cardiology and they are agreeable for discharge at this time. They will follow- up with her over the next week. Vital Signs/Physical Exam: Temp Pulse Resp BP Pulse Ox 98.0 F 110 H 16 130/72 97 02/07/22 12:53 02/07/22 12:53 02/07/22 12:53 02/07/22 12:53 02/07/22 12:53 General: Alert, In no apparent distress, Oriented x3 Laboratory Data at Discharge: WBC 7.10 K/uL (4.3-10.9) 02/05/22 05:25 Hgb 10.0 g/dL (12.0-15.0) L 02/05/22 05:25 Hct 30.5 % (36.0-45.0) L 02/05/22 05:25 Plt Count 325 K/uL (152-406) 02/05/22 05:25 PT 11.2 SECONDS (9.5-12.5) 02/04/22 13:15 INR 1.02 02/04/22 13:15 Sodium 141 mmol/L (136-145) 02/04/22 13:19 Potassium 3.6 mmol/L (3.5-5.1) 02/04/22 13:19 BUN 24 mg/dL (7-18) H 02/04/22 13:19 Creatinine 1.06 mg/dL (0.55-1.3) 02/04/22 13:19 Glucose 106 mg/dL (74-106) 02/04/22 13:19 Magnesium 1.8 mg/dL (1.8-2.4) 02/04/22 13:19 Home Medications: Aspirin [Adult Aspirin Regimen] 81 mg PO DAILY 12/22/21 Atorvastatin Calcium 20 mg PO BEDTIME 12/22/21 Metformin HCl 1 tab PO BID 12/22/21 Clopidogrel Bisulfate [Plavix] 1 tab PO DAILY 01/18/22 Furosemide [Lasix*] 40 mg PO BIDL #37 tab 01/18/22 Amiodarone HCl [Cordarone*] 400 mg PO BID #60 tab 02/07/22 Apixaban [Eliquis] 5 mg PO BID #60 tab 02/07/22 Metoprolol Tartrate [Lopressor*] 25 mg PO BID 6AM 6PM #60 tab 02/07/22 New Medications: Amiodarone HCl [Cordarone*] 400 mg PO BID #60 tab Apixaban [Eliquis] 5 mg PO BID #60 tab Metoprolol Tartrate [Lopressor*] 25 mg PO BID 6AM 6PM #60 tab Physician Discharge Instructions: -DC IV and DC home -Follow-up with PCP in 1 to 2 weeks -Follow-up with Cardiology in 1 to 2 weeks -Please call Dr. Augustin at [phone] if any questions regarding hospital stay -Please call nursing station at [phone] if any nursing or medication questions -Return to the emergency room if symptoms worsen Diet: AHA Activity: Fall precautions Followup: Sherman,Na Ly, DO [Primary Care Provider] - 1-2 Weeks Time spent managing pt's care (in minutes): 35
[2022-02-07] MEDS ORDERED: FUROSEMIDE 20 MG/ 2ML VIAL IV ONE (12:58)
[2022-02-07] MEDS ORDERED: FUROSEMIDE 40 MG TABLET PO ONE (12:59)
[2022-02-07] MEDS ORDERED: FUROSEMIDE 20 MG TABLET ONE (13:10)
[2022-02-07] MEDS ORDERED: FUROSEMIDE 40 MG TABLET ONE (13:21)
--- NOTE | 2022-02-07 13:55 | EKG ---
Test Date: 2022-02-04 Test Time: 13:06:22 Linux Engineer: TRUDY MEASUREMENT RESULTS: Intervals: Rate: 132 ID: [id number] QRSD: 110 QT: 392 QTc: 580 [place]: P: 92 ID: [id number] QRS: -31 T: 97 INTERPRETIVE STATEMENTS: Sinus tachycardia Left axis deviation Pulmonary disease pattern Incomplete right bundle branch block Consider right ventricular involvement in acute inferior infarct Abnormal ECG Compared to ECG 01/17/2022 13:09:46 Incomplete right bundle-branch block now present Sinus rhythm no longer present Ventricular premature complex(es) no longer present Possible ischemia no longer present ST (T wave) deviation still present Electronically Signed On 02-07-22 13:52:59 LOSS PREVENTION COORDINATOR by Archie Hinojosa
--- NOTE | 2022-02-07 13:55 | EKG ---
Test Date: 2022-02-04 Test Time: 13:07:21 Conditioning Machine Operator: TRUDY MEASUREMENT RESULTS: Intervals: Rate: 132 AR: QRSD: 102 QT: 388 QTc: 574 [place]: P: AR: QRS: -43 T: 106 INTERPRETIVE STATEMENTS: Atrial flutter with 2:1 AV conduction Left axis deviation Incomplete right bundle branch block Consider right ventricular involvement in acute inferior infarct Abnormal ECG Compared to ECG 02/04/2022 13:06:22 Sinus tachycardia no longer present ST (T wave) deviation still present Myocardial infarct finding still present Myocardial infarct finding still present Electronically Signed On 02-07-22 13:52:35 PRODUCT SAFETY ENGINEER by Archie Hinojosa
--- NOTE | 2022-02-07 13:56 | EKG ---
Test Date: 2022-02-04 Test Time: 13:02:32 Screening Unit Registered Nurse: TRUDY MEASUREMENT RESULTS: Intervals: Rate: 132 MT: 144 QRSD: 110 QT: 394 QTc: 583 [place]: P: 87 MT: 144 QRS: -21 T: 106 INTERPRETIVE STATEMENTS: Sinus tachycardia Incomplete right bundle branch block Consider right ventricular involvement in acute inferior infarct Abnormal ECG Compared to ECG 01/17/2022 13:09:46 Incomplete right bundle-branch block now present Sinus rhythm no longer present Ventricular premature complex(es) no longer present Left-axis deviation no longer present Possible ischemia no longer present ST (T wave) deviation still present Electronically Signed On 02-07-22 13:53:14 MEDICAL BILLING MANAGER by Archie Hinojosa
--- NOTE | 2022-02-07 20:27 | PN ---
Date of Progress Note: 02/07/2022 Ms. Lovett came in with COPD exacerbation. Has a history of diabetes, hypertension, dyslipidemia, at rial fibrillation. She remains in atrial fibrillation on amiodarone 200 b.i.d. and Eliquis as well a s metoprolol. Heart rate is about 100. Echocardiogram showed an ejection fraction of 45% with anter ior hypokinesis and mild mitral regurgitation. I am comfortable with her medical regimen right now. I think she can go home whenever it is okay with Dr. Augustin. We will plan to do a Lexiscan on her as an outpatient. She stays in atrial fibrillation. We will consider cardioversion, may even require a heart catheterization down the road if her stress test is abnormal. We will sign off her case for rikki gutierrez. QUINTEN/BRUCE Voice ID: [id number] Report ID: [id number]
--- NOTE | 2022-02-07 21:57 | CON ---
Date of Consultation: 02/06/2022 Reason For Consultation: Atrial fibrillation. History Of Present Illness: Ms. Lovett is 71. She has history of COPD, hypertension, diabetes, dysl ipidemia, and chronic atrial fibrillation. She takes amiodarone and Eliquis for that. She came in w ith COPD exacerbation. She had a known ejection fraction of 45% in 2020. She takes amiodarone 200 b .i.d., Eliquis, metformin, metoprolol, aspirin, Lasix, Lipitor, and Plavix. She was noted to have a heart rate of 118. Complained of palpitations and shortness of breath. No chest pain. No syncope. No fever or chills. Past Medical History: As stated above. Allergies: NONE. Review of Systems: Negative. Social History: Negative. Family History: Negative. Medications: Include amiodarone, aspirin, Eliquis, Lipitor, Plavix, Lasix, and metformin. Physical Examination: Vital Signs: She was in atrial fibrillation with rate of 118. HEENT: Negative. Neck: Supple with no bruit. Chest: Clear. Cardiac: Atrial fibrillation. Abdomen: Benign. Extremities: No clubbing, cyanosis, or edema. Diagnostic Data: As stated earlier. Impression And Plan: Atrial fibrillation, wall motion abnormalities, and low ejection fraction. She may benefit from a cardioversion. I would increase her amiodarone to 400 b.i.d. Continue Eliquis an d her other medications. I will discuss the case further with Dr. Augustin. She has elevated troponin p resent, probably secondary to demand ischemia and from chronic systolic congestive heart failure and atrial fibrillation and chronic obstructive pulmonary disease. She will need a Lexiscan eventually. Her other problems including diabetes, hypertension, chronic obstructive pulmonary disease, and dysl ipidemia; all those problems are stable. Again increase amiodarone to 400 b.i.d. Consider cardiover yazmin. Consider Lexiscan as an outpatient. We will continue to follow. QUINTEN/BRUCE Voice ID: [id number] Report ID: [id number]
--- NOTE | 2022-02-14 14:22 | P.DS ---
Discharge Date: 02/07/22 Disposition: DC HOME/HOME HEALTH CARE Discharge Condition: GOOD Reason for Admission: Rapid A. fib - Problems (1) Atrial fibrillation with rapid ventricular response Status: Acute (2) Acute on chronic diastolic heart failure Status: Acute (3) COPD exacerbation Status: Acute (4) NSTEMI (non-ST elevated myocardial infarction) Status: Acute (5) Hypertension Status: Chronic Qualifiers: Hypertension type: primary hypertension Qualified Code(s): I10 - Essential (primary) hypertension (6) Type 2 diabetes mellitus Status: Chronic Qualifiers: Diabetes mellitus usp insulin use: without assistant professor of dietetics use Diabetes mellitus complication status: with hyperglycemia Qualified Code(s): E11.65 - Type 2 diabetes mellitus with hyperglycemia Brief History of Present Illness: Patient is 71 years of age recently underwent a CABG at [place] was doing well went to see her primary care doctor was found to be very tachycardic denies any palpitations or shortness of breath patient has underlying COPD was sent to the emergency room was diagnosed with new onset A. norm does take amiodarone at home that was started a month ago after her bypass surgery denies any shortness of breath Hospital Course: Patient has done well during hospitalization. Her heart rate is stayed elevated but she is on increased dose of amiodarone per cardiology recommendation. She does appear little bit tachypneic to me so I did a chest x-ray today. It shows resolution of her congestive heart failure symptoms. Hopefully, her blood pressure continues to improve with control of her heart rate. Her respiratory symptoms should also improve with control of her heart rate. Have spoken with cardiology and they are agreeable for discharge at this time. They will follow- up with her over the next week. Vital Signs/Physical Exam: Temp Pulse Resp BP Pulse Ox 98.0 F 110 H 16 130/72 97 02/07/22 12:53 02/07/22 12:53 02/07/22 12:53 02/07/22 12:53 02/07/22 12:53 General: Alert, In no apparent distress, Oriented x3 Laboratory Data at Discharge: WBC 7.10 K/uL (4.3-10.9) 02/05/22 05:25 Hgb 10.0 g/dL (12.0-15.0) L 02/05/22 05:25 Hct 30.5 % (36.0-45.0) L 02/05/22 05:25 Plt Count 325 K/uL (152-406) 02/05/22 05:25 PT 11.2 SECONDS (9.5-12.5) 02/04/22 13:15 INR 1.02 02/04/22 13:15 Sodium 141 mmol/L (136-145) 02/04/22 13:19 Potassium 3.6 mmol/L (3.5-5.1) 02/04/22 13:19 BUN 24 mg/dL (7-18) H 02/04/22 13:19 Creatinine 1.06 mg/dL (0.55-1.3) 02/04/22 13:19 Glucose 106 mg/dL (74-106) 02/04/22 13:19 Magnesium 1.8 mg/dL (1.8-2.4) 02/04/22 13:19 Home Medications: Aspirin [Adult Aspirin Regimen] 81 mg PO DAILY 12/22/21 Atorvastatin Calcium 20 mg PO BEDTIME 12/22/21 Metformin HCl 1 tab PO BID 12/22/21 Clopidogrel Bisulfate [Plavix] 1 tab PO DAILY 01/18/22 Furosemide [Lasix*] 40 mg PO BIDL #37 tab 01/18/22 Amiodarone HCl [Cordarone*] 400 mg PO BID #60 tab 02/07/22 Apixaban [Eliquis] 5 mg PO BID #60 tab 02/07/22 Metoprolol Tartrate [Lopressor*] 25 mg PO BID 6AM 6PM #60 tab 02/07/22 New Medications: Amiodarone HCl [Cordarone*] 400 mg PO BID #60 tab Apixaban [Eliquis] 5 mg PO BID #60 tab Metoprolol Tartrate [Lopressor*] 25 mg PO BID 6AM 6PM #60 tab Physician Discharge Instructions: -DC IV and DC home -Follow-up with PCP in 1 to 2 weeks -Follow-up with Cardiology in 1 to 2 weeks -Please call Dr. Augustin at [phone] if any questions regarding hospital stay -Please call nursing station at [phone] if any nursing or medication questions -Return to the emergency room if symptoms worsen Diet: AHA Activity: Fall precautions Followup: Adriana Sherman, DO [Primary Care Provider] - 1-2 Weeks Time spent managing pt's care (in minutes): 35
== END 2022-02-07 13:43 | disposition home health service (06) | DRG 308 ==
LOC: ER 12:23 → ERHOLD 15:47 → 2ND 16:30
PROVIDERS: ADMIT Internal Medicine Sleep Medicine; ATTEND Hospitalist
DX: I48.91 Unspecified atrial fibrillation (principal); I50.23 Acute on chronic systolic (congestive) heart failure; I24.8 Other forms of acute ischemic heart disease; I11.0 Hypertensive heart disease with heart failure; I25.10 Atherosclerotic heart disease of native coronary artery without angina pectoris; J44.9 Chronic obstructive pulmonary disease, unspecified; R06.82 Tachypnea, not elsewhere classified; E11.65 Type 2 diabetes mellitus with hyperglycemia; E78.5 Hyperlipidemia, unspecified; D64.9 Anemia, unspecified; I34.0 Nonrheumatic mitral (valve) insufficiency; R77.8 Other specified abnormalities of plasma proteins; Z95.1 Presence of aortocoronary bypass graft; Z87.891 Personal history of nicotine dependence; Z79.82 Long term (current) use of aspirin; Z79.84 Long term (current) use of oral hypoglycemic drugs; Z79.01 Long term (current) use of anticoagulants; Z79.52 Long term (current) use of systemic steroids; Z79.02 Long term (current) use of antithrombotics/antiplatelets; Z79.899 Other long term (current) drug therapy; Z28.310 Unvaccinated for COVID-19; Z20.822 Contact with and (suspected) exposure to COVID-19; Z96.643 Presence of artificial hip joint, bilateral; Z82.49 Family history of ischemic heart disease and other diseases of the circulatory system; Z80.9 Family history of malignant neoplasm, unspecified
CPT/HCPCS: 36415; 71045; 80048; 82947; 83735; 83880; 84484; 85025; 85610; 87811; 93005; 96374; 99285; J1940